=== PATIENT | female | born 1945 | race Caucasian/White ===

== ENCOUNTER 2023-04-17 07:01 | Day surgery (SDC) | payer MEDICARE, OTHER, SELFPAY ==
[2023-04-17] VITALS (16 sets, daily range): BP systolic 91–149; BP diastolic 48–84; BMI 37.7
[2023-04-17] MEDS: SODIUM BICARBONATE 1150 MEQ IV ×2 (08:00→11:23)
[2023-04-17 08:01] LABS: Glucose - Point of Care 134 mg/dl (70-99)
--- NOTE | 2023-04-17 10:35 | ITS.CL.CATH ---
Underwriting Assistant - Catheterization
Cardiac Catheterization
Procedure Report:
LEFT HEART CATHETERIZATION
Date of Procedure: April 17, 2023
Referring: Dr. Luther Mercedes
PROCEDURES:
1. Coronary angiography
INDICATION: This is a 77-year-old female with a remote history of peripheral vascular disease and left to right femoral-femoral bypass and left iliac stent in July 1998. She has a history of CKD 3B and follows with Dr. Mckeon and has a history of
contrast associated nephropathy. Her cardiac followup in the past has been spotty. She had an echocardiogram in 07/2021 notable for a mean AV gradient of 21 mmHg, an echocardiogram 08/2022 with a mean AV gradient of 40 mmHg and an echocardiogram on
02/05/2023 notable for a mean AV gradient of 54 mmHg with Pvel of 4.27 m/sec. She has mitral annular calcification with an associated mean gradient of 5 mmhg. She had previously denied any symptoms but now reports the onset of exertional dyspnea
especially when climbing stairs. OF NOTE: Patient very very very anxious during diagnostic procedure
ACCESS: Right radial artery, 6 Fr. sheath. I COULD NOT CROSS INNOMINATE WITH 6FR, 5 FR, OR 4 FR CATHETER. Arterial access was then changed to the left radial artery, 6 Fr. sheath.
HEMODYNAMICS : (mmHg)
AO (s/d) : 101/51
CORONARY FINDINGS
DOMINANCE: Right
LEFT MAIN: Normal
LEFT ANTERIOR DESCENDING: The LAD arises normally from the left main and runs in the anterior interventricular groove. The LAD appears free of significant obstructive atherosclerotic disease
CIRCUMFLEX: The circumflex is a medium caliber nondominant vessel. OM1 arises proximally from the circumflex and has a 50% proximal stenosis. The circumflex then gives rise to a moderate-sized bifurcating OM 2 and terminates in a small distal OM 3
RIGHT CORONARY ARTERY: 100% occluded at its origin with well-developed [id number] collaterals filling the entire RCA back to its origin
VENTRICULOGRAPHY: Not done
RADIATION SUMMARY: Fluoro Time (min): 8.2, Dose (mGy): 524.5, DAP (Gy.cm2) : 43.6
Closure Device: TR band, right and left radial artery
CONCLUSIONS
1. 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
2. Known severe aortic stenosis
RECOMMENDATIONS
1. Continue IV hydration post procedure with outpatient renal profile in 3 to 5 days
2. Will discuss at upcoming valve clinic meeting
Copy to: Dr. Luther Mercedes, Dr. Garry Mckeon, Dr. Feliberto Muñiz
--- NOTE | 2023-04-17 13:44 | CONSULT.STRU ---
Addendum entered and electronically signed by LYNN Boucher 05/25/23 09:47:
Patient reviewed by the heart team at the SDM meeting. Patient with occluded right iliac artery and occluded fem-fem bypass. Patient has left iliac artery stent but size appears adequate for the TAVR sheath. Team decided cornel attempt transfemoral
access for TAVR but if any resistance may need to abort procedure and then discuss surgical options. Dr. Mercedes to discuss case with our Vascular surgeons to have on back up for any vascular complications that could occur. If able to successfully
advance sheath the plan will be to place a 23mm S3 valve via left TF access and left radial access for the pigtail catheter. Will review this discussion with the patient and schedule.
Addendum entered and electronically signed by LYNN Garcia 04/20/23 14:28:
Reviewed Ms. Catrer with the heart team in the SDM meeting. The team reviewed previous CT scans and recent cardiac catheterization. D/t patient's history of PVD, the calcium burden noted on CT scan limiting access for TAVR, and CKD, the team is
recommending surgery. Patient has a CT surgical consult with Dr. Mcnally on 04/24.
Original Note:
Consultation
-
Date/Time Consultation Requested: 04/17/2023 1100
Date/Time Consultation Performed: 04/17/2023 1200
Requesting Provider: Dr. Mercedes
Performing Provider: LYNN Boucher
Reason for Consultation: Aortic Stenosis/TAVR consult
Patient History
Physicians
Family Physician: Tio Vyas
Outpatient Hammer Runner: Luther Mercedes
Primary Hammer Runner: Luther Mercedes
History of Present Illness
Patient is a 77 y/o female with a past medical history notable for aortic stenosis, PVD s/p L-R fem-fem bypass and left iliac stent 07/1998. She has known CKD 3b, hypertension, hyperlipidemia and DM. She had sporadic followup at times in the past.
She was found to have on her echocardiogram. Her AV gradients have progressed rapidly on the last several noninvasive studies. Most recent echocardiogram is notable for PG/M/54, BAYRON 0.5-06, EF 60-65%, trace AI, dense MAC, mild mitral
stenosis, mild to moderate MR. She states she has palpitations/heart racing and LIM when going up a flight of stairs. She denies chest pain, PND, orthopnea. 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 She follows with
[facility] for chronic cough and Dr. Cole for her CKD. She has not followed up with vascular surgery. She does not currently have a dentist but was told she will need dental clearance prior to proceeding with treatment of her aortic stenosis.
Pathophysiology of aortic stenosis reviewed with the patient. Treatment options of both TAVR and SAVR reviewed. TAVR evaluation process including follow up BMP, CT scan split with IV hydration, CT surgery consult,Dental Clearance and heart team
discussion reviewed with patient. Discussed that the heart team will review all history and studies and then recommend best treatment plan based on that. Copy of TAVR education booklet provided with contact information. Allowed for and answered
questions.
Past Medical History
Past Medical History: COPD (mild), LIM, HTN, Hypercholesterolemia, NIDDM, SHANTHI (refuses CPAP), Renal Insufficiency (CKD Stage 3B), Valvular Disease (Aortic stenosis, Mitral stenosis, MR) and Other (Peripheral Vascular disease, Iron deficiency,
Anemia, h/o colitis, arthritis, chronic back pain)
Past Surgical History
Past Surgical History: Appendectomy, Hysterectomy and Other (Ventral hernia repair, carpel tunnel surgery, cataract surgery, left to right fem-fem bypass with L-BERNY stenting, back injections)
Dental History
Has not seen a dentist in years. Aware she will need to see a dentis prior to TAVR. Will call with contact once she knows who she will se.
Family History
Mother: Cause of (68yo, Melanoma)
Father: at Age (70yo, [place])
Social History
Alcohol: None
Drug: None
Tobacco: Former Smoker (Quit 2003)
Personal:
Living: With Spouse
Employment: Employed ([place] items at [employer] and on [employer])
Allergies
Allergy/AdvReac Type Severity Reaction Status Date / Time
No Known Allergies Allergy Unverified 07/24/21 09:09
Home Medications
Medication Instructions Recorded Confirmed Type
cholecalciferol (vitamin D3) 25 2,000 units PO DAILY Supplement 04/09/16 04/17/23 History
mcg (1,000 unit) tablet
sitagliptin phosphate 100 mg 100 mg PO DAILY Diabetes 04/09/16 04/17/23 History
tablet (Januvia)
hydrochlorothiazide 25 mg tablet 12.5 mg PO DAILY Fluid 08/07/19 04/17/23 History
retention/Swelling
amlodipine 5 mg tablet 5 mg PO DAILY 07/26/21 04/17/23 Rx
pyridoxine (vitamin B6) 50 mg 250 mg PO DAILY Supplement 07/26/21 04/17/23 History
tablet
acetaminophen 325 mg tablet 650 mg PO Q6H PRN Pain 04/17/23 04/17/23 History
(Tylenol)
aspirin 81 mg tablet,delayed 81 mg PO DAILY #1 tab 04/17/23 Rx
release
atorvastatin 20 mg tablet 40 mg PO DAILY 04/17/23 04/17/23 History
ferrous sulfate 325 mg (65 mg 325 mg PO DAILY 04/17/23 04/17/23 History
iron) tablet
montelukast 10 mg tablet 10 mg PO DAILY 04/17/23 04/17/23 History
STS%
STS %: 6.12% AVR, 6.65% AVR/CABG
Review of Systems
-
History Source: Patient
General: Reports No Symptoms
HEENT: Reports No Symptoms
Respiratory: Reports LIM (going up stairs) and Cough (chronic, dry, non-productive- follows with Dr. Covington)
Cardiac: Reports Palpitations (when going up stairs and she becomes SOB)
Abdomen/GI: Reports No Symptoms
: Reports No Symptoms
Musculoskeletal: Reports Joint Pain (arthritis, right ankle)
Skin: Reports No Symptoms
Neurological: Reports No Symptoms
Vascular: Reports PVD (h/o fem-fem bypass with L-BERNY stent)
Physical Exam
Vital Signs
Temp 97.4 F 04/17/23 10:45
Temp route: Temporal 04/17/23 10:45
Pulse 76 04/17/23 13:00
Resp Rate 15 04/17/23 13:00
Blood pressure 135/84 04/17/23 12:41
Blood pressure extremity used: Right calf 04/17/23 10:45
Position: Lying 04/17/23 10:45
MAP (cuff-Russ Monitor) 96 04/17/23 12:41
SaO2 87 04/17/23 13:00
Nasal Cannula flow liters per minute 2 04/17/23 10:45
Oxygen Mode of Delivery Room air 04/17/23 07:15
Can the patient verbally communicate their pain? Yes 04/17/23 12:04
Actual Weight 93.4 kg 04/17/23 07:30
Body Mass Index (BMI) 37.7 04/17/23 07:30
Labs
04/10/2023 [facility]
BUN/Creatinine: 41/1.88
GFR: 27
Albumin: 4.3
H/H: 9.9/27.8
Diagnostic Studies
02/05/2023 Echocardiogram:
CONCLUSIONS
�Normal left ventricular chamber size. Normal left ventricular systolic
�function. Left ventricular ejection fraction is 60-65% by visual assessment.
�Normal regional wall motion. Mild concentric left ventricular hypertrophy.
�Diastolic function indeterminate.
�Normal right ventricular size and function.
�Dense posterior mitral annular calcification. Mild mitral stenosis with a mean
�gradient across the valve of 5 mmHg. Mild to moderate, eccentric mitral
�regurgitation.
�Thickened aortic valve with restricted leaflet motion. Severe aortic stenosis.
�Peak/mean gradients across the valve are 92/54 mmHg.� Using a LVOT diameter of
�2.0 cm, the BAYRON calculates to be 0.5 - 0.6 cm2. Dimensionless index 0.2. Trace
�aortic regurgitation.
�Mild tricuspid regurgitation. Estimated pulmonary artery pressure of 27 mmHg,
�assuming a right atrial pressure of 3 mmHg.
�When compared to prior study 09/01/22, there is severe aortic stenosis with
�interval decrease in aortic valve area (0.5-0.6 from 0.8) and increased aortic
�valve gradients (54 from 40 mmHg).
�
�Indications:
�Aortic stenosis
�
�Rhythm: � � � � � � � � Bigeminy
�
�Portable Study: � � � � No
�
�Technical Quality:� � � Technically difficult but
�� � � � � � � � � � � � adequate for interpretation
�
�Contrast: � � None
�
�BP:� � 152 � / � 70
�
�PROCEDURE
�A complete Transthoracic Echocardiogram was performed utilizing two-dimensional
�evaluation with color flow and spectral Doppler analysis.
�
�FINDINGS
�
�Left Ventricle
�Normal left ventricular chamber size. Normal left ventricular systolic
�function. Left ventricular ejection fraction is 60-65% by visual assessment.
�Normal regional wall motion. Mild concentric left ventricular hypertrophy.
�Diastolic function indeterminate.
�
�Right Ventricle
�Normal right ventricular size and function.
�
�Left Atrium
�Mildly dilated left atrium. Indexed LA volume is mildly abnormal (35-41 mL/m2).
�
�Right Atrium
�Normal right atrial size.
�
�Mitral Valve
�Dense posterior mitral annular calcification. Mild mitral stenosis with a mean
�gradient across the valve of 5 mmHg. Mild to moderate, eccentric mitral
�regurgitation.
�
�Aortic Valve
�Thickened aortic valve with restricted leaflet motion. Severe aortic stenosis.
�Peak/mean gradients across the valve are 92/54 mmHg.� Using a LVOT diameter of
�2.0 cm, the BAYRON calculates to be 0.5 - 0.6 cm2. Dimensionless index 0.2. Trace
�aortic regurgitation.
�
�Tricuspid Valve
�Tricuspid valve opens normally. Mild tricuspid regurgitation. Estimated
�pulmonary artery pressure of 27 mmHg, assuming a right atrial pressure of 3
�mmHg.
�
�Pulmonic Valve
�Structurally normal pulmonic valve without significant stenosis or
�regurgitation.
�
�Pericardium\\Pleura
�Normal pericardium without effusion. Fat pad present.
�
�Aorta
�The aortic root is of normal size.
�
�Other Finding
�The IVC is of normal size and demonstrates normal respiratory variation.
�Interatrial septum is intact with no evidence of shunting by color flow
�Doppler. No intracardiac mass or thrombus formation seen.
�
�MEASUREMENTS� (Male / Female) Normal Values
�2D ECHO
�LV Diastolic Diameter PLAX� � � � 5.1 cm� � � � � � � � 4.2 - 5.9 / 3.9 - 5.3 cm
�LV Systolic Diameter PLAX � � � � 2.6 cm� � � � � � � �
�IVS Diastolic Thickness � � � � � 1.1 cm� � � � � � � � 0.6 - 1.0 / 0.6 - 0.9 cm
�LVPW Diastolic Thickness� � � � � 1.2 cm� � � � � � � � 0.6 - 1.0 / 0.6 - 0.9 cm
�LV Relative Wall Thickness� � � � 0.5 � � � � � � � � �
�LVOT Diameter � � � � � � � � � � 2.0 cm� � � � � � � �
�Aortic Root Diameter� � � � � � � 3.1 cm� � � � � � � �
�LV Ejection Fraction MOD BP � � � 59.4 %� � � � � � � � >= 55� %
�LV Cardiac Index MOD BP � � � � � 2308.4 cm3/min
�LA Area 4C View � � � � � � � � � 21.4 cm2� � � � � � � <= 20 cm2
�LA Length 4C� � � � � � � � � � � 5.6 cm� � � � � � � �
�LA Volume � � � � � � � � � � � � 64.0 cm3� � � � � � � 18 - 58 / 22 - 52 cm3
�LA Volume Index � � � � � � � � � 37.1 cm3/m2 � � � � � 16 - 34 cm3/m2
�Ascending Aorta Diameter� � � � � 3.5 cm� � � � � � � �
�
�M-MODE
�LA Systolic Diameter MM � � � � � 5.2 cm� � � � � � � �
�AV Cusp Separation MM � � � � � � 1.2 cm� � � � � � � �
�
�DOPPLER
�AV Peak Velocity� � � � � � � � � 427.0 cm/s� � � � � �
�AV Peak Gradient� � � � � � � � � 72.9 mmHg � � � � � �
�AV Mean Gradient� � � � � � � � � 44.0 mmHg � � � � � �
�AV Velocity Time Integral � � � � 104.7 cm� � � � � � �
�LVOT Peak Velocity� � � � � � � � 95.0 cm/s � � � � � �
�LVOT Peak Gradient� � � � � � � � 3.6 mmHg� � � � � � �
�LVOT Velocity Time Integral � � � 26.2 cm � � � � � � �
�LVOT Cardiac Index� � � � � � � � 3333.4 cm3/min\\m2 � �
�AV Area Cont Eq vti � � � � � � � 0.8 cm2 � � � � � � �
�AV Area Cont Eq pk� � � � � � � � 0.7 cm2 � � � � � � �
�MV Peak Velocity� � � � � � � � � 204.0 cm/s� � � � � �
�MV Peak Gradient� � � � � � � � � 16.6 mmHg � � � � � �
�MV Mean Velocity� � � � � � � � � 103.0 cm/s� � � � � �
�MV Mean Gradient� � � � � � � � � 5.0 mmHg� � � � � � �
�MR Peak Velocity� � � � � � � � � 598.0 cm/s� � � � � �
�MR Peak Gradient� � � � � � � � � 143.0 mmHg� � � � � �
�Mitral E Point Velocity � � � � � 113.0 cm/s� � � � � �
�Mitral A Point Velocity � � � � � 139.0 cm/s� � � � � �
�Mitral E to A Ratio � � � � � � � 0.8 � � � � � � � � �
�LV E' Lateral Velocity� � � � � � 5.0 cm/s� � � � � � �
�Mitral E to LV E' Lateral Ratio � 22.7� � � � � � � � �
�LV E' Septal Velocity � � � � � � 5.5 cm/s� � � � � � �
�Mitral E to LV E' Septal Ratio� � 20.7� � � � � � � � �
�TR Peak Velocity� � � � � � � � � 246.0 cm/s� � � � � �
�TR Peak Gradient� � � � � � � � � 24.2 mmHg � � � � � �
04/17/2023 Cardiac Catheterization:
Ostial occluded RCA
Exam
General: Well Developed, Well Nourished and No Apparent Distress
HEENT: Moist Mucous Membranes
Neck: Trachea Midline
Respiratory: Clear
Cardiac: S1/S2, Regular Rhythm and Murmur (Grade III/)
GI: Soft, Non Tender and Normal Bowel Sounds
Rectal: Deferred by Provider
Skin: Warm and Dry
Neuro: AO x 3 and No Motor Deficits
Psych: Calm
Assessment / Plan
-
1. Severe Aortic Stenosis
-Continue outpatient TAVR vs SAVR evaluation
-BMP 04/20/2023 at [facility]
-CT surgery consult with Dr. Mcnally 04/24/2023
-Follow Up BMP after TAVR CT and schedule next scan accordingly
-May require alternate access if proceeding with TAVR because of PAD history
-Dental clearance
-Heart Team discussion
2. CKD-Stage 3B
-Follows with Dr. Mckeon
-Trend BMP
-Stage CT scan for TAVR evaluation
-Hydrate before and after CT scan with sodium bicarb
- Hold HCTZ day of contrast administration
3. CAD
-Continue ASA/Statin
-Heart healthy diet
-Review cath at heart team meeting and discuss if CABG/AVR vs TAVR
Data Reviewed
-
EKG: Report Reviewed by me (03/19/2023, SR 91BPM, no conduction issues noted)
Stacker And Sorter Operator: Discussed with Physician
Echo: Report Reviewed by me (PG/M/54, BAYRON .5-0.6, EF: 60-65%)
Labs: Labs Reviewed by me (Will trend BUN/Creat/GFR. Current GFR 27)
Total Time Spent with Patient (in minutes): 45
== END 2023-04-17 16:25 | disposition home or self-care (01) ==
LOC: CATH 07:01
PROVIDERS: ATTENDING PHYSICIAN Internal Medicine Interventional Cardiology; FAMILY PHYSICIAN Family Medicine
DX: I25.10 Atherosclerotic heart disease of native coronary artery without angina pectoris (principal); I25.82 Chronic total occlusion of coronary artery; I08.3 Combined rheumatic disorders of mitral, aortic and tricuspid valves; I13.10 Hypertensive heart and chronic kidney disease without heart failure, with stage 1 through stage 4 chronic kidney disease, or unspecified chronic kidney disease; N18.32 Chronic kidney disease, stage 3b; E78.00 Pure hypercholesterolemia, unspecified; J44.9 Chronic obstructive pulmonary disease, unspecified; E11.22 Type 2 diabetes mellitus with diabetic chronic kidney disease; G47.33 Obstructive sleep apnea (adult) (pediatric); Z87.891 Personal history of nicotine dependence; Z79.82 Long term (current) use of aspirin; Z79.84 Long term (current) use of oral hypoglycemic drugs
CPT/HCPCS: 82962; 93454; C1769; C1894; Q9967

== ENCOUNTER 2023-05-22 07:40 | Outpatient (RCR) | payer MEDICARE, OTHER, SELFPAY ==
[2023-05-08 09:22] VITALS: BP 130/75
[2023-05-08] MEDS: SODIUM BICARBONATE 1150 MEQ IV (09:24)
[2023-05-22 07:55] VITALS: BP 167/55
[2023-05-22] MEDS: SODIUM BICARBONATE 1150 MEQ IV (08:03)
== END 2023-06-03 23:59 | disposition home or self-care (01) ==
LOC: OID 07:40
PROVIDERS: ATTENDING PHYSICIAN Nurse Practitioner Adult Health; FAMILY PHYSICIAN Family Medicine
DX: I35.0 Nonrheumatic aortic (valve) stenosis (principal); Z92.89 Personal history of other medical treatment; I73.9 Peripheral vascular disease, unspecified
CPT/HCPCS: 74174; 75572; 96360; 96361; 96365; 96366; Q9967

== ENCOUNTER → 2023-05-22 09:10 | Outpatient (REF) | payer MEDICARE, OTHER, SELFPAY | LOC: RAD 09:10 | PROVIDERS: ATTENDING PHYSICIAN Nurse Practitioner Adult Health; FAMILY PHYSICIAN Family Medicine | DX: I35.0 Nonrheumatic aortic (valve) stenosis (principal) | CPT/HCPCS: 74174; 93005; Q9967 ==

== ENCOUNTER 2023-05-31 05:30 | Inpatient (IN) | payer MEDICARE, OTHER, SELFPAY ==
[2023-05-28 12:11] VITALS: BMI 38.6
[2023-05-28 13:17] LABS: % Basophils 0.5 % (0-2); % Eosinophils 2.3 % (0-6); % Immature Granulocytes 0.7 % (0-0.5); % Monocytes 8.8 % (1.7-9.3); % Neutrophils 77.7 % (42.2-75.2); Absolute Basophils 0.1 10^3/uL (0-0.2); Absolute Eosinophils 0.2 10^3/uL (0-0.7); Absolute Immature Granulocytes 0.1 10^3/uL (0-0.05); Absolute Lymphocytes 0.9 10^3/uL (1.2-3.4); Absolute Monocytes 0.8 10^3/uL (0.1-0.6); Absolute Neutrophils 7.3 10^3/uL (1.4-6.5); Hematocrit 29.6 % (37.0-47.0); Hemoglobin 9.9 g/dL (12.0-16.0); Mean Corp Hgb Conc. 33.4 g/dL (33.0-37.0); Mean Corpuscular Volume 89.7 fL (81.0-99.0); Mean Platelet Volume 10.2 fL (7.4-10.4); Nucleated Red Blood Cells % 0 %; Platelet Count 211 10^3/uL (130-400); Red Cell Dist. Width 12.7 % (11.5-14.5); White Blood Cell Count 9.4 10^3/uL (4.8-10.8)
[2023-05-28 13:21] LABS: INR 0.91; PT 12.1 Sec (11.4-14.6)
[2023-05-28 13:22] LABS: APTT 30.7 Sec (23.4-35.0)
[2023-05-28 13:26] LABS: ALT (SGPT) 29 U/L (0-35); AST (SGOT) 32 U/L (14-36); Albumin 4.7 g/dl (3.5-5.0); Alkaline Phosphatase 94 U/L (38-126); Blood Urea Nitrogen 32 mg/dl (7-17); Calcium 9.8 mg/dl (8.4-10.2); Carbon Dioxide 21 mmol/L (22-30); Chloride 102 mmol/L (98-107); Estimated Creatinine Clearance 31 ml/min; Glucose 141 mg/dl (70-99); Potassium 4.6 mmol/L (3.5-5.1); Sodium 137 mmol/L (135-145); Total Bilirubin 1.1 mg/dl (0.2-1.3); Total Protein 7.5 g/dl (6.3-8.2); eGFR 33.01
[2023-05-28 13:27] LABS: Urine Albumin 1+ (Neg - Trace); Urine Bilirubin Negative (Negative); Urine Character Clear (Clear); Urine Color Yellow; Urine Glucose Negative (Negative); Urine Ketone Negative (Negative); Urine Leukocyte Negative (Negative); Urine Nitrite Negative (Negative); Urine Occult Blood Negative (Negative); Urine Specific Gravity 1.015 (<1.030); Urine Urobilinogen Negative (Neg - 1+)
[2023-05-28 13:33] LABS: Urine Bacteria Few (Negative); Urine Red Blood Cell 0-2 /HPF (0-2); Urine White Cell 0-2 /HPF (0-5)
[2023-05-28 13:41] LABS: NT-proBNP 1100 pg/ml
--- NOTE | 2023-05-28 14:24 | CM ---
Met with and Mrs. aCrter in [facility]. She states prior to admission she resides with her spouse in a bi-level home with five steps to enter. She states she has five steps to get to the main level of her home where her bedroom/full bathroom. She
states she does not have any DME in the home. She states she does not have any DME in the home. She states her spouse will be home to assist in her care if needed. The discharge plan is to return home with her spouse and a home visit by the
Cardiothoracic Transitional Care Nurse when medically stable.
We reviewed pre-op and post-op routines. We reviewed the soap instructions. She has the soap, written instructions and the TAVR Educational Booklet. We reviewed restrictions including driving and lifting restrictions. We also discussed a home
visit by the Cardiothoracic Transitional Care Nurse. She is agreeable to a home visit. The plan is for TAVR on May
[2023-05-28 14:50] LABS: Glycohemoglobin (HgbA1c) 6.9 % (4.0-5.6)
--- NOTE | 2023-05-28 15:02 | HPS.HSE ---
Family Physician
-
Family Physician: Tio Vyas
Chief Complaint
-
Palpitations/heart racing, LIM
History of Present Illness
Mrs. Carter is a very pleasant anxious 77 y/o female with a past medical history notable for aortic stenosis, PVD s/p L-R fem-fem bypass and left iliac stent 07/1998. She has known CKD 3b, hypertension, hyperlipidemia and DM. She had sporadic
followup at times in the past. She was found to have on her echocardiogram. Her AV gradients have progressed rapidly on the last several noninvasive studies.� Most recent echocardiogram is significant for PG/M/54, BAYRON 0.5-06, EF 60-65%,
trace AI, dense MAC, mild mitral stenosis, mild to moderate MR. She states she has palpitations/heart racing and LIM when going up a flight of stairs. She denies chest pain, PND, orthopnea. 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
[employer]. She follows with Dr. Covington for chronic cough and Dr. Mckeon for her CKD. She has not followed up with vascular surgery. Ms. Carter has been evaluated and extensively discussed with the heart team. Patient with occluded right iliac artery
and occluded fem-fem bypass.� Patient has left iliac artery stent but size appears adequate for the TAVR sheath. Team decided will attempt transfemoral access for TAVR but if any resistance is met, the team may need to abort procedure and discuss
surgical option. Dr. Mercedes discussed case with our Vascular surgeons to have on back up for any vascular complications that could occur. If able to successfully advance sheath the plan will be to place a 23mm S3 valve via left TF access and left
radial access for the pigtail catheter.�
Assessed patient in preadmission testing and confirmed medication list, aspirin and trelegy to be taken GRAIN [employer]OR. She will arrive to the [facility] at 0530. Reviewed the risks of the procedure including stroke, ppm, vascular injury and the plan if
injury occurs or if there is a need to abort. Informed Mrs. Carter that she will receive a phone call on Sunday (05/29) to confirm time and location of arrival. Allowed for and answered questions.
Medical History
Past Medical History
Past Medical History: Reports CAD, COPD, HTN, NIDDM, Valvular Disease (Aortic stenosis, mitral stenosis) and Other (PAD, HLD, peripheral neuropathy, iron deficiency, h/o lower GIB, anemia, CKD4, colitis, oculomotor nerve palsy (right eye))
Past Surgical History: Reports Appendectomy and Other (iliac stent, ventral hernia repair, carpal tunnel surgery, cataract surgery)
Social History
Tobacco: Former Smoker
Alcohol: None
Drug: None
Personal:
Living: With Family
Employment: Employed (works at [employer]
Family History
Family History: CAD
Allergies / Home Medications
Allergies reflects when Allergies were last updated in [facility].
NKDA
Home Medications with original date entered in [facility]
Allergy/Medication List:
Acetaminophen 325 MG Tablet 1 tablet as needed Orally every 4 hrs
Amlodipine Besylate 5 MG Tablet 1 tablet Orally Once a day
Aspirin 81 MG Tablet Chewable 1 tablet Orally Once a day
Atorvastatin Calcium 20 MG Tablet 1 tablet Orally Once a day
hydroCHLOROthiazide 25 MG Tablet 1/2 tablet Orally Once a day
Iron 325 (65 Fe) MG Tablet 1 tablet Orally Once a day
Januvia(SITagliptin Phosphate) 100 MG Tablet 1 tablet Orally Once a day
Singulair(Montelukast Sodium) 10 MG Tablet 1 tablet Orally Once a day
Trelegy Ellipta(Acvqenqetwc-Fhgpxrzbm-Tpczdk) 200-62.5-25 MCG/ACT Aerosol Powder Breath Activated 1 puff Inhalation Once a day
Triamcinolone Acetonide 0.1 % Cream 1 application Externally Twice a day, Notes: PRN
Vitamin B6 250 MG Tablet 1 tablet Orally Once a day
Vitamin D3 2000 UNIT Capsule 1 capsule Orally Once a day
Review of Systems
-
History Source: Patient
Constitutional: Reports No Symptoms
EENT: Reports Other (dry cough)
Respiratory: Reports Cough (dry, nonproductive)
Cardiac: Reports Palpitations
Abdomen/GI: Reports No Symptoms
: Reports No Symptoms
Skin: Reports No Symptoms
Neurological: Reports No Symptoms
Hematologic/Lymphatic: Reports No Symptoms
Psych: Reports Anxiety
Physical Exam
Physical Exam
General: Well Developed, Well Nourished and No Apparent Distress
HEENT: NormoCephalic
Respiratory: Clear
Cardiac: Regular Rhythm and Murmur (II/ HEENA)
Breast: Deferred by me
GI: Non Tender and Non Distended
Rectal: Deferred by Provider
Genito-urinary: Deferred by me
Skin: Warm and Dry
Neuro: Awake, Alert, Oriented and AO x 3
Psych: Anxious
Laboratory Results
-
05/28/23 12:42
05/28/23 12:42
Laboratory Results
PT 12.1 Sec (11.4-14.6) 05/28/23 12:42
INR 0.91 05/28/23 12:42
APTT 30.7 Sec (23.4-35.0) 05/28/23 12:42
Total Bilirubin 1.1 mg/dl (0.2-1.3) 05/28/23 12:42
AST 32 U/L (14-36) 05/28/23 12:42
ALT 29 U/L (0-35) 05/28/23 12:42
Alkaline Phosphatase 94 U/L (38-126) 05/28/23 12:42
Data Reviewed
-
Diagnostic Radiology: Report Reviewed by me (CXR, NAD)
CT Scan: Report Reviewed by me and Discussed with Physician (Reviewed with the structural heart team)
Medical Tests (Nuc Med, Echo, EKG etc): Report Reviewed by me and Discussed with Physician (echocardiogram reviewed with the structural heart team )
Lab Data: Labs Reviewed by me
Old Records: Reviewed (office notes )
Impression/Plan
-
IMPRESSION/PLAN:
Aortic stenosis
TF TAVR planned utilizing a 23 mm S3, with plan to abort if sheath and catheter do not advance.--Will have PRBC on hold for procedure.
Continue aspirin
POD#1/#30 echocardiogram
Cardiac rehab consult
Lab Results
-
Lab Results
WBC 9.4 10^3/uL (4.8-10.8) 05/28/23 12:42
RBC 3.30 10^6/uL (4.20-5.40) L 05/28/23 12:42
Hgb 9.9 g/dL (12.0-16.0) L 05/28/23 12:42
Hct 29.6 % (37.0-47.0) L 05/28/23 12:42
MCV 89.7 fL (81.0-99.0) 05/28/23 12:42
MCH 30.0 pg (27.0-31.0) 05/28/23 12:42
MCHC 33.4 g/dL (33.0-37.0) 05/28/23 12:42
RDW 12.7 % (11.5-14.5) 05/28/23 12:42
Plt Count 211 10^3/uL (130-400) 05/28/23 12:42
MPV 10.2 fL (7.4-10.4) 05/28/23 12:42
Abs Immat Gran (auto) 0.1 10^3/uL (0-0.05) H 05/28/23 12:42
Absolute Neuts (auto) 7.3 10^3/uL (1.4-6.5) H 05/28/23 12:42
Absolute Lymphs (auto) 0.9 10^3/uL (1.2-3.4) L 05/28/23 12:42
Absolute Monos (auto) 0.8 10^3/uL (0.1-0.6) H 05/28/23 12:42
Absolute Eos (auto) 0.2 10^3/uL (0-0.7) 05/28/23 12:42
Absolute Basos (auto) 0.1 10^3/uL (0-0.2) 05/28/23 12:42
Immature Gran % 0.7 % (0-0.5) H 05/28/23 12:42
Neutrophils % 77.7 % (42.2-75.2) H 05/28/23 12:42
Lymphocytes % 10.0 % (20.5-51.1) L 05/28/23 12:42
Monocytes % 8.8 % (1.7-9.3) 05/28/23 12:42
Eosinophils % 2.3 % (0-6) 05/28/23 12:42
Basophils % 0.5 % (0-2) 05/28/23 12:42
Nucleated RBC % 0 % 05/28/23 12:42
PT 12.1 Sec (11.4-14.6) 05/28/23 12:42
INR 0.91 05/28/23 12:42
APTT 30.7 Sec (23.4-35.0) 05/28/23 12:42
Sodium 137 mmol/L (135-145) 05/28/23 12:42
Potassium 4.6 mmol/L (3.5-5.1) 05/28/23 12:42
Chloride 102 mmol/L (98-107) 05/28/23 12:42
Carbon Dioxide 21 mmol/L (22-30) L 05/28/23 12:42
BUN 32 mg/dl (7-17) H 05/28/23 12:42
Creatinine 1.6 mg/dL (0.6-1.0) H 05/28/23 12:42
Estimated Creat Clear 31 ml/min 05/28/23 12:42
eGFR 33.01 05/28/23 12:42
Glucose 141 mg/dl (70-99) H 05/28/23 12:42
Hemoglobin A1c 6.9 % (4.0-5.6) H 05/28/23 12:42
Calcium 9.8 mg/dl (8.4-10.2) 05/28/23 12:42
Total Bilirubin 1.1 mg/dl (0.2-1.3) 05/28/23 12:42
Direct Bilirubin 0.0 mg/dl (0.0-0.4) 05/28/23 12:42
AST 32 U/L (14-36) 05/28/23 12:42
ALT 29 U/L (0-35) 05/28/23 12:42
Alkaline Phosphatase 94 U/L (38-126) 05/28/23 12:42
Bpc-A-Zcpppifriop Pept 1100 pg/ml 05/28/23 12:42
Total Protein 7.5 g/dl (6.3-8.2) 05/28/23 12:42
Albumin 4.7 g/dl (3.5-5.0) 05/28/23 12:42
Urine Color Yellow 05/28/23 13:10
Urine Clarity Clear (Clear) 05/28/23 13:10
Urine pH 5.0 (5.0-9.0) 05/28/23 13:10
Ur Specific [place] 1.015 (<1.030) 05/28/23 13:10
Urine Ketones Negative (Negative) 05/28/23 13:10
Ur Occult Blood Reflex Negative (Negative) 05/28/23 13:10
Urine Nitrite (Reflex) Negative (Negative) 05/28/23 13:10
Urine Bilirubin Negative (Negative) 05/28/23 13:10
Urine Urobilinogen Negative (Neg - 1+) 05/28/23 13:10
Leukocyte Esterase Rfl Negative (Negative) 05/28/23 13:10
Urine RBC 0-2 /HPF (0-2) 05/28/23 13:10
Urine WBC (Reflex) 0-2 /HPF (0-5) 05/28/23 13:10
Ur Squamous Epith Cells 3-5 /LPF (Few) 05/28/23 13:10
Urine Bacteria (Reflex) Few (Negative) A 05/28/23 13:10
Urine Glucose Negative (Negative) 05/28/23 13:10
Urine Albumin (Reflex) 1+ (Neg - Trace) A 05/28/23 13:10
Blood Type O POS 05/28/23 12:42
Blood Type Confirm O POS 05/28/23 12:42
Antibody Screen Negative (Negative) 05/28/23 12:42
Cardiac Catheterization Lab
Angioplasty
Procedure Report:
.� Coronary angiography
INDICATION: This is a 77-year-old female with a remote history of peripheral vascular disease and left to right femoral-femoral bypass and left iliac stent in July 1998.� She has a history of CKD 3B and follows with Dr. Mckeon and has a history of
contrast associated nephropathy.� Her cardiac followup in the past has been spotty.� She had an echocardiogram in 07/2021 notable for a mean AV gradient of 21 mmHg, an echocardiogram 08/2022 with a mean AV gradient of 40 mmHg and an echocardiogram on
02/05/2023 notable for a mean AV gradient of 54 mmHg with Pvel of 4.27 m/sec.� She has mitral annular calcification with an associated mean gradient of 5 mmhg.� She had previously denied any symptoms but now reports the onset of exertional dyspnea
especially when climbing stairs. OF NOTE: Patient very very very anxious during diagnostic procedure
ACCESS: Right radial artery, 6 Fr. sheath.� I COULD NOT CROSS INNOMINATE WITH 6FR, 5 FR, OR 4 FR CATHETER. Arterial access was then changed to the left radial artery, 6 Fr. sheath. �
HEMODYNAMICS : (mmHg)
AO (s/d) : 101/51
CORONARY FINDINGS
DOMINANCE: Right
LEFT MAIN: Normal
LEFT ANTERIOR DESCENDING: The LAD arises normally from the left main and runs in the anterior interventricular groove.� The LAD appears free of significant obstructive atherosclerotic disease
CIRCUMFLEX: The circumflex is a medium caliber nondominant vessel.� OM1 arises proximally from the circumflex and has a 50% proximal stenosis.� The circumflex then gives rise to a moderate-sized bifurcating OM 2 and terminates in a small distal OM 3
RIGHT CORONARY ARTERY: 100% occluded at its origin with well-developed gyng-je-yzbtl collaterals filling the entire RCA back to its origin
VENTRICULOGRAPHY: Not done
RADIATION SUMMARY:� Fluoro Time (min): 8.2, Dose (mGy): 524.5, DAP (Gy.cm2) : 43.6
Closure Device: TR band, right and left radial artery
CONCLUSIONS
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
2.� Known severe aortic stenosis
RECOMMENDATIONS
1.� Continue IV hydration post procedure with outpatient renal profile in 3 to 5 days
2.� Will discuss at upcoming valve clinic meeting
[2023-05-31] VITALS (34 sets, daily range): BP systolic 101–166; BP diastolic 50–91; BMI 38.9
--- NOTE | 2023-05-31 06:08 | W.CVOR.SURPR ---
CVOR Surgeon Immed Pre Op
-
I have examined this patient prior to performance of the scheduled procedure.
The patient's condition is unchanged from the time of the dictated/written History and
Physical and the patient is able to undergo the scheduled procedure.
We reviewed the risks associated with her TAVR procedure including a higher than average risk for a vascular complication given her previous surgeries. She understands and wises to proceed.
Full rescue.
--- NOTE | 2023-05-31 06:29 | PTCARENOTE ---
Pt prepped for TAVR, clipped and washed with CHG wipes. IV placed in left antecub. Pt seen by Dr Yeager ,permit signed. Sinus on telemetry
[2023-05-31 06:48] LABS: Glucose - Point of Care 166 mg/dl (70-99)
--- NOTE | 2023-05-31 08:00 | PTCARENOTE ---
Pt AAO x3, GCS 15. Pt transferred to the cardiac chemical processing laborer before 0715.
[2023-05-31 09:27] LABS: ACT-LR - POC 321 Seconds (116-155)
[2023-05-31 09:49] LABS: ACT-LR - POC 211 Seconds (116-155)
--- NOTE | 2023-05-31 10:24 | CM ---
Reviewed chart. Mrs. Carter is in the operating room today. Prior to admission she resides with her spouse in a bi-level home with five steps to enter. She states she has five steps to get to the main living area where her bedroom/full bathroom
are located. Prior to admission she was independent with ambulation and adls. She does not have any DME the home. Her spouse will be home to assist in her care if needed. Medical work-up in progress. The discharge plan is to return home with her
spouse and a home visit by the Cardiothoracic Transitional Care Nurse when medically stable.
[2023-05-31 10:52] LABS: ACT-LR - POC 89 Seconds (116-155)
--- NOTE | 2023-05-31 11:38 | W.PN.CT.SURG ---
CT Surgery Operative Note
-
OPERATIVE REPORT
Preoperative Diagnosis: Severe aortic valve stenosis, symptomatic
Postoperative Diagnosis: Same
Procedure(s) Performed: Left trans femoral TAVR with a 23 mm Pacheco TAVR valve, left common femoral artery cutdown and endarterectomy (See Dr. Sarkar's operative report for details)
Date of Procedure: 05/31/2023
Comorbidities:
1. Severe aortic stenosis, symptomatic
2. Severe peripheral vascular disease with history of femorofemoral bypass with occlusion of the bypass graft
3. Baseline CKD
4. Patient with nerve palsy
5. GI bleed
6. Hypertension
7. Hyperlipidemia
8. Acute on chronic congestive heart failure with LVEDP elevated pre-TAVR
Cardiac Surgeon: Rubens Yeager MD, MS
Clinical Fellow: Luther Mercedes MD
Vascular Surgeon: Chino Sarkar MD
Anesthesia: Conscious Sedation and Local Analgesia
EBL: 500-750cc (2+ PRBCS were given for her vascular complication)
Products: none
Implant: 23mm PACHECO TAVR Valve
Indication(s) for Procedures: 77-year-old female with symptomatic severe aortic stenosis. CT-TAVR protocol revealed acceptable anatomy for TAVR access and implantation. She is aware that she is at risk for vascular complications given her
significant PAD and prior vascular surgery. She accepted these risks and so we moved forward. She was discussed at our MDT meeting and seen independently by both cardiac surgery and cardiology/interventional cardiology and shared decision making was
to move forward with TAVR.
TAVR gradient (mmHg): 7mmHg
Heparin Dose: 8,000units
Protamine Dose: 0mg
Final Valve Positionin/20
Findings: Preoperative LVEF was 60% and was 60% following TAVR without inotropic support. Function was overall normal without regional wall motion abnormalities or dyskinesia. The aortic valve was well seated without detectable PVL and mean gradient
across the new valve was 6mmHg. After rapid pacing and deployment of the TAVR valve the patient returned to sinus while on the laborer gold leaf table and required no further pacing episodes. Upon removal of the device delivery sheath, there was significant
amount of bleeding from the left common femoral artery even with insertion of a 10 Omani sheath. A third Perclose was attempted to be deployed however was unable to catch appropriately and misfired. A larger sheath was then inserted for
temporary hemostasis and vascular surgery was consulted intraoperatively. Dr. Sarkar then inserted a 18 Omani dry seal sheath with good hemostatic effect. We then performed a cutdown of the left common femoral artery, please see his operative
report for details on that portion of the procedure. From a cardiovascular standpoint, the valve was well-seated and had no significant PVL with appropriate leaflet motion and no pericardial effusion. Her LVEDP was found to be 25mmHg pre-TAVR,
indicating significant volume overload and acute on chronic congestive heart failure.
Access:
1. Device -left common femoral artery, perclose x 2 failed and ultimately required cutdown, endarterectomy, and patch repair
2. Pigtail -left radial artery with 2 attempts, TR band placed distally with repeat attempt on the proximal radial with successful placement of a 6 Omani sheath.
3. Transvenous Pacer -right common femoral vein
Description of Procedure: The patient was taken to the laborer gold leaf. Their identity and procedure to be performed were verified and they were positioned supine on the laborer gold leaf table. Induction via conscious sedation. The patient was then prepped and
draped from chin to thigh in a sterile fashion. A preoperative time-out was performed with all members of the team present. Arterial and venous access was performed using fluoroscopy and ultrasound guidance with micropuncture and Seldinger
technique. Of note it was very difficult to visualize above her previous femoral-femoral bypass. Two perclose devices were used on the device side followed by access to the aorta with a stiff wire to facilitate E-sheath placement after dilating
several times with sequentially upsizing dilators. Heparin was given. A stiff straight wire and AL-1 catheter was used to cross the aortic valve. The stiff wire was exchanged for an extra stiff coiled tip wire. The valve was prepped and mounted on
to the device carrier. An ACT of >250 was achieved. We verified x 3 that the valve was mounted in the correct orientation with the skirt of the valve directed toward the tip of the device carrier. We advanced the device into the descending thoracic
aorta where the valve was them mounted onto the balloon under fluoroscopy. The device was flexed and advanced over the arch into the root and positioned across the aortic valve. Contrast fluoroscopy was used to visualize the prosthesis across the
valve and to guide positioning. A pigtail catheter in the RCC as used as a guide. We aimed to have the bottom of the device marker at the annular hinge point. The device sheath was pulled back. We performed a quick pre-deployment time out. The pacer
was turned on and had capture. Blood pressure fell accordingly, angiography was done to verify the intended final placement and the valve was deployed with 5 seconds of rapid pacing to nominal volume. The balloon was deflated and the pacer was
turned off. We had recovery of vitals. The device carrier was unflexed and positioned back in the descending thoracic aorta. A transthoracic echocardiogram was performed. The device was removed from the E-Sheath maintaining wire access followed by
removal of the E-sheath as we cinched down the perclose devices. There was not acceptable hemostasis. The pigtail was withdrawn into the descending/abdominal and completion aortogram with runoff run-off angiography was performed, there flow distally
but we had significant bleeding from the device side, event with a 8Fr sheath re-inserted. We then exchanged this for a 10Fr sheath with slightly better hemostasis. Vascular surgery was then consulted and required cut down after placement of an 18Fr
dryseal for temporary hemostasis. At this point, Dr. Sarkar took over the procedure, please see his portion of the operative report for details.
I, Dr. Rubens Yeager, was present, scrubbed for, and performed all critical elements of the TAVR procedure.
Rubens Yeager MD
Cardiothoracic Surgeon
[facility]
This operative dictation was created using the [employer] dictation system. Please excuse any grammatical, typographical, or 'sound alike' errors
[2023-05-31 11:42] LABS: B.E. - POC -10.8 mmol/L; Glucose - POC 207 mg/dl (65-99); HCO3 - POC 16 mmol/L (21-29); Hematocrit - POC 32 % PCV (37-47); Hemodilution- POC Yes; Hemoglobin Calculated - POC 10.9; Ionized Calcium - POC 1.12 mmol/L (1.12-1.27); O2 Saturation %Calculated-POC 95.5 5 (92-96); PCO2 - POC 40 mmHg (35-45); PO2 - POC 93 mmHg (80-100); Potassium - POC 4.8 mmol/L (3.6-5.0); Sodium - POC 140 mmol/L (135-145); pH - POC 7.22 (7.35-7.45)
--- NOTE | 2023-05-31 12:21 | W.PN.UPDATE ---
Update Note
Progress Note Update
Reviewed Mrs. Carter with the heart team in the preTAVR SDM meeting and confirmed a 23 mm S3 via left transfemoral access. The team discussed access and potential complications d/t previous surgeries. This was also reviewed with patient prior to
TAVR and Mrs. Carter verbalized understanding and agreed to proceed. She will resume aspirin post TAVR. LVEDP 24mmHg. #23mm (serial# [id number]) successfully deployed via left transfemoral access. Post implant MG 7mmHg. Left common femoral artery
required cutdown and endarterectomy (See Dr. Sarkar's operative report for details).
--- NOTE | 2023-05-31 12:46 | OR.RPT ---
Operative Report
Operative Report
Date of Operation: 05/31/2023
Pre Op Diagnosis: Left groin bleeding following percutaneous TAVR
Post Op Diagnosis: Left groin bleeding following percutaneous TAVR
Procedure:
1.) Cutdown and exposure of left common femoral artery
2.) Left common femoral artery endarterectomy with patch angioplasty using bovine pericardium
Surgeon: Chino Sarkar III, MD
Anesthesia: General
Complications: None
Estimated Blood Loss: 200 cc
History and Indications for Procedure: I was called to the room emergently for assistance with left groin bleeding following percutaneous TAVR. The valve deployment had been completed. Unable to achieve successful hemostasis with closure devices.
Patient has a history of a chronically occluded fem-fem bypass and occluded right iliac system.
Procedure in Detail: Upon entering the room the patient had wire access in the left groin. Attempts at hemostasis with closure devices had failed. Manual pressure over the puncture site was performed. An 11 Tuvaluan sheath was placed over the
existing wire with some improvement in hemostasis but certainly not complete. Quickly, the wire was exchanged out for a short floppy tip Amplatz wire and this was positioned in the aorta. An 18 Tuvaluan dry seal sheath was then placed through the
left femoral artery access and hemostasis was achieved. Under more controlled circumstances with hemostasis I then made a vertical incision in the left groin centered on the puncture site. Electrocautery and sharp dissection were used to expose
the common femoral artery. The groin dissection was extremely difficult due to the patient's morbid obesity and prior groin surgery from the fem-fem bypass. The prosthetic fem-fem bypass was identified. The campo common femoral artery was
identified. Proximal control was obtained around the distal external iliac artery under the inguinal ligament. Using sharp dissection I then identified the proximal superficial femoral artery and proximal profunda femoral artery and encircled both
with vessel loops for distal control.
Systemic heparin was administered. The distal vessel loops were secured. The 18 Tuvaluan sheath was slowly retracted over the Amplatz wire as the proximal vessel loop was secured. Hemostasis was achieved with this approach. The wire was then
removed. The proximal loop was replaced with a C-clamp. Between Marcy clamps I then sharply divided the chronically occluded fem-fem bypass. Dissection around the common femoral artery was completed once this graft was divided. The arteriotomy
was identified and was just inferior to the fem-fem bypass anastomosis. The femoral anastomosis of the fem-fem bypass was identified. Using sharp scissors I opened the arteriotomy proximally, through the femoral anastomosis and into the campo
proximal common femoral artery. The Pro-glide sutures were identified and removed sharply. All of the graft material was removed sharply from the common femoral artery. There was significant disruption of plaque and intima within the common
femoral artery. An endarterectomy was performed in the standard fashion using a [place] elevator. The distal plaque feathered nicely at the femoral bifurcation with no distal intimal flap identified. Brisk backbleeding from the superficial femoral
artery and profunda femoral artery was identified. The proximal end of the plaque was pulled free of the distal external iliac artery with forceps. The endarterectomy plane was irrigated with heparinized saline. Any loose fronds of tissue were
removed. A patch angioplasty was then performed with a precut piece of bovine pericardium and using a running 6-0 Prolene suture. Prior to the completion of the anastomosis the artery was allowed to forward bleed and backbleed temporarily. The
area under the anastomosis was flushed with heparinized saline to remove any thrombus or debris. The anastomosis was completed. The proximal clamp and the distal vessel loops were released. The suture line was closely inspected for hemostasis
which was achieved. There was a strong pulse in the common femoral artery, proximal superficial femoral artery and profunda femoral artery. Robust Doppler signals were also confirmed.
Satisfied with this result we then concluded the procedure. Protamine was administered. Hemostasis was achieved within the wound bed. The wound was irrigated with copious amounts of warm saline solution. The distal portion of the fem-fem bypass
was pulled into the left groin wound for several centimeters, transected further distally and allowed to retract into the subcutaneous tissue towards the right groin such that it was not immediately within the left groin wound.
The left groin wound was then closed in multiple layers. A sterile ALIN dressing was then applied. The patient tolerated this portion of the procedure well. The case was then turned back over to the cardiac surgery and cardiology teams. The
patient had an easily palpable left DP pulse and a robust PT Doppler signal at the conclusion of the case.
Signed:
Chino Sarkar III, MD
[facility] Vascular Surgery
[phone] (cell)
[2023-05-31 13:11] LABS: ACT-LR - POC 129 Seconds (116-155)
[2023-05-31 13:16] LABS: Glucose - Point of Care 144 mg/dl (70-99)
--- NOTE | 2023-05-31 13:23 | ITS.CL.CATH ---
B[employer] - Catheterization
Cardiac Catheterization
Procedure Report:
TRANSCATHETER AORTIC VALVE REPLACEMENT
Date of Procedure: May 31, 2023
Referring: Dr. Luther Mercedes
Operators: Drs. Luther Mercedes and Rubens Yeager
PROCEDURE PERFORMED:
1. Successful placement of 23 mm Pacheco John S3 aortic valve via left common femoral approach.
PREPROCEDURE NYHA CLASS: 3
DESCRIPTION OF PROCEDURE: The patient was referred for assessment of severe symptomatic aortic stenosis and following a comprehensive evaluation it was felt that transcatheter aortic valve replacement (TAVR) would be the most appropriate treatment.
Informed consent was obtained prior to the procedure. A 'time-out' was called and the procedural plan was verbally confirmed by anesthesia, surgery, perfusion, and laboratory sample carrier staff.
Arterial was obtained in the left common femoral artery using ultrasound guidance. The right common iliac artery is known to be 100% occluded and the [id number] femoral-femoral bypass graft was 100% occluded. Access was obtained in the left
common femoral artery just below the bypass graft conduit and a 4 Fr. sheath was inserted. The access site appeared acceptable for preclosure for Perclose device x 2. Access was then obtained in the left radial artery and a 6 Fr. sheath was
inserted. A 6 Fr. sheath was then inserted in the right common femoral vein.
An angled pigtail catheter was then advanced from the left radial artery and positioned in the proximal ascending thoracic aorta / right coronary cusp. Angiography was performed to define a coplanar angle facilitating positioning and delivery of
the TAVR device. RAO2 / CRA10 appear to be a reasonable coplanar angle.
A transvenous pacemaker wire was then advanced from the right common femoral vein to the right ventricular apex where excellent pacing thresholds were obtained.
An AL-1 catheter was then advanced over a J-wire into the proximal descending thoracic aorta. The J-wire was removed and exchanged for an Amplatz Super-Stiff wire. The Super Stiff wire facilitated dilation of the arteriotomy tract with a 14 Syrian
then 16 Syrian dilator. A 14 Syrian Pacheco eSheath was then advanced over the Super Stiff wire. The Pacheco 14 Fr E-sheath was positioned in the distal thoracic aorta. Heparin 8,000 units were administered. The ACT was monitored throughout the
procedure. An AL-1 diagnostic catheter was advanced over the Super Stiff wire which was allowed to drift across the aortic arch. The AL1 catheter was positioned just above the aortic valve. The Super Stiff wire was removed and a Soft Tip straight
wire was used to cross the stenotic aortic leaflets. The Soft Tip straight wire was followed to the mid left ventricle by the AL1 catheter. The LVEDP was measured at 24 mmHg. An Amplatz Extra Stiff wire with a generous curved tip was advanced the
to the left ventricular apex.
A 23 mm Pacheco JOHN S3 valve was brought to the table and the orientation of the valve on the balloon delivery system was confirmed by all operators. The JOHN S3 valve was advanced through the eSheath where a significant amount of resistance
was encountered when the JOHN valve entered the remotely placed left common iliac stent. We knew resistance would be encountered and Propofol was added to the sheath as the valve was introduced. Fortunately, the Pacheco delivery system and stent
were able to cross the left common iliac stent segment and was advanced to the proximal descending thoracic aorta where the stent was centered on the delivery balloon. The 23 mm JOHN valve was advanced over the Extra Stiff wire and crossed the
aortic leaflets. The pusher was retracted. Angiography confirmed appropriate positioning of the valve and rapid pacing was undertaken. The 23 mm JOHN S3 valve was deployed during rapid pacing. Valve deployment was uneventful.
The post valve deployment transthoracic echocardiogram was notable for no significant aortic insufficiency with a mean aortic valve gradient of 7 mmHg.
The Pacheco valve delivery system was removed. The Pacheco eSheath was removed and the Perclose knots were advanced to the arteriotomy site. Unfortunately, the Perclose knots did NOT achieve hemostasis with persistent significant bleeding from
the arteriotomy site. We attempted to deploy another Perclose device which did not improve bleeding from the arteriotomy site and the knots from this delivery actually pulled through the arteriotomy and were removed. An 8, 10, and 11 Syrian sheath
were inserted to the arteriotomy site. Reasonable hemostasis was obtained with placement of the 11 Syrian arteriotomy sheath. At this point a vascular surgical consult was requested. Ultimately, the decision was made to perform a surgical cutdown
in order to obtain hemostasis. The surgical cutdown was difficult given her history of prior femoral-femoral bypass surgery. Please refer to Dr. Sarkar's complete operative report for full details.
A TR band was utilized for hemostasis of the left radial artery. The temporary pacemaker was removed and the 6 Fr venous sheath was removed.
Fluoro Time: 19.7 min, Dose: 775 mGy, DAP : 102 Gy.cm2
CONCLUSIONS:
1. Severe symptomatic aortic stenosis. Successful deployment of a 23 mm JOHN S3 valve with a post valve deployment gradient of 7 mmHg
2. Unsuccessful closure of the left common femoral arteriotomy site with bleeding that required redo surgical cutdown and repair of the arteriotomy site.
Copy to: Dr. Luther Mercedes
--- NOTE | 2023-05-31 13:25 | PTCARENOTE ---
Received pt form [employer] via bed; Pt sleepy and arousable; NSR with PACs on monitor and VSS; Left lower Radial TR Band in place, Left Upper Radial TR band in place, Right Femoral Veinous Sheath with KVO in place; PIVx1 patent; ACT resulted 129 and
CVPA updated; all post angio checks preformed see flow sheet for details; lungs diminished; hypoactive bowel sounds; Sarkar Catheter draining clear yellow urine; pulses present by Doppler; Left Femoral surgical site C/D/I and ALIN drain C/D/I; see
nursing documentation for further details.
--- NOTE | 2023-05-31 14:21 | PTCARENOTE ---
Per Enterostomal Nurse RN 5 cc of air remained in upper left TR band; total of 6 cc of air removed since pt came to CVICU; TR band removed and dressing applied; Second TR band on lower Left wrist remains in place and air to removed starting 1600.
[2023-05-31] MEDS: SINGULAIR PO (14:26)
[2023-05-31] MEDS: LIPITOR PO (14:26)
--- NOTE | 2023-05-31 14:33 | PTCARENOTE ---
Multiple Cut Off Saw Operator RNs at bedside; Right femoral groin sheath removed and pressure applied by team.
[2023-05-31] MEDS: ANCEF 10 IV ×2 (14:41)
[2023-05-31] MEDS: NOVOLOG FLEXPEN-LOW RESISTANCE SC (14:42)
[2023-05-31] MEDS: LASIX 40 MG IV (15:36)
--- NOTE | 2023-05-31 16:31 | W.PN.UPDATE ---
Update Note
Progress Note Update
Attending addendum: Came to see and evaluate patient.
She is 'confused' about events today asking 'what happened'. I explained that surgery was required for her left leg because of bleeding complications at the arteriotomy site. She asked me to come closer then stated I only see 'half of your face'.
Exam:
Gen: Patient is awake and seems appropriate
Neuro: Speech is fluent. Smile symmetric. Peripheral vision normal on left. The right visual field cut to midline. Motor strength is normal in UE.
PLAN:
-Will discuss with neurology
-Stat CT scan: Discussed with Dr. Dennis. Will order stat CT, CT angio head and neck, and CT perfusion.
-Neurology Consult
--- NOTE | 2023-05-31 16:32 | SUR.OPER ---
Dr Mercedes and family at bedside; pt states, 'I can not see out of my one eye'; NIHSS initiated and resulted 1 due to visual field; Dr Mercedes updated CV [employer] SUPERINTENDENT Zhou Kimble, CT of head ordered and patient transported to CAT Scan; NSR with PACs on monitor and
VSS.
[2023-05-31 16:54] LABS: Hematocrit 32.7 % (37.0-47.0); Hemoglobin 11.4 g/dL (12.0-16.0); Mean Corp Hgb Conc. 34.9 g/dL (33.0-37.0); Mean Corpuscular Hgb 31.1 pg (27.0-31.0); Mean Corpuscular Volume 89.3 fL (81.0-99.0); Mean Platelet Volume 10.4 fL (7.4-10.4); Platelet Count 162 10^3/uL (130-400); Red Blood Cell Count 3.66 10^6/uL (4.20-5.40); Red Cell Dist. Width 13.7 % (11.5-14.5); White Blood Cell Count 17.1 10^3/uL (4.8-10.8)
--- NOTE | 2023-05-31 17:35 | PTCARENOTE ---
Pt returned from CAT scan with RN; Shereen STEPHENSON WORKFORCE PLANNER in to see patient; NIHSS resulted 1; NSR on monitor and VSS; assessment unchanged from last assessment.
[2023-05-31] MEDS: LOW STRENGTH ASPIRIN 81 MG PO (17:43)
[2023-05-31] MEDS: TYLENOL 650 MG PO ×2 (17:45→22:10)
[2023-05-31 18:20] LABS: Glucose - Point of Care 212 mg/dl (70-99)
[2023-05-31] MEDS: NOVOLOG FLEXPEN-LOW RESISTANCE 2 UNITS SC (18:42)
--- NOTE | 2023-05-31 20:30 | PTCARENOTE ---
Assumed care of pt from valerio RN. Pt AAOx3. NIHSS resulted 1 due to impaired visual field - see worklist. Pt following commands appropriately, SELF, strength 5/5 bilateral upper/lower extremities. Bilateral radial pulses palpable. Left pedal pulse
palpable. Right pedal pulse present w/ Doppler. No edema noted. Pt on 6 L NC. POX 95%. Coughing and deep breathing encouraged. Abdomen soft/nontender. Hypoactive BS. Temperature sensing Sarkar catheter CDI and draining clear/yellow urine. All
surgical and angio sites stable - see worklist for full post angiography/cath flowsheet. Left AC PIV CDI and flushes. Patient on bedrest. Family at bedside. Questions encouraged and answered. Call heart within reach.
--- NOTE | 2023-05-31 20:33 | CON.NEURO4 ---
Consultation - Neurology 4
-
CONSULTING PHYSICIAN: Jeannie
REFERRING PHYSICIAN: Mago
DICTATED BY: Jeannie
DATE/TIME OF REQUEST: 05/31/23
DATE/TIME OF CONSULTATION: 05/31/23 at 545pm
Reason for Consultation: stroke alert--stat consult
History of Present Illness:
77 year-old female with a history of R oculomotor nerve palsy who earlier today had a TAVR followed by left groin bleeding requiring a cutdown and exposure of the L common femoral artery and left common femoral artery endarterectomy with patch
angioplasty with last known normal prior to TAVR this AM who was noted to have R sided bilateral visual field cut around 4pm today upon waking up after coming out of surgery. No other stroke like symptoms. She has a history of R oculomotor nerve
palsy (for which I saw her in 08/2019 as an inpatient) from which she completely recovered. Etiology of this at the time was unclear--she was unable to get MRIs done due to claustrophobia--but her daughters at the bedside this evening state that they
believe this was due to stroke. I do not see stroke listed in her outpatient past medical history and could not find records of any outpatient open MRI brain.
From discharge summary from 08/2019:
'Third right eye nerve palsy. The patient was sent by
Ophthalmology for CT angiogram which was indeed done and was
negative for any aneurysm. The patient, however, was also seen in
consultation by Neurology because the head and neck CTA was
abnormal. No CT angiographic evidence for aneurysm was noted.
However, there was a rounded mass within the sella with relatively
increased density, stable on exams dating back to 2006. Most likely
represented a complex cystic mass but based on stability, this would
seem to be the unlikely cause. However, further imaging evaluation
is desired, consider MRI of the brain and pituitary. She also had
atherosclerotic disease involving the carotid bulbs and proximal
internal carotid arteries bilaterally. She had calcification of the
cavernous internal carotid arteries bilaterally with narrowing
slightly greater on the right compared to the left and narrowing of
the proximal right cavernous ICA appears to be in the range of 50%.
The patient does not wish to pursue an MRI which is recommended for
followup as an inpatient due to her being claustrophobic. The
patient is agreeable to have an outpatient MRI done.'
Taken from patient records:
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
that has since resolved per the patient's daughters at bedside--I do not see stroke listed in outpatient PMH, pituitary macroadenoma
Past Surgical History: Appendectomy, iliac stent, ventral hernia repair, carpal tunnel surgery, cataract surgery
Social History
Tobacco: Former Smoker
Alcohol: None
Drug: None
Personal:
Living: With Family
Employment: Employed
Family History
Family History: CAD
Home Medications Table - record
�Medication �Instructions �Recorded �Confirmed
cholecalciferol (vitamin D3) 25 2,000 units PO DAILY Supplement 04/09/16 05/25/23
mcg (1,000 unit) tablet
sitagliptin phosphate 100 mg 100 mg PO DAILY Diabetes 04/09/16 05/25/23
tablet (Januvia)
hydrochlorothiazide 25 mg tablet 12.5 mg PO DAILY Fluid 08/07/19 05/25/23
retention/Swelling
amlodipine 5 mg tablet 5 mg PO DAILY 07/26/21 05/25/23
pyridoxine (vitamin B6) 50 mg 250 mg PO DAILY Supplement 07/26/21 05/25/23
tablet
acetaminophen 325 mg tablet 650 mg PO Q6H PRN Pain 04/17/23 05/25/23
(Tylenol)
aspirin 81 mg tablet,delayed 81 mg PO DAILY #1 tab 04/17/23 05/25/23
release
atorvastatin 20 mg tablet 40 mg PO DAILY 04/17/23 05/25/23
ferrous sulfate 325 mg (65 mg 325 mg PO DAILY 04/17/23 05/25/23
iron) tablet
montelukast 10 mg tablet 10 mg PO DAILY 04/17/23 05/25/23
fluticasone fur. 100 mcg-umeclid 1 inh inhalation DAILY 05/22/23 05/25/23
62.5 mcg-vilant 25 mcg
inhalat.powder (Trelegy Ellipta)
Allergies
No Known Allergies Allergy (Unverified 05/25/23 15:59)
Review of Symptoms:
Patient denies any fever, headache, chest pain, shortness of breath, GI or symptoms.
�Per the HPI.�All systems are reviewed negative except above.
Vital Signs
Temp Pulse Resp BP Pulse Ox
98.0 F 80 20 146/62 95
05/31/23 18:19 05/31/23 18:15 05/31/23 18:19 05/31/23 18:00 05/31/23 18:19
Lab Results
05/31/23 16:39
05/28/23 12:42
PT 12.1 Sec (11.4-14.6) 05/28/23 12:42
INR 0.91 05/28/23 12:42
APTT 30.7 Sec (23.4-35.0) 05/28/23 12:42
Sodium 137 mmol/L (135-145) 05/28/23 12:42
Potassium 4.6 mmol/L (3.5-5.1) 05/28/23 12:42
BUN 32 mg/dl (7-17) H 05/28/23 12:42
Glucose 141 mg/dl (70-99) H 05/28/23 12:42
Calcium 9.8 mg/dl (8.4-10.2) 05/28/23 12:42
Gsf-X-Tgeytfgwtwh Pept 1100 pg/ml 05/28/23 12:42
Physical Exam:
The patient is afebrile, heart sounds S1 and S2 are regular and chest is clear to auscultation bilaterally.
NIH Stroke Scale
I performed the NIH stroke scale on the patient on 05/31/23. The patient scored 1 points on the NIH stroke scale assessment, which were assigned as follows: 1 for partial hemianopsia
Neurologic Examination:
The patient is awake, alert and oriented x 3.She is able to follow complex commands (up to a 4 step command) and answer questions appropriately. There is no aphasia or dysarthria. On cranial nerve assessment, pupils are 3 mm bilateral, round and
reactive to light and accommodation. She had a R homonymous hemianopsia, although the R eye RLQ had some partial vision at times. Extraocular movements are intact. Facial sensations are intact and bilaterally symmetrical, there is no facial
asymmetry. Hearing is intact bilaterally to normal conversation volume. Tongue palate and uvula are midline. Sternocleidomastoid strengths are full bilaterally. Motor strengths are 5/5 bilateral upper and lower extremities on medical research
Grafton scale. There is no drift or involuntary movement noted. Deep tendon reflexes are 1+ bilateral upper and lower extremities and Babinski is absent bilaterally. Sensations of pain, touch, temperature and vibration are intact and bilaterally
symmetrical. There was no extinction noted on double simultaneous stimulation. Coordination is intact by finger to nose bilaterally.
Neuro Imaging:
HCT:
'1). 3 cm subacute nonhemorrhagic infarct in the superior aspect of the left cerebellar hemisphere
2). Stable pituitary macroadenoma.'
CTA head/neck:
'
1). There is moderately enlarged findings coarse calcific atherosclerotic plaque at the aortic arch extending into the origins of the brachiocephalic vessels associated with approximately 60% stenosis of the left common carotid artery at its origin
and less than 50% stenosis at the origins of the innominate, right common carotid and left subclavian arteries
2). There is no evidence of intracranial branch occlusion or significant intracranial stenosis
Specifically, normal flow is demonstrated in both posterior cerebral arteries and the proximal portions of both superior cerebellar arteries
3). Partially calcific atherosclerotic plaque at the right carotid bifurcation is associated with approximately 80% stenosis of the right internal carotid artery at its origin
4) partially calcific atherosclerotic plaque at the left carotid bifurcation is associated with approximately 50% stenosis of the left internal carotid artery at its origin
5). Partially calcific atherosclerotic plaque at the cavernous and supraclinoid portions of both internal carotid arteries is associated with near 70% stenosis bilateral'
CTP:no evidence of stroke
Impression:
KENDALL FINLEY is a 77 year old F who woke up with R homonymous hemianopsia (which appeared incomplete in the right eye with the RUQ being more impaired than the RLQ where she reports partial vision) after a TAVR earlier today. Her presentation is
concerning for a L [employer] IN[employer] SPECIALIST or MCA distribution stroke. However, HCT was concerning for a 3 cm subacute nonhemorrhagic infarct in the superior aspect of the left cerebellar hemisphere. CTA was negative for clot. Could also have recrudesence of prior
stroke reported by daughters although details of this are unclear. She was admitted here in 2019 for oculomotor nerve palsy but left before full workup was done for outpatient open MRI as she could not tolerate closed MRI due to claustrophobia.
Reviewed of outpatient records showed no clear mention of stroke in her PMH and I could not find records of an outpatient open MRI brain.
Patient has the following risk factors for their symptoms: ?prior stroke, several vascular risk factors, age
IV Tenecteplase/IAT candidacy: not a candidate for TNK given surgery earlier today with bleeding after, no IAT as no clot seen on stat CTA
Recommendations:
-check MRI brain without contrast to evaluate for stroke when able--when admitted here in 2019 she left prior to MRI as she could not tolerate a closed study
-CTA reviewed, CTP reviewed
-BP goal per CT surgery and cardiology; would avoid episodes of hypotension
-on ASA 81mg daily; would consider DAPT when able to be cleared for this--defer to primary team; did have significant bleeding after surgery today.
- Check hemoglobin A1C. Goal is normoglycemia.
-already on atorvastatin
-PT/OT/ST evaluations
- DVT prophylaxis
-continue neurochecks
-need outpatient ophtho records, outpatient open MRI brain records if she had this done
Critical care time 90 mins
Discussed patient care with: Dr. Mercedes, CVICU staff, patient and multiple family members at bedside
[2023-05-31] MEDS: ANCEF 5 IV (21:01)
[2023-05-31] MEDS: XANAX 0.25 MG PO (23:23)
[2023-05-31 23:28] LABS: Glucose - Point of Care 262 mg/dl (70-99)
[2023-05-31] MEDS: NOVOLOG FLEXPEN 3 UNITS SC (23:37)
[2023-06-01] VITALS (17 sets, daily range): BP systolic 128–151; BP diastolic 43–128; PULSE 83–84; O2SAT 94; BMI 39.6
--- NOTE | 2023-06-01 00:42 | PTCARENOTE ---
Pt reassessed. Pt AAOx3, SELF, and following commands appropriately. NIHSS resulted 1 due to impaired visual field - see worklist. SR on monitor. HR 70s. BP stable. Pt on 4 L NC. POX 94%. Occasional cough. Sarkar catheter CDI and draining clear/yellow
urine. All surgical and angio sites remain stable - see worklist for full post angiography/cath flowsheet. Blood glucose 262 - PA aware - insulin coverage ordered, see MAR. Pt c/o being uncomfortable laying on back and worries about sleeping - see
MAR for medication administration. Call heart within reach.
[2023-06-01] MEDS: MELATONIN 5 MG PO (01:01)
[2023-06-01] MEDS: ANCEF 5 IV ×2 (04:12→12:23)
[2023-06-01 04:37] LABS: Hematocrit 28.4 % (37.0-47.0); Hemoglobin 9.9 g/dL (12.0-16.0); Mean Corp Hgb Conc. 34.9 g/dL (33.0-37.0); Mean Corpuscular Hgb 31.8 pg (27.0-31.0); Mean Corpuscular Volume 91.3 fL (81.0-99.0); Mean Platelet Volume 10.3 fL (7.4-10.4); Platelet Count 149 10^3/uL (130-400); Red Blood Cell Count 3.11 10^6/uL (4.20-5.40); Red Cell Dist. Width 13.9 % (11.5-14.5); White Blood Cell Count 16.5 10^3/uL (4.8-10.8)
--- NOTE | 2023-06-01 04:56 | W.PN.CT ---
Today's Communication / Plan
-
-pod #1
-no significant issues overnight. Pt was anxious and unable to sleep initially, worried about dying, denied back or groin pain or headache- required Xanax and Melatonin
-A&O x4. No further neurologic symptoms except R hemianopsia
-b/l groins are stable. L groin with Julisa system, palpable L DP, warm LEs b/l
-nsr overnight. No tonie or pauses
-Cr 2.1 today (Cr 1.6 preop)
-Hg 9.9 (11.4 on 05/30 and 9.9 preop)
-diuresed well with 40 iv Lasix 05/30 (UO 7707/2019)
-vit C, iv iron for anemia (chronic)
-Echo today
-current meds (ASA, Lipitor, HCTZ, ISS). Norvasc is held to avoid hypotension d/t neurologic event. Noted Neuro recommendation for DAPT
-appreciate Vascular, Neurology, and Cardiology input
-encourage IS
Assessment / Plan
-
- Severe symptomatic - s/p Left trans femoral TAVR with a 23 mm Pacheco TAVR valve on 05/31/23, pod #1
- s/p left common femoral artery cutdown and endarterectomy with patch angioplasty using bovine pericardium and placement of Julisa system by Dr. Sarkar on 05/31/23
- Preop LVEF was 60% and was 60% following TAVR without inotropic support, no regional wall motion abnormalities or dyskinesia. The aortic valve was well seated without detectable PVL with mean gradient 6mmHg.
- Acute on chronic diastolic congestive heart failure with elevated LVEDP 25 mmHg pre-TAVR- diuresed with 40 mg iv Lasix post TAVR
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 Unable to do closed MRI d/t claustrophobia
- Pituitary macroadenoma
- Severe peripheral vascular disease with history of femoro-femoral bypass with occlusion of the bypass graft and hx of iliac stent
- B/l Carotid bruit
- Mitral valve stenosis
- Baseline CKD 3b (Cr 1.6 preop)
- Hx DUSTIN 07/2021 (Cr 2.3)
- DM II with peripheral neuropathy
- Hypertension
- Hyperlipidemia
- Class 2 obesity (BMI 39)
- Chronic NSAID use for chronic back pain/ arthritis
- Chronic LIM, paroxysmal nocturnal dyspnea
- Hx lower GI bleed.
- Hx colitis
- Chronic anemia
- Iron deficiency
- COPD
- Appendectomy/ hysterectomy/ ventral hernia repair
- Carpal tunnel
- Cataract surgery
- Former smoker
- Acute on chronic postop blood loss anemia d/t vascular complication - s/p 2 pRBCs intraop
- Acute postop R homonymous hemianopsia (which appeared incomplete in the right eye with the RUQ being more impaired than the RLQ where she reports partial vision)- evaluated by Neurology
-HCT was concerning for a 3 cm subacute nonhemorrhagic infarct in the superior aspect of the left cerebellar hemisphere. CTA was negative for clot.
- Acute postop anxiety- required Xanax
- DUSTIN on CKD
Head CT:
'1). 3 cm subacute nonhemorrhagic infarct in the superior aspect of the left cerebellar hemisphere
2). Stable pituitary macroadenoma.'
CTA head/neck:
'
1). There is moderately enlarged findings coarse calcific atherosclerotic plaque at the aortic arch extending into the origins of the brachiocephalic vessels associated with approximately 60% stenosis of the left common carotid artery at its origin
and less than 50% stenosis at the origins of the innominate, right common carotid and left subclavian arteries
2). There is no evidence of intracranial branch occlusion or significant intracranial stenosis
Specifically, normal flow is demonstrated in both posterior cerebral arteries and the proximal portions of both superior cerebellar arteries
3). Partially calcific atherosclerotic plaque at the right carotid bifurcation is associated with approximately 80% stenosis of the right internal carotid artery at its origin
4) partially calcific atherosclerotic plaque at the left carotid bifurcation is associated with approximately 50% stenosis of the left internal carotid artery at its origin
5). Partially calcific atherosclerotic plaque at the cavernous and supraclinoid portions of both internal carotid arteries is associated with near 70% stenosis bilateral'
CTP:no evidence of stroke
Discussed patient care with: Nursing and Care Team
Subjective
-
Date of Service: June 01, 2023
Objective Data
-
PT 12.1 Sec (11.4-14.6) 05/28/23 12:42
INR 0.91 05/28/23 12:42
APTT 30.7 Sec (23.4-35.0) 05/28/23 12:42
Vital Signs
Vital Signs
Temp Pulse Resp BP Pulse Ox
98.6 F 80 21 144/58 93
06/01/23 00:00 06/01/23 00:15 06/01/23 00:15 06/01/23 00:00 06/01/23 00:15
CT Intake/Output/Weight
05/31/23 05/31/23 06/01/23
06:59 18:59 06:59
Output Total 1245 / 1845 600 / 1845
Balance -1245 / -1845 -600 / -1845
SaO2: 93
Physical Exam
-
General: Awake (A&O x4)
Cardiovascular: Regular rate & rhythm, Murmur (03/10 syst @ lsb) and No Rub
Respiratory: Decreased Breath Sounds
Incision: Other (groins are cdi, soft, no hematoma b/l. S/p L groin cutdown - slightly tender, cdi, julisa system is on)
Extremities: Other (trace edema b/l. L foot: 2+ palpable DP and 1+ PT. R foot: Dopplerable DP and 1+ PT)
Neuro: A&O x4, no facial asymmetry, tongue midline, speech is fluid, no aphasia, sensory intact and strength 5/5 b/l upper and lower extremities although pt mentions having numbness of both LE (had DM with peripheral neuropathy). Has R hemianopsia
Data Reviewed
-
Lab Results: Results Reviewed
Medications: Active Meds Reviewed
Chest X-Ray: Report Reviewed and Image Reviewed
ECG: Report Reviewed and Image Reviewed
--- NOTE | 2023-06-01 05:00 | PTCARENOTE ---
Pt reassessed. Previous assessment unchanged. NIHSS resulted 1 due to impaired visual field - see worklist. SR on monitor. HR 70s. BP stable. Pt on 4 L NC. POX 94%. Sarkar catheter intact and draining clear/yellow urine. All surgical and angio sites
remain stable - see worklist for full post angiography/cath flowsheet. Pt very eager to get out of bed. No c/o pain - just wanting to get out of bed. Labs drawn and sent. EKG obtained. Call heart within reach. Full VS, interventions, and assessments
as documented in worklist.
[2023-06-01 05:13] LABS: Blood Urea Nitrogen 46 mg/dl (7-17); Calcium 8.8 mg/dl (8.4-10.2); Carbon Dioxide 19 mmol/L (22-30); Chloride 105 mmol/L (98-107); Estimated Creatinine Clearance 24 ml/min; Glucose 138 mg/dl (70-99); Sodium 137 mmol/L (135-145); eGFR 23.82
[2023-06-01] MEDS: TYLENOL 650 MG PO ×2 (05:36→13:16)
[2023-06-01 07:43] LABS: ACT-LR - POC > 397 Seconds (116-155)
--- NOTE | 2023-06-01 07:43 | W.PN.NEURO.1 ---
Today's Communication / Plan
-
-Patient not agreeable for MRI scan, would check CT head non contrast this afternoon
-Stressed importance of outpatient open MRI brain in the next month
-Aspirin 81 mg monotherapy is sufficient, not pursuing DAPT given the recent bleeding issues
-Continue Atorvastatin 40mg daily
-NIH and neurologic checks
-Would pursue mild permissive hypertension, systolic blood pressure less than 180
-Check TTE and continue monitoring on cardiac telemetry
-Discussed with patient she will not be safe to drive due to the stroke and hemianopia, she endorsed understanding and will be reported to DMV by my office
-PT/OT speech therapies, mobilization, anticipate will be acute rehabilitation candidate
-Minimize sedating medications as able
Will follow
Neuro Assessment/Plan
Assessment
77 year old woman with history of pituitary adenoma, hypertension, obesity, had TAVR the morning of 05/30, had groin bleeding at vascular access site and need operation with vascular surgery to address bleeding.
Patient developed symptoms of confusion, memory loss, and right sided homonymous hemianopia the afternoon of 05/31 around 1630 triggering stroke alert.
CTA head and neck showed no large vessel occlusion or significant vertebral or carotid stenosis
CT perfusion no clear penumbra
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
On exam patient has mild left arm drift and left arm ataxia due to the left cerebellar infarction which is likely acute and not subacute based on time course of symptom onset
Patient had a right sided homonymous hemianopia, no aphasia, seems most likely to be a left sided LI[employer] EST[employer]MENT [employer] ischemic infarction or a posterior left MCA infarction involving optic radiation
Etiology of infarction seems most likely related to TAVR and embolism from aortic valve or aortic plaque. Cardiac embolism also possible.
Given acute onset of confusion and vision symptoms very doubtful her symptoms are due to known pituitary macroadenoma which is stable on CT head non contrast, in addition to that pituitary adenomas generally do not produce a unilateral hemianopia
(usually a bitemporal hemianopia)
Subjective/Objective
Subjective Data
Date of Service: June 01, 2023
No acute events after stroke alert yesterday, patient doesn't remember much of yesterday, feels voice is raspy, minor headache, doesn't notice any visual symptoms that are abnormal
Objective Data
Vital Signs
Temp Pulse Resp BP Pulse Ox
98.9 F 77 16 128/61 94
06/01/23 04:10 06/01/23 04:10 06/01/23 04:10 06/01/23 04:10 06/01/23 04:10
Lab Results
06/01/23 04:27
06/01/23 04:27
PT 12.1 Sec (11.4-14.6) 05/28/23 12:42
INR 0.91 05/28/23 12:42
APTT 30.7 Sec (23.4-35.0) 05/28/23 12:42
Sodium 137 mmol/L (135-145) 06/01/23 04:27
Potassium 5.0 mmol/L (3.5-5.1) 06/01/23 04:27
BUN 46 mg/dl (7-17) H 06/01/23 04:27
Glucose 138 mg/dl (70-99) H 06/01/23 04:27
Calcium 8.8 mg/dl (8.4-10.2) 06/01/23 04:27
Adk-A-Aiuqxqfhshc Pept 1100 pg/ml 05/28/23 12:42
Patient Allergies
No Known Allergies Allergy (Unverified 05/25/23 15:59)
Review of Systems
-
History Source: Patient
All other systems: Reviewed and negative
Constitutional: No Symptoms
EENT: No Symptoms Reported
Respiratory: No Symptoms
Cardiac: No Symptoms
Abdomen/GI: No Symptoms
Genitourinary: No Symptoms
Musculoskeletal: No Symptoms
Skin: No Symptoms
Neuro: See existing Neuro Note
Endocrine: No Symptoms
Hematologic / Lymphatic: No Symptoms
Allergy / Immunology: No Symptoms
Physical Exam
-
General: No Apparent Distress and Obese
Eyes: No Ptosis
HEENT: Normocephalic; Negative Moist Mucous Membranes
Neck: Full Range of Motion
Respiratory: No Dyspnea; Negative Wheezes
Cardiac: Regular Rhythm
GI: Soft and Non-tender
Skin: Warm and Dry
Extremities: No Edema
Psych: Negative Agitated
Extended Neurological Exam
Attention Span & Concentration: Awake, Alert, Interactive and No Difficulty with 2 Step Request
Memory: Reduced
Tremor: Hand Tremor Absent
Involuntary Movement: None
Speech: Negative Expressive Aphasia, Receptive Aphasia or Dysarthric
Cranial Nerve II: Left Eye: Pupillary Reactivity Unremarkable, Pupillary Size Unremarkable and Other (Right sided homonymous hemianopia)
Cranial Nerve II: Right Eye: Pupillary Reactivity Unremarkable, Pupillary Size Unremarkable and Other (Right sided homonymous hemianopia)
Cranial Nerves III, IV, : Extraocular Movement: Extraocular Movement Full in all Directions
Muscle Strength, Overall: Full Throughout
Pronator Drift: Drift in Left Upper Extremity
Deep Tendon Reflexes: Trace Throughout
Coordination: Other (Left arm finger to nose testing shows mild ataxia)
Data Reviewed
-
CT-A: Report Reviewed and Image Reviewed
CT-Perfusion: Report Reviewed and Image Reviewed
CT Head: Report Reviewed and Image Reviewed
Echocardiogram: Ordered and Pending
--- NOTE | 2023-06-01 08:15 | PTCARENOTE ---
Received pt from senior administrator support RN; pt AAOx3 and forgetful at times; NSR on monitor and VSS; NIHSS preformed and resulted 2; Neuro at bedside minimal ataxia noted in left arm which is new from yesterday; CAT scan ordered by MD for 1400; lungs
diminished throughout; positive bowel sounds; Sarkar catheter draining clear yellow urine; pulses present by Doppler; no edema noted; Left groin site C/D/I with ALIN drain intact; PIV x1 patent; see nursing documentation for further details.
[2023-06-01] MEDS: NON-FORMULARY ITEM 1 UNIT PO (08:21)
--- NOTE | 2023-06-01 08:25 | W.PN.ANS.POP ---
Anesthesia Post Operative
- Anesthesia Post Op Note
Vital Signs Stable-See Nursing Note: Yes
Airway Patent: Yes (O2 via NC)
Adequate Pain Control: Yes
Change in Mental Status: No
Current Postoperative Nausea & Vomiting: No
Anesthesia Complications: No
General Anesthetic Recall: No
Unplanned Admission: No
Post Op Hydration Adequate: Yes
[2023-06-01] MEDS: JANUVIA 100 MG PO (08:35)
[2023-06-01] MEDS: LIPITOR 40 MG PO (08:35)
[2023-06-01] MEDS: VITAMIN C 1000 MG PO (08:35)
[2023-06-01] MEDS: SINGULAIR 10 MG PO (08:35)
[2023-06-01] MEDS: ASPIR LOW (ENTERIC COATED) 81 MG PO (08:35)
--- NOTE | 2023-06-01 09:06 | W.PN.CARDCBS ---
Today's Communication / Plan
-
RECOMMENDATION:
-Neurology has recommended repeat CT scan today. Patient is very claustrophobic and does not feel she would be able to tolerate MRI and will likely complete MRI study in an open MRI scanner as an outpatient in several weeks
-I reached out to Dr. Vyas to give an update
-Will need to have Neurology discuss driving restrictions (if any). I spoke with patient about driving and she stated 'I have to drive to go [place] [employer] [place] things'
-PO/OT to evaluate
-TAVR procedure successful with post TAVR complication / CVA
-Awaiting repeat echocardiogram
-Femoral cutdown site looks well. Vascular to evaluate
-I spent 60 minutes evaluating patient, reviewing, discussing with patient, and discussing with Dr. Vyas, CT surgery etc
Impression / Plan
-
Primary bulb grower: Dr. Luther Mercedes
PCP: Dr. Adrian Vyas
IMPRESSION:
-Right homonymous hemianopsia post TAVR:
NIH stroke scale: 1 for partial hemianopsia.
Neuroimaging: Angiography: No intracranial branch occlusion or significant intracranial stenosis. Specifically, normal flow is demonstrated to the posterior circulation. CT perfusion demonstrated no evidence of stroke.
CT head: 3 cm subacute nonhemorrhagic infarct in the superior aspect of the left cerebral hemisphere and stable pituitary macroadenoma
-Post TAVR with 23 mm Pacheco WEI valve via left common femoral approach: [place] high surgical risk
-Left common femoral surgical exploration and left common femoral endarterectomy with patch angioplasty post TAVR for bleeding at common femoral access site.
-Prior left common femoral surgical cutdown:
History of left to right femoral-femoral bypass (now 100% occluded)
100% occluded right iliac artery
-Coronary artery disease with 100% occlusion of the ostial RCA filling via left to right collaterals
-Peripheral vascular disease with 100% occluded right common iliac artery
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 I followed patient and never had this as part of her history.
-Diabetes mellitus: [id number]
-COPD
-CKD
-Hyperlipidemia
-Hypertension
-Pituitary macroadenoma
RECOMMENDATION:
-Neurology has recommended repeat CT scan today. Patient is very claustrophobic and does not feel she would be able to tolerate MRI and will likely complete MRI study in an open MRI scanner as an outpatient in several weeks
-I reached out to Dr. Vyas to give an update
-Will need to have Neurology discuss driving restrictions (if any). 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
-PO/OT to evaluate
-TAVR procedure successful with post TAVR complication / CVA
-Awaiting repeat echocardiogram
-Femoral cutdown site looks well. Vascular to evaluate
-Will discuss dual antiplatelet vs single antiplatelet
Progress Note - Scheduling Clerk
Subjective
Date of Service: June 01, 2023
Remains a little confused. No complaints aside from visual field issues
Objective
Labs:
06/01/23 04:27
06/01/23 04:27
Labs
Hgb 9.9 g/dL (12.0-16.0) L 06/01/23 04:27
Hct 28.4 % (37.0-47.0) L 06/01/23 04:27
Plt Count 149 10^3/uL (130-400) 06/01/23 04:27
PT 12.1 Sec (11.4-14.6) 05/28/23 12:42
INR 0.91 05/28/23 12:42
APTT 30.7 Sec (23.4-35.0) 05/28/23 12:42
Sodium 137 mmol/L (135-145) 06/01/23 04:27
Potassium 5.0 mmol/L (3.5-5.1) 06/01/23 04:27
BUN 46 mg/dl (7-17) H 06/01/23 04:27
Creatinine 2.1 mg/dL (0.6-1.0) H 06/01/23 04:27
Glucose 138 mg/dl (70-99) H 06/01/23 04:27
Vital Signs and I&O:
Vital Signs
Temp Pulse Resp BP Pulse Ox
98.9 F 86 18 128/61 92
06/01/23 04:10 06/01/23 08:25 06/01/23 08:25 06/01/23 04:10 06/01/23 08:25
Vital Signs
Temp Pulse Resp BP Pulse Ox
98.9 F 86 18 128/61 92
06/01/23 04:10 06/01/23 08:25 06/01/23 08:25 06/01/23 04:10 06/01/23 08:25
Intake & Output
05/29/23 05/30/23 05/31/23 06/01/23
23:59 23:59 23:59 23:59
Output Total 1695 / 1845 325 / 325
Balance -1695 / -1845 -325 / -325
Physical Exam
Physical Exam
Gen: Awake and conversant.
HEENT: NC/AC, Sclera anicteric
Lungs: Clear anterior and lateral lung watkins
CV: Regular No murmur noted today
Telemetry reviewed : Sinus rhythm no atrial fibrillation
Ext: Left femoral cut down dressings are dry
Neuro: Visual field with persistent right homonymous hemianopsia. Motor strength seems normal
[2023-06-01] MEDS: NOVOLOG FLEXPEN-LOW RESISTANCE 1 UNITS SC (09:32)
[2023-06-01 09:33] LABS: Glucose - Point of Care 164 mg/dl (70-99)
[2023-06-01] MEDS: LASIX 40 MG IV (09:55)
--- NOTE | 2023-06-01 12:19 | PTCARENOTE ---
NSR on monitor and VSS; at bedside and all questions answered; assessment unchanged; PT/OT to work with pt.
[2023-06-01 12:27] LABS: Glucose - Point of Care 234 mg/dl (70-99)
[2023-06-01] MEDS: NOVOLOG FLEXPEN-LOW RESISTANCE 2 UNITS SC (13:11)
--- NOTE | 2023-06-01 13:14 | W.PN.VS ---
Documented by User: Yoel Dasilva MD, Resident 06/01/23 13:24
Today's Communication / Plan
-
-Agree with continue aspirin 81mg alone for now
-Continue to keep ALIN over groin.
-Monitor for S/S infection or lyphoeceles
-OK to resume normal activity from vascular standpoint
Assessment/Plan
-
77 y/o F POD#1 s/p femoral cutodwn, endarterectomy, and TAVR (23 mm Pacheco), ccb c/f acute stroke but otherwise recovering well.
-Agree with continue aspirin 81mg alone for now
-Continue to keep ALIN over groin.
-Monitor for S/S infection or lyphoeceles
-OK to resume normal activity from vascular standpoint
Subjective Data
-
Date of Service: June 01, 2023
Feels well. Mild groin pain. Visual issues
Objective Data
-
Vital Signs
Temp Pulse Resp BP Pulse Ox
98.2 F 82 20 135/43 94
06/01/23 12:18 06/01/23 12:15 06/01/23 12:18 06/01/23 12:01 06/01/23 12:18
Intake and Output
05/31/23 06/01/23 06/02/23
06:59 06:59 06:59
Output Total 2019 450 / 450
Balance -2019 / -2020 -450 / -450
Output:
Urine, Sarkar 2019 450 / 450
Other:
Number of approximated MODERATE 1
amounts of urine
Lab Results
06/01/23 04:27
06/01/23 04:27
Calcium 8.8 mg/dl (8.4-10.2) 06/01/23 04:27
Total Bilirubin 1.1 mg/dl (0.2-1.3) 05/28/23 12:42
Direct Bilirubin 0.0 mg/dl (0.0-0.4) 05/28/23 12:42
AST 32 U/L (14-36) 05/28/23 12:42
ALT 29 U/L (0-35) 05/28/23 12:42
Alkaline Phosphatase 94 U/L (38-126) 05/28/23 12:42
Total Protein 7.5 g/dl (6.3-8.2) 05/28/23 12:42
Albumin 4.7 g/dl (3.5-5.0) 05/28/23 12:42
Physical Exam
-
Neuro: A&Ox3, R-sided hemianopia (please refer to neuro notes)
Cardiac: RRR
Pulm: CTAB
Abd: Soft, non-tender
Incision: Clean, dry, intact. PECO overlying, draining SS appropriately
Extremities: Pulses intact

Documented by User: Chino Sarkar III, MD 06/01/23 14:27
Today's Communication / Plan
-
-Agree with continue aspirin 81mg alone for now
-Continue to keep ALIN over groin.
-Monitor for S/S infection or lymphoceles
-OK to resume normal activity from vascular standpoint
This patient was seen and examined with Yoel Dasilva MD PGY-1. I agree with the history and physical exam as well as the assessment and plan. I have the following additions:
ALIN holding with good seal, dry.
Left groin soft
Palp DP, foot warm
Antiplatelet
OOB, PT/OT
Continue ALIN dressing for now
Signed:
Chino Sarkar III, MD
[facility]
[phone] (cell)
--- NOTE | 2023-06-01 15:00 | PTCARENOTE ---
Pt returned from CT scan, 2 assist with the walker to the chair. P
[2023-06-01] MEDS: FERRLECIT 110 MG IV (15:09)
[2023-06-01] MEDS: PLAVIX 75 MG PO (15:23)
[2023-06-01] MEDS: FLEXERIL 5 MG PO (15:23)
--- NOTE | 2023-06-01 15:49 | CM ---
Reviewed chart. Met with Mrs. Carter to review discharge plans. Reviewed recommendations of acute Rehab. Reviewed acute Rehab. with her. Reviewed [facility]. at [facility]. She is agreeable to having the referral made. Telephone call to
[facility]. Liaison to make the referral. Sent the referral. Prior to admission she resides with her spouse in a bi-level home with five steps to enter. She has five steps to get to the main living area where her bedroom/full bathroom are located.
Prior to admission she was independent with ambulation and adls. She does not have any DME in the home. She does not have a prescription plan.. Awaiting PM&R evaluation. . Medical work-up in progress. The discharge plan is to go to [facility]. at
[facility] if approved for admission and bed available.
--- NOTE | 2023-06-01 16:00 | PTCARENOTE ---
Pt assessed. A&Ox4. Right sided visual cut and left arm ataxia noted with NIH 2. Pt emotional-family at bedside. NSR with rates in the 80s. BP stable. Bilateral radial pulses palpable, DP pulses weakly palpable. No edema noted. POX 94% on 3L NC.
Lungs diminished. Abdomen soft, round, obese, nontender. +BS. +gas. Pt assisted with 2 assist and walker to [facility], voided 50ml romero urine.Bladder scanned for 240mL. Right groin soft, dressing CDI. Left groin ALIN dressing intact. Left wrist x2
intact. Left AC 20g PIV intact. See MAR for medication administration. Pt moved to IVU [id number]. Family aware and all belongings sent with patient. Report given to IVU RN. Bedside rounds completed.
[2023-06-01] MEDS: NOVOLOG FLEXPEN-LOW RESISTANCE 4 UNITS SC (16:14)
[2023-06-01 16:17] LABS: Glucose - Point of Care 300 mg/dl (70-99)
--- NOTE | 2023-06-01 16:54 | CON.MR ---
Consultation
Consultation Request
Date/Time Consultation Performed: 06/01/23 1645
Performing Provider: Dr. Haines
Reason for Consultation: CVA
Medical History
-
Chief Complaint: R vision difficulty
History of Present Illness:
77 year old female with history of PVD, Hx L to right femorofemoral bypass, left iliac stenting, CKD, HTN, HLD, mild COPD, SHANTHI, pituitary adenoma admitted on 05/30 for elective TAVR. Postoperatively had left groin bleeding requiring a cutdown and
exposure of the L common femoral artery and left common femoral artery endarterectomy with patch angioplasty. Postoperatively also noted to have R sided visual field deficits upon waking up after coming out of surgery. CT head shows acute left
cerebellar infarction, CTA head and neck showed no large vessel occlusion or significant vertebral or carotid stenosis. Patient unable to tolerate MRI with claustrophobia.
Patient seen at bedside late this afternoon. Sitting up in bedside chair, eating some dinner. Denies any headache or current dizziness. States she did have one episode of some dizziness earlier. Some right vision difficulty but denies any
difficulty seeing the television or reading the sign on the board. Denies any chest pain or SOB today. Some left more than right groin pain. No radiating symptoms into the lower limbs. No numbness or paresthesias.
Lives with in a bi-level home and states 5 steps to get to main level with bed and bath on that level. Previous ambulatory independently without any cane or assistive device
Past Medical History
Past Medical History: HTN, Hypercholesterolemia, NIDDM, Renal Failure (CKD) and Valvular Disease
Social History
Functional Level Premorbidity:
Independent for all activities.
Current Funct Level: Ambulation, Transfer, UE/LE Dressing:
Min to Mod A transfers, Min A 5 feet ambulation with walker
Personal:
Living: With Spouse
Number of Floors: 2
# Steps to Enter: 5
Allergies / Home Medications
Allergy/AdvReac Type Severity Reaction Status Date / Time
No Known Allergies Allergy Unverified 05/25/23 15:59
�Medication �Instructions �Recorded �Confirmed �Last Taken �Type
cholecalciferol (vitamin D3) 25 2,000 units PO DAILY Supplement 04/09/16 05/25/23 05/22/23 History
mcg (1,000 unit) tablet
sitagliptin phosphate 100 mg 100 mg PO DAILY Diabetes 04/09/16 05/25/23 05/22/23 History
tablet (Januvia)
hydrochlorothiazide 25 mg tablet 12.5 mg PO DAILY Fluid 08/07/19 05/25/23 05/21/23 History
retention/Swelling
amlodipine 5 mg tablet 5 mg PO DAILY 07/26/21 05/25/23 05/22/23 Rx
pyridoxine (vitamin B6) 50 mg 250 mg PO DAILY Supplement 07/26/21 05/25/23 05/22/23 History
tablet
acetaminophen 325 mg tablet 650 mg PO Q6H PRN Pain 04/17/23 05/25/23 05/21/23 History
(Tylenol)
aspirin 81 mg tablet,delayed 81 mg PO DAILY #1 tab 04/17/23 05/25/23 05/22/23 Rx
release
atorvastatin 20 mg tablet 40 mg PO DAILY High Cholesterol 04/17/23 05/25/23 05/22/23 History
ferrous sulfate 325 mg (65 mg 325 mg PO DAILY Supplement 04/17/23 05/25/23 05/22/23 History
iron) tablet
montelukast 10 mg tablet 10 mg PO DAILY Lung/Breathing 04/17/23 05/25/23 05/22/23 History
Issues
fluticasone fur. 100 mcg-umeclid 1 inh inhalation DAILY 05/22/23 05/25/23 05/22/23 History
62.5 mcg-vilant 25 mcg Lung/Breathing Issues
inhalat.powder (Trelegy Ellipta)
Review Of Systems
-
History Source: Patient
All other systems: Negative unless noted
Constitutional: Reports Fatigue
Eye: Reports Visual Field Cut
EENT: Reports No Symptoms
Respiratory: Reports No Symptoms
Cardiac: Reports No Symptoms
Abdomen/GI: Reports No Symptoms
: Reports No Symptoms
Musculoskeletal: Reports Muscle Pain (chronic LBP)
Integumentary: Reports No Symptoms
Neurological: Reports No Symptoms
Psych: Reports No Symptoms
Endocrine: Reports No Symptoms
Hematologic/Lymphatic: Reports No Symptoms
Immunology: Reports No Symptoms
Physical Exam
Active Medications
Generic Name Dose Route Start Last Admin
Trade Name Freq PRN Reason Stop Dose Admin
Acetaminophen 650 mg 05/31/23 13:06 06/01/23 13:16
Acetaminophen 325 Mg Tablet PO 06/28/23 13:05 650 mg
Q4HPRN PRN Administration
MCDANIELS, mild pain, or fever >101F
Al Hydrox/Mg Hydrox/Simethicone 30 ml 05/31/23 13:06
Mag/Al/Simethicone Suspension 30 Ml Cup PO 06/28/23 13:05
Q4HPRN PRN
heartburn
Albuterol Sulfate 2.5 mg 05/31/23 13:06
Albuterol Nebs 2.5 Mg/3 Ml Ampul INH
R Q4HPRN PRN
wheezing/shortness of breath
Protocol
Ascorbic Acid 1,000 mg 06/01/23 08:00 06/01/23 08:35
Ascorbic Acid 500 Mg Tablet PO 06/29/23 07:59 1,000 mg
DAILY EDD Administration
Aspirin 81 mg 06/01/23 08:00 06/01/23 08:35
Aspirin 81 Mg (Enteric Coated) Tablet PO 06/29/23 07:59 81 mg
DAILY EDD Administration
Atorvastatin Calcium 40 mg 05/31/23 13:06 06/01/23 08:35
Atorvastatin (Lipitor) 40 Mg Tablet PO 06/28/23 13:05 40 mg
DAILY EDD Administration
Clopidogrel Bisulfate 75 mg 06/02/23 08:00
Clopidogrel 75 Mg Tablet PO 06/30/23 07:59
DAILY EDD
Cyclobenzaprine HCl 5 mg 06/01/23 15:01 06/01/23 15:23
Cyclobenzaprine 10 Mg Tablet PO 06/29/23 15:00 5 mg
Q8HPRN PRN Administration
pain/muscle spasm
Dextrose 12.5 grams 05/31/23 13:06
Dextrose 50% (0.5 Grams/Ml) 50 Ml Syringe IV 06/28/23 13:05
[id number] PRN
hypoglycemia
Protocol
Glucagon 1 mg 05/31/23 13:06
Glucagon 1 Mg Vial IM 06/28/23 13:05
PRN PRN
hypoglycemia
Protocol
Hydrochlorothiazide 12.5 mg 06/01/23 08:00 06/01/23 08:36
Hydrochlorothiazide 12.5 Mg Tablet PO 06/29/23 07:59 Not Given
DAILY EDD
Norepinephrine Bitartrate 4 mg in 250 mls @ 0 mls/hr 05/31/23 13:06
Levophed IV
PER PROTOCOL EDD
Protocol
Per Protocol
Ferric Sodium Gluconate 110 mls @ 110 mls/hr 06/01/23 14:00 06/01/23 15:09
Complex 125 mg/ Sodium IV 06/03/23 14:59 110 mls
Chloride DAILY@1400 EDD Administration
Insulin Aspart 0 units 05/31/23 13:06 06/01/23 16:14
Insulin Aspart Low Resistance 300 Units/3 Ml Pen.Injctr SC 06/28/23 13:05 4 units
AC EDD Administration
Protocol
Magnesium Hydroxide 30 ml 05/31/23 13:06
Milk Of Magnesia 30 Ml Cup PO 06/28/23 13:05
BIDPRN PRN
constipation
Montelukast Sodium 10 mg 05/31/23 13:06 06/01/23 08:35
Montelukast Sodium 10 Mg Tablet PO 06/28/23 13:05 10 mg
DAILY EDD Administration
Fluticasone Furoate- 0 unit 06/01/23 08:00 06/01/23 08:21
Umeclidinium- PO 06/29/23 07:59 1 unit
Vilanterol [Trelegy R DAILY EDD Administration
Ellipta 200/62.5] -
1 Puff Once Daily
Protocol
Ondansetron HCl 4 mg 05/31/23 13:06
Ondansetron 4 Mg/2 Ml Vial IV 06/28/23 13:05
Q8HPRN PRN
nausea/vomiting
Oxycodone HCl 2.5 mg 05/31/23 13:06
Oxycodone 5 Mg Regular Release Tablet PO 06/14/23 13:05
Q4HPRN PRN
moderate pain
Pantoprazole Sodium 40 mg 06/02/23 08:00
Pantoprazole 40 Mg Delayed Release Tablet PO 06/30/23 07:59
DAILY EDD
Sitagliptin Phosphate 100 mg 06/01/23 08:00 06/01/23 08:35
Sitagliptin (Januvia) 100 Mg Tablet PO 06/29/23 07:59 100 mg
DAILY EDD Administration
Sodium Chloride 0 flush 05/31/23 14:00
Sodium Chloride 0.9% (Flush) Syringe IV 06/28/23 13:59
PER PROTOCOL EDD
Vital Signs
Temp Pulse Resp BP Pulse Ox
98.1 F 85 18 144/56 93
06/01/23 16:47 06/01/23 15:16 06/01/23 16:47 06/01/23 15:16 06/01/23 16:48
Height 5 ft 1 in
Actual Weight 94.9 kg
Body Mass Index (BMI) 39.6
Physical Exam
Physical Exam:
General Appearance/Observation: Well-developed, well-nourished individual in no apparent distress sitting up in chair. Good sprits. Answers questions appropriately
Pain/Comfort Assessment: Denies
Mood/Affect: Appropriate
Eyes: Conjunctiva/Lids: normal Pupils: pupils equal round and reactive to light and Accommodation. No nystagmus but some right gaze deficits
Ears/Nose/Throat: oral mucosa moist, throat clear. Lips/Teeth/Gums: missing teeth
Neck: No muscle spasm or tenderness
Cardiovascular: Heart: regular
Pulses: dorsalis pedis 2+ bilaterally
Respiratory: Respiratory Effort/Chest Expansion: normal Auscultation: Clear to auscultation bilaterally
Gastrointestinal: abdomen not tender, no distension, normal abdominal bowel sounds
Extremities: Edema: trace bilateral at ankles, no calf tender, negative homans Cyanosis: None Trophic changes: None
Neurology Exam:
Orientation: Alert, Oriented to self, Time, Place
Memory: Intact immediately and at 3 minutes
Speech: Intact
Comprehension: Intact
Two step command: Intact
Cranial Nerves:
CNII: Pupillary light reflex: Intact Visual Field: able to read clock and board, some limited with right peripheral vision
CN III, IV, : Extraocular muscles: Intact
CN V: Facial Sensation at Forehead: Intact , Maxilla: Intact, Mandible: Intact
CN VII: Facial movement: Symmetric
CN VIII: Hearing: Normal
CN IX/X: Speech & swallow: Normal, Position of Uvula: Midline
CN XI: Shoulder shrug: Symmetric
CN XII: Tongue protrusion: Midline
Sensory:
Light touch: Intact in bilateral upper and lower extremities
Reflexes:
Biceps: 1+ bilaterally
Achilles: trace bilaterally
Babinski: Downgoing bilaterally
Clonus: None
Scott: Negative bilaterally
Cerebellar: Dysmetria/Ataxia: Slight finger nose finger dysmetria on the left. Slight difficulty also with rapid alternating movements and fine motor with left hand more than right.
Musculoskeletal:
Motor: (Manual muscle scale 0-5)
Muscle SA EF WE EE FF FA HF KE DF EHL PF
Right 5 5 5 5 5 5 NT 5 5 5 5
Left 5 5 5 5 5 4+ NT 5 5 5 5
Tone: Normal in all extremities
Range of Motion: Passively within normal limits in all extremities
Lab Results
06/01/23 04:27
06/01/23 04:27
WBC 16.5 10^3/uL (4.8-10.8) H 06/01/23 04:27
Hgb 9.9 g/dL (12.0-16.0) L 06/01/23 04:27
Hct 28.4 % (37.0-47.0) L 06/01/23 04:27
MCV 91.3 fL (81.0-99.0) 06/01/23 04:27
Plt Count 149 10^3/uL (130-400) 06/01/23 04:27
PT 12.1 Sec (11.4-14.6) 05/28/23 12:42
INR 0.91 05/28/23 12:42
Sodium 137 mmol/L (135-145) 06/01/23 04:27
Potassium 5.0 mmol/L (3.5-5.1) 06/01/23 04:27
Chloride 105 mmol/L (98-107) 06/01/23 04:27
Carbon Dioxide 19 mmol/L (22-30) L 06/01/23 04:27
BUN 46 mg/dl (7-17) H 06/01/23 04:27
Creatinine 2.1 mg/dL (0.6-1.0) H 06/01/23 04:27
eGFR 23.82 06/01/23 04:27
Glucose 138 mg/dl (70-99) H 06/01/23 04:27
Hemoglobin A1c 6.9 % (4.0-5.6) H 05/28/23 12:42
Calcium 8.8 mg/dl (8.4-10.2) 06/01/23 04:27
Total Bilirubin 1.1 mg/dl (0.2-1.3) 05/28/23 12:42
Direct Bilirubin 0.0 mg/dl (0.0-0.4) 05/28/23 12:42
AST 32 U/L (14-36) 05/28/23 12:42
ALT 29 U/L (0-35) 05/28/23 12:42
Alkaline Phosphatase 94 U/L (38-126) 05/28/23 12:42
Total Protein 7.5 g/dl (6.3-8.2) 05/28/23 12:42
Albumin 4.7 g/dl (3.5-5.0) 05/28/23 12:42
Diagnostic Results
As per HPI.
Comorbidities / Impairment Group
Comorbidities:
Recent TAVR, vascular disease, pituitary adenoma, HTN, CKD
Impairment Group:
CVA
Assessment / Plan
Plan
Assessment:
77 year old female with history of PVD, Hx L to right femorofemoral bypass, left iliac stenting, CKD, HTN, HLD, mild COPD, SHANTHI, pituitary adenoma admitted on 05/30 for elective TAVR. Postoperatively had left groin bleeding requiring a cutdown and
exposure of the L common femoral artery and left common femoral artery endarterectomy with patch angioplasty. Postoperatively also noted to have R sided visual field deficits upon waking up after coming out of surgery. CT head shows acute left
cerebellar infarction
PM&R PT/OT to increase independence with ADLs, improve balance, coordination, endurance, strength, mobility, community reintegration, decreased burden of care on others and family education.
CVA: Secondary prophylaxis with aspirin only because of bleeding difficulties in the groin post-operatively. On statin, and blood pressure control (SBP less than 180 and diastolic less than 100 to participate with therapy for ischemic stroke).
Continue to monitor neurologic status.
R visual field deficits: makes patient at increased risk for falls. Will need therapy to work on scanning of environment for safe navigation.
L sided ataxia - due to left cerebellar infarct. Some coordination difficulties with left side.
HTN: Is only on HCTZ at present time, monitor closely
HLD: Statin
s/p TAVR : monitor groin wounds - had bleeding and required cutdown and exposure of the L common femoral artery and left common femoral artery endarterectomy with patch angioplasty
DM II: Accu-Cheks, insulin sliding scale, januvia
Anemia: Likely post-op. Continue to monitor.
Pain: acetaminophen or oxycodone as needed.
GI Prophylaxis: Pantoprazole
Safety: Continue to reinforce assistance with all transfers.
Code Status: Full code
Dispo (date/plan/equipment needs): Home with family care. Social history reviewed.
Functional and Medical Goals: Modified Independent with ADL�s, ambulation, transfers
Summary
-
Things that must be addressed in Hospital prior to discharge:
1. Please continue bedside PT/OT.
2. Patient must be stable on oral pain medications.
3. Blood pressure must be less than 180 systolic and 100 diastolic for 24 hours before being stable for transfer to SNF/acute rehab.
4. Please give blood pressure parameters.
5. Please comment on ROM or other precautions post procedure and femoral endarterectomy with patch angioplasty.
6. Please comment on dvt chemoprophylaxis or any restrictions.
Discharge Destination: Acute rehab
Summary of recommendations:
- Discharge Destination: Acute rehab but will need to re-evaluate on Sunday depending on progress with mobility, balance, deficits after continued bedside PT/OT over the weekend. If closer to independent with mobility and ambulation and safety,
could possibly consider discharge home.
Will continue to follow patient.
Thank you for allowing me to care for your patient. Please contact me with any questions or concerns.
Data Reviewed
-
Radiology: Report Reviewed by me
Labs: Labs Reviewed by me
Comments
-
This note was dictated using a voice recognition system. Please excuse any typographical errors from field marketing coordinator. If you believe there are any discrepancies, please notify our office.
[2023-06-01] MEDS: ROXICODONE 2.5 MG PO (18:01)
--- NOTE | 2023-06-01 18:04 | PTCARENOTE ---
Pt transferred via chair to IVU. No change from previous assessment. Pt able to void 250 mls urine with great encouragement to move. Pt easily discouraged and tearful. Pt at risk to fall, precautions in place. Pt given roxycodone for left groin
incisional pain.
[2023-06-01 21:46] LABS: Glucose - Point of Care 213 mg/dl (70-99)
--- NOTE | 2023-06-01 23:31 | PTCARENOTE ---
Left groin julisa dressing intact, Right groin dressing dry and intact. Dressings to left wrist dry and intact. Voided large amount of urine at 2100. Sleeping at intervals. NIHSS remains at 2.
[2023-06-02] VITALS (9 sets, daily range): BP systolic 121–158; BP diastolic 47–62; PULSE 92; BMI 39.8
[2023-06-02] MEDS: ROXICODONE 2.5 MG PO ×3 (00:45→09:56)
--- NOTE | 2023-06-02 05:26 | W.PN.CT ---
Today's Communication / Plan
-
-No major issues overnight
-Pt is alert and oriented x 3, without slurred speech, right hemianopsia is improving, does appear to have LUE weakness
-Bilateral groins are stable. L groin with Alin system, palpable L DP, warm LEs b/l
-Rhythm is stable overnight without ectopies, pauses. Currently NSR @ 95 bpm
-Monitor Cr 2.9 today, was 2.1 yesterday, has CKD stage 4 (lives around 1.3-2.5), was 1.6 preop
-H/h pending, was 9.9/28.4 yesterday (11.4 on 05/30 and 9.9 preop)
-Cont. currrent meds (ASA, will resume Plavix, may have to hold HCTZ and Januvia today given cr 2.9)
-Echo yesterday 05/31 showed a well seated TAVR with PG/MG of 21/11 mmHg, no aortic regurgitation. LVEF 65%, mild MS/MR
-OOB into chair
-Vascular surgery following groins and ALIN management
-Neurology following
Assessment / Plan
-
- Severe symptomatic - s/p Left trans femoral TAVR with a 23 mm Pacheco TAVR valve on 05/31/23, pod #2
- s/p left common femoral artery cutdown and endarterectomy with patch angioplasty using bovine pericardium and placement of Alin system by Dr. Sarkar on 05/31/23
- Preop LVEF was 60% and was 60% following TAVR without inotropic support, no regional wall motion abnormalities or dyskinesia. The aortic valve was well seated without detectable PVL with mean gradient 6mmHg.
- Acute on chronic diastolic congestive heart failure with elevated LVEDP 25 mmHg pre-TAVR- diuresed with 40 mg iv Lasix post TAVR
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 Unable to do closed MRI d/t claustrophobia
- Pituitary macroadenoma
- Severe peripheral vascular disease with history of femoro-femoral bypass with occlusion of the bypass graft and hx of iliac stent
- B/l Carotid bruit
- Mitral valve stenosis
- Baseline CKD 3b (Cr 1.6 preop)
- Hx DUSTIN 07/2021 (Cr 2.3)
- DM II with peripheral neuropathy
- Hypertension
- Hyperlipidemia
- Class 2 obesity (BMI 39)
- Chronic NSAID use for chronic back pain/ arthritis
- Chronic LIM, paroxysmal nocturnal dyspnea
- Hx lower GI bleed.
- Hx colitis
- Chronic anemia
- Iron deficiency
- COPD
- Appendectomy/ hysterectomy/ ventral hernia repair
- Carpal tunnel
- Cataract surgery
- Former smoker
- Acute on chronic postop blood loss anemia d/t vascular complication - s/p 2 pRBCs intraop
- Acute postop R homonymous hemianopsia (which appeared incomplete in the right eye with the RUQ being more impaired than the RLQ where she reports partial vision)- evaluated by Neurology
-HCT was concerning for a 3 cm subacute nonhemorrhagic infarct in the superior aspect of the left cerebellar hemisphere. CTA was negative for clot.
- Acute postop anxiety- required Xanax
- DUSTIN on CKD
Head CT:
'1). 3 cm subacute nonhemorrhagic infarct in the superior aspect of the left cerebellar hemisphere
2). Stable pituitary macroadenoma.'
CTA head/neck:
'
1). There is moderately enlarged findings coarse calcific atherosclerotic plaque at the aortic arch extending into the origins of the brachiocephalic vessels associated with approximately 60% stenosis of the left common carotid artery at its origin
and less than 50% stenosis at the origins of the innominate, right common carotid and left subclavian arteries
2). There is no evidence of intracranial branch occlusion or significant intracranial stenosis
Specifically, normal flow is demonstrated in both posterior cerebral arteries and the proximal portions of both superior cerebellar arteries
3). Partially calcific atherosclerotic plaque at the right carotid bifurcation is associated with approximately 80% stenosis of the right internal carotid artery at its origin
4) partially calcific atherosclerotic plaque at the left carotid bifurcation is associated with approximately 50% stenosis of the left internal carotid artery at its origin
5). Partially calcific atherosclerotic plaque at the cavernous and supraclinoid portions of both internal carotid arteries is associated with near 70% stenosis bilateral'
CTP:no evidence of stroke
Discussed patient care with: Cardiology, Nursing, Respiratory Therapy, Pharmacy and Care Team
Subjective
Procedure
Left trans femoral TAVR with a 23 mm Pacheco TAVR valve on 05/31/23
- s/p left common femoral artery cutdown and endarterectomy with patch angioplasty using bovine pericardium and placement of Alin system by Dr. Sarkar on 05/31/23
-
Date of Service: June 02, 2023
Pt offers c/o left groin discomfort, otherwise feels well.
Objective Data
-
PT 12.1 Sec (11.4-14.6) 05/28/23 12:42
INR 0.91 05/28/23 12:42
APTT 30.7 Sec (23.4-35.0) 05/28/23 12:42
Vital Signs
Vital Signs
Temp Pulse Resp BP Pulse Ox
98.4 F 104 20 148/59 92
06/01/23 22:58 06/02/23 04:00 06/01/23 22:58 06/01/23 22:58 06/01/23 22:58
CT Intake/Output/Weight
06/01/23 06/01/23 06/02/23
06:59 18:59 06:59
Intake Total 590 / 590
Output Total 2019 750 / 750
Balance - -160 / -160
SaO2: 92 (RA)
Physical Exam
-
General: Awake, Oriented, AOx3 and Other (improving right hemionopsia, appears to have left upper extremity weakness)
Cardiovascular: Regular rate & rhythm, No Murmurs, No Rub and No Gallop
Respiratory: Decreased Breath Sounds
Sternum: Stable
Incision: Clean, Dry, Intact and Dressing Intact
Extremities: Edema +1 and Other (1+ dp pulses b/l)
Data Reviewed
-
Lab Results: Results Reviewed
Medications: Active Meds Reviewed
Chest X-Ray: Report Reviewed and Image Reviewed
ECG: Report Reviewed and Image Reviewed
--- NOTE | 2023-06-02 05:42 | PTCARENOTE ---
POx in the 80's, O2 to 4 L with POx of 92-93%. Medicated for left groin pain.
[2023-06-02 06:10] LABS: Hematocrit 27.5 % (37.0-47.0); Hemoglobin 8.9 g/dL (12.0-16.0); Mean Corp Hgb Conc. 32.4 g/dL (33.0-37.0); Mean Corpuscular Hgb 30.4 pg (27.0-31.0); Mean Corpuscular Volume 93.9 fL (81.0-99.0); Mean Platelet Volume 10.5 fL (7.4-10.4); Platelet Count 130 10^3/uL (130-400); Red Blood Cell Count 2.93 10^6/uL (4.20-5.40); White Blood Cell Count 13.8 10^3/uL (4.8-10.8)
[2023-06-02 06:25] LABS: Blood Urea Nitrogen 55 mg/dl (7-17); Calcium 9.3 mg/dl (8.4-10.2); Carbon Dioxide 21 mmol/L (22-30); Chloride 103 mmol/L (98-107); Estimated Creatinine Clearance 17 ml/min; Glucose 163 mg/dl (70-99); Magnesium 1.5 mg/dl (1.6-2.3); Potassium 4.3 mmol/L (3.5-5.1); Sodium 137 mmol/L (135-145); eGFR 16.17
--- NOTE | 2023-06-02 07:18 | W.PN.NEURO.1 ---
Addendum entered and electronically signed by Wilfred Medina MD 06/02/23 14:31:
Additionally recommend she get outpatient MRI in next 4 weeks after discharge
Original Note:
Today's Communication / Plan
-
-Okay for DAPT from a neurologic perspective
-Discussed with patient and her over the phone the she should not drive due to significant risks and danger given right-sided visual field deficits from stroke, patient will be reported to DMV by my office, expect this will improve with time
but would take months and will need ophthalmology evaluation as an outpatient to assess visual field
-PT OT does appear to be a good candidate for acute rehabilitation
-Will need outpatient neurology follow-up in 4 to 6 weeks
-Goal normotension
-Neurologic checks and NIH stroke scales
Will follow
Neuro Assessment/Plan
Assessment
77 year old woman with history of pituitary adenoma, hypertension, obesity, had TAVR the morning of 05/30, had groin bleeding at vascular access site and need operation with vascular surgery to address bleeding.
Patient developed symptoms of confusion, memory loss, and right sided homonymous hemianopia the afternoon of 05/31 around 1630 triggering stroke alert.
CTA head and neck showed no large vessel occlusion or significant vertebral or carotid stenosis
CT perfusion no clear penumbra
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
On exam patient has mild left arm drift and left arm ataxia due to the left cerebellar infarction which is likely acute and not subacute based on time course of symptom onset
Patient had a right sided homonymous hemianopia, no aphasia, seems most likely to be a left sided MA[employer]GER [employer] ischemic infarction or a posterior left MCA infarction involving optic radiation
-has had mild improvement in this, showing right superior quadrantopia 06/01
Etiology of infarction seems most likely related to TAVR and embolism from aortic valve or aortic plaque. Cardiac embolism also possible.
Given acute onset of confusion and vision symptoms very doubtful her symptoms are due to known pituitary macroadenoma which is stable on CT head non contrast, in addition to that pituitary adenomas generally do not produce a unilateral hemianopia
(usually a bitemporal hemianopia)
Subjective/Objective
Subjective Data
Date of Service: June 02, 2023
No acute events, denies headache, discussed news of stroke with her and her was on speaker phone
Objective Data
Vital Signs
Temp Pulse Resp BP Pulse Ox
98.6 F 95 20 140/61 92
06/02/23 05:00 06/02/23 07:00 06/02/23 05:00 06/02/23 05:01 06/02/23 05:26
Lab Results
06/02/23 05:15
06/02/23 05:15
PT 12.1 Sec (11.4-14.6) 05/28/23 12:42
INR 0.91 05/28/23 12:42
APTT 30.7 Sec (23.4-35.0) 05/28/23 12:42
Sodium 137 mmol/L (135-145) 06/02/23 05:15
Potassium 4.3 mmol/L (3.5-5.1) 06/02/23 05:15
BUN 55 mg/dl (7-17) H 06/02/23 05:15
Glucose 163 mg/dl (70-99) H 06/02/23 05:15
Calcium 9.3 mg/dl (8.4-10.2) 06/02/23 05:15
Qwn-O-Obhunywkiuw Pept 1100 pg/ml 05/28/23 12:42
Patient Allergies
No Known Allergies Allergy (Unverified 05/25/23 15:59)
Review of Systems
-
History Source: Patient
All other systems: Reviewed and negative
Constitutional: No Symptoms
EENT: No Symptoms Reported
Respiratory: No Symptoms
Cardiac: No Symptoms
Abdomen/GI: No Symptoms
Genitourinary: No Symptoms
Musculoskeletal: No Symptoms
Skin: No Symptoms
Neuro: Weakness and See existing Neuro Note
Endocrine: No Symptoms
Hematologic / Lymphatic: No Symptoms
Physical Exam
-
General: Comfortable and Obese
Eyes: No Ptosis
HEENT: Normocephalic
Neck: No Bruits Bilaterally
Respiratory: Clear to Auscultation
Cardiac: Regular Rhythm
GI: Normal Bowel Sounds
Skin: Unremarkable
Extremities: No Clubbing
Psych: Intact Judgement/Insight; Negative Agitated
Extended Neurological Exam
Mood & Affect: Mood Unremarkable and Affect Unremarkable
Attention Span & Concentration: Awake, Alert and Interactive
Memory: Unremarkable
Tremor: Hand Tremor Absent
Involuntary Movement: None
Speech: Quality Unremarkable and Quantity Unremarkable; Negative Expressive Aphasia, Receptive Aphasia or Dysarthric
Cranial Nerve II: Left Eye: Pupillary Reactivity Unremarkable, Pupillary Size Unremarkable and Other (Right sided superior quadrantopia)
Cranial Nerve II: Right Eye: Pupillary Reactivity Unremarkable, Pupillary Size Unremarkable and Other (Right sided superior quadrantopia)
Cranial Nerves III, IV, : Extraocular Movement: Extraocular Movement Full in all Directions
Cranial Nerve VII: Facial Symmetry: Normal Facial Symmetry
Pronator Drift: Drift in Left Upper Extremity
Coordination: Other (Left arm ataxia )
Data Reviewed
-
CT-A: Report Reviewed and Image Reviewed
CT Head: Report Reviewed and Image Reviewed
Labs: Report Reviewed
--- NOTE | 2023-06-02 07:54 | W.PN.CARDCBS ---
Addendum entered and electronically signed by Fabrizio Gallardo MD 06/02/23 09:40:
I saw and examined the patient.
The Direct Support Professional's note was reviewed and I agree with the note.
Comment:
GEN: No distress, awake, Ox3
HEENT: supple, anicteric, mmm
LUNGS: CTA, no wheezes/rales
CV: Reg, S1/S2, 1/6 syst LSB, no gallop
ABD: soft, BS+, NT/ND
EXT: No edema
NEURO: + visual field cut
SKIN: No rash
plan:
She is slowly improving but very anxious. Still having some leg pains. Still with vision issues. Continue aspirin and Plavix. I think she would be a good candidate for [facility].
Hemoglobin at 8.9. Continue to follow.
Creatinine up to 2.9. Continue to follow. She is now 48 hours status post contrast. Avoid nephrotoxic Toxic medications. Agree with holding hydrochlorothiazide.
Will need eventual MRI. Continue atorvastatin.
Remains in sinus rhythm on telemetry.
Original Note:
Today's Communication / Plan
-
[facility] evaluating
Cre up to 2.9 today, was 2.1 yesterday
HCTZ on hold
CT head yesterday reviewed and the area of infarct was less well seen, patient needs an MRI within a month of d/c at an open MRI center of her choice
No driving per neurology who is also reporting her to the DMV
Impression / Plan
-
Primary strategic account director: Dr. Luther Mrecedes
PCP: Dr. Adrian Vyas
IMPRESSION:
-s/p TAVR for severe 05/31/23
with 23 mm Pacheco WEI valve via left common femoral approach: [place] high surgical risk
-Right homonymous hemianopsia post TAVR:
NIH stroke scale: 1 for partial hemianopsia.
Neuroimaging: Angiography: No intracranial branch occlusion or significant intracranial stenosis. Specifically, normal flow is demonstrated to the posterior circulation. CT perfusion demonstrated no evidence of stroke.
CT head: 3 cm subacute nonhemorrhagic infarct in the superior aspect of the left cerebral hemisphere and stable pituitary macroadenoma 05/31/23. Less well seen on repeat CT head 06/01/23
-Left common femoral surgical exploration and left common femoral endarterectomy with patch angioplasty post TAVR for bleeding at common femoral access site 05/31/23.
-Prior left common femoral surgical cutdown:
History of left to right femoral-femoral bypass (now 100% occluded)
100% occluded right iliac artery
-PAD with 100% occluded right common iliac artery
-CAD with 100% occlusion of the ostial RCA filling via left to right collaterals by cath 04/17/23
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 I followed patient and never had this as part of her history.
-DM2
-COPD
-DUSTIN on CKD 4
-Hyperlipidemia
-Hypertension
-Pituitary macroadenoma
-Hypomagnesemia
Echo 06/01/23: EF 65%, mild MS with mean gradient 5 mmHg, mild MR, Pacheco WEI 23 mm valve is in the aortic position, mean gradient is 11 mmHg, no aortic insufficiency.
RECOMMENDATION:
-Patient with stable TAVR placement and function by post-TAVR echo 06/01/23. No chest pain or SOB
-Prior to TAVR patient was at elevated surgical risk due to previous left common femoral surgical cutdown. Vascular surgery notes reviewed and patient with left groin ALIN system in place following left common femoral artery endarterectomy with
patch angioplasty using bovine pericardium 05/31/23
-Neurology notes reviewed. Repeat CT head 06/01/23 says that the left cerebellar nonhemorrhagic subacute infarct is less well seen and there were no new areas of concern. Patient was recommended an inpatient MRI, but refused and instead wants an open
MRI scan. Neurology is recommending MRI head within in the next month.
-Patient was told by neurology and cardiology that she cannot drive. Neurology reported patient to V
-[facility] has evaluated patient. PT/OT working with patient.
-Aspirin 81 mg daily and Plavix 75 mg daily ordered
-BP acceptable despite her outpatient dose of HCTZ 12.5 mg daily being on hold
-Hypomagnesemia being supplemented
-Cre up to 2.9 on 06/02/23. Repeat BMP on 06/03/23. Patient with h/o CKD 4. HCTZ on hold
Progress Note - Linen Room Attendant
Subjective
Date of Service: June 02, 2023
She has left groin pain and is asking for pain meds
Objective
Labs:
06/02/23 05:15
06/02/23 05:15
Labs
Hgb 8.9 g/dL (12.0-16.0) L 06/02/23 05:15
Hct 27.5 % (37.0-47.0) L 06/02/23 05:15
Plt Count 130 10^3/uL (130-400) 06/02/23 05:15
PT 12.1 Sec (11.4-14.6) 05/28/23 12:42
INR 0.91 05/28/23 12:42
APTT 30.7 Sec (23.4-35.0) 05/28/23 12:42
Sodium 137 mmol/L (135-145) 06/02/23 05:15
Potassium 4.3 mmol/L (3.5-5.1) 06/02/23 05:15
BUN 55 mg/dl (7-17) H 06/02/23 05:15
Creatinine 2.9 mg/dL (0.6-1.0) H 06/02/23 05:15
Glucose 163 mg/dl (70-99) H 06/02/23 05:15
Vital Signs and I&O:
Vital Signs
Temp Pulse Resp BP Pulse Ox
98.2 F 95 22 139/54 92
06/02/23 07:19 06/02/23 07:20 06/02/23 07:19 06/02/23 07:20 06/02/23 07:44
Vital Signs
Temp Pulse Resp BP Pulse Ox
98.2 F 95 22 139/54 92
06/02/23 07:19 06/02/23 07:20 06/02/23 07:19 06/02/23 07:20 06/02/23 07:44
Intake & Output
05/31/23 06/01/23 06/02/23 06/03/23
06:59 06:59 06:59 06:59
Intake Total 590 / 590
Output Total 2019 950 / 950
Balance -2020 / -2020 -360 / -360
Physical Exam
Physical Exam
GEN: AAO to person, place and situation
HEENT: EOMI, MMM
LUNGS: No audible wheeze, sighing
CV: Reg, no murmur
ABD: ND
EXT: Left groin dressing/ALIN system intact. No edema B/L
NEURO: Gross non-focal
SKIN: No rash
[2023-06-02] MEDS: ASPIR LOW (ENTERIC COATED) 81 MG PO (08:20)
[2023-06-02] MEDS: MAGNESIUM SULFATE 102 GRAMS IV (08:21)
[2023-06-02] MEDS: JANUVIA 100 MG PO (08:21)
[2023-06-02] MEDS: LIPITOR 40 MG PO (08:21)
[2023-06-02] MEDS: SINGULAIR 10 MG PO (08:22)
[2023-06-02] MEDS: FLUSH (NSS) 1 FLUSH IV ×2 (08:22→14:16)
[2023-06-02] MEDS: VITAMIN C 1000 MG PO (08:22)
[2023-06-02] MEDS: PLAVIX 75 MG PO (08:22)
[2023-06-02] MEDS: PROTONIX 40 MG PO (08:23)
[2023-06-02] MEDS: NOVOLOG FLEXPEN-LOW RESISTANCE 1 UNITS SC (08:28)
[2023-06-02] MEDS: TYLENOL 650 MG PO ×2 (08:28→14:15)
[2023-06-02 08:29] LABS: Glucose - Point of Care 177 mg/dl (70-99)
[2023-06-02] MEDS: NON-FORMULARY ITEM 1 UNIT PO (08:52)
--- NOTE | 2023-06-02 09:23 | W.PN.VS ---
Today's Communication / Plan
-
increase activity and ambulation
Assessment/Plan
-
77 y/o F POD#2 s/p femoral cutodwn, endarterectomy, and TAVR (23 mm Pacheco), ccb c/f acute stroke but otherwise recovering well.
-Agree with continue aspirin 81mg alone for now
-Continue to keep ALIN over groin.
-OK to resume normal activity from vascular standpoint
Subjective Data
-
Date of Service: June 02, 2023
doing well
complains of groin pain
no foot pain
Objective Data
-
Vital Signs
Temp Pulse Resp BP Pulse Ox
98.2 F 95 22 139/54 92
06/02/23 07:19 06/02/23 07:20 06/02/23 07:19 06/02/23 07:20 06/02/23 07:44
Intake and Output
06/01/23 06/02/23 06/03/23
06:59 06:59 06:59
Intake Total 590 / 590
Output Total 2019 950 / 950 400 / 400
Balance -20192020 -360 / -360 -400 / -400
Intake:
Oral fluids 480 / 480
IV piggybacks 110 / 110
Output:
Urine, Sarkar 2019 450 / 450
Urine, Voided 500 / 500 400 / 400
Other:
Number of approximated LARGE 1
amounts of urine
Lab Results
06/02/23 05:15
06/02/23 05:15
Calcium 9.3 mg/dl (8.4-10.2) 06/02/23 05:15
Magnesium 1.5 mg/dl (1.6-2.3) L 06/02/23 05:15
Total Bilirubin 1.1 mg/dl (0.2-1.3) 05/28/23 12:42
Direct Bilirubin 0.0 mg/dl (0.0-0.4) 05/28/23 12:42
AST 32 U/L (14-36) 05/28/23 12:42
ALT 29 U/L (0-35) 05/28/23 12:42
Alkaline Phosphatase 94 U/L (38-126) 05/28/23 12:42
Total Protein 7.5 g/dl (6.3-8.2) 05/28/23 12:42
Albumin 4.7 g/dl (3.5-5.0) 05/28/23 12:42
Physical Exam
-
alin dressing intact
foot warm
1+ DP pulse
--- NOTE | 2023-06-02 10:21 | PTCARENOTE ---
Received patient this morning resting in bed, awakened when I entered the room. Dressing left groin dry and intact with julisa drain intact. Dressing right groin is dry and intact. Patient complaining of severe pain left groin. Patient required assist
of two to transfer from the bed to the commode and then pivoted to the chair. Requires alot of encouragement with activity but once she is in a standing position she moves well with the rolling walker. Neuro status remains unchanged, some ataxia
noted with LUE but strength b/l arms fairly equal. Did have difficulty with reading of sentences particularly on the right side with right field cut noted. Patient's telephoned and was updated. Neuro in to see the patient while she was on
the phone with her , call placed on speaker so her could here exam and ask questions. Remains oob in the chair, call heart within reach.
[2023-06-02 11:37] LABS: Glucose - Point of Care 238 mg/dl (70-99)
--- NOTE | 2023-06-02 12:15 | PTCARENOTE ---
Patient medicated for left groin pain with oxycodone 2.5mg as ordered. Patient rated pain 10/10. Patient fell asleep while in the chair, awoke when her arrived but remains sleepy. When questioned about left groin pain, the patient still
rates the pain 10/10. PT working with the patient now.
[2023-06-02] MEDS: NOVOLOG FLEXPEN-LOW RESISTANCE 2 UNITS SC (12:25)
[2023-06-02 12:39] LABS: Blood Urea Nitrogen 56 mg/dl (7-17); Carbon Dioxide 23 mmol/L (22-30); Chloride 100 mmol/L (98-107); Estimated Creatinine Clearance 15 ml/min; Glucose 184 mg/dl (70-99); Potassium 4.2 mmol/L (3.5-5.1); Sodium 134 mmol/L (135-145); eGFR 13.85
[2023-06-02] MEDS: FERRLECIT 110 MG IV (14:15)
--- NOTE | 2023-06-02 15:19 | PTCARENOTE ---
Patient's daughter and JAMES visiting with the patient. Patient was sitting oob in the chair since this morning. Noticed that when patient would be approached to change her position, give a medication or any interaction she would intermittently shake
her right hand, shaking lasts a few seconds. Neuro status remains stable and unchanged. The patient's daughter and JAMES have many questions re: surgery, the drain, rehab etc. Daughter also concerned about the shaking of her right hand that she states
the patient did not have yesterday. Appears that when the patient is anxious this occurs although the family said it was happening when I was not in there. Notified DESTINY Woodruff from CT surgery in to assess the patient and answer family's
questions as well. Assisted patient back to bed, call heart within reach.
[2023-06-02] MEDS: NSS 500 IV (15:37)
[2023-06-02 17:06] LABS: Glucose - Point of Care 284 mg/dl (70-99)
[2023-06-02] MEDS: NOVOLOG FLEXPEN-LOW RESISTANCE 3 UNITS SC (17:20)
[2023-06-02] MEDS: SENOKOT-S 1 TABLET PO (19:22)
[2023-06-02] MEDS: ROXICODONE 5 MG PO (19:23)
[2023-06-02 20:56] LABS: Hematocrit 23.4 % (37.0-47.0)
--- NOTE | 2023-06-02 21:15 | PTCARENOTE ---
Pt received at start of shift, HR SR 80s-100. NSS infusing at 50mL/hr. Neuro check unchanged from previous shift. Ashkan drain in place. L groin dressing CDI, no firmness noted in surrounding area. Pt OOB in chair with multiple family members at
bedside. Family members inquired RN extensively about multiple aspects of pt care and general health. Questions answered to best of ability. Pt assisted x2 w/ rolling walker back to bed. Pt c/o 10/10 L groin incisional pain. 5mg Angi PRN
administered, pt reassessed, pt rates pain at 0/10. Pt denies any SOB, CP, lightheadedness/dizziness at this time. Informed to notify RN if any changes, call heart within reach.
[2023-06-02 22:24] LABS: Glucose - Point of Care 210 mg/dl (70-99)
[2023-06-02] MEDS: FLEXERIL 10 MG PO (22:27)
[2023-06-03] VITALS (13 sets, daily range): BP systolic 117–145; BP diastolic 48–56; PULSE 92–103; O2SAT 90–92; BMI 40.1
[2023-06-03] MEDS: ROXICODONE 5 MG PO ×4 (00:46→23:07)
[2023-06-03] MEDS: TYLENOL 650 MG PO (04:22)
--- NOTE | 2023-06-03 04:37 | W.PN.CT ---
Today's Communication / Plan
-
-No major issues overnight
-Pt is alert and oriented x 3, without slurred speech, right hemianopsia is improving, does appear to have LUE weakness
-Bilateral groins are stable. L groin with Alin system, palpable L DP, warm LEs b/l
-Rhythm is stable overnight without ectopies, pauses. Currently NSR @ 85 bpm
-Monitor Cr 3.3, was 2.9/3.3 yesterday, has CKD stage 4 (lives around 1.3-2.5), was 1.6 preop
-H/h 7.3/23.3, was 9.9/29.6 preop, consider 1u PRBC with Lasix after. Wt up 6 lbs from preop
-Platelets trending down, 162->149->130->109K. Will consider holding Plavix today
-Cont. current meds (ASA, will resume Plavix, holding HCTZ and Januvia given cr 3.3)
-Echo on 05/31 showed a well seated TAVR with PG/MG of 21/11 mmHg, no aortic regurgitation. LVEF 65%, mild MS/MR
-OOB into chair
-Vascular surgery following groins and ALIN dressing management
-Neurology following
-Physiatry evaluating for [facility] placement, likely Sunday
Assessment / Plan
-
- Severe symptomatic - s/p Left trans femoral TAVR with a 23 mm Pacheco TAVR valve on 05/31/23, pod #3
- s/p left common femoral artery cutdown and endarterectomy with patch angioplasty using bovine pericardium and placement of Alin system by Dr. Sarkar on 05/31/23
- Preop LVEF was 60% and was 60% following TAVR without inotropic support, no regional wall motion abnormalities or dyskinesia. The aortic valve was well seated without detectable PVL with mean gradient 6mmHg.
- Acute on chronic diastolic congestive heart failure with elevated LVEDP 25 mmHg pre-TAVR- diuresed with 40 mg iv Lasix post TAVR
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 Unable to do closed MRI d/t claustrophobia
- Pituitary macroadenoma
- Severe peripheral vascular disease with history of femoro-femoral bypass with occlusion of the bypass graft and hx of iliac stent
- B/l Carotid bruit
- Mitral valve stenosis
- Baseline CKD 3b (Cr 1.6 preop)
- Hx DUSTIN 07/2021 (Cr 2.3)
- DM II with peripheral neuropathy
- Hypertension
- Hyperlipidemia
- Class 2 obesity (BMI 39)
- Chronic NSAID use for chronic back pain/ arthritis
- Chronic LIM, paroxysmal nocturnal dyspnea
- Hx lower GI bleed.
- Hx colitis
- Chronic anemia
- Iron deficiency
- COPD
- Appendectomy/ hysterectomy/ ventral hernia repair
- Carpal tunnel
- Cataract surgery
- Former smoker
- Acute on chronic postop blood loss anemia d/t vascular complication - s/p 2 pRBCs intraop
- Acute postop R homonymous hemianopsia (which appeared incomplete in the right eye with the RUQ being more impaired than the RLQ where she reports partial vision)- evaluated by Neurology
-HCT was concerning for a 3 cm subacute nonhemorrhagic infarct in the superior aspect of the left cerebellar hemisphere. CTA was negative for clot.
- Acute postop anxiety- required Xanax
- DUSTIN on CKD
Head CT:
'1). 3 cm subacute nonhemorrhagic infarct in the superior aspect of the left cerebellar hemisphere
2). Stable pituitary macroadenoma.'
CTA head/neck:
'
1). There is moderately enlarged findings coarse calcific atherosclerotic plaque at the aortic arch extending into the origins of the brachiocephalic vessels associated with approximately 60% stenosis of the left common carotid artery at its origin
and less than 50% stenosis at the origins of the innominate, right common carotid and left subclavian arteries
2). There is no evidence of intracranial branch occlusion or significant intracranial stenosis
Specifically, normal flow is demonstrated in both posterior cerebral arteries and the proximal portions of both superior cerebellar arteries
3). Partially calcific atherosclerotic plaque at the right carotid bifurcation is associated with approximately 80% stenosis of the right internal carotid artery at its origin
4) partially calcific atherosclerotic plaque at the left carotid bifurcation is associated with approximately 50% stenosis of the left internal carotid artery at its origin
5). Partially calcific atherosclerotic plaque at the cavernous and supraclinoid portions of both internal carotid arteries is associated with near 70% stenosis bilateral'
CTP:no evidence of stroke
Discussed patient care with: Cardiology, Nursing, Respiratory Therapy, Pharmacy and Care Team
Subjective
Procedure
Left trans femoral TAVR with a 23 mm Pacheco TAVR valve on 05/31/23
- s/p left common femoral artery cutdown and endarterectomy with patch angioplasty using bovine pericardium and placement of Alin system by Dr. Sarkar on 05/31/23
-
Date of Service: June 03, 2023
Pt c/o left groin discomfort, otherwise feels well
Objective Data
-
PT 12.1 Sec (11.4-14.6) 05/28/23 12:42
INR 0.91 05/28/23 12:42
APTT 30.7 Sec (23.4-35.0) 05/28/23 12:42
Vital Signs
Vital Signs
Temp Pulse Resp BP Pulse Ox
98.4 F 98 24 158/62 94
06/02/23 22:25 06/02/23 22:25 06/02/23 22:25 06/02/23 22:25 06/02/23 22:25
CT Intake/Output/Weight
06/02/23 06/02/23 06/03/23
06:59 18:59 06:59
Intake Total 1530 / 1770 240 / 1770
Output Total 200 / 950 410 / 410
Balance -200 / -360 1120 / 1360 240 / 1360
SaO2: 94 (2L)
Physical Exam
-
General: Awake, Oriented and AOx3
Cardiovascular: Regular rate & rhythm, No Murmurs, No Rub and No Gallop
Respiratory: Decreased Breath Sounds
Incision: Clean, Dry, Intact and Dressing Intact
Extremities: Edema +1
Data Reviewed
-
Lab Results: Results Reviewed
Medications: Active Meds Reviewed
Chest X-Ray: Report Reviewed and Image Reviewed
ECG: Report Reviewed and Image Reviewed
[2023-06-03 05:47] LABS: Hematocrit 22.3 % (37.0-47.0); Hemoglobin 7.3 g/dL (12.0-16.0); Mean Corp Hgb Conc. 32.7 g/dL (33.0-37.0); Mean Corpuscular Hgb 30.5 pg (27.0-31.0); Mean Corpuscular Volume 93.3 fL (81.0-99.0); Platelet Count 109 10^3/uL (130-400); Red Blood Cell Count 2.39 10^6/uL (4.20-5.40); Red Cell Dist. Width 13.4 % (11.5-14.5); White Blood Cell Count 11.1 10^3/uL (4.8-10.8)
[2023-06-03 06:03] LABS: Blood Urea Nitrogen 60 mg/dl (7-17); Calcium 8.7 mg/dl (8.4-10.2); Carbon Dioxide 19 mmol/L (22-30); Chloride 106 mmol/L (98-107); Estimated Creatinine Clearance 15 ml/min; Glucose 151 mg/dl (70-99); Magnesium 1.6 mg/dl (1.6-2.3); Sodium 132 mmol/L (135-145); eGFR 13.85
[2023-06-03] MEDS: NON-FORMULARY ITEM 1 UNIT PO (07:15)
--- NOTE | 2023-06-03 07:46 | W.PN.NEURO.1 ---
Today's Communication / Plan
-
-Okay for DAPT from a neurologic perspective
-Discussed no driving
-PT OT does appear to be a good candidate for acute rehabilitation
-Will need outpatient neurology follow-up in 4 to 6 weeks, outpatient MRI ideally within 1-2 months
-Goal normotension
-Neurologic checks and NIH stroke scales
Will sign off call with questions and concerns
Neuro Assessment/Plan
Assessment
77 year old woman with history of pituitary adenoma, hypertension, obesity, had TAVR the morning of 05/30, had groin bleeding at vascular access site and need operation with vascular surgery to address bleeding.
Patient developed symptoms of confusion, memory loss, and right sided homonymous hemianopia the afternoon of 05/31 around 1630 triggering stroke alert.
CTA head and neck showed no large vessel occlusion or significant vertebral or carotid stenosis
CT perfusion no clear penumbra
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
On exam patient has mild left arm drift and left arm ataxia due to the left cerebellar infarction which is likely acute and not subacute based on time course of symptom onset
Patient had a right sided homonymous hemianopia, no aphasia, seems most likely to be a left sided [employer] ischemic infarction or a posterior left MCA infarction involving optic radiation
-has had mild improvement in this, showing right superior quadrantopia 06/01
Etiology of infarction seems most likely related to TAVR and embolism from aortic valve or aortic plaque. Cardiac embolism also possible.
Given acute onset of confusion and vision symptoms very doubtful her symptoms are due to known pituitary macroadenoma which is stable on CT head non contrast, in addition to that pituitary adenomas generally do not produce a unilateral hemianopia
(usually a bitemporal hemianopia)
Subjective/Objective
Subjective Data
Date of Service: June 03, 2023
No acute events, denies headache, reports a bit of tremor in the right hand when she is anxious she can suppress it
Objective Data
Vital Signs
Temp Pulse Resp BP Pulse Ox
98.4 F 92 15 135/52 94
06/03/23 04:27 06/03/23 07:18 06/03/23 07:18 06/03/23 04:27 06/03/23 06:35
Lab Results
06/03/23 05:03
06/03/23 05:03
PT 12.1 Sec (11.4-14.6) 05/28/23 12:42
INR 0.91 05/28/23 12:42
APTT 30.7 Sec (23.4-35.0) 05/28/23 12:42
Sodium 132 mmol/L (135-145) L 06/03/23 05:03
Potassium 4.0 mmol/L (3.5-5.1) 06/03/23 05:03
BUN 60 mg/dl (7-17) H 06/03/23 05:03
Glucose 151 mg/dl (70-99) H 06/03/23 05:03
Calcium 8.7 mg/dl (8.4-10.2) 06/03/23 05:03
Rii-F-Nbttqomdrrk Pept 1100 pg/ml 05/28/23 12:42
Patient Allergies
No Known Allergies Allergy (Unverified 05/25/23 15:59)
Review of Systems
-
History Source: Patient
All other systems: Reviewed and negative
Constitutional: No Symptoms
EENT: No Symptoms Reported
Respiratory: No Symptoms
Cardiac: No Symptoms
Abdomen/GI: No Symptoms
Genitourinary: No Symptoms
Musculoskeletal: No Symptoms
Skin: No Symptoms
Neuro: Speech Problem and See existing Neuro Note
Endocrine: No Symptoms
Hematologic / Lymphatic: No Symptoms
Allergy / Immunology: No Symptoms
Physical Exam
-
General: Comfortable and Obese
Eyes: No Ptosis
HEENT: Normocephalic
Neck: No Bruits Bilaterally
Respiratory: Clear to Auscultation
Cardiac: Regular Rhythm
GI: Normal Bowel Sounds
Skin: Unremarkable
Extremities: No Clubbing
Psych: Negative Agitated
Extended Neurological Exam
Attention Span & Concentration: Awake, Alert and Interactive
Memory: Unremarkable
Tremor: Hand Tremor Absent
Speech: Negative Expressive Aphasia, Receptive Aphasia or Dysarthric
Cranial Nerve II: Left Eye: Other (Right superior quadrantopia)
Cranial Nerve II: Right Eye: Other (Right superior quadrantopia)
Cranial Nerves III, IV, : Extraocular Movement: Extraocular Movement Full in all Directions
Pronator Drift: Drift in Left Upper Extremity
Coordination: Other (Left arm ataxia)
Data Reviewed
-
CT-A: Report Reviewed and Image Reviewed
CT Head: Report Reviewed and Image Reviewed
[2023-06-03] MEDS: SENOKOT-S 1 TABLET PO ×2 (09:14→19:37)
[2023-06-03] MEDS: LIPITOR 40 MG PO (09:14)
[2023-06-03] MEDS: PROTONIX 40 MG PO (09:14)
[2023-06-03] MEDS: MAGNESIUM OXIDE 500 MG PO ×2 (09:14→19:37)
[2023-06-03] MEDS: PLAVIX 75 MG PO (09:15)
[2023-06-03] MEDS: ASPIR LOW (ENTERIC COATED) 81 MG PO (09:15)
[2023-06-03] MEDS: VITAMIN C 1000 MG PO (09:15)
[2023-06-03] MEDS: SINGULAIR 10 MG PO (09:15)
[2023-06-03 09:48] LABS: Glucose - Point of Care 180 mg/dl (70-99)
[2023-06-03] MEDS: NOVOLOG FLEXPEN-MODERATE RESISTANCE 1 UNITS SC (09:48)
--- NOTE | 2023-06-03 11:00 | PTCARENOTE ---
attempt x3 to get type and screen. Plebotomy paged and notified to get labwork so we can send for the PRBCs ordered. Still awaiting their arrival
--- NOTE | 2023-06-03 11:08 | W.PN.CARDCBS ---
Today's Communication / Plan
-
Overall about the same but hemoglobin down to 7.1. Agree with transfusion.
Continue aspirin. Will discuss with CT surgery whether or not to continue Plavix.
Creatinine up to 3.3. Continue to follow. Avoid renal toxic drugs.
Will need rehab at [place].
Continue pain control.
Impression / Plan
-
Primary welt slasher: Dr. Luther Mercedes
PCP: Dr. Adrian Vyas
IMPRESSION:
-s/p TAVR for severe 05/31/23
with 23 mm Pacheco WEI valve via left common femoral approach: [place] high surgical risk
-Right homonymous hemianopsia post TAVR:
NIH stroke scale: 1 for partial hemianopsia.
Neuroimaging: Angiography: No intracranial branch occlusion or significant intracranial stenosis. Specifically, normal flow is demonstrated to the posterior circulation. CT perfusion demonstrated no evidence of stroke.
CT head: 3 cm subacute nonhemorrhagic infarct in the superior aspect of the left cerebral hemisphere and stable pituitary macroadenoma 05/31/23. Less well seen on repeat CT head 06/01/23
-Left common femoral surgical exploration and left common femoral endarterectomy with patch angioplasty post TAVR for bleeding at common femoral access site 05/31/23.
-Prior left common femoral surgical cutdown:
History of left to right femoral-femoral bypass (now 100% occluded)
100% occluded right iliac artery
-PAD with 100% occluded right common iliac artery
-CAD with 100% occlusion of the ostial RCA filling via left to right collaterals by cath 04/17/23
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 I followed patient and never had this as part of her history.
-DM2
-COPD
-DUSTIN on CKD 4
-Hyperlipidemia
-Hypertension
-Pituitary macroadenoma
-Hypomagnesemia
Echo 06/01/23: EF 65%, mild MS with mean gradient 5 mmHg, mild MR, Pacheco WEI 23 mm valve is in the aortic position, mean gradient is 11 mmHg, no aortic insufficiency.
RECOMMENDATION:
-Patient with stable TAVR placement and function by post-TAVR echo 06/01/23. No chest pain or SOB
-Prior to TAVR patient was at elevated surgical risk due to previous left common femoral surgical cutdown. Vascular surgery notes reviewed and patient with left groin ALIN system in place following left common femoral artery endarterectomy with
patch angioplasty using bovine pericardium 05/31/23
-Neurology notes reviewed. Repeat CT head 06/01/23 says that the left cerebellar nonhemorrhagic subacute infarct is less well seen and there were no new areas of concern. Patient was recommended an inpatient MRI, but refused and instead wants an open
MRI scan. Neurology is recommending MRI head within in the next month.
-Patient was told by neurology and cardiology that she cannot drive. Neurology reported patient to [facility]
-[place] re[facility] has evaluated patient. PT/OT working with patient.
-Aspirin 81 mg daily and Plavix 75 mg daily ordered. Will discuss with CT surgery regarding Plavix
-Hemoglobin down to 7.3. Agree with transfusion. Would give Lasix 40 mg IV with transfusion.
-BP acceptable despite her outpatient dose of HCTZ 12.5 mg daily being on hold
-Hypomagnesemia being supplemented
-Cre up to 3.3. Continue to follow. Hopefully this improves with transfusion patient with h/o CKD 4.
Progress Note - Ice Handler
Subjective
Date of Service: June 03, 2023
Still with intermittent leg pains. She states her vision is about the same.
Objective
Labs:
06/03/23 05:03
Labs
Hgb 7.3 g/dL (12.0-16.0) L 06/03/23 05:03
Hct 22.3 % (37.0-47.0) L 06/03/23 05:03
Plt Count 109 10^3/uL (130-400) L 06/03/23 05:03
PT 12.1 Sec (11.4-14.6) 05/28/23 12:42
INR 0.91 05/28/23 12:42
APTT 30.7 Sec (23.4-35.0) 05/28/23 12:42
Sodium 132 mmol/L (135-145) L 06/03/23 05:03
Potassium 4.0 mmol/L (3.5-5.1) 06/03/23 05:03
BUN 60 mg/dl (7-17) H 06/03/23 05:03
Creatinine 3.3 mg/dL (0.6-1.0) H 06/03/23 05:03
Glucose 151 mg/dl (70-99) H 06/03/23 05:03
Vital Signs and I&O:
Vital Signs
Temp Pulse Resp BP Pulse Ox
98.4 F 92 15 135/52 94
06/03/23 04:27 06/03/23 07:18 06/03/23 07:18 06/03/23 04:27 06/03/23 06:35
Vital Signs
Temp Pulse Resp BP Pulse Ox
98.4 F 92 15 135/52 94
06/03/23 04:27 06/03/23 07:18 06/03/23 07:18 06/03/23 04:27 06/03/23 06:35
Intake & Output
06/01/23 06/02/23 06/03/23 06/04/23
06:59 06:59 06:59 06:59
Intake Total 590 / 590 1770 / 1770
Output Total 2019 950 / 950 410 / 410
Balance -2019 / 2020 -360 / -360 1360 / 1360
Physical Exam
Physical Exam
GEN: No distress, awake, Ox3
HEENT: supple, anicteric, mmm
LUNGS: CTA, no wheezes/rales
CV: Reg, S1/S2, 1/6 syst LSB, no gallop
ABD: soft, BS+, NT/ND
EXT: No edema
NEURO: + visual field cut
SKIN: No rash
[2023-06-03 12:42] LABS: Glucose - Point of Care 261 mg/dl (70-99)
[2023-06-03] MEDS: NOVOLOG FLEXPEN-MODERATE RESISTANCE 5 UNITS SC (12:43)
--- NOTE | 2023-06-03 12:56 | PTCARENOTE ---
Assumed care of the patient from the previous nurse. Patient is sitting oob in the chair, requesting to get back to bed. Explained that she will be getting a unit of blood when it is ready and she could get back in bed during the transfusion. No
other neurological changes noted or change in the previous nurse's assessment. Bilateral groin dressings intact, with Ashkan drain in place. LFA sites are now ope to air. Call heart in reach, in visiting.
--- NOTE | 2023-06-03 15:49 | PTCARENOTE ---
Patient to receive one unit of PRBC's and IV lasix post transfusion. INT LAC leaking, IV team was notified and unable to place a line, will need to insert a midline.
--- NOTE | 2023-06-03 17:43 | PTCARENOTE ---
Midline catheter placed RAC by IV team and patent. PRBC's infusing as ordered, family at the bedside.
[2023-06-03] MEDS: NOVOLOG FLEXPEN-MODERATE RESISTANCE 3 UNITS SC (19:12)
[2023-06-03 19:13] LABS: Glucose - Point of Care 215 mg/dl (70-99)
[2023-06-03] MEDS: LASIX 40 MG IV (21:02)
[2023-06-03 21:42] LABS: Glucose - Point of Care 179 mg/dl (70-99)
[2023-06-03] MEDS: FERRLECIT 110 MG IV (22:00)
[2023-06-03 22:37] LABS: Blood Urea Nitrogen 58 mg/dl (7-17); Calcium 8.9 mg/dl (8.4-10.2); Carbon Dioxide 19 mmol/L (22-30); Chloride 104 mmol/L (98-107); Estimated Creatinine Clearance 16 ml/min; Glucose 140 mg/dl (70-99); Potassium 3.7 mmol/L (3.5-5.1); Sodium 131 mmol/L (135-145); eGFR 14.37
[2023-06-03] MEDS: KCL 20 MEQ PO (23:06)
[2023-06-03] MEDS: FLEXERIL 10 MG PO (23:07)
[2023-06-04] VITALS (9 sets, daily range): BP systolic 133–149; BP diastolic 44–60; PULSE 97–100; O2SAT 86; BMI 40.3
--- NOTE | 2023-06-04 01:59 | PTCARENOTE ---
Pt received start of shift, HR SR/ST. Neuro unchanged. L groin dressing scant drainage, no hematoma, surrounding site ecchymotic. ALIN drain in place. 1 unit PRBC finished infusing at approximately 2049. VSS stable. Dose of Ferrlecit administered
late. Pt OOB to commode. Pt back to bed, purewick in place. Pt c/o 10/10 pain at L groin site, 5mg Angi PRN administered. Effective, pt asleep.
[2023-06-04] MEDS: ROXICODONE 5 MG PO (04:11)
--- NOTE | 2023-06-04 04:33 | W.PN.CT ---
Today's Communication / Plan
-
-No major issues overnight
-Pt is alert and oriented x 3, without slurred speech, ongoing right hemianopsia, noted to have LUE weakness
-Bilateral groins are stable. L groin with Alin system, palpable L DP, warm LEs b/l
-Rhythm is stable overnight without ectopies, pauses. Currently NSR @ 90 bpm
-Monitor Cr 3.3, was 3.3/3.2 yesterday, has CKD stage 4 (lives around 1.3-2.5), was 1.6 preop
-H/h 7.3/23.3 yesterday, 8.6/26 today after 1u PRBC yesterday 06/02. Wt up 6 lbs from preop/+1 pitting edema, cont. Lasix
-Platelets improved following 1u PRBC yesterday, 109 -> 128. Cont. ASA/Plavix
-Cont. current meds (ASA, Plavix, holding HCTZ and Januvia given cr 3.3)
-Echo on 05/31 showed a well seated TAVR with PG/MG of 21/11 mmHg, no aortic regurgitation. LVEF 65%, mild MS/MR
-OOB into chair/Ambulate/PT-OT following
-Vascular surgery following groins and ALIN dressing management
-Neurology following
-Physiatry evaluating for [facility] placement today vs tomorrow
Assessment / Plan
-
- Severe symptomatic - s/p Left trans femoral TAVR with a 23 mm Pacheco TAVR valve on 05/31/23, pod #4
- s/p left common femoral artery cutdown and endarterectomy with patch angioplasty using bovine pericardium and placement of Alin system by Dr. Sarkar on 05/31/23
- Preop LVEF was 60% and was 60% following TAVR without inotropic support, no regional wall motion abnormalities or dyskinesia. The aortic valve was well seated without detectable PVL with mean gradient 6mmHg.
- Acute on chronic diastolic congestive heart failure with elevated LVEDP 25 mmHg pre-TAVR- diuresed with 40 mg iv Lasix post TAVR
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 Unable to do closed MRI d/t claustrophobia
- Pituitary macroadenoma
- Severe peripheral vascular disease with history of femoro-femoral bypass with occlusion of the bypass graft and hx of iliac stent
- B/l Carotid bruit
- Mitral valve stenosis
- Baseline CKD 3b (Cr 1.6 preop)
- Hx DUSTIN 07/2021 (Cr 2.3)
- DM II with peripheral neuropathy
- Hypertension
- Hyperlipidemia
- Class 2 obesity (BMI 39)
- Chronic NSAID use for chronic back pain/ arthritis
- Chronic LIM, paroxysmal nocturnal dyspnea
- Hx lower GI bleed.
- Hx colitis
- Chronic anemia
- Iron deficiency
- COPD
- Appendectomy/ hysterectomy/ ventral hernia repair
- Carpal tunnel
- Cataract surgery
- Former smoker
- Acute on chronic postop blood loss anemia d/t vascular complication - s/p 2 pRBCs intraop
- Acute postop R homonymous hemianopsia (which appeared incomplete in the right eye with the RUQ being more impaired than the RLQ where she reports partial vision)- evaluated by Neurology
-HCT was concerning for a 3 cm subacute nonhemorrhagic infarct in the superior aspect of the left cerebellar hemisphere. CTA was negative for clot.
- Acute postop anxiety- required Xanax
- DUSTIN on CKD
Head CT:
'1). 3 cm subacute nonhemorrhagic infarct in the superior aspect of the left cerebellar hemisphere
2). Stable pituitary macroadenoma.'
CTA head/neck:
'
1). There is moderately enlarged findings coarse calcific atherosclerotic plaque at the aortic arch extending into the origins of the brachiocephalic vessels associated with approximately 60% stenosis of the left common carotid artery at its origin
and less than 50% stenosis at the origins of the innominate, right common carotid and left subclavian arteries
2). There is no evidence of intracranial branch occlusion or significant intracranial stenosis
Specifically, normal flow is demonstrated in both posterior cerebral arteries and the proximal portions of both superior cerebellar arteries
3). Partially calcific atherosclerotic plaque at the right carotid bifurcation is associated with approximately 80% stenosis of the right internal carotid artery at its origin
4) partially calcific atherosclerotic plaque at the left carotid bifurcation is associated with approximately 50% stenosis of the left internal carotid artery at its origin
5). Partially calcific atherosclerotic plaque at the cavernous and supraclinoid portions of both internal carotid arteries is associated with near 70% stenosis bilateral'
CTP:no evidence of stroke
Discussed patient care with: Cardiology, Nursing, Respiratory Therapy, Pharmacy and Care Team
Subjective
Procedure
Left trans femoral TAVR with a 23 mm Pacheco TAVR valve on 05/31/23
- s/p left common femoral artery cutdown and endarterectomy with patch angioplasty using bovine pericardium and placement of Alin system by Dr. Sarkar on 05/31/23
-
Date of Service: June 04, 2023
Pt c/o left groin site pain, otherwise feels well
Objective Data
-
PT 12.1 Sec (11.4-14.6) 05/28/23 12:42
INR 0.91 05/28/23 12:42
APTT 30.7 Sec (23.4-35.0) 05/28/23 12:42
Vital Signs
Vital Signs
Temp Pulse Resp BP Pulse Ox
99.3 F 91 20 118/48 95
06/03/23 23:45 06/04/23 02:00 06/03/23 23:45 06/03/23 23:21 06/03/23 23:45
CT Intake/Output/Weight
06/03/23 06/03/23 06/04/23
06:59 18:59 06:59
Intake Total 240 / 1770 0 / 250 250 / 250
Output Total 300 / 300
Balance 240 / 1360 0 / -50 -50 / -50
SaO2: 95 (2L)
Physical Exam
-
General: Awake, Oriented and AOx3
Cardiovascular: Regular rate & rhythm, No Murmurs, No Rub and No Gallop
Respiratory: Decreased Breath Sounds (at bases)
Sternum: Stable
Incision: Clean, Dry, Intact and Dressing Intact
Extremities: Edema +1
Data Reviewed
-
Lab Results: Results Reviewed
Medications: Active Meds Reviewed
Chest X-Ray: Report Reviewed and Image Reviewed
ECG: Report Reviewed and Image Reviewed
[2023-06-04 04:39] LABS: Hemoglobin 8.6 g/dL (12.0-16.0); Mean Corp Hgb Conc. 33.1 g/dL (33.0-37.0); Mean Corpuscular Hgb 30.1 pg (27.0-31.0); Mean Corpuscular Volume 90.9 fL (81.0-99.0); Mean Platelet Volume 10.5 fL (7.4-10.4); Platelet Count 128 10^3/uL (130-400); Red Blood Cell Count 2.86 10^6/uL (4.20-5.40); Red Cell Dist. Width 14.4 % (11.5-14.5); White Blood Cell Count 13.1 10^3/uL (4.8-10.8)
--- NOTE | 2023-06-04 04:45 | PTCARENOTE ---
Upon entering pt room for AM vitals, pt's NC off. Pt O2 74%. placed back on NC, oxygen bumped to 6L. Pt O2 back to 96%, lowered down to 4.5L 93-94%.
[2023-06-04 05:05] LABS: Blood Urea Nitrogen 60 mg/dl (7-17); Calcium 9.3 mg/dl (8.4-10.2); Carbon Dioxide 21 mmol/L (22-30); Chloride 104 mmol/L (98-107); Estimated Creatinine Clearance 15 ml/min; Glucose 153 mg/dl (70-99); Magnesium 1.9 mg/dl (1.6-2.3); Sodium 132 mmol/L (135-145); eGFR 13.85
--- NOTE | 2023-06-04 07:00 | PTCARENOTE ---
Bedside walking rounds report received. Patient seen on rounds resting in bed . Groggy, but oriented x 3 when awake. NSR on monitor. 4L nasal canula O2: pulse ox sats 95%. Patient reports no BM as indicated on worklist as 4 days. Jeanine, CT surg
INTELLIGENCE INTERN aware of same and per Cece Goodman PA-c aware of same and the patient cannot go to [facility] until she has a BM. Right upper arm midline catheter in place and patent and has brisk positive blood return. Pure wick external urinary drainage device
in place and functional due to patient's chronic stress incontinence draining clear romero yellow urine. Left upper extremety weakness and ataxia: See NIHHS assessment.
[2023-06-04] MEDS: NON-FORMULARY ITEM 1 UNIT PO (07:39)
--- NOTE | 2023-06-04 09:11 | CM ---
Addendum entered by Marilu Goodman 06/04/23 14:38:
Reviewed with [facility] Liaanny and Marco would like to to stay today and see how she is in the a.m. Updated LINOLEUM INSTALLER and R.N. regarding above. Medically work-up in progress. The discharge plan is to go to [facility]. when medically stable.
Original Note:
Reviewed chart. Telephone call to [facility]. Liaison to check on bed availability. [facility] liaison states they have a bed available for Mrs. Carter today. Updated P.A/N/P and r.n. regarding transfer. The report number for [facility] is
([phone]). Medical work-up in progress. The discharge plan is to go to [facility]. at [place] when medically stable.
--- NOTE | 2023-06-04 09:17 | W.PN.UPDATE ---
Update Note
Progress Note Update
Patient seen and examined at bedside, left femoral julisa dressing removed, site CDI. Svetlana and sutures well-approximated, all surrounding compartments soft, scant area of ecchymosis. Would recommend covering suture/staple site with gauze, and
securing with minimal paper tape, changing daily or as needed if soiled. Follow-up appointment left in discharge instructions. Please call with questions or concerns.
[2023-06-04] MEDS: SENOKOT-S 1 TABLET PO (09:20)
[2023-06-04] MEDS: ASPIR LOW (ENTERIC COATED) 81 MG PO (09:20)
[2023-06-04] MEDS: PROTONIX 40 MG PO (09:20)
[2023-06-04] MEDS: LIPITOR 40 MG PO (09:20)
[2023-06-04] MEDS: MAGNESIUM OXIDE 500 MG PO ×2 (09:20→19:37)
[2023-06-04] MEDS: VITAMIN C 1000 MG PO (09:21)
[2023-06-04] MEDS: SINGULAIR 10 MG PO (09:21)
[2023-06-04] MEDS: LASIX 40 MG IV (09:21)
[2023-06-04] MEDS: PLAVIX 75 MG PO (09:21)
[2023-06-04] MEDS: MILK OF MAGNESIA 30 ML PO (10:25)
[2023-06-04] MEDS: NOVOLOG FLEXPEN-MODERATE RESISTANCE 1 UNITS SC ×2 (10:28→12:12)
[2023-06-04 10:29] LABS: Glucose - Point of Care 183 mg/dl (70-99)
--- NOTE | 2023-06-04 11:23 | W.PN.CARDCBS ---
Addendum entered and electronically signed by Luther Bradley MD 06/04/23 13:23:
Patient with some shortness of breath, feels very weak, asked 'am I getting better?' Currently with PT
Allergies: None
Outpatient medications: Amlodipine, aspirin 81, atorvastatin 40 mg, hydrochlorothiazide 12.5, Januvia 100 mg, Singulair 10 mg, vitamin B6
Current medications: Aspirin 81 mg a day, atorvastatin 40 mg a day, hydrochlorothiazide 12.5 mg daily on hold, Singulair 10 mg daily, Sitagliptin 100 mg a day, Trelegy Ellipta, clopidogrel 75 mg a day, Protonix, Flexeril, magnesium, amlodipine 5 mg
a day
PMH/PSH/SH/FH: Reviewed
Review of systems: Negative except as above
133/55, pulse 94, respiratory 20, afebrile, weight is 96.1 kg, up 0.6 kg, up 3.5 kg since admission intake and output incomplete, saturations 88% on 2 L
Fatigued, appears chronically ill but not acutely in distress
Head neck exam unremarkable
Neuro: Right visual field cut
Lungs, crackles bilaterally
Cardiac systolic murmur at base, JVD difficult to assess
Abdomen very obese
Extremities trace edema
White count 13.1, hemoglobin 8.6, platelets 128, sodium 132, BUN and creatinine are 68 and 3.3, creatinine had been 3.2 and was 2.1 on the
Impression:
-s/p TAVR for severe 05/31/23
with 23 mm Pacheco WEI valve via left common femoral approach: [place] high surgical risk-Right homonymous hemianopsia post TAVR:
NIH stroke scale: 1 for partial hemianopsia.
Neuroimaging: Angiography: No intracranial branch occlusion or significant intracranial stenosis. Specifically, normal flow is demonstrated to the posterior circulation. CT perfusion demonstrated no evidence of stroke.
CT head: 3 cm subacute nonhemorrhagic infarct in the superior aspect of the left cerebral hemisphere and stable pituitary macroadenoma 05/31/23. Less well seen on repeat CT head 06/01/23-Left common femoral surgical exploration and left common
femoral endarterectomy with patch angioplasty post TAVR for bleeding at common femoral access site 05/31/23.
-Prior left common femoral surgical cutdown:
History of left to right femoral-femoral bypass (now 100% occluded)
100% occluded right iliac artery -PAD with 100% occluded right common iliac artery
-CAD with 100% occlusion of the ostial RCA filling via left to right collaterals by cath 04/17/23
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 I followed patient and never had this as part of her history.
-DM2
-COPD
-DUSTIN on CKD 4
-Hyperlipidemia
-Hypertension
-Pituitary macroadenoma
-Hypomagnesemia
Echo 06/01/23: EF 65%, mild MS with mean gradient 5 mmHg, mild MR, Pacheco WEI 23 mm valve is in the aortic position, peak/mean gradient is 21/11 mmHg, no aortic insufficiency.
Plan:
With regards to what I believe is acute on chronic HFpEF, she has received additional Lasix, but her weight has not dropped dramatically. She received furosemide 40 mg IV today, will check proBNP and consider a p.m. dose of furosemide, 80 mg
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 Will continue to follow.
She seems unchanged regarding her periprocedural CVA with right visual field cut
Continue aspirin and Plavix at present given recent TAVR and CVA
Hemoglobin is acceptable at 8.6 following transfusion
She is very deconditioned
Hopefully for transfer to [facility] provided volume status is acceptable and renal function stable or improving
Not an ideal candidate for Entresto with HFpEF. Unclear that SGLT2 antagonists is acceptable from standpoint of UTI
Original Note:
Today's Communication / Plan
-
Give additional 40 mg IV Lasix today
Start Amlodipine 5 mg for HTN
Continue ASA and Plavix
Plan to d/c to rehab within next 24 hours
Outpatient cardiology follow up arranged
Impression / Plan
-
Primary grounds and nursery specialist: Dr. Luther Mercedes
PCP: Dr. Adrian Vyas
IMPRESSION:
-s/p TAVR for severe 05/31/23
with 23 mm Pacheco WEI valve via left common femoral approach: [place] high surgical risk
-Right homonymous hemianopsia post TAVR:
NIH stroke scale: 1 for partial hemianopsia.
Neuroimaging: Angiography: No intracranial branch occlusion or significant intracranial stenosis. Specifically, normal flow is demonstrated to the posterior circulation. CT perfusion demonstrated no evidence of stroke.
CT head: 3 cm subacute nonhemorrhagic infarct in the superior aspect of the left cerebral hemisphere and stable pituitary macroadenoma 05/31/23. Less well seen on repeat CT head 06/01/23
-Left common femoral surgical exploration and left common femoral endarterectomy with patch angioplasty post TAVR for bleeding at common femoral access site 05/31/23.
-Prior left common femoral surgical cutdown:
History of left to right femoral-femoral bypass (now 100% occluded)
100% occluded right iliac artery
-PAD with 100% occluded right common iliac artery
-CAD with 100% occlusion of the ostial RCA filling via left to right collaterals by cath 04/17/23
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 I followed patient and never had this as part of her history.
-DM2
-COPD
-DUSTIN on CKD 4
-Hyperlipidemia
-Hypertension
-Pituitary macroadenoma
-Hypomagnesemia
Echo 06/01/23: EF 65%, mild MS with mean gradient 5 mmHg, mild MR, Pacheco WEI 23 mm valve is in the aortic position, peak/mean gradient is 21/11 mmHg, no aortic insufficiency.
RECOMMENDATION:
-Patient with stable TAVR placement and function by post-TAVR echo 06/01/23, peak/mean gradients 21/11 mmhg. No chest pain or SOB
-Prior to TAVR patient was at elevated surgical risk due to previous left common femoral surgical cutdown. Vascular surgery notes reviewed and patient with left groin ALIN system in place following left common femoral artery endarterectomy with
patch angioplasty using bovine pericardium 05/31/23
-Neurology notes reviewed. Repeat CT head 06/01/23 says that the left cerebellar nonhemorrhagic subacute infarct is less well seen and there were no new areas of concern. Patient was recommended an inpatient MRI, but refused and instead wants an open
MRI scan. Neurology is recommending MRI head within in the next month.
-Patient was told by neurology and cardiology that she cannot drive. Neurology reported patient to [facility]
-[facility] has evaluated patient. PT/OT working with patient.
-Continue Aspirin 81 mg daily and Plavix 75 mg daily
-Hemoglobin improved to 8.6 after transfusion (2 units 05/02 and 1 unit 06/02).
-Weight up 6 lbs since admission, got IV Lasix 40 mg 06/02 & 06/03. Continue to monitor response
-BP acceptable despite her outpatient dose of HCTZ 12.5 mg daily being on hold. Plan to start Amlodipine 5 mg 06/04/2023
-Hypomagnesemia improved 1.9
-Cre remains elevated at 3.3. holding HCTZ and Januvia, Continue to follow. Patient with h/o CKD 4 with baseline varying from 1.6-2.5
-Anticipate d/c to [facility] within next 24 hours
Progress Note - Hat Lining Blocker
Subjective
Date of Service: June 04, 2023
Patient seen and examined. Patient's at bedside. Patient reports she is tired and continues to have groin pain. She denies chest pain, shortness of breath, dizziness or lightheadedness.
Objective
Labs:
06/04/23 04:19
06/04/23 04:19
Labs
Hgb 8.6 g/dL (12.0-16.0) L 06/04/23 04:19
Hct 26.0 % (37.0-47.0) L 06/04/23 04:19
Plt Count 128 10^3/uL (130-400) L 06/04/23 04:19
PT 12.1 Sec (11.4-14.6) 05/28/23 12:42
INR 0.91 05/28/23 12:42
APTT 30.7 Sec (23.4-35.0) 05/28/23 12:42
Sodium 132 mmol/L (135-145) L 06/04/23 04:19
Potassium 4.0 mmol/L (3.5-5.1) 06/04/23 04:19
BUN 60 mg/dl (7-17) H 06/04/23 04:19
Creatinine 3.3 mg/dL (0.6-1.0) H 06/04/23 04:19
Glucose 153 mg/dl (70-99) H 06/04/23 04:19
Vital Signs and I&O:
Vital Signs
Temp Pulse Resp BP Pulse Ox
100.1 F 91 18 118/48 92
06/04/23 06:57 06/04/23 07:42 06/04/23 07:42 06/03/23 23:21 06/04/23 07:42
Vital Signs
Temp Pulse Resp BP Pulse Ox
100.1 F 91 18 118/48 92
06/04/23 06:57 06/04/23 07:42 06/04/23 07:42 06/03/23 23:21 06/04/23 07:42
Intake & Output
06/02/23 06/03/23 06/04/23 06/05/23
06:59 06:59 06:59 06:59
Intake Total 590 / 590 1770 / 1770 250 / 250
Output Total 950 / 950 410 / 410 300 / 300 600 / 600
Balance -360 / -360 1360 / 1360 -50 / -50 -600 / -600
Physical Exam
Physical Exam
GEN: No distress, awake, Ox3
HEENT: supple, anicteric, mmm
LUNGS:Anteriorly CTA, no wheezes/rales
CV: Reg, S1/S2, 1/6 syst murmur, no rubs or gallops
ABD: soft, BS+, NT/ND
EXT: No edema, clubbing or cyanosis
NEURO: +visual field cut, Lt sided weakness
SKIN: No rash, warm, dry
[2023-06-04] MEDS: NORVASC 5 MG PO (11:34)
[2023-06-04 12:12] LABS: Glucose - Point of Care 198 mg/dl (70-99)
--- NOTE | 2023-06-04 13:30 | PTCARENOTE ---
Additional labs drawn per Dr. RAVEN Bradley: aware of pro BNP of 2101. [facility] give additional [facility]. Aware of creat leveling off in low 3's the last few days. OK to go to [place]: wean O2 and diurese and increase bowel regimen/.
[2023-06-04 14:06] LABS: NT-proBNP 2120 pg/ml
[2023-06-04] MEDS: LASIX 80 MG IV (15:13)
[2023-06-04] MEDS: DULCOLAX 10 MG PO (16:17)
[2023-06-04 17:33] LABS: Glucose - Point of Care 254 mg/dl (70-99)
[2023-06-04 18:38] LABS: Glucose - Point of Care 244 mg/dl (70-99)
[2023-06-04] MEDS: NOVOLOG FLEXPEN-MODERATE RESISTANCE 3 UNITS SC (18:38)
--- NOTE | 2023-06-04 21:59 | PTCARENOTE ---
Pt rec'd at change of shift with eyes closed daughter at bedside. NIH scale performed. Pt needed multiple cues to stay on task. pt had difficulty verbally explaining story of mother and children on paper,freq falling a sleep in middle of story. Pt
did become more alert when family entered the room and was conversive for short time. Pt's sat on 2 lit at start of shift showed sat 88%, increased to 3 lit n/c then 4 lit when sat remained < 90%. Pt sat approx 92% on 4 lit with snoring noted.
family remain at pts bedside.
[2023-06-04 22:01] LABS: Glucose - Point of Care 218 mg/dl (70-99)
[2023-06-04] MEDS: FLEXERIL 10 MG PO (22:58)
[2023-06-04] MEDS: SENOKOT-S PO (23:32)
[2023-06-05] VITALS (8 sets, daily range): BP systolic 127–147; BP diastolic 49–69; O2SAT 92; BMI 39.8
--- NOTE | 2023-06-05 03:08 | PTCARENOTE ---
Pt called nursing to room to use bsc. Pt stood with 2 person assist. Unable to have a bm. placed back to bed with new pure wick placed. call heart within reach.
[2023-06-05 03:32] LABS: Hematocrit 25.3 % (37.0-47.0); Hemoglobin 8.9 g/dL (12.0-16.0); Mean Corp Hgb Conc. 35.2 g/dL (33.0-37.0); Mean Corpuscular Hgb 30.9 pg (27.0-31.0); Mean Corpuscular Volume 87.8 fL (81.0-99.0); Mean Platelet Volume 10.8 fL (7.4-10.4); Platelet Count 161 10^3/uL (130-400); Red Blood Cell Count 2.88 10^6/uL (4.20-5.40); Red Cell Dist. Width 14.1 % (11.5-14.5); White Blood Cell Count 14.6 10^3/uL (4.8-10.8)
[2023-06-05 04:14] LABS: Blood Urea Nitrogen 60 mg/dl (7-17); Calcium 9.6 mg/dl (8.4-10.2); Carbon Dioxide 23 mmol/L (22-30); Chloride 101 mmol/L (98-107); Estimated Creatinine Clearance 15 ml/min; Glucose 143 mg/dl (70-99); Magnesium 2.3 mg/dl (1.6-2.3); Potassium 3.6 mmol/L (3.5-5.1); Sodium 133 mmol/L (135-145); eGFR 13.85
--- NOTE | 2023-06-05 05:15 | W.PN.CT ---
Today's Communication / Plan
-
-No major issues overnight
-Pt is alert and oriented x 3, without slurred speech, ongoing right hemianopsia, noted to have LUE weakness
-Groins C/D/I, left groin ALIN dressing discontinued by Vascular Surgery yesterday 06/04/23
-Rhythm is stable overnight without ectopies, pauses. Currently NSR @ 90 bpm
-Creatinine appears to have plateaued @ 3.3, again 3.3 today same as yesterday, has CKD stage 4 (lives around 1.3-2.5), was 1.6 preop
-H/h stable @ 8.9/25.3
-Platelets improved: 109 -> 128-> 161K. Cont. ASA/Plavix
-Hyponatremia is improving, 133 today, was 132 yesterday, 137 preop. Cont. PO Lasix, Replete K, 3.6 today
-Cont. current meds (ASA, Plavix, holding HCTZ and Januvia given cr 3.3)
-Echo on 05/31 showed a well seated TAVR with PG/MG of 21/11 mmHg, no aortic regurgitation. LVEF 65%, mild MS/MR
-OOB into chair/Ambulate/PT-OT following
-Neurology following
-Physiatry evaluating for [facility] placement today
Assessment / Plan
-
- Severe symptomatic - s/p Left trans femoral TAVR with a 23 mm Pacheco TAVR valve on 05/31/23, pod #5
- s/p left common femoral artery cutdown and endarterectomy with patch angioplasty using bovine pericardium and placement of Alin system by Dr. Sarkar on 05/31/23
- Preop LVEF was 60% and was 60% following TAVR without inotropic support, no regional wall motion abnormalities or dyskinesia. The aortic valve was well seated without detectable PVL with mean gradient 6mmHg.
- Acute on chronic diastolic congestive heart failure with elevated LVEDP 25 mmHg pre-TAVR- diuresed with 40 mg iv Lasix post TAVR
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 Unable to do closed MRI d/t claustrophobia
- Pituitary macroadenoma
- Severe peripheral vascular disease with history of femoro-femoral bypass with occlusion of the bypass graft and hx of iliac stent
- B/l Carotid bruit
- Mitral valve stenosis
- Baseline CKD 3b (Cr 1.6 preop)
- Hx DUSTIN 07/2021 (Cr 2.3)
- DM II with peripheral neuropathy
- Hypertension
- Hyperlipidemia
- Class 2 obesity (BMI 39)
- Chronic NSAID use for chronic back pain/ arthritis
- Chronic LIM, paroxysmal nocturnal dyspnea
- Hx lower GI bleed.
- Hx colitis
- Chronic anemia
- Iron deficiency
- COPD
- Appendectomy/ hysterectomy/ ventral hernia repair
- Carpal tunnel
- Cataract surgery
- Former smoker
- Acute on chronic postop blood loss anemia d/t vascular complication - s/p 2 pRBCs intraop
- Acute postop R homonymous hemianopsia (which appeared incomplete in the right eye with the RUQ being more impaired than the RLQ where she reports partial vision)- evaluated by Neurology
-HCT was concerning for a 3 cm subacute nonhemorrhagic infarct in the superior aspect of the left cerebellar hemisphere. CTA was negative for clot.
- Acute postop anxiety- required Xanax
- DUSTIN on CKD
Head CT:
'1). 3 cm subacute nonhemorrhagic infarct in the superior aspect of the left cerebellar hemisphere
2). Stable pituitary macroadenoma.'
CTA head/neck:
'
1). There is moderately enlarged findings coarse calcific atherosclerotic plaque at the aortic arch extending into the origins of the brachiocephalic vessels associated with approximately 60% stenosis of the left common carotid artery at its origin
and less than 50% stenosis at the origins of the innominate, right common carotid and left subclavian arteries
2). There is no evidence of intracranial branch occlusion or significant intracranial stenosis
Specifically, normal flow is demonstrated in both posterior cerebral arteries and the proximal portions of both superior cerebellar arteries
3). Partially calcific atherosclerotic plaque at the right carotid bifurcation is associated with approximately 80% stenosis of the right internal carotid artery at its origin
4) partially calcific atherosclerotic plaque at the left carotid bifurcation is associated with approximately 50% stenosis of the left internal carotid artery at its origin
5). Partially calcific atherosclerotic plaque at the cavernous and supraclinoid portions of both internal carotid arteries is associated with near 70% stenosis bilateral'
CTP:no evidence of stroke
Discussed patient care with: Cardiology, Nursing, Respiratory Therapy, Pharmacy and Care Team
Subjective
Procedure
Left trans femoral TAVR with a 23 mm Pacheco TAVR valve on 05/31/23
- s/p left common femoral artery cutdown and endarterectomy with patch angioplasty using bovine pericardium and placement of Alin system by Dr. Sarkar on 05/31/23
-
Date of Service: June 05, 2023
Pt c/o mild incisional pain and constipation, otherwise feels well. Mag citrate ordered
Objective Data
-
Lab Results
06/05/23 02:31
06/05/23 02:31
PT 12.1 Sec (11.4-14.6) 05/28/23 12:42
INR 0.91 05/28/23 12:42
APTT 30.7 Sec (23.4-35.0) 05/28/23 12:42
Vital Signs
Vital Signs
Temp Pulse Resp BP Pulse Ox
97.8 F 91 20 149/56 94
06/04/23 20:21 06/05/23 03:00 06/04/23 20:21 06/04/23 23:03 06/04/23 23:00
CT Intake/Output/Weight
06/04/23 06/04/23 06/05/23
06:59 18:59 06:59
Intake Total 250 / 250 550 / 550
Output Total 300 / 300 1350 / 0 / 2049
Balance -50 / -50 -800 / -1500 -700 / -1500
SaO2: 94 (4L)
Physical Exam
-
General: Awake, Oriented and AOx3
Cardiovascular: Regular rate & rhythm and No Murmurs
Respiratory: Decreased Breath Sounds
Incision: Clean, Dry, Intact and Dressing Intact
Extremities: Other (+trace edema)
Data Reviewed
-
Lab Results: Results Reviewed
Medications: Active Meds Reviewed
Chest X-Ray: Report Reviewed and Image Reviewed
ECG: Report Reviewed and Image Reviewed
[2023-06-05] MEDS: KCL 40 MEQ PO (05:26)
[2023-06-05] MEDS: CITROMA 300 ML PO (06:39)
[2023-06-05 07:19] LABS: Glucose - Point of Care 205 mg/dl (70-99)
[2023-06-05] MEDS: NON-FORMULARY ITEM 1 UNIT PO (07:24)
[2023-06-05] MEDS: ROXICODONE 2.5 MG PO (08:26)
[2023-06-05] MEDS: PROTONIX 40 MG PO (08:27)
[2023-06-05] MEDS: SENOKOT-S 1 TABLET PO (08:27)
[2023-06-05] MEDS: VITAMIN C 1000 MG PO (08:27)
[2023-06-05] MEDS: MAGNESIUM OXIDE 500 MG PO ×2 (08:27→20:25)
[2023-06-05] MEDS: LIPITOR 40 MG PO (08:27)
[2023-06-05] MEDS: PLAVIX 75 MG PO (08:27)
[2023-06-05] MEDS: NORVASC 5 MG PO (08:27)
[2023-06-05] MEDS: ASPIR LOW (ENTERIC COATED) 81 MG PO (08:27)
[2023-06-05] MEDS: SINGULAIR 10 MG PO (08:27)
[2023-06-05] MEDS: NOVOLOG FLEXPEN-MODERATE RESISTANCE 3 UNITS SC (08:28)
--- NOTE | 2023-06-05 09:23 | W.PN.CARDCBS ---
Addendum entered and electronically signed by Fabrizio Gallardo MD 06/05/23 10:11:
I saw and examined the patient.
The Winder Fixer's note was reviewed and I agree with the note.
Comment:
GEN: No distress, awake, Ox3
HEENT: supple, anicteric, mmm
LUNGS: CTA, no wheezes/rales
CV: Reg, S1/S2, no murmur/gallop
ABD: soft, BS+, NT/ND
EXT: dressing intact
NEURO: + visual field cut
SKIN: No rash
Plan:
about the same. Going to [facility] today.
Con't Bumex. Decrease dose to 1mg daily
Creat at 3.3
Cont ASA/Plavix
Needs rehab
Eventual open MRI
Original Note:
Today's Communication / Plan
-
Likely going to [facility] today
New to Bumex 2 mg PO daily, wasn't taking a loop diuretic prior to admission, outpatient dose of HCTZ stopped
Cont aspirin and Plavix
Needs an open MRI as an outpatient in 1-2 months
No driving, Neuro team office reported patient to [facility]
Impression / Plan
-
Primary alteration tailor apprentice: Dr. Luther Mercedes
PCP: Dr. Adrian Vyas
IMPRESSION:
-s/p TAVR for severe 05/31/23
with 23 mm Pacheco WEI valve via left common femoral approach: Newcomb high surgical risk
-Right homonymous hemianopsia post TAVR:
NIH stroke scale: 1 for partial hemianopsia.
Neuroimaging: Angiography: No intracranial branch occlusion or significant intracranial stenosis. Specifically, normal flow is demonstrated to the posterior circulation. CT perfusion demonstrated no evidence of stroke.
CT head: 3 cm subacute nonhemorrhagic infarct in the superior aspect of the left cerebral hemisphere and stable pituitary macroadenoma 05/31/23. Less well seen on repeat CT head 06/01/23
-Left common femoral surgical exploration and left common femoral endarterectomy with patch angioplasty post TAVR for bleeding at common femoral access site 05/31/23.
-Prior left common femoral surgical cutdown:
History of left to right femoral-femoral bypass (now 100% occluded)
100% occluded right iliac artery
-PAD with 100% occluded right common iliac artery
-CAD with 100% occlusion of the ostial RCA filling via left to right collaterals by cath 04/17/23
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 I followed patient and never had this as part of her history.
-DM2
-COPD
-DUSTIN on CKD 4
-Hyperlipidemia
-Hypertension
-Pituitary macroadenoma
-Hypomagnesemia
Echo 06/01/23: EF 65%, mild MS with mean gradient 5 mmHg, mild MR, Pacheco WEI 23 mm valve is in the aortic position, peak/mean gradient is 21/11 mmHg, no aortic insufficiency.
PLAN:
-Patient with ongoing right eye visual changes and LUE ataxia and drift. Patient was recommended an inpatient MRI, but refused and instead wants an open MRI scan. Neurology is recommending MRI head within in the next 1-2 months.
-Cont aspirin and Plavix daily
-Patient is likely going to [facility] 06/05/23
-Patient with stable TAVR placement and function by post-TAVR echo 06/01/23, peak/mean gradients 21/11 mmHg. No chest pain or SOB
-Prior to TAVR patient was at elevated surgical risk due to previous left common femoral surgical cutdown. Vascular surgery notes reviewed and left groin sutures/ramona intact with dry sterile. Patient will follow up with vascular surgery as an
outpatient following left common femoral artery endarterectomy with patch angioplasty using bovine pericardium 05/31/23
-Patient was told by neurology and cardiology that she cannot drive. Neurology reported patient to DMV
-Hemoglobin improved to 8.6 after transfusion (2 units 05/02 and 1 unit 06/03/23).
-Weight is down 3 lbs overnight after Lasix 40 mg IV 06/03/23 and 06/04/23. Patient was not taking a loop diuretic prior to admission and is now ordered to start Bumex 2 mg PO daily at [facility].
-Outpatient dose of HCTZ has been stopped.
-New to amlodipine 5 mg daily starting 06/04/23
-Cre has plateaued at 3.3. Patient with h/o CKD 4 with baseline Cre prior to admission varying from 1.6-2.5
-Anticipate d/c to [facility] 06/05/23
Progress Note - Crossing Watchman
Subjective
Date of Service: June 05, 2023
Ongoing right eye visual changes
Objective
Labs:
06/05/23 02:31
06/05/23 02:
Labs
Hgb 8.9 g/dL (12.0-16.0) L 06/05/23 02:
Hct 25.3 % (37.0-47.0) L 06/05/23 02:31
Plt Count 161 10^3/uL (130-400) D 06/05/23 02:31
PT 12.1 Sec (11.4-14.6) 05/28/23 12:42
INR 0.91 05/28/23 12:42
APTT 30.7 Sec (23.4-35.0) 05/28/23 12:42
Sodium 133 mmol/L (135-145) L 06/05/23 02:31
Potassium 3.6 mmol/L (3.5-5.1) 06/05/23 02:31
BUN 60 mg/dl (7-17) H 06/05/23 02:
Creatinine 3.3 mg/dL (0.6-1.0) H 06/05/23 02:31
Glucose 143 mg/dl (70-99) H 06/05/23 02:31
Vital Signs and I&O:
Vital Signs
Temp Pulse Resp BP Pulse Ox
98 F 94 16 135/56 90
06/05/23 07:53 06/05/23 08:27 06/05/23 07:53 06/05/23 08:27 06/05/23 07:53
Vital Signs
Temp Pulse Resp BP Pulse Ox
98 F 94 16 135/56 90
06/05/23 07:53 06/05/23 08:27 06/05/23 07:53 06/05/23 08:27 06/05/23 07:53
Intake & Output
06/03/23 06/04/23 06/05/23 06/06/23
06:59 06:59 06:59 06:59
Intake Total 1770 / 1770 250 / 250 550 / 550
Output Total 410 / 410 300 / 300 2049 / 2049
Balance 1360 / 1360 -50 / -50 -1500 / -1500
Physical Exam
Physical Exam
GEN: AAO to person, place and situation
HEENT: MMM
LUNGS: No audible wheeze
CV: Reg, no murmur
ABD: ND
EXT: Left groin dressing clean and dry without drainage or malodor
NEURO: Gross non-focal
SKIN: No rash
[2023-06-05] MEDS: DULCOLAX 10 MG RECTAL (10:00)
[2023-06-05] MEDS: BUMEX 2 MG PO (10:01)
--- NOTE | 2023-06-05 10:04 | CM ---
Addendum entered by Marilu Goodman 06/05/23 12:24:
PMR saw patient today and would like nephrology to see her. Updated ASSOCIATE DESIGNER and RN regarding above.
Original Note:
Reviewed chart. Telephone call to [facility]. Liaison to confirm bed availability. [facility] states bed available. The dsicharge plan is to go to [facility], at [facility] when medically stable.
--- NOTE | 2023-06-05 10:09 | W.PN.REHAB ---
Today's Communication / Plan
-
Still good candate for acute rehab for mobility and gait dysfunction, weakness, apraxia/ataxia in L side s/p CVA.
Still with elevated WBC, anemia, and DUSTIN with CKD. Once more stabilized and appropriate for discharge, will consider transfer to [facility] if insurance approval.
Assessment/Function
-
Assessment:
General: Drowsy and some difficulty staying alert. Does answer questions and follows commands.
R gaze deficits, especially peripheral vision. Able to scan to the right.
Mild distal LE edema, no calf tenderness, palpable pulses.
Still some difficulty also with rapid alternating movements and fine motor with left hand more than right. No tremor. Positive left drift.
5/5 with shoulder abduction, elbow flex/extension. Mild decreased left frame expander and finger abduction compared to right. Difficulty elevating legs in bed bilaterally with some hip/groin pain. Distally 5/5 with DF and EHL.
Tone: Normal in all extremities
Range of Motion: Passively within normal limits in all extremities
Function:
Bed Mobility:max A
Transfers:Mod A transfers
Ambulation: Mod Ax2 with ambulation just 1 step with PT
Plan
-
Assessment:
77 year old female with history of PVD, Hx L to right femorofemoral bypass, left iliac stenting, CKD, HTN, HLD, mild COPD, SHANTHI, pituitary adenoma admitted on 05/30 for elective TAVR. Postoperatively had left groin bleeding requiring a cutdown and
exposure of the L common femoral artery and left common femoral artery endarterectomy with patch angioplasty. Postoperatively also noted to have R sided visual field deficits upon waking up after coming out of surgery. CT head shows acute left
cerebellar infarction
PM&R PT/OT to increase independence with ADLs, improve balance, coordination, endurance, strength, mobility, community reintegration, decreased burden of care on others and family education.
CVA: Secondary prophylaxis with aspirin only because of bleeding difficulties in the groin post-operatively. On statin, and blood pressure control (SBP less than 180 and diastolic less than 100 to participate with therapy for ischemic stroke).
Continue to monitor neurologic status.
R visual field deficits: makes patient at increased risk for falls. Will need therapy to work on scanning of environment for safe navigation.
CKD with DUSTIN: BUN/CR still elevated - monitoring. Has bumex and some IV lasix.
L sided ataxia - due to left cerebellar infarct. Some coordination difficulties with left side.
HTN: Is on norvasc, bumex currently - HCTZ is on hold, monitor closely
HLD: Statin
s/p TAVR : monitor groin wounds - had bleeding and required cutdown and exposure of the L common femoral artery and left common femoral artery endarterectomy with patch angioplasty
DM II: Accu-Cheks, insulin sliding scale, januvia
Anemia: Likely post-op. Continue to monitor.
Pain: acetaminophen or oxycodone as needed. Flexeril prn - has history of chronic low back pain
GI Prophylaxis: Pantoprazole
Safety: Continue to reinforce assistance with all transfers.
Code Status: Full code
Dispo: Plan for acute rehab when more medically stable.
Subjective
-
Date of Service: June 05, 2023
Patient seen in rehabilitation follow up this morning. Patient was sleeping initially on entering room and states is pretty tired this morning. Had a little difficulty staying awake during the entire encounter. Denies any pain, no numbness or
tingling currently. Denies any CP or SOB.
Vital Signs / Labs
-
Vital Signs and Labs:
Temp Pulse Resp BP Pulse Ox
98 F 94 16 135/56 90
06/05/23 07:53 06/05/23 08:27 06/05/23 07:53 06/05/23 08:27 06/05/23 07:53
06/05/23 02:31
06/05/23 02:31
06/04/23 06/04/23 06/04/23
10:27 12:11 17:32
WBC
RBC
Hgb
Hct
MPV
Sodium
BUN
Creatinine
Glucose
POC Glucose 183 H 198 H 254 H
06/04/23 06/04/23 06/05/23
18:36 21:57 02:31
WBC 14.6 H
RBC 2.88 L
Hgb 8.9 L
Hct 25.3 L
MPV 10.8 H
Sodium 133 L
BUN 60 H
Creatinine 3.3 H
Glucose 143 H
POC Glucose 244 H 218 H
06/05/23
07:18
WBC
RBC
Hgb
Hct
MPV
Sodium
BUN
Creatinine
Glucose
POC Glucose 205 H
--- NOTE | 2023-06-05 12:12 | W.CON.NEPH ---
Consultation
-
Date/Time Consultation Requested: 06/05/23 0987
Date/Time Consultation Performed: 06/05/23 1215
Requesting Provider: Rubens Castellanos
Performing Provider: Kendal Suresh
Reason for Consultation: DUSTIN with CKD4
Medical History
-
Chief Complaint: symptomatic
History of Present Illness:
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
bleeding requiring a cutdown and exposure of the L common femoral artery and left common femoral artery endarterectomy with patch angioplasty, she had acute blood loss anemia required 2 unit PRBC. Post op day pt had R sided bilateral visual field CT
angio showed 3cm subacute infarct of left cerebellum. Could not get MRI due to claustrophobia. On admit her cr was at 1.6 and post op cr increased to 3 and unchanged for last few days. She also receiving lasix for hypervolemia and hyponatremia. She
constipated for days and finally had BM today. She offers no cp or sob. Per she is sleeping more since surgery. non oliguric with purewick. No abd pain or n/v.
Past Medical History
CAD, COPD, HTN, NIDDM, Valvular Disease,Aortic stenosis, mitral stenosis, PAD, HLD, peripheral neuropathy, iron deficiency, h/o lower GIB, anemia, CKD4, colitis, oculomotor nerve palsy (right eye))
Past Surgical History: Appendectomy and Other (iliac stent, ventral hernia repair, carpal tunnel surgery, cataract surgery)
Social History
Tobacco: Former Smoker
Alcohol: None
Drug: None
Living: With Family
Employment: Employed (works at [employer])
Family History
Family History: Not Pertinent
Allergies / Home Medications
Allergy/AdvReac Type Severity Reaction Status Date / Time
No Known Allergies Allergy Unverified 05/25/23 15:59
�Medication �Instructions �Recorded �Confirmed �Type
cholecalciferol (vitamin D3) 25 2,000 units PO DAILY Supplement 04/09/16 05/25/23 History
mcg (1,000 unit) tablet
sitagliptin phosphate 100 mg 100 mg PO DAILY Diabetes 04/09/16 05/25/23 History
tablet (Januvia)
hydrochlorothiazide 25 mg tablet 12.5 mg PO DAILY Fluid 08/07/19 05/25/23 History
retention/Swelling
amlodipine 5 mg tablet 5 mg PO DAILY 07/26/21 05/25/23 Rx
pyridoxine (vitamin B6) 50 mg 250 mg PO DAILY Supplement 07/26/21 05/25/23 History
tablet
acetaminophen 325 mg tablet 650 mg PO Q6H PRN Pain 04/17/23 05/25/23 History
(Tylenol)
aspirin 81 mg tablet,delayed 81 mg PO DAILY #1 tab 04/17/23 05/25/23 Rx
release
atorvastatin 20 mg tablet 40 mg PO DAILY High Cholesterol 04/17/23 05/25/23 History
ferrous sulfate 325 mg (65 mg 325 mg PO DAILY Supplement 04/17/23 05/25/23 History
iron) tablet
montelukast 10 mg tablet 10 mg PO DAILY Lung/Breathing 04/17/23 05/25/23 History
Issues
fluticasone fur. 100 mcg-umeclid 1 inh inhalation DAILY 05/22/23 05/25/23 History
62.5 mcg-vilant 25 mcg Lung/Breathing Issues
inhalat.powder (Trelegy Ellipta)
Review of Systems
-
All complete 12x point ROS imquired and found negative other than stated in HPI
Physical Exam
Vital Signs
Vital Signs
Temp Pulse Resp BP Pulse Ox
98 F 94 16 135/56 90
06/05/23 07:53 06/05/23 08:27 06/05/23 07:53 06/05/23 08:27 06/05/23 07:53
Lab Results
WBC 14.6 10^3/uL (4.8-10.8) H 06/05/23 02:31
RBC 2.88 10^6/uL (4.20-5.40) L 06/05/23 02:31
Hgb 8.9 g/dL (12.0-16.0) L 06/05/23 02:31
Hct 25.3 % (37.0-47.0) L 06/05/23 02:31
Plt Count 161 10^3/uL (130-400) D 06/05/23 02:31
Sodium 133 mmol/L (135-145) L 06/05/23 02:31
Potassium 3.6 mmol/L (3.5-5.1) 06/05/23 02:31
Chloride 101 mmol/L (98-107) 06/05/23 02:31
Carbon Dioxide 23 mmol/L (22-30) 06/05/23 02:31
BUN 60 mg/dl (7-17) H 06/05/23 02:31
Creatinine 3.3 mg/dL (0.6-1.0) H 06/05/23 02:31
eGFR 13.85 06/05/23 02:31
Glucose 143 mg/dl (70-99) H 06/05/23 02:31
Calcium 9.6 mg/dl (8.4-10.2) 06/05/23 02:31
Zlc-V-Xsgewtlpzhp Pept 2120 pg/ml 06/04/23 13:29
Albumin 4.7 g/dl (3.5-5.0) 05/28/23 12:42
echo 05/31
CONCLUSIONS
1. Left ventricle: Normal size and function with an estimated ejection
fraction is 65%.
2. Right ventricle: Normal
3. Atria: Mild left atrial dilation
4. Mitral valve: Mitral annular calcification. Mild mitral stenosis with mean
gradient of 5 mmHg. Mild mitral regurgitation
5. Aortic valve: An Pacheco WEI 23 mm valve is in the aortic position. The
mean gradient is 11 mmhg. No aortic insufficiency.
6. Tricuspid valve: Trace tricuspid regurgitation with estimated pulmonary
artery systolic pressures of 18 mmhg
CXR: 06/05/23
INDICATION: Pleural effusion
Comparison examination: None
FINDINGS: A single frontal radiograph of the chest was obtained at 11:53 AM on 06/05/2023.
The cardiac silhouette and pulmonary vasculature are radiographically within normal limits.
There are no acute mediastinal abnormalities.
There is right middle lobe atelectasis
There is small left pleural effusion
IMPRESSION:
Small left pleural effusion
Right middle lobe atelectasis
Physical Exam
General: Awake, Oriented, No Distress, Nontoxic and Other (sleepy)
HEENT: EOMI and Anicteric
Respiratory: Clear, Normal Excursion and Nonlabored Respirations
Cardiac: S1/S2 and Regular Rate/Rhythm
Abdomen: Soft, Nontender and Other (mild distension)
Musculoskeletal: No Cyanosis and Edema (trace LEs)
Skin: No Rash
Neuro: Nonfocal/Grossly Intact
Psych: Insight/judgement good and Appropriate
Assessment/Plan
-
IMP:
Severe symptomatic - s/p TAVR 05/31/23
s/p left common femoral artery cutdown and endarterectomy with patch angioplasty using bovine pericardium and placement of Ashkan system by Dr. Sarkar on 05/31/23
DUSTIN with CKD 4 (Cr 1.6-2.5 preop)
Acute on chronic postop blood loss anemia d/t vascular complication
subacute nonhemorrhagic infarct in the superior aspect of the left cerebellar hemisphere
Acute on chronic diastolic congestive heart failure with elevated LVEDP 25 mmHg pre-TAVR
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
Pituitary macroadenoma
Severe peripheral vascular disease with history of femoro-femoral bypass with occlusion of the bypass graft and hx of iliac stent
Mitral valve stenosis
DM II with peripheral neuropathy
Hypertension
Hyperlipidemia
Class 2 obesity (BMI 39)
Chronic NSAID use for chronic back pain/ arthritis
Chronic LIM, paroxysmal nocturnal dyspnea
Hx lower GI bleed.
Hx colitis
COPD
Hyponatremia
- Appendectomy/ hysterectomy/ ventral hernia repair
PLan:
A/w sympt s/p TAVR on 05/30
DUSTIN multifactorial-in post op setting and contrast 05/31
cr seem to reached peak 3.3, nonoliguric , UA bland pre op
cont diuretics for hypervolemia, changed to bumex today per primary
BNP high but wt improving, CXR with out chf, may decrease diuretic or use prn
wean O2 as able
will need to monitor daily wts
BP stable on home meds
for [facility] today
d/w pt and
d/w nursing
d/w primary
Data Reviewed
-
Radiology: Report Reviewed by me
Labs: Labs Reviewed by me and Discussed with Family
[2023-06-05 13:22] LABS: Glucose - Point of Care 253 mg/dl (70-99)
[2023-06-05] MEDS: NOVOLOG FLEXPEN-MODERATE RESISTANCE 5 UNITS SC (13:52)
[2023-06-05] MEDS: NOVOLOG FLEXPEN-MODERATE RESISTANCE 1 UNITS SC (17:53)
[2023-06-05 17:54] LABS: Glucose - Point of Care 194 mg/dl (70-99)
[2023-06-05] MEDS: SENOKOT-S PO (20:25)
[2023-06-05] MEDS: TYLENOL 650 MG PO (20:26)
--- NOTE | 2023-06-05 21:51 | PTCARENOTE ---
Pt rec'd at change of shift oob in recliner chair surrounded by family. At 8pm family left. Pt given complete bed bath in recliner. Attempted twice to get a clean catch urine but pt had liq stool mixed both times. Pt back to bed at present. O2
weaned over evening shift. Pt currently on 1 lit n/c with sat maintained at 91%. Medicated with Tylenol for c/o lower back pain.
[2023-06-05 22:10] LABS: Glucose - Point of Care 204 mg/dl (70-99)
[2023-06-05] MEDS: FLEXERIL 10 MG PO (22:38)
[2023-06-06 01:30] LABS: Hematocrit 25.5 % (37.0-47.0); Mean Corp Hgb Conc. 35.3 g/dL (33.0-37.0); Mean Corpuscular Hgb 31.1 pg (27.0-31.0); Mean Corpuscular Volume 88.2 fL (81.0-99.0); Mean Platelet Volume 10.4 fL (7.4-10.4); Platelet Count 195 10^3/uL (130-400); Red Blood Cell Count 2.89 10^6/uL (4.20-5.40); White Blood Cell Count 14.8 10^3/uL (4.8-10.8)
[2023-06-06] MEDS: TYLENOL 650 MG PO (01:39)
[2023-06-06 01:46] LABS: Urine Albumin Negative (Neg - Trace); Urine Bilirubin Negative (Negative); Urine Character Clear (Clear); Urine Color Yellow; Urine Glucose Negative (Negative); Urine Ketone Negative (Negative); Urine Leukocyte 1+ (Negative); Urine Nitrite Negative (Negative); Urine Occult Blood Negative (Negative); Urine Specific Gravity 1.015 (<1.030); Urine Urobilinogen Negative (Neg - 1+)
[2023-06-06 01:48] LABS: Blood Urea Nitrogen 65 mg/dl (7-17); Calcium 9.7 mg/dl (8.4-10.2); Carbon Dioxide 23 mmol/L (22-30); Chloride 99 mmol/L (98-107); Estimated Creatinine Clearance 17 ml/min; Glucose 157 mg/dl (70-99); Magnesium 2.8 mg/dl (1.6-2.3); Potassium 3.5 mmol/L (3.5-5.1); Sodium 131 mmol/L (135-145); eGFR 15.53
[2023-06-06 01:58] VITALS: BMI 39.6
--- NOTE | 2023-06-06 02:08 | PTCARENOTE ---
Pt oob to bsc and recliner . clean cath urine sent along with am labs. back to bed at present after sitting up for approx 30 mins. Medicated with Tylenol for back pain.
[2023-06-06 02:34] LABS: Urine Bacteria Few (Negative); Urine Red Blood Cell 0-2 /HPF (0-2)
--- NOTE | 2023-06-06 06:06 | PTCARENOTE ---
With encouragement pt was able to walk around bed to recliner chair assisted only by her walker with guarded assist of staff.
[2023-06-06 07:25] VITALS: BP 130/62
[2023-06-06 07:33] LABS: Glucose - Point of Care 199 mg/dl (70-99)
[2023-06-06] MEDS: NON-FORMULARY ITEM 1 UNIT PO (07:37)
--- NOTE | 2023-06-06 07:42 | W.PN.CT ---
Today's Communication / Plan
-
-No major issues overnight
-Pt is alert and oriented x 3, without slurred speech, ongoing right hemianopsia, noted to have LUE weakness
-Groins C/D/I, left groin ALIN dressing discontinued by Vascular Surgery yesterday 06/04/23
-Rhythm is stable overnight without ectopies, pauses. Currently NSR @ 90 bpm
-Creatinine appears to have plateaued @ 3.3, again 3.0 today, was 3.3 yesterday. Has CKD stage 4 (lives around 1.3-2.5), was 1.6 preop
-H/h stable @ 8.9/25.3
-Platelets improved: 109 -> 128-> 161K -> 195K. Cont. ASA/Plavix
-Hyponatremia is improving, 131 today, 137 preop. Cont. PO Lasix, Replete K, 3.5 today
-Cont. current meds (ASA, Plavix, holding HCTZ and Januvia given cr 3.3)
-Echo on 05/31 showed a well seated TAVR with PG/MG of 21/11 mmHg, no aortic regurgitation. LVEF 65%, mild MS/MR
-OOB into chair/Ambulate/PT-OT following
-Neurology following
-Physiatry evaluating for [facility] placement today
Assessment / Plan
-
- Severe symptomatic - s/p Left trans femoral TAVR with a 23 mm Pacheco TAVR valve on 05/31/23, pod #6
- s/p left common femoral artery cutdown and endarterectomy with patch angioplasty using bovine pericardium and placement of Alin system by Dr. Sarkar on 05/31/23
- Preop LVEF was 60% and was 60% following TAVR without inotropic support, no regional wall motion abnormalities or dyskinesia. The aortic valve was well seated without detectable PVL with mean gradient 6mmHg.
- Acute on chronic diastolic congestive heart failure with elevated LVEDP 25 mmHg pre-TAVR- diuresed with 40 mg iv Lasix post TAVR
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 Unable to do closed MRI d/t claustrophobia
- Pituitary macroadenoma
- Severe peripheral vascular disease with history of femoro-femoral bypass with occlusion of the bypass graft and hx of iliac stent
- B/l Carotid bruit
- Mitral valve stenosis
- Baseline CKD 3b (Cr 1.6 preop)
- Hx DUSTIN 07/2021 (Cr 2.3)
- DM II with peripheral neuropathy
- Hypertension
- Hyperlipidemia
- Class 2 obesity (BMI 39)
- Chronic NSAID use for chronic back pain/ arthritis
- Chronic LIM, paroxysmal nocturnal dyspnea
- Hx lower GI bleed.
- Hx colitis
- Chronic anemia
- Iron deficiency
- COPD
- Appendectomy/ hysterectomy/ ventral hernia repair
- Carpal tunnel
- Cataract surgery
- Former smoker
- Acute on chronic postop blood loss anemia d/t vascular complication - s/p 2 pRBCs intraop
- Acute postop R homonymous hemianopsia (which appeared incomplete in the right eye with the RUQ being more impaired than the RLQ where she reports partial vision)- evaluated by Neurology
-HCT was concerning for a 3 cm subacute nonhemorrhagic infarct in the superior aspect of the left cerebellar hemisphere. CTA was negative for clot.
- Acute postop anxiety- required Xanax
- DUSTIN on CKD
Head CT:
'1). 3 cm subacute nonhemorrhagic infarct in the superior aspect of the left cerebellar hemisphere
2). Stable pituitary macroadenoma.'
CTA head/neck:
'
1). There is moderately enlarged findings coarse calcific atherosclerotic plaque at the aortic arch extending into the origins of the brachiocephalic vessels associated with approximately 60% stenosis of the left common carotid artery at its origin
and less than 50% stenosis at the origins of the innominate, right common carotid and left subclavian arteries
2). There is no evidence of intracranial branch occlusion or significant intracranial stenosis
Specifically, normal flow is demonstrated in both posterior cerebral arteries and the proximal portions of both superior cerebellar arteries
3). Partially calcific atherosclerotic plaque at the right carotid bifurcation is associated with approximately 80% stenosis of the right internal carotid artery at its origin
4) partially calcific atherosclerotic plaque at the left carotid bifurcation is associated with approximately 50% stenosis of the left internal carotid artery at its origin
5). Partially calcific atherosclerotic plaque at the cavernous and supraclinoid portions of both internal carotid arteries is associated with near 70% stenosis bilateral'
CTP:no evidence of stroke
Discussed patient care with: Cardiology, Nursing, Respiratory Therapy, Pharmacy and Care Team
Subjective
Procedure
Left trans femoral TAVR with a 23 mm Pacheco TAVR valve on 05/31/23
- s/p left common femoral artery cutdown and endarterectomy with patch angioplasty using bovine pericardium and placement of Alin system by Dr. Sarkar on 05/31/23
-
Date of Service: June 06, 2023
Pt c/o mild incisional pain, otherwise feels well
Objective Data
-
Lab Results
06/06/23 01:17
06/06/23 01:17
PT 12.1 Sec (11.4-14.6) 05/28/23 12:42
INR 0.91 05/28/23 12:42
APTT 30.7 Sec (23.4-35.0) 05/28/23 12:42
Vital Signs
Vital Signs
Temp Pulse Resp BP Pulse Ox
98.1 F 85 20 130/62 94
06/06/23 07:23 06/06/23 07:25 06/06/23 07:23 06/06/23 07:25 06/06/23 07:25
CT Intake/Output/Weight
06/05/23 06/06/23 06/06/23
18:59 06:59 18:59
Intake Total 100 / 100
Balance 100 / 100
SaO2: 94 (4%)
Physical Exam
-
General: Awake, Oriented and AOx3
Cardiovascular: Regular rate & rhythm, No Murmurs, No Rub and No Gallop
Respiratory: Decreased Breath Sounds
Incision: Clean, Dry and Intact
Extremities: Other (+trace)
Data Reviewed
-
Lab Results: Results Reviewed
Medications: Active Meds Reviewed
Chest X-Ray: Report Reviewed and Image Reviewed
ECG: Report Reviewed and Image Reviewed
[2023-06-06] MEDS: NOVOLOG FLEXPEN-MODERATE RESISTANCE 1 UNITS SC (07:50)
[2023-06-06] MEDS: NORVASC 5 MG PO (07:51)
[2023-06-06] MEDS: LIPITOR 40 MG PO (07:52)
[2023-06-06] MEDS: PLAVIX 75 MG PO (07:53)
[2023-06-06] MEDS: PROTONIX 40 MG PO (07:53)
[2023-06-06] MEDS: VITAMIN C 1000 MG PO (07:53)
[2023-06-06] MEDS: SINGULAIR 10 MG PO (07:53)
[2023-06-06] MEDS: ASPIR LOW (ENTERIC COATED) 81 MG PO (07:53)
[2023-06-06] MEDS: SENOKOT-S PO (07:56)
--- NOTE | 2023-06-06 08:45 | W.PN.CARDCBS ---
Addendum entered and electronically signed by Kadi López MD 06/06/23 14:35:
I saw and examined the patient.
The Clammer's note was reviewed and I agree with the note.
Comment: Overall doing well, complains of left groin pain.
Vitals and labwork reviewed. exam notable for modly obese female, OOB in chair, Normal S1 and S2, Decreased BS at bilateral bases, warm extremities, no signficiant edema, left groin site soft, tender to touch, sutures/ramona in place.
Labs reviewed. Tele without significant events
Reccs:
1. ASA and plavix daily.
2. Vascular surgery will remove sutures and ramona in office at follow up which has been set up already.
3. Bumex is currently on hold. Creatinine downtrending. Check daily upright weights at rehab and if trending up would recommend resuming bumex daily to maintain euvolemia.
4. Stable [facility].
Kadi López MD
Original Note:
Today's Communication / Plan
-
Left groin sutures and ramona intact
Cont aspirin and Plavix
newly started Bumex 1 mg PO daily is now on hold, would recommend daily weights at rehab and if weight is trending up then Bumex should be restarted and BMP followed
Impression / Plan
-
Primary logistics coordinator: Dr. Luther Mercedes
PCP: Dr. Adrian Vyas
IMPRESSION:
-s/p TAVR for severe 05/31/23
with 23 mm Pacheco WEI valve via left common femoral approach: Ramona high surgical risk
-Right homonymous hemianopsia post TAVR:
NIH stroke scale: 1 for partial hemianopsia.
Neuroimaging: Angiography: No intracranial branch occlusion or significant intracranial stenosis. Specifically, normal flow is demonstrated to the posterior circulation. CT perfusion demonstrated no evidence of stroke.
CT head: 3 cm subacute nonhemorrhagic infarct in the superior aspect of the left cerebral hemisphere and stable pituitary macroadenoma 05/31/23. Less well seen on repeat CT head 06/01/23
-Left common femoral surgical exploration and left common femoral endarterectomy with patch angioplasty post TAVR for bleeding at common femoral access site 05/31/23.
-Prior left common femoral surgical cutdown:
History of left to right femoral-femoral bypass (now 100% occluded)
100% occluded right iliac artery
-PAD with 100% occluded right common iliac artery
-CAD with 100% occlusion of the ostial RCA filling via left to right collaterals by cath 04/17/23
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 I followed patient and never had this as part of her history.
-DM2
-COPD
-DUSTIN on CKD 4
-Hyperlipidemia
-Hypertension
-Pituitary macroadenoma
-Hypomagnesemia
Echo 06/01/23: EF 65%, mild MS with mean gradient 5 mmHg, mild MR, Pacheco WEI 23 mm valve is in the aortic position, peak/mean gradient is 21/11 mmHg, no aortic insufficiency.
PLAN:
-Nephrology saw the patient 06/05/23 and her Cre has improved to 3.0 on 06/06/23. Patient with h/o CKD 4 with baseline Cre prior to admission varying from 1.6-2.5
-Outpatient dose of HCTZ stopped this admission. Patient was then briefly diuresed with Lasix 40 mg IV on 06/03/23 and 06/04/23. Patient was then started on Bumex 1 mg PO daily, but this has been stopped due to DUSTIN on CKD. Weight peaked at 213 lbs this
admission and is down to 209 lbs 06/06/23. Recommend daily weights at rehab
-Patient with ongoing right eye visual changes and LUE ataxia and drift. Patient was recommended an inpatient MRI, but refused and instead wants an open MRI scan. Neurology is recommending MRI head within in the next 1-2 months.
-Cont aspirin and Plavix daily
-Patient with stable TAVR placement and function by post-TAVR echo 06/01/23, peak/mean gradients 21/11 mmHg. No chest pain or SOB
-Prior to TAVR patient was at elevated surgical risk due to previous left common femoral surgical cutdown. Vascular surgery notes reviewed and left groin sutures/ramona intact with dry sterile dressing. Patient will follow up with vascular surgery
as an outpatient following left common femoral artery endarterectomy with patch angioplasty using bovine pericardium 05/31/23
-Patient was told by neurology and cardiology that she cannot drive. Neurology reported patient to DMV
-Hgb stable at 9.0 on 06/06/23 after transfusion (2 units 05/02 and 1 unit 06/03/23).
-New to amlodipine 5 mg daily starting 06/04/23
-Anticipate d/c to [facility] 06/06/23
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
Subjective
Date of Service: June 06, 2023
She is sitting in a chair, no chest pain
Objective
Labs:
06/06/23 01:17
06/06/23 01:17
Labs
Hgb 9.0 g/dL (12.0-16.0) L 06/06/23 01:17
Hct 25.5 % (37.0-47.0) L 06/06/23 01:17
Plt Count 195 10^3/uL (130-400) D 06/06/23 01:17
PT 12.1 Sec (11.4-14.6) 05/28/23 12:42
INR 0.91 05/28/23 12:42
APTT 30.7 Sec (23.4-35.0) 05/28/23 12:42
Sodium 131 mmol/L (135-145) L 06/06/23 01:17
Potassium 3.5 mmol/L (3.5-5.1) 06/06/23 01:17
BUN 65 mg/dl (7-17) H 06/06/23 01:17
Creatinine 3.0 mg/dL (0.6-1.0) H 06/06/23 01:17
Glucose 157 mg/dl (70-99) H 06/06/23 01:17
Vital Signs and I&O:
Vital Signs
Temp Pulse Resp BP Pulse Ox
98.1 F 88 18 130/62 94
06/06/23 07:23 06/06/23 07:43 06/06/23 07:43 06/06/23 07:25 06/06/23 07:48
Vital Signs
Temp Pulse Resp BP Pulse Ox
98.1 F 88 18 130/62 94
06/06/23 07:23 06/06/23 07:43 06/06/23 07:43 06/06/23 07:25 06/06/23 07:48
Intake & Output
06/04/23 06/05/23 06/06/23 06/07/23
06:59 06:59 06:59 06:59
Intake Total 250 / 250 550 / 550 100 / 100
Output Total 300 / 300 2049 / 2049
Balance -50 / -50 -1500 / -1500 100 / 100
Physical Exam
Physical Exam
GEN: AAO to person, place and situation
HEENT: MMM
LUNGS: No audible wheeze
CV: Reg, no murmur
ABD: ND
EXT: Left groin dressing clean and dry without drainage or malodor
NEURO: Gross non-focal
SKIN: No rash
--- NOTE | 2023-06-06 09:00 | PTCARENOTE ---
Assumed care of pt from night RN. Pt received sitting up in chair. VSS, CM shows NSR 80's, POX 94% on 1 liter, will attempt to wean. NIH scale unchanged since last shift, right vidual cut and left arm weakness noted. Incision to left upper thigh
remains intact with ramona and sutures. She denies any pain or discomfort at this time. For possible tsf to [facility] today.
[2023-06-06 11:03] VITALS: BP 128/53
--- NOTE | 2023-06-06 11:08 | CM ---
Reviewed chart. Met with and Mrs. Carter to review discharge plans. Telephone call to [facility]. Liaison to confirm bed availability. [facility]. Liaison confirms bed available for today. Can accept today after lunch. Family and RN aware.
Medical work-up in progress. The discharge plan is to go to [facility] at [place] when medically stable.
--- NOTE | 2023-06-06 11:19 | W.PN.NEPH.PH ---
Today's Communication / Plan
-
Holding diuretic
Follow-up BMP
Assessment/Plan
-
IMP:
Severe symptomatic - s/p TAVR 05/31/23
s/p left common femoral artery cutdown and endarterectomy with patch angioplasty using bovine pericardium and placement of Ashkan system by Dr. Sarkar on 05/31/23
DUSTIN with CKD 4 (Cr 1.6-2.5 preop)
Acute on chronic postop blood loss anemia d/t vascular complication
subacute nonhemorrhagic infarct in the superior aspect of the left cerebellar hemisphere
Acute on chronic diastolic congestive heart failure with elevated LVEDP 25 mmHg pre-TAVR
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
Pituitary macroadenoma
Severe peripheral vascular disease with history of femoro-femoral bypass with occlusion of the bypass graft and hx of iliac stent
Mitral valve stenosis
DM II with peripheral neuropathy
Hypertension
Hyperlipidemia
Class 2 obesity (BMI 39)
Chronic NSAID use for chronic back pain/ arthritis
Chronic LIM, paroxysmal nocturnal dyspnea
Hx lower GI bleed.
Hx colitis
COPD
Hyponatremia
- Appendectomy/ hysterectomy/ ventral hernia repair
PLan:
A/w symptomatic s/p TAVR on 05/30
DUSTIN multifactorial-in post op setting and contrast 05/31, UA bland
cr seem to reached peak 3.3 and now down to 3, nonoliguric , UA bland pre op
Bumex currently held
Holding hydrochlorothiazide in setting of hyponatremia
BNP high but wt improving, CXR with out chf,
wean O2 as able
will need to monitor daily wts
BP stable on home meds
for [facility] today
d/w pt and
-
-
Date of Service: June 06, 2023
CC / HPI / ROS
-
Chief Complaint:
CKD/DUSTIN
History of Present Illness:
Creatinine improved to 3
Hemodynamically stable
Hyponatremia worsening to 131
Review of Systems:
Urine output not recorded
Weights down
On nasal cannula oxygen
Labs
-
Labs:
WBC 14.8 10^3/uL (4.8-10.8) H 06/06/23 01:17
RBC 2.89 10^6/uL (4.20-5.40) L 06/06/23 01:17
Hgb 9.0 g/dL (12.0-16.0) L 06/06/23 01:17
Hct 25.5 % (37.0-47.0) L 06/06/23 01:17
Plt Count 195 10^3/uL (130-400) D 06/06/23 01:17
Sodium 131 mmol/L (135-145) L 06/06/23 01:17
Potassium 3.5 mmol/L (3.5-5.1) 06/06/23 01:17
Chloride 99 mmol/L (98-107) 06/06/23 01:17
Carbon Dioxide 23 mmol/L (22-30) 06/06/23 01:17
BUN 65 mg/dl (7-17) H 06/06/23 01:17
Creatinine 3.0 mg/dL (0.6-1.0) H 06/06/23 01:17
eGFR 15.53 06/06/23 01:17
Glucose 157 mg/dl (70-99) H 06/06/23 01:17
Calcium 9.7 mg/dl (8.4-10.2) 06/06/23 01:17
Wub-F-Hyhkbroxnpt Pept 2120 pg/ml 06/04/23 13:29
Albumin 4.7 g/dl (3.5-5.0) 05/28/23 12:42
Physical Exam
-
Vital Signs:
Vital Signs
Temp Pulse Resp BP Pulse Ox
98.1 F 88 18 130/62 94
06/06/23 07:23 06/06/23 07:43 06/06/23 07:43 06/06/23 07:25 06/06/23 08:44
Cardiovascular:: Regular rate and rhythm
Respiratory:: Bilateral: CTA (Decreased breath sounds to bases)
Lung Excursion:: Normal
Abdomen:: Nontender
Bowel Sounds:: Normal
Extremity Edema:: +1: Bilateral:
Sarkar Catheter: No
[2023-06-06 11:26] LABS: Glucose - Point of Care 218 mg/dl (70-99)
[2023-06-06 11:35] VITALS: BP 128/53; PULSE 88
[2023-06-06 11:36] VITALS: BP 128/53; PULSE 87; O2SAT 93
[2023-06-06] MEDS: NOVOLOG FLEXPEN-MODERATE RESISTANCE 3 UNITS SC (11:41)
[2023-06-06 12:16] VITALS: BP 128/46
--- NOTE | 2023-06-06 12:46 | W.DCSUMMARY ---
Discharge Summary
Discharge Data
Date of Admission: 05/31/23
Date of Discharge: 06/06/23
Total time spent discharging patient (in min): 32
-
Pending Results: No
Hospital Course
Primary care physician:
Tio Vyas
Outpatient engine generator assembler:
Luther Mercedes
Inpatient consultants:
DCA, vascular, nephrology
Procedures:
1. Left trans femoral TAVR with a 23 mm Pacheco TAVR valve, left common femoral artery cutdown and endarterectomy (See Dr. Sarkar's operative report for details)
Primary Diagnosis:
1. Severe aortic stenosis
Secondary Diagnoses:
1. Severe peripheral vascular disease with history of femorofemoral bypass with occlusion of the bypass graft
2. Chronic Kidney Disease
3. Gastrointestinal Bleed
4. Hypertension
5. Hyperlipidemia
6. Acute on chronic congestive heart failure with LVEDP
HPI: 77-year-old female with symptomatic severe aortic stenosis. CT-TAVR protocol revealed acceptable anatomy for TAVR access and implantation. She is aware that she is at risk for vascular complications given her significant PAD and prior
vascular surgery. She accepted these risks and so we moved forward. She was discussed at our MDT meeting and seen independently by both cardiac surgery and cardiology/interventional cardiology and shared decision making was to move forward with
TAVR.
Hospital course: On 05/30 patient was electively admitted for a transfemoral transcatheter aortic valve replacement with Dr. 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
anesthesia, and patient was transferred to CVICU postoperatively.� Venous sheath was removed in the CVICU.� Patient was noted to have visual changes in the right eye so a stat CT head was performed and it was negative for an acute CVA but positive
for a subacute CVA.� And she was started on aspirin she was also allowed to be permissively hypertensive for the stroke.� Then diuresed with 40 mg of IV Lasix.� On 05/31 postop day 1 patient was seen by neurology.� She had no improvement in the right
visual field neglect and developed right upper extremity ataxia.� PT/OT was consulted.� Patient was diuresed again with 40 mg of IV Lasix and Sarkar catheter was discontinued a repeat CAT scan showed multiple small acute CVAs and per neurology
patient was started on Plavix along with aspirin.� On 05/31 postop day #2 creatinine bumped from 3.3 from 2.9 and patient was given normal saline at 50 mL an hour for 10 hours.� On 06/02 postop day #3 patient was given 1 unit of packed red blood cells
for hemoglobin of 7.3 and was again diuresed with 40 mg of IV Lasix.� Repeat BMP at 8 PM showed a stable creatinine of 3.3.� A midline was placed for access.� Physiatry was consulted for acute rehab.� On 4 postoperative day #4 patient was diuresed
with 40 mg of IV Lasix and started on a bowel regimen.� On 4 postoperative day #5 patient was given mag citrate and Dulcolax with a positive BM.� Nephrology was consulted for the creatinine of 3.3 and it was stable.� UA was sent per physiatry.� It
did not show a acute UTI.� Patient was deemed stable for discharge on postoperative day #6 creatinine is trending down to 3.0.�
Home medication changes:
see below
Discharge Plan
-
Patient Disposition: Acute Rehab Facility
Discharge Diagnosis/Procedures: TF TAVR
Condition: Fair
Diet: Low Fat, Low Cholesterol, 2 Gram Sodium and Restrict fluids to 64 oz
Activity: As tolerated
Driving Restrictions: No driving
Bathing Restrictions: OK to Shower
Others Tests: You 30 day follow up echocardiogram 06[facility]28/2023 @ 7:20 [facility].
Other Services: Cardiac Rehab
Wound Care: No lotions, powders, or creams to puncture sites
Cover suture/staple site with gauze, and secure with minimal paper tape, change daily or as needed if soiled
Specialty Instructions: Weigh Daily- Call MD for wt gain/loss 3 lbs overnight/5 lbs in 1 week
Activity Restrictions/Additional Instructions:
Please call to make appointments for Phase II Cardiac Rehab (When Physical therapy/ Occupational Therapy/ long-term are no longer needed)
[facility]: [phone]
Referrals:
CT Transitional Care Nurse [Outside] - in one to two days (The Cardiothoracic Transitional Care Nurse will call you to set up a visit in 1-2 days.)
Airam Queen CRNP [Specified Professional Personl] - 06/25/23 10:00 am
Tio Vyas MD [Family Provider] - (Please make an appoitment in four to six weeks. )
Graciela Milian CRNP [Specified Professional Personl] - 06/21/23 9:45 am
Prescriptions:
New
sennosides-docusate sodium [Stool Softener-Stimulant Laxat] 8.6-50 mg Tablet
1 tab PO BID Qty: 0 0RF
clopidogrel 75 mg Tablet
75 mg PO DAILY Qty: 0 0RF
pantoprazole 40 mg Tablet,Delayed Release (Dr/Ec)
40 mg PO DAILY Qty: 0 0RF
oxycodone 5 mg Tablet
5 mg PO Q4HPRN PRN (Reason: severe pain) Qty: 0 0RF
Continued
cholecalciferol (vitamin D3) 1,000 UNITS tablet
2,000 units PO DAILY
Januvia 100 MG tablet
100 mg PO DAILY
hydrochlorothiazide 25 MG tablet
12.5 mg PO DAILY
pyridoxine (vitamin B6) 50 MG tablet
250 mg PO DAILY
amlodipine 5 MG tablet
5 mg PO DAILY 0RF
acetaminophen [Tylenol] 325 mg Tablet
650 mg PO Q6H PRN (Reason: Pain)
montelukast 10 mg Tablet
10 mg PO DAILY
atorvastatin 20 MG tablet
40 mg PO DAILY
aspirin 81 mg tablet,delayed release (DR/EC)
81 mg PO DAILY Qty: 1 0RF
ferrous sulfate 325 mg (65 mg iron) Tablet
325 mg PO DAILY
Trelegy Ellipta 100-62.5-25 mcg Blister With Device
1 inh INHALATION DAILY
Discharge Orders:
Discharge Patient (As Directed); Ordered 06/06/23
Ordered By: Fany Kimble
Care Plan Goals
Care Plan Goals:
Problem: Readiness for enhanced knowledge related to diagnosis and treatment plan
Goal: Understand your diagnosis and treatment plan needs, including medications if applicable.
Instructions: Know your diagnosis, underlying causes and treatment plan options, including medications if applicable. Consult with your health care team to learn about your diagnosis and treatment plan, including medications if applicable.
Discharge Date and Time
Print Language: MARSHALLESE
--- NOTE | 2023-06-06 13:28 | PTCARENOTE ---
Report given to [facility], pt transferred to [place] via [facility] with family.
== END 2023-06-06 13:58 | DRG 266 ==
LOC: IVU 05:30
PROVIDERS: Clinical Nurse Specialist Acute Care; Internal Medicine Cardiovascular Disease; Physician Assistant Medical; Physician Assistant Surgical; Surgery Vascular Surgery; ADMITTING PHYSICIAN Thoracic Surgery (Cardiothoracic Vascular Surgery); CONSULT PHYSICIAN Psychiatry & Neurology Neurology; FAMILY PHYSICIAN Family Medicine; OTHER PHYSICIAN Internal Medicine; OTHER PHYSICIAN Physical Medicine & Rehabilitation
PROC: 30233N1 Transfusion of Nonautologous Red Blood Cells into Peripheral Vein, Percutaneous Approach (ICD-10-PCS; 2023-05-31)
PROC: 04UL0KZ Supplement Left Femoral Artery with Nonautologous Tissue Substitute, Open Approach (ICD-10-PCS; 2023-05-31)
PROC: 02RF38Z Replacement of Aortic Valve with Zooplastic Tissue, Percutaneous Approach (ICD-10-PCS; 2023-05-31)
PROC: 04CL0ZZ Extirpation of Matter from Left Femoral Artery, Open Approach (ICD-10-PCS; 2023-05-31)
DX: I35.0 Nonrheumatic aortic (valve) stenosis (principal); Z00.6 Encounter for examination for normal comparison and control in clinical research program; I50.33 Acute on chronic diastolic (congestive) heart failure; I63.542 Cerebral infarction due to unspecified occlusion or stenosis of left cerebellar artery; I13.0 Hypertensive heart and chronic kidney disease with heart failure and stage 1 through stage 4 chronic kidney disease, or unspecified chronic kidney disease; N17.9 Acute kidney failure, unspecified; N18.4 Chronic kidney disease, stage 4 (severe); D62 Acute posthemorrhagic anemia; E87.1 Hypo-osmolality and hyponatremia; T82.898A Other specified complication of vascular prosthetic devices, implants and grafts, initial encounter; J98.11 Atelectasis; I97.51 Accidental puncture and laceration of a circulatory system organ or structure during a circulatory system procedure; Y83.2 Surgical operation with anastomosis, bypass or graft as the cause of abnormal reaction of the patient, or of later complication, without mention of misadventure at the time of the procedure; E11.22 Type 2 diabetes mellitus with diabetic chronic kidney disease; I70.202 Unspecified atherosclerosis of native arteries of extremities, left leg; E78.00 Pure hypercholesterolemia, unspecified; E11.42 Type 2 diabetes mellitus with diabetic polyneuropathy; E11.51 Type 2 diabetes mellitus with diabetic peripheral angiopathy without gangrene; I25.82 Chronic total occlusion of coronary artery; I25.10 Atherosclerotic heart disease of native coronary artery without angina pectoris; E66.01 Morbid (severe) obesity due to excess calories; J44.9 Chronic obstructive pulmonary disease, unspecified; G47.33 Obstructive sleep apnea (adult) (pediatric); D35.2 Benign neoplasm of pituitary gland; F40.240 Claustrophobia; K59.00 Constipation, unspecified; G89.29 Other chronic pain; M19.90 Unspecified osteoarthritis, unspecified site; R27.0 Ataxia, unspecified; H53.461 Homonymous bilateral field defects, right side; I34.0 Nonrheumatic mitral (valve) insufficiency; F41.9 Anxiety disorder, unspecified; E83.42 Hypomagnesemia; M54.9 Dorsalgia, unspecified; Z68.39 Body mass index [BMI] 39.0-39.9, adult; Z79.1 Long term (current) use of non-steroidal anti-inflammatories (NSAID); Z79.82 Long term (current) use of aspirin; Z79.84 Long term (current) use of oral hypoglycemic drugs; Z79.899 Other long term (current) drug therapy; Z87.891 Personal history of nicotine dependence; Z95.820 Peripheral vascular angioplasty status with implants and grafts; Z86.73 Personal history of transient ischemic attack (TIA), and cerebral infarction without residual deficits
CPT/HCPCS: 88304; 88311; 93308; 0042T; 33361; 35371; 36415; 70450; 70496; 70498; 71045; 71046; 76937; 80048; 80053; 81003; 81015; 82248; 82962; 83036; 83735; 83880; 85014; 85018; 85025; 85027; 85347; 85610; 85730; 86850; 86900; 86901; 86920; 87070; 87086; 93005; 93306; 93321; 93325; 94640; 97116; 97163; 97167; 97530; 97535; C1760; C1769; C1892; C1894; J2916; P9016; Q9967

== ENCOUNTER 2023-06-10 22:12 | Inpatient (IN) | payer MEDICARE, OTHER, SELFPAY ==
[2023-06-10 16:20] VITALS: BP 149/43
[2023-06-10 16:21] VITALS: BP 149/43
--- NOTE | 2023-06-10 16:29 | ED.GENMED ---
History of Present Illness
<Milena García PA-C - Last Filed: 06/10/23 20:34>
General
Chief Complaint: DVT/Possible Blood Clot
Source: patient
Exam Limitations: none
Time Seen by Provider: 06/10/23 16:27
Nursing documentation reviewed up to this point in time: agreed with
History of Present Illness
History of Present Illness:
77 y/o female with PMH of hyperlipidemia, CKD, asthma, diabetes, HTN, aortic stenosis day 9 s/p TAVR w/ left common femoral artery cutdown and endarterectomy presenting to the ER today with left lower extremity swelling for the past day and
incisional site pain for the past 2 days. Patient currently receives rehab care from her surgery with [facility]. Her physician at rehab wanted her to be evaluated emergency department for concerns of a DVT. Patient does receive heparin
subcutaneously. Patient also is complaining about pain at her incision site. Patient denies any fevers or chills, nausea or vomiting, abdominal pain. Patient denies any dysuria, hematuria. Patient denies any purulent drainage from the wound.
Patient denies any chest pain, shortness of breath. Patient is on oxygen at baseline for her COPD.
Past History
<Milena García PA-C - Last Filed: 06/10/23 20:34>
Past History
ED Past Medical History: HTN, Hypercholesterolemia, NIDDM, Psychiatric (Anxiety) and Other (Allergic reactions/urticaria)
ED Past Surgical History: , Orthopedic (Knee arthroscopy) and Other (Abdominal aortic stent/graft)
Social History
Tobacco: Former smoker (Quit in 1999)
Alcohol: None
Personal:
Living: with family
Employment: Retired
Family History
Family History: Hypertension
Review of Systems
<Milena García PA-C - Last Filed: 06/10/23 20:34>
Review of Systems
All Other Systems: ROS reviewed and negative except as documented in HPI and ROS
Phy Exam
<Milena García PA-C - Last Filed: 06/10/23 20:34>
Physical Exam
Physical Exam:
Vitals: Vital signs are stable
General: Patient appears chronically ill. In no acute distress.
Skin: Surgical site intact with moderate serosanguineous drainage. Surgical site tender to palpation.
Head: Normocephalic, atraumatic
Cardiac: Regular rate and rhythm, no murmurs
Peripheral vascular: Left lower extremity swelling noted, pitting edema present, no erythema. 2+ dorsalis pedis pulses bilaterally.
Pulm: Normal respiratory effort, patient is on oxygen at baseline, not currently hypoxic
Abdomen: No abdominal tenderness
.
Course
<Milena García PA-C - Last Filed: 06/10/23 20:34>
Orders/Labs/Results
Orders:
Orders
06/10/23 16:44
HYDROmorphone [Dilaudid] 0.5 mg IV NOW STA
US Periph Venous LOWER Ext LT Urgent
Comment:
Reason For Exam: left lower ext pain/swelling
06/10/23 17:29
Complete Blood Count/With Diff Urgent
Comprehensive Metabolic Panel Urgent
06/10/23 20:00
VANCOMYCIN Pharmacy to Dose [VANCOCIN Pharmacy to Dose] 1 each Pharmacy To Prepare [Call Pharmacy To Prepare] 0 ml IV PER PROTOCOL
Abnormal Lab Results
06/10/23
17:29
RBC 2.76 L 10^6/uL
(4.20-5.40)
Hgb 8.4 L g/dL
(12.0-16.0)
Hct 24.2 L %
(37.0-47.0)
Abs Immat Gran (auto) 0.6 H 10^3/uL
(0-0.05)
Absolute Lymphs (auto) 0.8 L 10^3/uL
(1.2-3.4)
Absolute Monos (auto) 0.8 H 10^3/uL
(0.1-0.6)
Immature Gran % 7.7 H %
(0-0.5)
Lymphocytes % 10.6 L %
(20.5-51.1)
Monocytes % 10.4 H %
(1.7-9.3)
Sodium 133 L mmol/L
(135-145)
BUN 60 H mg/dl
(7-17)
Creatinine 2.3 H mg/dL
(0.6-1.0)
Glucose 154 H mg/dl
(70-99)
Alkaline Phosphatase 140 H U/L
(38-126)
06/10/23 17:29
06/10/23 17:29
Vital Signs
Initial and Last Documented VS:
Initial Vital Signs
Pulse Resp BP Pulse Ox
92 21 149/43 94
06/10/23 16:20 06/10/23 16:20 06/10/23 16:20 06/10/23 16:20
Last Documented Vital Signs
Temp Pulse Resp BP Pulse Ox
97.7 F 77 19 133/49 95
06/10/23 16:21 06/10/23 18:00 06/10/23 18:00 06/10/23 18:00 06/10/23 18:00
<Acosta David MD - Last Filed: 06/10/23 17:54>
Orders/Labs/Results
Orders:
Orders
06/10/23 16:44
HYDROmorphone [Dilaudid] 0.5 mg IV NOW STA
US Periph Venous LOWER Ext LT Urgent
Comment:
Reason For Exam: left lower ext pain/swelling
04/07/24 17:29
Complete Blood Count/With Diff Urgent
Comprehensive Metabolic Panel Urgent
06/10/23 20:00
VANCOMYCIN Pharmacy to Dose [VANCOCIN Pharmacy to Dose] 1 each Pharmacy To Prepare [Call Pharmacy To Prepare] 0 ml IV PER PROTOCOL
Abnormal Lab Results
06/10/23
17:29
RBC 2.76 L 10^6/uL
(4.20-5.40)
Hgb 8.4 L g/dL
(12.0-16.0)
Hct 24.2 L %
(37.0-47.0)
Abs Immat Gran (auto) 0.6 H 10^3/uL
(0-0.05)
Absolute Lymphs (auto) 0.8 L 10^3/uL
(1.2-3.4)
Absolute Monos (auto) 0.8 H 10^3/uL
(0.1-0.6)
Immature Gran % 7.7 H %
(0-0.5)
Lymphocytes % 10.6 L %
(20.5-51.1)
Monocytes % 10.4 H %
(1.7-9.3)
Sodium 133 L mmol/L
(135-145)
BUN 60 H mg/dl
(7-17)
Creatinine 2.3 H mg/dL
(0.6-1.0)
Glucose 154 H mg/dl
(70-99)
Alkaline Phosphatase 140 H U/L
(38-126)
06/10/23 17:29
06/10/23 17:29
Vital Signs
Initial and Last Documented VS:
Initial Vital Signs
Pulse Resp BP Pulse Ox
92 21 149/43 94
06/10/23 16:20 06/10/23 16:20 06/10/23 16:20 06/10/23 16:20
Last Documented Vital Signs
Temp Pulse Resp BP Pulse Ox
97.7 F 77 19 133/49 95
06/10/23 16:21 06/10/23 18:00 06/10/23 18:00 06/10/23 18:00 06/10/23 18:00
<Milena García PA-C - Last Filed: 06/10/23 20:34>
MDM/Problems Addressed
Differential Diagnosis Includes:
ddx include DVT, venous stasis, surgical site infection, cellulitis, deconditioning, musculoskeletal sprain/strain, surgical healing sequela
Chronic conditions affecting care: DM, HTN, COPD and Kidney disease
Acute Exacerbation and/or Progression of Chronic Illness: DM, HTN, COPD and Kidney disease
<KIM Noble Last Filed: 06/10/23 20:34>
*Pulse Oximetry
Patient hypoxic: no
*Critical Care Note
Total Time (30-74mins, 75-104mins- exclusive of procedures): Not Applicable
Data Reviewed
Review of Other/Old Records Reveals: Operative Reports (reviewed operative report from tavr) and Discharge Summary (reviewed discharge summary from 06/06/2023)
Source: patient and records
<KIM Noble Last Filed: 06/10/23 20:34>
Patient Management
Escalation/DeEscalation of care consider admission/obs:
77 y/o female with PMH of hyperlipidemia, CKD, asthma, diabetes, HTN, aortic stenosis day 9 s/p TAVR w/ left common femoral artery cutdown and endarterectomy presenting to the ER today with left lower extremity swelling for the past day and
incisional site pain for the past 2 days. Her CBC demonstrates no leukocytosis, does show chronic anemia. CMP consistent with chronic kidney disease. On exam, her incisional site is intact with serosanguineous drainage generalized tenderness
palpation. Her ultrasound was negative for DVT but did demonstrate 4.2 cm oval-shaped hypoechoic mass in the left groin located anterior to the left common femoral artery which could represent a hematoma versus seroma versus abscess. Spoke to
vascular surgery who recommends admission for IV antibiotics. Patient aware of plan. Patient sent by hospitalist. Will start vancomycin with pharmacy to dose.
ED Attending Note
<Milena García PA-C - Last Filed: 06/10/23 20:34>
-
Portions of this chart may have been created with voice recognition software.� Occasional wrong word or��sound alike� substitutions may have occurred due to the inherent limitations of voice recognition software.
<Acosta David MD - Last Filed: 06/10/23 17:54>
ED Attending Note
Patient seen and examined by attending physician: Yes
ED Attending Note:
HPI: 77-year-old female with past medical history of documented presents to the emergency room for evaluation of left leg swelling. Patient notably had recent TAVR with Dr. Yeager on 05/31/2023 and subsequently underwent left common femoral
endarterectomy with patch angioplasty secondary to bleeding following TAVR (this was with Dr. Sarkar). She was discharged to rehab. She has been doing generally well but they have noticed slowly progressive swelling in the left lower extremity and
there was concern for potential DVT and so she was sent to the emergency room to be evaluated. She has been on prophylactic heparin at rehab. Patient denies any chest pain or shortness of breath. Patient was also concerned because she is having
some slight drainage from her surgical incision she was concerned for potential infection. She says she will occasionally get some shooting pains near the incisional site. She denies any fevers or chills. No significant erythema at the site. She
denies any other complaints.
ROS: Positive for leg swelling, drainage from incision; negative for erythema, fever, chills, chest pain, shortness of breath
Physical exam:
General: Awake, alert; no acute distress
Head: Normocephalic, atraumatic
Eyes: Conjunctiva normal
Throat: Airway intact, handling secretions
Neck: Trachea midline
Lungs: Breathing comfortably not in distress
Heart: Regular rate
Abd: Soft, non distended, nontender
Neuro: No gross deficits
Skin: no rash
Extremities: Patient does have +2 edema in the left lower extremity compared to the right which has essentially no edema; there is no erythema of the left lower extremity and there is no reproducible tenderness; she has approximately 4 cm vertical
incision in the left inguinal crease with ramona and sutures in place; there is no sign of dehiscence of the wound there is some slight serosanguineous drainage but no purulence and there is no erythema of the skin in this area
Differential diagnosis: DVT, postoperative edema, incisional infection
Medical decision makin-year-old female with recent history as documented presents for evaluation of left leg swelling she was also concerned about some drainage from her incision. Vital signs significant for mild hypertension otherwise
unremarkable. Physical exam as above. Will send basic labs and check an ultrasound to rule out DVT. While she does have some serosanguineous drainage she has no real signs of infection�no erythema, no warmth, no significant tenderness. PA
discussed case with surgery team to evaluate the incision. Will reassess after the above.
Chronic conditions affecting care: Obesity, diabetes, peripheral vascular disease
Acute exacerbation or progression of chronic illness: Acutely hypertensive
History source: Patient, daughter, records
Data reviewed: medical records including labs and discharge summary, operative reports
Medications/testing considered: N/A
Social determinants of health: N/A
Discussion with other providers: Vascular surgery, cardiothoracic surgery
Discharge Plan
Departure
Patient Disposition: Admit
Date of Disposition: 06/10/23
Time of Disposition: 20:15
Presentation/result/management discussed w/ accepting MD/DO: Hospitalist
Condition: Fair
Discharge Problem:
Surgical site infection
Prescriptions:
No Action
cholecalciferol (vitamin D3) 1,000 UNITS tablet
2,000 units PO DAILY
Januvia 100 MG tablet
50 mg PO DAILY
hydrochlorothiazide 25 MG tablet
12.5 mg PO DAILY
pyridoxine (vitamin B6) 50 MG tablet
250 mg PO DAILY
amlodipine 5 MG tablet
5 mg PO DAILY 0RF
montelukast 10 mg Tablet
10 mg PO DAILY
atorvastatin 20 MG tablet
40 mg PO DAILY
aspirin 81 mg tablet,delayed release (DR/EC)
81 mg PO DAILY Qty: 1 0RF
ferrous sulfate 325 mg (65 mg iron) Tablet
325 mg PO DAILY
Trelegy Ellipta 100-62.5-25 mcg Blister With Device
1 inh INHALATION R DAILY
sennosides-docusate sodium [Stool Softener-Stimulant Laxat] 8.6-50 mg Tablet
1 tab PO BID Qty: 0 0RF
clopidogrel 75 mg Tablet
75 mg PO DAILY Qty: 0 0RF
pantoprazole 40 mg Tablet,Delayed Release (Dr/Ec)
40 mg PO DAILY Qty: 0 0RF
acetaminophen 500 mg Tablet
1,000 mg PO TID@0700,1300,2000
glimepiride 1 mg Tablet
1 mg PO DAILY
ascorbic acid (vitamin C) [Vitamin C] 500 mg Tablet
500 mg PO DAILY
bisacodyl [Dulcolax (bisacodyl)] 10 mg Suppository
10 mg LA DAILY PRN (Reason: if no bm with oral bisacodyl)
docusate sodium 100 mg Capsule
100 mg PO BID
bisacodyl [Dulcolax (bisacodyl)] 5 mg Tablet,Delayed Release (Dr/Ec)
10 mg PO DAILY PRN (Reason: constipation)
sennosides [senna] 8.6 mg Tablet
17.2 mg PO NOON
trazodone 50 mg Tablet
12.5 mg PO HS
tramadol 50 mg Tablet
12.5 mg PO Q6H PRN (Reason: moderate pain)
heparin (porcine) 5,000 unit/mL Solution
5,000 unit SC TID@0600,1400,2200
insulin aspart U-100 100 unit/mL (3 mL) Insulin Pen
0 sliding scale dose SC AC
Patient Comments:
06/10/2023: Low resistance per Lara
SS: 70-149= 0; 150-199= 1; 200-249= 2; 250-299= 3; 300-349= 4; 350-399= 5; 400-499= 6
melatonin 10 mg Tablet
10 mg PO HS
Referrals:
Tio Vyas MD [Family Provider] -
Interventions
Interventions:
*Risk Screen - Suicide Last Done: 06/10/23 16:21
*General Assessment Last Done: 06/10/23 16:21
*Neglect/Abuse Screening Last Done: 06/10/23 16:21
ED- Cardiac Assessment Last Done: 06/10/23 17:02
ED- Pulmonary Assessment Last Done: 06/10/23 17:02
ED-Peripheral Vascular Assessment Last Done: 06/10/23 17:02
ED-Skin Assessment Last Done: 06/10/23 17:02
Discharge Date and Time
Print Language: CYPRIOT
[2023-06-10 17:41] LABS: % Basophils 0.6 % (0-2); % Eosinophils 2.7 % (0-6); % Immature Granulocytes 7.7 % (0-0.5); % Lymphocytes 10.6 % (20.5-51.1); % Monocytes 10.4 % (1.7-9.3); Absolute Basophils 0.1 10^3/uL (0-0.2); Absolute Eosinophils 0.2 10^3/uL (0-0.7); Absolute Immature Granulocytes 0.6 10^3/uL (0-0.05); Absolute Lymphocytes 0.8 10^3/uL (1.2-3.4); Absolute Monocytes 0.8 10^3/uL (0.1-0.6); Absolute Neutrophils 5.2 10^3/uL (1.4-6.5); Hematocrit 24.2 % (37.0-47.0); Hemoglobin 8.4 g/dL (12.0-16.0); Mean Corp Hgb Conc. 34.7 g/dL (33.0-37.0); Mean Corpuscular Hgb 30.4 pg (27.0-31.0); Mean Corpuscular Volume 87.7 fL (81.0-99.0); Mean Platelet Volume 10.4 fL (7.4-10.4); Nucleated Red Blood Cells % 0 %; Platelet Count 184 10^3/uL (130-400); Red Blood Cell Count 2.76 10^6/uL (4.20-5.40); Red Cell Dist. Width 13.5 % (11.5-14.5); White Blood Cell Count 7.7 10^3/uL (4.8-10.8)
[2023-06-10 17:54] LABS: ALT (SGPT) 23 U/L (0-35); AST (SGOT) 34 U/L (14-36); Albumin 3.6 g/dl (3.5-5.0); Alkaline Phosphatase 140 U/L (38-126); Blood Urea Nitrogen 60 mg/dl (7-17); Carbon Dioxide 26 mmol/L (22-30); Chloride 99 mmol/L (98-107); Estimated Creatinine Clearance 22 ml/min; Glucose 154 mg/dl (70-99); Potassium 3.7 mmol/L (3.5-5.1); Sodium 133 mmol/L (135-145); Total Bilirubin 0.5 mg/dl (0.2-1.3); Total Protein 6.4 g/dl (6.3-8.2); eGFR 21.36
[2023-06-10 18:00] VITALS: BP 133/49
--- NOTE | 2023-06-10 20:25 | HPS.HSE ---
Family Physician
-
Family Physician: Tio Vyas
Chief Complaint
-
Painful swelling of the left inguinal incision
History of Present Illness
77-year-old female with history of diabetes, hypertension, aortic valve stenosis status post TAVR and May 31, 2023 here in the hospital left femoral arthrotomy, he was in a most rehab, sent to the ER because of the complaint of the frequent sharp
shooting pain in the left inguinal area over the last few days, no triggering factor but eases up when she lays flat and she admitted that basically the last 9 days she has been sitting on the chair and laying in bed, denies any fever or chill or
cough or congestion, no headache or vision change, no urinary or GI symptoms recently, patient claims after the procedure she had a stroke.
Also she has some seeping discharge from the incision.
ER physician they spoke to the vascular surgery there is a concern for abscess and/or cellulitis or hematoma. Ultrasound recommended admit for IV antibiotic and they will see the patient on consult.
Accompanied by daughter and son-in-law.
Patient awake and alert and answer question properly.
Results of TAVR procedure on May 30
1. Severe symptomatic aortic stenosis. Successful deployment of a 23 mm WEI S3 valve with a post valve deployment gradient of 7 mmHg
2. Unsuccessful closure of the left common femoral arteriotomy site with bleeding that required redo surgical cutdown and repair of the arteriotomy site.
Medical History
Past Medical History
Past Medical History: Reports Other
Additional Past Medical History:
Past medical history reviewed:
Evidence noted status post TAVR May 31, 2023
Peripheral vascular disease with iliac stenting
Bilateral carotid artery disease
Hypertension
Chronic kidney disease stage III-IV
Type 2 diabetes mellitus
Dyslipidemia
Chronic anemia and iron deficiency anemia
Peripheral neuropathy
History of GI bleed
History of 3rd nerve palsy
Chronic pain syndrome
Osteoarthritis
COPD
Ex-smoker
Social history: Lives at home independently prior to the admission [facility].
Quit smoking 20 years ago and denies alcohol.
Family history: Reviewed and noncontributory
Past Surgical History: Reports Other
Social History
Drug: Other
Family History
Family History: Other
Allergies / Home Medications
Allergies reflects when Allergies were last updated in [email or web address].
Home Medications with original date entered in [email or web address]
Allergy/Medication List:
Allergies
Allergy/AdvReac Type Severity Reaction Status Date / Time
No Known Allergies Allergy Verified 06/10/23 16:21
Home Medications
cholecalciferol (vitamin D3) 25 mcg (1,000 unit) tablet 2,000 units PO DAILY Supplement 04/09/16
sitagliptin phosphate 100 mg tablet (Januvia) 50 mg PO DAILY Diabetes 04/09/16
hydrochlorothiazide 25 mg tablet 12.5 mg PO DAILY Fluid retention/Swelling 08/07/19
amlodipine 5 mg tablet 5 mg PO DAILY 07/26/21
pyridoxine (vitamin B6) 50 mg tablet 250 mg PO DAILY Supplement 07/26/21
aspirin 81 mg tablet,delayed release 81 mg PO DAILY #1 tab 04/17/23
atorvastatin 20 mg tablet 40 mg PO DAILY High Cholesterol 04/17/23
ferrous sulfate 325 mg (65 mg iron) tablet 325 mg PO DAILY Supplement 04/17/23
montelukast 10 mg tablet 10 mg PO DAILY Lung/Breathing Issues 04/17/23
fluticasone fur. 100 mcg-umeclid 62.5 mcg-vilant 25 mcg inhalat.powder (Trelegy Ellipta) 1 inh inhalation R DAILY Lung/Breathing Issues 05/22/23
clopidogrel 75 mg tablet 75 mg PO DAILY Heart disease/condition #0 tabs 06/04/23
pantoprazole 40 mg tablet,delayed release 40 mg PO DAILY GI prophylaxis #0 tabs 06/04/23
sennosides 8.6 mg-docusate sodium 50 mg tablet (Stool Softener-Stimulant Laxative) 1 tab PO BID #0 tabs 06/04/23
acetaminophen 500 mg tablet 1,000 mg PO TID@0700,1300,2000 06/10/23
ascorbic acid (vitamin C) 500 mg tablet (Vitamin C) 500 mg PO DAILY 06/10/23
bisacodyl 10 mg rectal suppository (Dulcolax (bisacodyl)) 10 mg VT DAILY PRN if no bm with oral bisacodyl 06/10/23
bisacodyl 5 mg tablet,delayed release (Dulcolax (bisacodyl)) 10 mg PO DAILY PRN constipation 06/10/23
docusate sodium 100 mg capsule 100 mg PO BID 06/10/23
glimepiride 1 mg tablet 1 mg PO DAILY 06/10/23
heparin (porcine) 5,000 unit/mL injection solution 5,000 unit SC TID@0600,1400,2200 06/10/23
insulin aspart U-100 100 unit/mL (3 mL) subcutaneous pen 0 sliding scale dose SC AC 06/10/23
melatonin 10 mg tablet 10 mg PO HS 06/10/23
sennosides 8.6 mg tablet (senna) 17.2 mg PO NOON 06/10/23
tramadol 50 mg tablet 12.5 mg PO Q6H PRN moderate pain 06/10/23
trazodone 50 mg tablet 12.5 mg PO HS 06/10/23
Review of Systems
-
A 12 point ROS was completed and negative except as noted: Yes
Physical Exam
Vital Signs
Vital Signs
Temp Pulse Resp BP Pulse Ox
97.7 F 77 19 133/49 95
06/10/23 16:21 06/10/23 18:00 06/10/23 18:00 06/10/23 18:00 06/10/23 18:00
Physical exam:
General: Awake, alert and oriented x3, not in distress and holds appropriate conversation.
HEENT: No active discharge, ecchymosis or bruising, moist lips, tongue and mucous membrane.
Eyes: No discharge or red conjunctiva, no nystagmus, pupils are reactive and equal
Neck:Supple, no JVD no bruit no goiter.
Respiratory: Normal AP contour and diameter, normal chest wall movement, normal respiratory effort, no respiratory distress,
Lungs: Good air entry bilaterally, no wheezing or rhonchi, no rales or crackles
Heart: S1, S2 regular, normal rate, no added sound.
Gastrointestinal: Positive bowel sounds, soft, nontender, no guarding or rigidity or organomegaly
Musculoskeletal: Left inguinal area is incision of some redness and some purulent coverage and serous seeping, no chest wall abnormality or tenderness. All joints and extremities have good range of motion, no muscle tenderness or any joint swelling
or tenderness.
Extremities: Bilateral lower extremities pitting edema left more than the right, good peripheral pulses, good range of motion
Skin: Warm and dry, no ulceration, normal color.
Neurological: Awake, alert and oriented x3, no facial droop, speech clear and comprehensive, good muscle tone, moves extremities freely
Psychiatric: Normal mood, normal thought and judgment, normal affect,
Physical Exam
General: Other
Laboratory Results
-
06/10/23 17:29
06/10/23 17:29
Laboratory Results
Total Bilirubin 0.5 mg/dl (0.2-1.3) 06/10/23 17:29
AST 34 U/L (14-36) 06/10/23 17:29
ALT 23 U/L (0-35) 06/10/23 17:29
Alkaline Phosphatase 140 U/L (38-126) H 06/10/23 17:29
Lower extremities vascular ultrasound:
1. No sonographic evidence for left lower extremity deep venous thrombosis.
2. 4.2 cm oval-shaped hypoechoic mass in the left groin located anterior to the left common femoral artery. Diagnostic possibilities are (1) a hematoma (most likely given the history of recent left groin vascular access), (2) a seroma, or (3) an
abscess if there are signs/symptoms of infection.
3. No sonographic evidence for pseudoaneurysm in the left groin.
Data Reviewed
-
Medical Tests (Nuc Med, Echo, EKG etc): Image Personally Visualized and interpreted, Discussed with Patient and Discussed with Family
Lab Data: Labs Reviewed by me
Old Records: Reviewed
Impression/Plan
-
IMPRESSION:
77-year-old female who was discharged from the hospital recently to mostly After TAVR procedure and left femoral artery arterectomy according to the record from the procedure he was unable to close it. Presented to the hospital was concern for
recurrent pain in the left inguinal area where the workup concerning for hematoma and cellulitis to abscess.
Left inguinal incision infection
Left inguinal area hematoma and/or abscess
Left inguinal areas pain likely secondary to above
Postoperative stroke,
Chronic kidney disease stage III-IV
Diabetes mellitus on hypoglycemic agent
Aortic stenosis status post TAVR recently
Hyponatremia, present on admission
Dyslipidemia
PLAN:
Vascular surgery been contacted and recommended IV antibiotic admission
Patient given vancomycin will continue vancomycin according to pharmacy protocol like to cover gram-negative because of the location of the procedure and patient been in the hospital in a rehab also known history of the diabetes
Wound and blood culture
Tylenol as needed
Monitor vital sign
Hold oral hypoglycemic agent and I will make the patient n.p.o. after midnight in case vascular surgery on to do any intervention in the morning if not then the patient can be allowed to eat in the morning and restart oral hypoglycemic agent
accordingly.
Recheck lab.
The recent procedure and
Wound team consult
Will continue aspirin and Plavix specially with recent vascular surgery and postoperative stroke
Discussed with the patient and family
CODE STATUS full code
DVT prophylaxis foot pumps for now not a candidate for pharmacological anticoagulation because of concern for hematoma and may require intervention also avoid SCD because of the peripheral vascular disease and recent left femoral artery procedure,
if no intervention hematoma better, then can be restarted back on heparin subcu
[2023-06-10 21:21] VITALS: BP 105/88
[2023-06-10 22:00] VITALS: BP 125/49
[2023-06-10] MEDS: VANCOCIN 540 MG IV (22:44)
[2023-06-10 23:00] VITALS: BP 137/52
[2023-06-11] VITALS (9 sets, daily range): BP systolic 137–156; BP diastolic 51–69; BMI 39.1
--- NOTE | 2023-06-11 00:56 | PTCARENOTE ---
Received patient from the ED at 0030, vs downloaded by me prior to that time were from the ED.
[2023-06-11] MEDS: DESYREL 12.5 MG PO ×2 (01:19→22:01)
[2023-06-11] MEDS: MELATONIN 10 MG PO ×2 (01:20→22:02)
[2023-06-11] MEDS: STERILE WATER FOR INJECTION 10 ML IV ×2 (02:23→15:35)
[2023-06-11] MEDS: MAXIPIME 1000 MG IV ×2 (02:23→15:34)
[2023-06-11] MEDS: FLUSH (NSS) 2 FLUSH IV ×2 (02:24→15:35)
--- NOTE | 2023-06-11 04:24 | PTCARENOTE ---
OOB to bathroom with assist and rolling walker. Wearing attends per her request,d/t stress incontinence. Has a loose non-productive cough. She has frequent requests. Slept for short intervals.
[2023-06-11] MEDS: TYLENOL 1000 MG PO ×3 (06:44→20:48)
--- NOTE | 2023-06-11 07:57 | W.PN.HOSP.TC ---
Today's Communication/Plan
-
Resume home Heparin TID DVT prophylaxis
Continue antibiotics for now
Appreciate vascular and plastic surgery
Assessment / Plan
Assessment / Plan
Physical exam
General: No Apparent Distress
HEENT: Normocephalic, Atraumatic
Respiratory: CTAB
Cardiac: S1 and S2.
GI: Soft, Non Tender and Non Distended. Positive bowel sounds.
Musculoskeletal: Edema (Trace edema in bilateral lower extremities)
Skin: Warm, Dry and Other (Left groin with surgical ramona and stitches CDI and skin edges well-approximated, clear drainage noted at upper pole of incision, no evidence of infection, no erythema, no edema, no foul-smelling or purulent drainage)
Neuro: AO x 3 and Nonfocal/Grossly Intact
IMPRESSION
77-year-old female who was discharged from the hospital recently to mostly After TAVR procedure andstatus post cutdown and exposure of left common femoral artery with common femoral artery endarterectomy with patch angioplasty using bovine
pericardium during TAVR procedure on 05/31/2023, now with 4.2 oval-shaped hypoechoic mass in the left groin suspicious for seroma. Presented to the hospital was concern for recurrent pain in the left inguinal area where the workup concerning for
hematoma and cellulitis to abscess.
Left inguinal incision infection
Left inguinal area hematoma and/or abscess
Left inguinal areas pain likely secondary to above
Postoperative stroke,
Chronic kidney disease stage III-IV
Diabetes mellitus on hypoglycemic agent
Aortic stenosis status post TAVR recently w/ left common femoral artery cutdown and endarterectomy
Hyponatremia, present on admission
Dyslipidemia
Asthma
PLAN
Vascular surgery been contacted and recommended IV antibiotic admission
Patient given vancomycin will continue vancomycin according to pharmacy protocol like to cover gram-negative because of the location of the procedure and patient been in the hospital in a rehab also known history of the diabetes
Wound and blood culture
Tylenol as needed
Monitor vital sign
Hold oral hypoglycemic agent
Recheck lab.
Wound team consult
Continue aspirin and Plavix specially with recent vascular surgery and postoperative stroke
Plastic surgery consulted, recommendations appreciated
Discussed with the patient and family
CODE STATUS full code
DVT prophylaxis: Continue home Heparin DVT prophylaxis -- okay to resume as per vascular surgery [facility] Text conversation on June 11, 2023
Anticipated Discharge: > 48 hours
Subjective/Interval History
-
Date of Service: June 11, 2023
Patient was seen and examined. She reported no new symptoms or complaints.
Objective Data
-
Vital Signs:
Vital Signs
Temp Pulse Resp BP Pulse Ox
98.3 F 80 20 143/59 98
06/11/23 07:29 06/11/23 07:29 06/11/23 07:29 06/11/23 07:29 06/11/23 07:29
[2023-06-11 07:59] LABS: Glucose - Point of Care 148 mg/dl (70-99)
[2023-06-11] MEDS: NOVOLOG FLEXPEN-MODERATE RESISTANCE SC ×2 (08:41→13:32)
--- NOTE | 2023-06-11 08:50 | CON.VAS ---
Addendum entered and electronically signed by Chino Sarkar III, MD 06/11/23 13:26:
This patient was seen and examined with LYNN Yuan and LYNN Richards. I agree with the history and physical exam as well as the assessment and plan. I have the following additions:
Recent left common femoral artery repair with endarterectomy and patch angioplasty following challenging TAVR access.
Now back with superficial wound dehiscence in the left groin and associated serous drainage
Patient is well-appearing and nontoxic
Plan will be for groin exploration, washout and muscle flap coverage
I discussed this plan with Dr. Nieves from [facility]
Signed:
Chino Sarkar III, MD
[facility]
[phone] (eawl)
Original Note:
Consultation
Consultation Request
Date/Time Consultation Performed: 06/11/2023 0845
Requesting Provider: Hospitalist
Performing Provider: Magali Figueroa, COMMUNITY SPORTS COORDINATOR-C for Chino Sarkar III, MD
Reason for Consultation: Left groin drainage
Medical History
-
Chief Complaint: Left groin drainage and pain
History of Present Illness:
This is a 77-year-old female with significant medical history of diabetes, hypertension, stroke, CAD, and aortic valve stenosis status post TAVR on May 31, 2023 here in the hospital. Patient is known to our service that she required cutdown and
exposure of left common femoral artery with common femoral artery endarterectomy with patch angioplasty using bovine pericardium during TAVR procedure. Following admission patient was sent to [place] rehab, patient presents to ED from [place] with
reports of frequent sharp shooting pain at left groin area and drainage. Left groin ultrasound was performed which demonstrates 4.2 cm oval-shaped hypoechoic mass in the left groin located anterior to the left common femoral artery, possibly
representing hematoma or seroma. Patient denies nausea, vomiting, fever, and chills.
Past Medical History
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
eye with prior stroke, pituitary macroadenoma)
Past Surgical History: Appendectomy and Other (ventral hernia repair, carpal tunnel surgery, cataract surgery, iliac stent)
Social History
Tobacco: Former Smoker
Alcohol: None
Drug: None
Personal:
Allergies / Home Medications
Allergy/AdvReac Type Severity Reaction Status Date / Time
No Known Allergies Allergy Verified 06/10/23 16:21
�Medication �Instructions �Recorded �Confirmed �Type
cholecalciferol (vitamin D3) 25 2,000 units PO DAILY Supplement 04/09/16 06/10/23 History
mcg (1,000 unit) tablet
sitagliptin phosphate 100 mg 50 mg PO DAILY Diabetes 04/09/16 06/10/23 History
tablet (Januvia)
hydrochlorothiazide 25 mg tablet 12.5 mg PO DAILY Fluid 08/07/19 06/10/23 History
retention/Swelling
amlodipine 5 mg tablet 5 mg PO DAILY 07/26/21 06/10/23 Rx
pyridoxine (vitamin B6) 50 mg 250 mg PO DAILY Supplement 07/26/21 06/10/23 History
tablet
aspirin 81 mg tablet,delayed 81 mg PO DAILY #1 tab 04/17/23 06/10/23 Rx
release
atorvastatin 20 mg tablet 40 mg PO DAILY High Cholesterol 04/17/23 06/10/23 History
ferrous sulfate 325 mg (65 mg 325 mg PO DAILY Supplement 04/17/23 06/10/23 History
iron) tablet
montelukast 10 mg tablet 10 mg PO DAILY Lung/Breathing 04/17/23 06/10/23 History
Issues
fluticasone fur. 100 mcg-umeclid 1 inh inhalation R DAILY 05/22/23 06/10/23 History
62.5 mcg-vilant 25 mcg Lung/Breathing Issues
inhalat.powder (Trelegy Ellipta)
clopidogrel 75 mg tablet 75 mg PO DAILY Heart 06/04/23 06/10/23 Rx
disease/condition #0 tabs
pantoprazole 40 mg tablet,delayed 40 mg PO DAILY GI prophylaxis #0 06/04/23 06/10/23 Rx
release tabs
sennosides 8.6 mg-docusate sodium 1 tab PO BID #0 tabs 06/04/23 06/10/23 Rx
50 mg tablet (Stool
Softener-Stimulant Laxative)
acetaminophen 500 mg tablet 1,000 mg PO TID@0700,1300,2000 06/10/23 06/10/23 History
ascorbic acid (vitamin C) 500 mg 500 mg PO DAILY 06/10/23 06/10/23 History
tablet (Vitamin C)
bisacodyl 10 mg rectal suppository 10 mg SD DAILY PRN if no bm with 06/10/23 06/10/23 History
(Dulcolax (bisacodyl)) oral bisacodyl
bisacodyl 5 mg tablet,delayed 10 mg PO DAILY PRN constipation 06/10/23 06/10/23 History
release (Dulcolax (bisacodyl))
docusate sodium 100 mg capsule 100 mg PO BID 06/10/23 06/10/23 History
glimepiride 1 mg tablet 1 mg PO DAILY 06/10/23 06/10/23 History
heparin (porcine) 5,000 unit/mL 5,000 unit SC TID@0600,1400,2200 06/10/23 06/10/23 History
injection solution
insulin aspart U-100 100 unit/mL 0 sliding scale dose SC AC 06/10/23 06/10/23 History
(3 mL) subcutaneous pen
melatonin 10 mg tablet 10 mg PO HS 06/10/23 06/10/23 History
sennosides 8.6 mg tablet (senna) 17.2 mg PO NOON 06/10/23 06/10/23 History
tramadol 50 mg tablet 12.5 mg PO Q6H PRN moderate pain 06/10/23 06/10/23 History
trazodone 50 mg tablet 12.5 mg PO HS 06/10/23 06/10/23 History
Review of Systems
-
History Source: Patient
Constitutional: Reports No Symptoms
EENT: Reports No Symptoms
Respiratory: Reports No Symptoms and Other (Requires oxygen via nasal cannula at baseline for management of COPD)
Cardiac: Reports No Symptoms
Abdomen/GI: Reports No Symptoms
: Reports No Symptoms
Musculoskeletal: Reports Other (Left groin discomfort with drainage noted at incision)
Skin: Reports Other (Drainage from left groin incision)
Neurological: Reports No Symptoms
Endocrine: Reports No Symptoms
Physical Exam
Vital Signs
Temp Pulse Resp BP Pulse Ox
98.3 F 80 20 143/59 99
06/11/23 07:29 06/11/23 07:29 06/11/23 07:29 06/11/23 07:31 06/11/23 07:31
Lab Results
06/10/23 17:29
06/10/23 17:29
Physical Exam
General: No Apparent Distress
HEENT: Normocephalic, Anicteric and Atraumatic
Respiratory: Non Labored Respirations
Cardiac: Negative JVD
GI: Soft, Non Tender and Non Distended
Musculoskeletal: Edema (Trace edema in bilateral lower extremities)
Skin: Warm, Dry and Other (Left groin with surgical ramona and stitches CDI and skin edges well-approximated, clear drainage noted at upper pole of incision, no evidence of infection, no erythema, no edema, no foul-smelling or purulent drainage)
Neuro: AO x 3 and Nonfocal/Grossly Intact
Assessment / Plan
-
Assessment: 77-year-old female status post cutdown and exposure of left common femoral artery with common femoral artery endarterectomy with patch angioplasty using bovine pericardium during TAVR procedure on 05/31/2023, now with 4.2 oval-shaped
hypoechoic mass in the left groin suspicious for seroma
Plan:
Consult to plastic surgery Dr. Pierre Nieves, for sartorius muscle flap and washout of left groin
--- NOTE | 2023-06-11 08:52 | WOUNDNOTE ---
[facility] RN note: Patient admitted with possible infected L groin incision. Patient admitted from [place].
See H&P for complete history.
PMH: Recent DH stay s/p TAVR with L femoral antrotomy 06/01/23, PAD with iliac stent, carotid artery disease, obesity, HTN, CKD3-4, neuropathy, GI bleed, chronic pain, COPD, ex smoker.
Wound Location and type/assessment: Patient admitted with: L inguinal incision with ramona with small opening proximal draining copious slightly cloudy ss drainage. Patient c/o tenderness at L groin. R heel blanchable red. L lower abdomen with 2
small red raised areas (pimple?, cyst?). Dr. Sarkar and Vascular PA's Magali and Itzel in during visit. Dr. Sarkar to confer with plastic surgeon.
Appetite: appetite good. Currently NPO.
Pressure redistribution devices in place: [employer] Accumax. Patient in recliner chair. She stood with walker and assistance.
Plan: Vascular PA's changed L groin dry gauze dressings with ABD pad, secured with minimal silicone tape. Air chair cushion given. Vascular to manage L groin. Will follow peripherally as needed. Discussed with TALI Wiseman
Care plan to be updated.
--- NOTE | 2023-06-11 09:12 | PTCARENOTE ---
Rec'd pt this AM AAOx3, appears mildly forgetful to time. Reorients easily. Pt w/no CP or SOB. VS stable. Pt c/o mild L groin pain, declines any meds for pain at this time. WOC & Vascular in to see pt. Pt w/call heart within reach. Plan of care
ongoing.
--- NOTE | 2023-06-11 09:24 | PHA.VAN.IN ---
Addendum entered and electronically signed by Eduarda Ruano Sanchez 06/11/23 13:14:
Laboratory Tests
06/11/23
12:34
Random Vancomycin 16.8
Level drawn ~13.5H after 2g loading dose
Anticipate patient should be able to maintain levels through tomorrow AM
Repeat random level 06/11 0600 to assess trend and half-life
Original Note:
Assessment
- Assessment
Renal Function: Unknown baseline
Concomitant Antimicrobials: cefepime
Plan
- Plan
Initial / Loading Dose: 2000mg - 06/09 22:44
Maintenance Regimen: dosing by level
Monitoring: random today at 1200 to determine if additional dosing necessary
Pharmacokinetics Vancomycin I
- -
Patient Age: 77
Patient Sex: Female
Vancomycin Day #: 1
Indication: Skin And Soft Tissue
Requesting Provider: Dr. Silva
Pertinent Antimicrobial Allergies:
NKDA
Height / Weight:
Height 5 ft 1 in
Actual Weight 93.9 kg
Pertinent Past Medical History: BMI ~39, DM, recent TAVR, CKD
- Vital Signs / Lab Results
Temp Pulse Resp BP Pulse Ox
98.3 F 80 20 143/59 99
06/11/23 07:29 06/11/23 07:29 06/11/23 07:29 06/11/23 07:31 06/11/23 07:31
Lab Results - Hematology
06/10/23
17:29
WBC 7.7
Lab Results - Chemistry
06/10/23
17:29
BUN 60 H
Creatinine 2.3 H
Estimated Creat Clear 22
Albumin 3.6
--- NOTE | 2023-06-11 10:50 | CM ---
Addendum entered by Marilu Goodman 06/11/23 11:05:
Telephome call to [facility]. Liaison to review. Mrs. Carter will not need a new PM&R evaluation.
Original Note:
Reviewed chart. Met with and Mrs. Carter to review discharge plans. She states prior to admission she resides with her spouse in a bi-level home with five steps to enter. She states she has five steps to get to the lower level. She states
prior to admission she was at [facility]. at [place]. She states she was ambulating with a rolling walker. She states she does not have any DME in the home. Will need to see her current functional level to see if she will have any skilled care
needs. Will need physical and occupational therapy evaluations and PM&R if acute rehab. indicated. Medical work-up in progress. The discharge plan is to some level of rehab.- hopefully back to [facility] [place] when medically stable.
[2023-06-11] MEDS: NON-FORMULARY ITEM 1 INH INH (11:18)
[2023-06-11] MEDS: SENOKOT-S 1 TABLET PO ×2 (12:09→20:48)
[2023-06-11] MEDS: SINGULAIR 10 MG PO (12:10)
[2023-06-11] MEDS: PLAVIX 75 MG PO (12:10)
[2023-06-11] MEDS: VITAMIN B-6 250 MG PO (12:10)
[2023-06-11] MEDS: VITAMIN C 500 MG PO (12:10)
[2023-06-11] MEDS: LIPITOR 40 MG PO (12:10)
[2023-06-11] MEDS: ASPIR LOW (ENTERIC COATED) 81 MG PO (12:10)
[2023-06-11] MEDS: FEOSOL 325 MG PO (12:11)
[2023-06-11] MEDS: NORVASC 5 MG PO (12:11)
[2023-06-11] MEDS: COLACE 100 MG PO ×2 (12:11→20:48)
[2023-06-11] MEDS: ORETIC 12.5 MG PO (12:11)
[2023-06-11] MEDS: PROTONIX 40 MG PO (12:11)
[2023-06-11] MEDS: ULTRAM 12.5 MG PO (12:17)
[2023-06-11] MEDS: SENOKOT 17.1999999999999993 MG PO (12:21)
[2023-06-11 13:11] LABS: Vancomycin Random 16.8 ug/ml
[2023-06-11 16:45] LABS: Glucose - Point of Care 193 mg/dl (70-99)
[2023-06-11] MEDS: NOVOLOG FLEXPEN-MODERATE RESISTANCE 1 UNITS SC (16:54)
[2023-06-11] MEDS: VITAMIN D3 (cholecalciferol) 50 MCG PO (16:54)
[2023-06-11] MEDS: HEPARIN 5000 UNITS SC ×2 (16:56→22:02)
--- NOTE | 2023-06-11 17:42 | CON.PS ---
Consultation - Plastic Surgery
Consultation Request
Date/Time Consultation Requested: 06/11/2023
Date/Time Consultation Performed: 06/11/2023
Requesting Provider: Chino Sarkar MD
Performing Provider: JACEK Nieves MD
Reason for Consultation: left groin wound
Medical History
-
Chief Complaint: left groin wound
History of Present Illness:
patient is a multiply comorbid 77-year-old female who underwent TAVR with left groin access. This was reportedly complicated vascular surgery performed an endarterectomy and bovine patch of the left femoral. She was discharged subsequently begun
rehab. She represented with a draining wound of the left groin. As such she was admitted and started on antibiotics. Vascular surgery requested plastic surgery consultation for muscle flap coverage bovine patch and potential space of
obliteration.
Past Medical History
Past Medical History: CVA and Valvular Disease
Past Surgical History: Cardiac and Other
Allergies / Home Medications
Allergy/AdvReac Type Severity Reaction Status Date / Time
No Known Allergies Allergy Verified 06/10/23 16:21
�Medication �Instructions �Recorded �Confirmed �Type
cholecalciferol (vitamin D3) 25 2,000 units PO DAILY Supplement 04/09/16 06/10/23 History
mcg (1,000 unit) tablet
sitagliptin phosphate 100 mg 50 mg PO DAILY Diabetes 04/09/16 06/10/23 History
tablet (Januvia)
hydrochlorothiazide 25 mg tablet 12.5 mg PO DAILY Fluid 08/07/19 06/10/23 History
retention/Swelling
amlodipine 5 mg tablet 5 mg PO DAILY 07/26/21 06/10/23 Rx
pyridoxine (vitamin B6) 50 mg 250 mg PO DAILY Supplement 07/26/21 06/10/23 History
tablet
aspirin 81 mg tablet,delayed 81 mg PO DAILY #1 tab 04/17/23 06/10/23 Rx
release
atorvastatin 20 mg tablet 40 mg PO DAILY High Cholesterol 04/17/23 06/10/23 History
ferrous sulfate 325 mg (65 mg 325 mg PO DAILY Supplement 04/17/23 06/10/23 History
iron) tablet
montelukast 10 mg tablet 10 mg PO DAILY Lung/Breathing 04/17/23 06/10/23 History
Issues
fluticasone fur. 100 mcg-umeclid 1 inh inhalation R DAILY 05/22/23 06/10/23 History
62.5 mcg-vilant 25 mcg Lung/Breathing Issues
inhalat.powder (Trelegy Ellipta)
clopidogrel 75 mg tablet 75 mg PO DAILY Heart 06/04/23 06/10/23 Rx
disease/condition #0 tabs
pantoprazole 40 mg tablet,delayed 40 mg PO DAILY GI prophylaxis #0 06/04/23 06/10/23 Rx
release tabs
sennosides 8.6 mg-docusate sodium 1 tab PO BID #0 tabs 06/04/23 06/10/23 Rx
50 mg tablet (Stool
Softener-Stimulant Laxative)
acetaminophen 500 mg tablet 1,000 mg PO TID@0700,1300,2000 06/10/23 06/10/23 History
ascorbic acid (vitamin C) 500 mg 500 mg PO DAILY 06/10/23 06/10/23 History
tablet (Vitamin C)
bisacodyl 10 mg rectal suppository 10 mg GA DAILY PRN if no bm with 06/10/23 06/10/23 History
(Dulcolax (bisacodyl)) oral bisacodyl
bisacodyl 5 mg tablet,delayed 10 mg PO DAILY PRN constipation 06/10/23 06/10/23 History
release (Dulcolax (bisacodyl))
docusate sodium 100 mg capsule 100 mg PO BID 06/10/23 06/10/23 History
glimepiride 1 mg tablet 1 mg PO DAILY 06/10/23 06/10/23 History
heparin (porcine) 5,000 unit/mL 5,000 unit SC TID@0600,1400,2200 06/10/23 06/10/23 History
injection solution
insulin aspart U-100 100 unit/mL 0 sliding scale dose SC AC 06/10/23 06/10/23 History
(3 mL) subcutaneous pen
melatonin 10 mg tablet 10 mg PO HS 06/10/23 06/10/23 History
sennosides 8.6 mg tablet (senna) 17.2 mg PO NOON 06/10/23 06/10/23 History
tramadol 50 mg tablet 12.5 mg PO Q6H PRN moderate pain 06/10/23 06/10/23 History
trazodone 50 mg tablet 12.5 mg PO HS 06/10/23 06/10/23 History
Review of Systems
-
History Source: Patient, Family and Physician
All other systems: Negative unless noted
Skin: Other
Neurological: Other
Physical Exam
Vital Signs
Temp 97.4 F 06/11/23 15:27
Temp route: Oral 06/11/23 15:27
Pulse 72 06/11/23 15:27
Resp Rate 20 06/11/23 15:27
Blood pressure 137/52 06/11/23 15:32
Blood pressure extremity used: Right upper arm 06/11/23 15:27
Position: Sitting 06/11/23 15:27
MAP (cuff-Russ Monitor) 77 06/11/23 15:32
SaO2 97 06/11/23 15:31
Nasal Cannula flow liters per minute 2 06/11/23 07:29
Oxygen Mode of Delivery Room air 06/11/23 15:27
Can the patient verbally communicate their pain? Yes 06/11/23 13:17
Pain scale ratin 06/11/23 13:17
Actual Weight 207 lb 0.225 oz 06/11/23 06:00
Body Mass Index (BMI) 39.1 06/11/23 06:00
physical exam:
No acute distress
No increased work of breathing
Left groin draining serous fluid, partial dehiscence with ramona and sutures in place
No erythema or purulence
Marginal skin necrosis
Lab Results
06/10/23 17:29
06/10/23 17:29
Assessment / Plan
-
Left groin wound dehiscence with seroma following vascular access for TAVR requiring patch angioplasty
OR tomorrow for washout, debridement, muscle flap
NPO midnight
I had a long discussion with the patient and her family members about the role of groin flap coverage of vascular access sites. In this case the bovine patch is at risk of infection and compromise given the seroma and wound dehiscence. Best
attempts to cover this vascular structure involve using local muscle flaps to provide healthy vascular coverage in the event of recurrent skin breakdown. Some lower extremity weakness is possible however most patients can continue all activities of
daily life. Numbness is also possible. Additional risk include hematoma, seroma, infection and bleeding. She and the family understood these risks and desired to proceed.
[2023-06-11 22:07] LABS: Glucose - Point of Care 235 mg/dl (70-99)
[2023-06-12] VITALS (18 sets, daily range): BP systolic 5–144; BP diastolic 46–67; BMI 38.8
[2023-06-12] MEDS: ULTRAM 12.5 MG PO (00:53)
[2023-06-12] MEDS: MAXIPIME 1000 MG IV ×2 (02:29→20:50)
[2023-06-12] MEDS: FLUSH (NSS) 2 FLUSH IV (02:30)
[2023-06-12] MEDS: STERILE WATER FOR INJECTION 10 ML IV ×2 (02:30→20:50)
--- NOTE | 2023-06-12 03:49 | PTCARENOTE ---
Took ultram for left groin incisional discomfort. Sleeping at intervals. Left groin dressing dry and intact. Aware she is NPO after MDN.
[2023-06-12] MEDS: HEPARIN 5000 UNITS SC ×2 (05:32→22:38)
[2023-06-12 05:34] LABS: Hemoglobin 9.5 g/dL (12.0-16.0); Mean Corp Hgb Conc. 32.8 g/dL (33.0-37.0); Mean Corpuscular Hgb 30.4 pg (27.0-31.0); Mean Corpuscular Volume 92.9 fL (81.0-99.0); Mean Platelet Volume 10.6 fL (7.4-10.4); Platelet Count 206 10^3/uL (130-400); Red Blood Cell Count 3.12 10^6/uL (4.20-5.40); Red Cell Dist. Width 13.8 % (11.5-14.5); White Blood Cell Count 12.7 10^3/uL (4.8-10.8)
[2023-06-12 05:52] LABS: Vancomycin Random 12.9 ug/ml
[2023-06-12 05:58] LABS: Blood Urea Nitrogen 49 mg/dl (7-17); Calcium 10.8 mg/dl (8.4-10.2); Carbon Dioxide 24 mmol/L (22-30); Chloride 103 mmol/L (98-107); Estimated Creatinine Clearance 23 ml/min; Glucose 132 mg/dl (70-99); Potassium 4.3 mmol/L (3.5-5.1); Sodium 137 mmol/L (135-145); eGFR 23.82
[2023-06-12] MEDS: TYLENOL 1000 MG PO ×2 (06:37→20:51)
[2023-06-12] MEDS: NON-FORMULARY ITEM 1 INH INH (07:40)
[2023-06-12 07:54] LABS: Glucose - Point of Care 159 mg/dl (70-99)
[2023-06-12] MEDS: ULTRAM 25 MG PO ×2 (08:04→21:39)
[2023-06-12] MEDS: ORETIC 12.5 MG PO (08:05)
[2023-06-12] MEDS: PLAVIX 75 MG PO (08:06)
[2023-06-12] MEDS: NORVASC 5 MG PO (08:06)
[2023-06-12] MEDS: NOVOLOG FLEXPEN-MODERATE RESISTANCE 1 UNITS SC (08:07)
[2023-06-12] MEDS: ASPIR LOW (ENTERIC COATED) 81 MG PO (08:08)
[2023-06-12] MEDS: PERIDEX 0.12% ORAL RINSE 15 ML PO (08:22)
--- NOTE | 2023-06-12 08:52 | PHA.VAN.FU ---
Vancomycin Assessment / Plan
- Assessment
Renal Function: SCR Decreasing
WBC's are: Trending Up
In the past 24 hrs, patient has been: Afebrile
Concomitant Antimicrobials: cefepime
- Assessment - Therapeutic Drug Monitoring
Random Level: 12.9 - drawn ~16H after previous level of 16.8
Calculated ke: 0.0163
Calculated half life (H): 42.5
- Dosing Plan
Dosing by Level: Re-dose today (Vanc 1000mg)
- Monitoring Plan
Random Level: 06/12 0600
- Follow Up
Pharmacy will continue to follow.
Vancomycin Follow UP
- -
Patient Age: 77
Patient Sex: Female
Vancomycin Day #: 2
Indication: Skin And Soft Tissue
Requesting Provider: Dr. Silva
Pertinent Antimicrobial Allergies:
NKDA
Height / Weight:
Height 5 ft 1 in
Actual Weight 93.9 kg
Pertinent Past Medical History: BMI ~39, DM, recent TAVR, CKD
- Vital Signs / Lab Results
Temp Pulse Resp BP Pulse Ox
98.6 F 85 18 136/54 92
06/12/23 04:38 06/12/23 07:46 06/12/23 07:46 06/12/23 08:03 06/12/23 08:02
Lab Results - Hematology
06/10/23 06/12/23
17:29 04:45
WBC 7.7 12.7 H
Lab Results - Chemistry
06/10/23 06/12/23
17:29 04:45
BUN 60 H 49 H
Creatinine 2.3 H 2.1 H
Estimated Creat Clear 22 23
Albumin 3.6
Microbiology Results
06/11/23 02:48 Blood Culture - Preliminary
Blood/Venous No Growth in 24 hours- Final report to follow
06/11/23 02:11 Blood Culture - Preliminary
Blood/Venous No Growth in 24 hours- Final report to follow
06/11/23 02:01 Gram Stain - Preliminary
Groin - Left
Therapeutic Drug Monitoring
Random Vancomycin 12.9 ug/ml 06/12/23 04:45
--- NOTE | 2023-06-12 08:58 | PTCARENOTE ---
Assumed care of pt from night RN. Pt received awake c/o pain 10/10 in left hip and side. VSS, POX 94% on @l/nc. Tramadol 25 mg given as per MAR for hip pain, pt moved back to bed for comfort. Pt remains NPO for muscle flap/washout of l groin.
--- NOTE | 2023-06-12 10:29 | PTCARENOTE ---
Pt transfered to M/S 317-2, report given to TALI Robbins.
--- NOTE | 2023-06-12 11:32 | PTCARENOTE ---
Received from IVU. AOx3, anxious. Ambulated from stretcher to bed w/ RW and assistance x1. 1 set of CHG wipes completed. Report given to Eliana in OR.
--- NOTE | 2023-06-12 12:00 | W.SUR.PREOP ---
Pre-Operative Surgical Note
-
I have examined this patient prior to the performance of the scheduled procedure.
The patient's condition is unchanged from the time of the current History and
Physical and the patient is able to undergo the scheduled procedure.
--- NOTE | 2023-06-12 13:27 | W.PN.HOSP.TC ---
Today's Communication/Plan
-
Hold HCTZ due to hypercalcemia and recent hyponatremia
Appreciated ID, nephrology, vascular and plastics
Assessment / Plan
Assessment / Plan
Physical exam
General: In mild distress due to pain
HEENT: Normocephalic
Respiratory: CTAB
Cardiac: S1 and S2. RRR.
GI: Soft, Non Tender and Non Distended. Positive bowel sounds.
Musculoskeletal: Edema (Trace edema in bilateral lower extremities)
Skin: Warm, Dry
Neuro: AAO x 3 and Nonfocal/Grossly Intact
IMPRESSION
77-year-old female who was discharged from the hospital recently to mostly After TAVR procedure andstatus post cutdown and exposure of left common femoral artery with common femoral artery endarterectomy with patch angioplasty using bovine
pericardium during TAVR procedure on 05/31/2023, now with 4.2 oval-shaped hypoechoic mass in the left groin suspicious for seroma. Presented to the hospital was concern for recurrent pain in the left inguinal area where the workup concerning for
hematoma and cellulitis to abscess.
Left inguinal incision infection
Left inguinal area hematoma and/or abscess
Left inguinal areas pain likely secondary to above
Postoperative stroke,
Chronic kidney disease stage III-IV
Diabetes mellitus on hypoglycemic agent
Aortic stenosis status post TAVR recently w/ left common femoral artery cutdown and endarterectomy
Hyponatremia, present on admission
Hypercalcemia
Dyslipidemia
Asthma
PLAN
Vascular surgery been contacted and recommended IV antibiotic admission
Patient given vancomycin will continue vancomycin according to pharmacy protocol like to cover gram-negative because of the location of the procedure and patient been in the hospital in a rehab also known history of the diabetes
Consulted ID, recommendations appreciated
Wound and blood culture -- preliminary wound culture with gram negative bacilli and diptheroids
Tylenol as needed
Monitor vital signs
Hold oral hypoglycemic agent
Hold HCTZ due to hypercalcemia and recent hyponatremia
Consulted nephrology for additional recommendations on hypercalcemia and recent hyponatremia
Recheck labs in the morning
Wound team consult
Continue aspirin and Plavix specially with recent vascular surgery and postoperative stroke
Plastic surgery consulted, recommendations appreciated: plan will be for groin exploration, washout and muscle flap coverage soon
Discussed with the patient and family
CODE STATUS full code
DVT prophylaxis: Continue home Heparin DVT prophylaxis -- okay to resume as per vascular surgery [place] Text conversation on June 11, 2023
Anticipated Discharge: > 48 hours
Subjective/Interval History
-
Date of Service: June 12, 2023
Patient was seen and examined. She reported significant amount of pain in her left groin area.
Objective Data
-
Labs:
Laboratory Results
06/12/23
04:45
WBC 12.7 H
Hgb 9.5 L
Hct 29.0 L
Plt Count 206
Sodium 137
Potassium 4.3
Chloride 103
Carbon Dioxide 24
BUN 49 H
Creatinine 2.1 H
Glucose 132 H
Calcium 10.8 H
Vital Signs:
Vital Signs
Temp Pulse Resp BP Pulse Ox
98.1 F 88 18 144/65 91
06/12/23 11:39 06/12/23 11:39 06/12/23 11:39 06/12/23 11:39 06/12/23 11:39
I&O
06/11/23 06/12/23 06/13/23
06:59 06:59 06:59
Intake Total 480 / 480
Balance 480 / 480
[2023-06-12 13:37] LABS: Glucose - Point of Care 149 mg/dl (70-99)
--- NOTE | 2023-06-12 15:16 | W.IMMPOSTOP ---
Surgical Immed Post Op Note
-
Primary Surgeon: JACEK Nieves MD
Assisting Surgeon:
Pre-op Diagnosis: left groin wound
Procedure Performed: same
Anesthesia Type: General
Specimen / Cultures: aerobic anaerobic bacteria
Estimated Blood Loss: 30 cc
Complications: none
Operative Findings: as expected
--- NOTE | 2023-06-12 15:16 | OR.RPT ---
Operative Report
Operative Report
Surgeon: JACEK Nieves MD
Preoperative diagnosis: Left groin wound
Postoperative diagnosis: Same
Procedure:
1. Excisional debridement to fascia, left groin, 10 x 15 cm
2. Left groin muscle flap
3. Negative pressure VAC application 2 x 15 cm
Complications: None
Microbiology: Anaerobic and aerobic bacteria culture
EBL: 30 cc
Drains: 2 Elver drains
Indications for procedure: Patient is a 77-year-old female who underwent left femoral cutdown as access for TAVR this was complicated and required vascular surgery to perform an endarterectomy and bovine patch angioplasty. She followed a routine
postoperative course but was subsequently readmitted with a draining left groin wound. She was found to have a collection consistent with likely seroma. Vascular surgery consulted me for muscle flap coverage of the bovine patch and exposed
vessels. I discussed with the patient the role of flap surgery and the need for space obliteration and muscular coverage of the vascular structures. Risks were reviewed in detail including bleeding, hematoma, seroma, muscle weakness, nerve
sensation changes. Patient understood the risk says that her family desired to proceed. The role of drains and VAC therapy were also discussed at length.
Procedure detail: Patient was identified preoperatively and the surgical site was confirmed to be the left groin. She was taken back to the operating room placed supine on table. Consents were confirmed and anesthesia was induced and ET tube was
placed. Patient was then prepped and draped in usual sterile fashion using Betadine solution. Timeout for patient safety was performed was confirmed to preoperative antibiotics have been administered and SCDs were in place. Procedure began with
the injection of 1% lidocaine with epinephrine for local anesthesia. The left groin wound was then explored and reopened. Large seroma fluid collection was encountered. Microbiology cultures were sent. No gross purulence was noted. An
excisional debridement down to the femoral vessels was performed over an area of 10 x 15 cm. 3 L of normal saline was used to irrigate the wound The bovine patch remained intact with appreciable pulsatile flow. Lateral skin flap was selectively
elevated and the muscular fascia was incised to identify the nearby musculature. Healthy sartorius muscle was identified and encircled releasing it from its fascial sheath. this was dissected up to the level of the ASIS and taken off the ASIS.
The muscle was elevated off its known segmental blood flow and vascular pedicle. It was then translocated medially over the femoral vessels and sutured in place with a series of 0 Vicryl. after inset healthy muscle coverage was established. A
deep small drain was left inferior to the bovine patch. A large bore Elver was left in the muscle donor site. The wound was then closed in layers with Vicryl sutures. 2-0 nylon's were used at the skin surface in a vertical mattress pattern.
Negative pressure VAC dressing was placed over the length of the incision which was 15 cm thereafter. Patient tolerated procedure well was performed without complication. All counts were correct at the end the case.
--- NOTE | 2023-06-12 15:30 | CON.ID ---
Consultation
-
Date/Time Consultation Requested: 06/12/2023 07:27
Date/Time Consultation Performed: 06/12/23 1620
Requesting Provider: Dr. Casillas
Performing Provider: Dr. Hightower
Reason for Consultation: Wound infection
Chief Complaint / Past History
History of Present Illness
Jennifer Carter is a 77-year-old female being evaluated at the request of Dr. Lord in regards to a wound infection. History is obtained from chart review, along with patient interview.
The patient was a recent inpatient at [facility], and underwent TAVR placement on 05/31/2023 via a left common femoral artery approach which required cutdown, endarterectomy and patch repair. Hospitalization was complicated by an acute left
cerebellar infarction. Ultimately, she was discharged to rehab on 06/07, but was sent to the ER yesterday secondary to increasing left inguinal discomfort, seepage from the prior incision and concern for infection. Today she was taken back to the OR
for excisional debridement, left groin muscle flap and VAC placement. Cultures have been obtained.
Past History
Additional Past Medical History:
HTN
Dyslipidemia
DM
Anxiety
CKD
Asthma
Pituitary adenoma
Obesity
Additional Past Surgical History:
Knee arthroscopy
TAVR
Allergy History:
No Known Allergies Allergy (Verified 06/10/23 16:21)
Medications Reviewed: Yes
Current Antibiotics:
Vancomycin (dosed per pharmacy)
Cefepime 1 g IV every 12 hours
Social History
Tobacco: Former Smoker
Alcohol: None
Drug: None
Personal:
Living: With Family
Employment: Retired
Review of Systems
Vital Signs
Temp Pulse Resp BP Pulse Ox
98.1 F 88 18 144/65 91
06/12/23 11:39 06/12/23 11:39 06/12/23 11:39 06/12/23 11:39 06/12/23 11:39
Physical Exam
Physical Exam
Constitutional: Comfortable, Non-toxic and Obese
Head: Normocephalic
Eyes: Pupils Equal, Pupils Round, No Conjunctival Hemorrhage and Sclera Anicteric
Cardiovascular: S1/S2; Negative S3/S4
Pulmonary: Clear; Negative Wheezes, Rales or Rhonchi
Gastrointestinal: Soft, Non Tender and Normal Bowel Sounds
Extremities: Edema; Negative Cyanosis or Erythema
Wound: Other (Left groin wound currently dressed with VAC in place. TERESA x [address]
Neurological: Other (Arousable to voice and touch.)
Psychological: Calm
Lab / Diagnostic Study Results
06/12/23 04:45
06/12/23 04:45
Abs Immat Gran (auto) 0.6 10^3/uL (0-0.05) H 06/10/23 17:29
Absolute Neuts (auto) 5.2 10^3/uL (1.4-6.5) 06/10/23 17:29
Absolute Lymphs (auto) 0.8 10^3/uL (1.2-3.4) L 06/10/23 17:29
Absolute Monos (auto) 0.8 10^3/uL (0.1-0.6) H 06/10/23 17:29
Absolute Basos (auto) 0.1 10^3/uL (0-0.2) 06/10/23 17:29
Immature Gran % 7.7 % (0-0.5) H 06/10/23 17:29
Neutrophils % 68.0 % (42.2-75.2) 06/10/23 17:
Lymphocytes % 10.6 % (20.5-51.1) L 06/10/23 17:29
Monocytes % 10.4 % (1.7-9.3) H 06/10/23 17:
Eosinophils % 2.7 % (0-6) 04/07/24 17:29
Basophils % 0.6 % (0-2) 06/10/23 17:29
Microbiology Results
Micro:
06/12/23 14:55 Wound Culture - Pending
Groin - Left Gram Stain - Pending
06/12/23 14:55 Anaerobic Culture - Pending
Groin - Left
06/11/23 02:01 Wound Culture - Preliminary
Groin - Left Gram negative bacilli
Diptheroids
Gram Stain - Preliminary
06/11/23 02:48 Blood Culture - Preliminary
Blood/Venous No Growth in 24 hours- Final report to follow
06/11/23 02:11 Blood Culture - Preliminary
Blood/Venous No Growth in 24 hours- Final report to follow
Assessment / Plan
Left groin infection
- s/p debridement and VAC placement.
- cultures pending
S/p recent TAVR
Leukocytosis
HTN
Dyslipidemia
DM
Anxiety
CKD
Asthma
Pituitary adenoma
Obesity
Recommendations:
Continue with empiric vancomycin and cefepime.
Cultures currently revealing growth of gram-negative rods.
Await final culture data to guide further antimicrobial selection and de-escalation.
Monitor white count and temperature curve.
[2023-06-12 15:32] LABS: Glucose - Point of Care 230 mg/dl (70-99)
[2023-06-12] MEDS: NOVOLOG vial 2 UNITS SC (15:48)
[2023-06-12] MEDS: DUONEB 3 ML INH (15:53)
[2023-06-12] MEDS: SENOKOT-S PO (17:14)
--- NOTE | 2023-06-12 18:20 | PTCARENOTE ---
Patient transferred to [address] [place] [address] from [facility]u post op.Patient had left groin debridement with I and D.She also had a wound vac placed and a muscle flap.Vital signs are stable.Wound vac is in place.Patient complains of 10 out of 10 pain only if you move
the left leg.Repositioned for comfort.Patient is in her bed with the call heart in reach.
[2023-06-12] MEDS: NOVOLOG FLEXPEN-MODERATE RESISTANCE SC (19:32)
[2023-06-12] MEDS: TYLENOL PO (19:33)
[2023-06-12] MEDS: HEPARIN SC (19:33)
[2023-06-12] MEDS: COLACE PO (19:36)
[2023-06-12 19:38] LABS: Glucose - Point of Care 250 mg/dl (70-99)
[2023-06-12] MEDS: MIRALAX PO (20:30)
[2023-06-12] MEDS: SINGULAIR PO (20:30)
[2023-06-12] MEDS: MAXIPIME IV (20:30)
[2023-06-12] MEDS: PROTONIX PO (20:30)
[2023-06-12] MEDS: VITAMIN D3 (cholecalciferol) PO (20:30)
[2023-06-12] MEDS: VITAMIN B-6 PO (20:30)
[2023-06-12] MEDS: VITAMIN C PO (20:30)
[2023-06-12] MEDS: LIPITOR PO (20:30)
[2023-06-12] MEDS: SENOKOT PO (20:30)
[2023-06-12] MEDS: STERILE WATER FOR INJECTION IV (20:30)
[2023-06-12] MEDS: FEOSOL PO (20:30)
[2023-06-12] MEDS: COLACE 100 MG PO (20:49)
[2023-06-12] MEDS: SENOKOT-S 1 TABLET PO (20:50)
[2023-06-12] MEDS: VANCOCIN 200 IV (20:51)
[2023-06-12 21:04] LABS: Glucose - Point of Care 262 mg/dl (70-99)
[2023-06-12] MEDS: NOVOLOG FLEXPEN-MODERATE RESISTANCE 5 UNITS SC (21:23)
[2023-06-12] MEDS: MELATONIN 10 MG PO (22:37)
[2023-06-12] MEDS: DESYREL 12.5 MG PO (22:38)
[2023-06-13 03:42] VITALS: BP 126/70
[2023-06-13 04:58] LABS: % Basophils 0.2 % (0-2); % Eosinophils 0.1 % (0-6); % Immature Granulocytes 5.5 % (0-0.5); % Lymphocytes 2.7 % (20.5-51.1); % Monocytes 3.5 % (1.7-9.3); Absolute Lymphocytes 0.5 10^3/uL (1.2-3.4); Absolute Monocytes 0.6 10^3/uL (0.1-0.6); Absolute Neutrophils 16.1 10^3/uL (1.4-6.5); Hematocrit 24.4 % (37.0-47.0); Hemoglobin 8.4 g/dL (12.0-16.0); Mean Corp Hgb Conc. 34.4 g/dL (33.0-37.0); Mean Corpuscular Hgb 31.5 pg (27.0-31.0); Mean Corpuscular Volume 91.4 fL (81.0-99.0); Mean Platelet Volume 10.5 fL (7.4-10.4); Nucleated Red Blood Cells % 0 %; Platelet Count 181 10^3/uL (130-400); Red Blood Cell Count 2.67 10^6/uL (4.20-5.40); Red Cell Dist. Width 13.7 % (11.5-14.5); White Blood Cell Count 18.3 10^3/uL (4.8-10.8)
[2023-06-13 05:04] LABS: Vancomycin Random 18.9 ug/ml
[2023-06-13] MEDS: HEPARIN 5000 UNITS SC ×3 (05:18→21:26)
[2023-06-13 05:21] LABS: Albumin 3.6 g/dl (3.5-5.0); Blood Urea Nitrogen 43 mg/dl (7-17); Carbon Dioxide 26 mmol/L (22-30); Chloride 104 mmol/L (98-107); Estimated Creatinine Clearance 23 ml/min; Glucose 147 mg/dl (70-99); Sodium 135 mmol/L (135-145); eGFR 23.82
[2023-06-13 07:35] VITALS: BP 146/70
--- NOTE | 2023-06-13 08:01 | PHA.VAN.FU ---
Vancomycin Assessment / Plan
- Assessment
Renal Function: Stable
WBC's are: Trending Up
In the past 24 hrs, patient has been: Afebrile
Concomitant Antimicrobials: cefepime
- Assessment - Therapeutic Drug Monitoring
Random Level: 18.9 - drawn ~7.5H after previous dose of 1000mg
Dose administered late yesterday (patient went to OR yesterday)
Anticipate patient would have additional clearance from level with longer time between last dose to warrant re-dosing
Using population PK, 10 additional hours between dose and level extrapolates level to 15
- Dosing Plan
Dosing by Level: Re-dose today (Vanc 1000mg)
- Monitoring Plan
Random Level: 06/13 0600 to follow trend - may still require prolonged interval
- Follow Up
Pharmacy will continue to follow.
Vancomycin Follow UP
- -
Patient Age: 77
Patient Sex: Female
Vancomycin Day #: 3
Indication: Skin And Soft Tissue
Requesting Provider: Dr. Silva / Campbell
Pertinent Antimicrobial Allergies:
NKDA
Height / Weight:
Height 5 ft 1 in
Actual Weight 93 kg
Pertinent Past Medical History: BMI ~39, DM, recent TAVR, CKD
- Vital Signs / Lab Results
Temp Pulse Resp BP Pulse Ox
97.7 F 96 20 126/70 93
06/13/23 03:42 06/13/23 03:42 06/13/23 03:42 06/13/23 03:42 06/13/23 03:42
Lab Results - Hematology
06/10/23 06/12/23 06/13/23
17:29 04:45 04:14
WBC 7.7 12.7 H 18.3 H
Lab Results - Chemistry
06/10/23 06/12/23 06/13/23
17:29 04:45 04:14
BUN 60 H 49 H 43 H
Creatinine 2.3 H 2.1 H 2.1 H
Estimated Creat Clear 22 23 23
Albumin 3.6 3.6
Microbiology Results
06/11/23 02:01 Wound Culture - Preliminary
Groin - Left Gram negative bacilli
Diptheroids
Gram Stain - Preliminary
06/11/23 02:48 Blood Culture - Preliminary
Blood/Venous No Growth in 48 hours- Final report to follow
06/11/23 02:11 Blood Culture - Preliminary
Blood/Venous No Growth in 48 hours- Final report to follow
06/12/23 14:55 Gram Stain - Preliminary
Groin - Left
Therapeutic Drug Monitoring
Random Vancomycin 18.9 ug/ml 06/13/23 04:14
[2023-06-13] MEDS: NOVOLOG FLEXPEN-MODERATE RESISTANCE 1 UNITS SC ×2 (08:27→17:53)
[2023-06-13] MEDS: TYLENOL 1000 MG PO ×3 (08:29→21:00)
[2023-06-13] MEDS: PROTONIX 40 MG PO (08:29)
[2023-06-13 08:30] LABS: Glucose - Point of Care 161 mg/dl (70-99)
[2023-06-13] MEDS: SINGULAIR 10 MG PO (08:30)
[2023-06-13] MEDS: ASPIR LOW (ENTERIC COATED) 81 MG PO (08:30)
[2023-06-13] MEDS: VITAMIN D3 (cholecalciferol) 50 MCG PO (08:30)
[2023-06-13] MEDS: NORVASC 5 MG PO (08:31)
[2023-06-13] MEDS: FEOSOL 325 MG PO (08:31)
[2023-06-13] MEDS: LIPITOR 40 MG PO (08:31)
[2023-06-13] MEDS: PLAVIX 75 MG PO (08:31)
[2023-06-13] MEDS: VITAMIN C 500 MG PO (08:31)
[2023-06-13] MEDS: SENOKOT-S 1 TABLET PO ×2 (08:32→21:00)
[2023-06-13] MEDS: STERILE WATER FOR INJECTION 10 ML IV ×2 (08:32→21:00)
[2023-06-13] MEDS: MIRALAX 17 GRAMS PO (08:32)
[2023-06-13] MEDS: MAXIPIME 1000 MG IV ×2 (08:33→21:00)
[2023-06-13] MEDS: VITAMIN B-6 250 MG PO (08:33)
[2023-06-13] MEDS: COLACE 100 MG PO (08:34)
[2023-06-13] MEDS: ULTRAM 25 MG PO (08:37)
[2023-06-13] MEDS: NON-FORMULARY ITEM 1 INH INH (09:15)
--- NOTE | 2023-06-13 10:20 | W.PN.ID1 ---
Date of Service
Date of Service: June 13, 2023
Today's Communication
Continue antibiotics.
Assessment / Plan
Left groin infection
- s/p debridement and VAC placement.
- cultures pending
S/p recent TAVR
Leukocytosis
HTN
Dyslipidemia
DM
Anxiety
CKD
Asthma
Pituitary adenoma
Obesity
Recommendations:
Continue with empiric vancomycin and cefepime. Following Vanco levels to guide dosing.
Await final culture data to guide further antimicrobial selection and possible de-escalation.
Monitor white count and temperature curve.
Monitor TERESA drain output.
Chief Complaint
-: Other (Left groin infection)
Subjective / Review of Systems
Review of Systems: No Fever and No Chills
Vital Signs / Physical Exam
Vital Signs
Vital Signs
Temp Pulse Resp BP Pulse Ox
98.3 F 76 16 146/70 94
06/13/23 07:35 06/13/23 09:19 06/13/23 09:19 06/13/23 07:35 06/13/23 09:19
Physical Exam
Constitutional: No Acute Distress, Comfortable and Non-toxic
Eyes: No Conjunctival Hemorrhage and Sclera Anicteric
Cardiovascular: S1/S2; Negative S3/S4
Pulmonary: Non Labored
Gastrointestinal: Soft and Non Distended
Wound: Other (Left groin with VAC in place. TERESA x 2 with bloody drainage.)
Neurological: Awake and Alert
Psychological: Calm
Objective Data
Lab Data
Lab Results
06/13/23 04:14
06/13/23 04:14
Estimated Creat Clear 23 ml/min 06/13/23 04:14
Total Bilirubin 0.5 mg/dl (0.2-1.3) 06/10/23 17:29
AST 34 U/L (14-36) 06/10/23 17:29
ALT 23 U/L (0-35) 06/10/23 17:29
Alkaline Phosphatase 140 U/L (38-126) H 06/10/23 17:29
Most recent labs reviewed.
Micro Results:
06/11/23 02:01 Wound Culture - Preliminary
Groin - Left Escherichia coli
Gram negative bacilli
Diptheroids
Coagulase neg. staphylococcus
Gram Stain - Preliminary
06/11/23 02:48 Blood Culture - Preliminary
Blood/Venous No Growth in 48 hours- Final report to follow
06/11/23 02:11 Blood Culture - Preliminary
Blood/Venous No Growth in 48 hours- Final report to follow
06/12/23 14:55 Wound Culture - Pending
Groin - Left Gram Stain - Preliminary
06/12/23 14:55 Anaerobic Culture - Pending
Groin - Left
--- NOTE | 2023-06-13 10:40 | W.PN.VS ---
Addendum entered and electronically signed by Audi Mcmillan MD 06/13/23 16:13:
Seen and examined this a.m. with RICH Davis. This is a late entry. Agree with findings and plan as discussed and noted below.
Original Note:
Today's Communication / Plan
-
Seen and assessed with Dr Mcmillan
Assessment/Plan
-
POD 1 Excisional debridement to fascia, left groin, 10 x 15 cm, Left groin muscle flap, Negative pressure VAC application 2 x [address] Nieves
Plan:
-Cont bedrest today
-VAC per Dr Nieves
Subjective Data
-
Date of Service: June 13, 2023
Patient seen at bedside this a.m. with Dr. Mcmillan. Patient resting comfortably. Moderate tenderness to palpation at left groin. VAC intact
Objective Data
-
Vital Signs
Temp Pulse Resp BP Pulse Ox
98.3 F 76 16 146/70 94
06/13/23 07:35 06/13/23 09:19 06/13/23 09:19 06/13/23 07:35 06/13/23 09:19
Intake and Output
06/12/23 06/13/23 06/14/23
06:59 06:59 06:59
Intake Total 480 / 480 320 / 320
Output Total 382 / 382
Balance 480 / 480 -62 / -62
Intake:
Oral fluids 480 / 480 120 / 120
IV fluids (Total) 200 / 200
Normosol 200 / 200
Output:
Drain Output (Total) 82 / 82
Left Upper Leg A 64 / 64
Left Upper Leg B 18 / 18
Urine, Voided 300 / 300
Other:
Number of approximated MODERATE 2
amounts of urine
How many times incontinent 1
SMALL amount urine
Lab Results
06/13/23 04:14
06/13/23 04:14
Calcium 10.0 mg/dl (8.4-10.2) 06/13/23 04:14
Total Bilirubin 0.5 mg/dl (0.2-1.3) 06/10/23 17:29
AST 34 U/L (14-36) 06/10/23 17:29
ALT 23 U/L (0-35) 06/10/23 17:29
Alkaline Phosphatase 140 U/L (38-126) H 06/10/23 17:29
Total Protein 6.4 g/dl (6.3-8.2) 06/10/23 17:29
Albumin 3.6 g/dl (3.5-5.0) 06/13/23 04:14
Physical Exam
-
AAOx3
No tachypnea
No tachycardia
Abd soft
Left groin site w Vac intact
surrounding skin intact, no erythema
[2023-06-13] MEDS: VANCOCIN 200 IV (11:02)
--- NOTE | 2023-06-13 11:50 | W.PN.PLAS ---
Today's Communication
-
dispo planning, awaiting final ID
Drains to stay upon discharge
VAC will be removed
Progress Note
Subjective Data
doing well, pain well-controlled, denies shortness of breath
Objective Data
Vital Signs
Temp Pulse Resp BP Pulse Ox
98.3 F 76 16 146/70 94
06/13/23 07:35 06/13/23 09:19 06/13/23 09:19 06/13/23 07:35 06/13/23 09:19
Intake and Output
06/12/23 06/13/23 06/14/23
06:59 06:59 06:59
Intake Total 480 / 480 320 / 320
Output Total 382 / 382
Balance 480 / 480 -62 / -62
Intake:
Oral fluids 480 / 480 120 / 120
IV fluids (Total) 200 / 200
Normosol 200 / 200
Output:
Drain Output (Total) 82 / 82
Left Upper Leg A 64 / 64
Left Upper Leg B 18 / 18
Urine, Voided 300 / 300
Other:
Number of approximated MODERATE 2
amounts of urine
How many times incontinent 1
SMALL amount urine
physical exam:
No acute distress
No increased work of breathing
Left groin VAC in place
TERESA drain x 2 with serosanguineous output
No undrained fluid collections
Lab Results
06/13/23 04:14
06/13/23 04:14
Microbiology Results
06/12/23 14:55 Groin - Left Wound Culture - Preliminary
Escherichia coli
06/12/23 14:55 Groin - Left Gram Stain - Preliminary
06/11/23 02:01 Groin - Left Wound Culture - Preliminary
Escherichia coli
Gram negative bacilli
Diptheroids
Coagulase neg. staphylococcus
06/11/23 02:01 Groin - Left Gram Stain - Preliminary
06/11/23 02:48 Blood/Venous Blood Culture - Preliminary
No Growth in 48 hours- Final report to follow
06/11/23 02:11 Blood/Venous Blood Culture - Preliminary
No Growth in 48 hours- Final report to follow
Assessment / Plan
status post left groin debridement, excisional to fascia, muscle flap coverage
Elver drains x 2, strip and record output every 4
Bedrest for 48 hours postop, head of bed to 30 degrees allowed
Anticipate drains to stay during rehabilitation
Will remove incisional VAC prior to discharge
[2023-06-13] MEDS: ROXICODONE 5 MG PO ×2 (11:57→17:53)
[2023-06-13 12:27] LABS: Glucose - Point of Care 205 mg/dl (70-99)
[2023-06-13] MEDS: NOVOLOG FLEXPEN-MODERATE RESISTANCE 3 UNITS SC (12:35)
[2023-06-13] MEDS: SENOKOT PO (14:25)
[2023-06-13 15:20] VITALS: BP 128/66
--- NOTE | 2023-06-13 16:05 | W.PN.HOSP.TC ---
Today's Communication/Plan
-
Continue bedrest
Continue Vanc and Cefepime
Assessment / Plan
Assessment / Plan
Physical exam
General: In mild distress due to pain
HEENT: Normocephalic
Respiratory: CTAB
Cardiac: S1 and S2. RRR.
GI: Soft, Non Tender and Non Distended. Positive bowel sounds.
Musculoskeletal: Edema (Trace edema in bilateral lower extremities)
Skin: Warm, Dry
Neuro: AAO x 3 and Nonfocal/Grossly Intact
IMPRESSION
77-year-old female who was discharged from the hospital recently to mostly After TAVR procedure andstatus post cutdown and exposure of left common femoral artery with common femoral artery endarterectomy with patch angioplasty using bovine
pericardium during TAVR procedure on 05/31/2023, now with 4.2 oval-shaped hypoechoic mass in the left groin suspicious for seroma. Presented to the hospital was concern for recurrent pain in the left inguinal area where the workup concerning for
hematoma and cellulitis to abscess.
Left inguinal incision infection
Left inguinal area hematoma and/or abscess
Left inguinal areas pain likely secondary to above
Postoperative stroke,
Chronic kidney disease stage III-IV
Diabetes mellitus on hypoglycemic agent
Aortic stenosis status post TAVR recently w/ left common femoral artery cutdown and endarterectomy
Hyponatremia, present on admission
Hypercalcemia
Dyslipidemia
Asthma
PLAN
Vascular surgery been contacted and recommended IV antibiotic admission
Patient given vancomycin will continue vancomycin according to pharmacy protocol like to cover gram-negative because of the location of the procedure and patient been in the hospital in a rehab also known history of the diabetes
Consulted ID, recommendations appreciated
Wound and blood culture -- preliminary wound culture with gram negative bacilli and diptheroids
Tylenol as needed
Monitor vital signs
Hold oral hypoglycemic agent
Hold HCTZ due to hypercalcemia and recent hyponatremia
Consulted nephrology for additional recommendations on hypercalcemia and recent hyponatremia --> sodium and calcium issues resolved
Recheck labs in the morning
Wound team consult
Continue aspirin and Plavix specially with recent vascular surgery and postoperative stroke
Plastic surgery consulted, recommendations appreciated: plan will be for groin exploration, washout and muscle flap coverage soon
Discussed with the patient and family
CODE STATUS full code
DVT prophylaxis: Continue home Heparin DVT prophylaxis -- okay to resume as per vascular surgery [place] Text conversation on June 11, 2023
Anticipated Discharge: > 48 hours
Subjective/Interval History
-
Date of Service: June 13, 2023
Patient was seen and examined. She reported pain at her left groin area but otherwise denied any other new, significant complaints.
Objective Data
-
Labs:
Laboratory Results
06/13/23
04:14
WBC 18.3 H
Hgb 8.4 L
Hct 24.4 L
Plt Count 181
Sodium 135
Potassium 5.0
Chloride 104
Carbon Dioxide 26
BUN 43 H
Creatinine 2.1 H
Glucose 147 H
Calcium 10.0
Vital Signs:
Vital Signs
Temp Pulse Resp BP Pulse Ox
97.4 F 77 17 128/66 93
06/13/23 15:20 06/13/23 15:20 06/13/23 15:20 06/13/23 15:20 06/13/23 15:20
I&O
06/12/23 06/13/23 06/14/23
06:59 06:59 06:59
Intake Total 480 / 480 320 / 320
Output Total 382 / 382 800 / 800
Balance 480 / 480 -62 / -62 -800 / -800
[2023-06-13 17:38] LABS: Glucose - Point of Care 154 mg/dl (70-99)
[2023-06-13 21:07] LABS: Glucose - Point of Care 170 mg/dl (70-99)
[2023-06-13] MEDS: DESYREL 12.5 MG PO (21:26)
[2023-06-13] MEDS: MELATONIN 10 MG PO (21:28)
[2023-06-13 23:24] VITALS: BP 148/61
--- NOTE | 2023-06-13 23:30 | PTCARENOTE ---
Received patient from [facility] order > VSS: afebrile, HR 74, RR 18, BP 148/61, pox 93% 2LNC, no c/o pain.
Left groin- NPWT at 125mmHG (continuous) in place, seal intact.
TERESA drain x2 w/ serosanguineous output. sutures intact.
Purewick in place per order- no leakage, perineum intact.
Patient ordered bedrest until 06/13 evening. Plan of care discussed with patient.
[2023-06-14] MEDS: ROXICODONE 5 MG PO ×3 (03:35→16:28)
[2023-06-14] MEDS: HEPARIN 5000 UNITS SC ×3 (05:57→22:10)
[2023-06-14] MEDS: TYLENOL 1000 MG PO ×3 (06:00→20:00)
[2023-06-14 06:06] LABS: % Basophils 0.7 % (0-2); % Eosinophils 1.7 % (0-6); % Immature Granulocytes 6.1 % (0-0.5); % Lymphocytes 11.9 % (20.5-51.1); % Monocytes 6.6 % (1.7-9.3); Absolute Basophils 0.1 10^3/uL (0-0.2); Absolute Eosinophils 0.2 10^3/uL (0-0.7); Absolute Immature Granulocytes 0.8 10^3/uL (0-0.05); Absolute Lymphocytes 1.6 10^3/uL (1.2-3.4); Absolute Monocytes 0.9 10^3/uL (0.1-0.6); Absolute Neutrophils 9.9 10^3/uL (1.4-6.5); Hematocrit 26.5 % (37.0-47.0); Hemoglobin 8.5 g/dL (12.0-16.0); Mean Corp Hgb Conc. 32.1 g/dL (33.0-37.0); Mean Corpuscular Hgb 30.2 pg (27.0-31.0); Mean Corpuscular Volume 94.3 fL (81.0-99.0); Mean Platelet Volume 10.7 fL (7.4-10.4); Nucleated Red Blood Cells % 0 %; Platelet Count 169 10^3/uL (130-400); Red Blood Cell Count 2.81 10^6/uL (4.20-5.40); White Blood Cell Count 13.5 10^3/uL (4.8-10.8)
[2023-06-14 06:22] LABS: Vancomycin Random 20.8 ug/ml
[2023-06-14 06:45] LABS: Albumin 3.5 g/dl (3.5-5.0); Blood Urea Nitrogen 40 mg/dl (7-17); Calcium 10.5 mg/dl (8.4-10.2); Carbon Dioxide 26 mmol/L (22-30); Chloride 104 mmol/L (98-107); Estimated Creatinine Clearance 23 ml/min; Glucose 123 mg/dl (70-99); Potassium 4.5 mmol/L (3.5-5.1); Sodium 135 mmol/L (135-145); eGFR 23.82
[2023-06-14 07:10] VITALS: BP 123/65
[2023-06-14] MEDS: NON-FORMULARY ITEM 1 INH INH (07:40)
[2023-06-14 08:20] LABS: Glucose - Point of Care 144 mg/dl (70-99)
[2023-06-14] MEDS: NOVOLOG FLEXPEN-MODERATE RESISTANCE SC (08:25)
--- NOTE | 2023-06-14 08:41 | PHA.VAN.FU ---
Vancomycin Assessment / Plan
- Assessment
Renal Function: Stable
WBC's are: Trending Down
In the past 24 hrs, patient has been: Afebrile
Concomitant Antimicrobials: cefepime
- Assessment - Therapeutic Drug Monitoring
Random Level: 20.8 - drawn ~18H after previous dose of 1000mg
- Dosing Plan
Dosing by Level: Hold off on dosing today
- Monitoring Plan
Random Level: 06/14 0600
- Follow Up
Pharmacy will continue to follow.
Vancomycin Follow UP
- -
Patient Age: 77
Patient Sex: Female
Vancomycin Day #: 4
Indication: Skin And Soft Tissue
Requesting Provider: Dr. Silva / Campbell
Pertinent Antimicrobial Allergies:
NKDA
Height / Weight:
Height 5 ft 1 in
Actual Weight 93 kg
Pertinent Past Medical History: BMI ~39, DM, recent TAVR, CKD
- Vital Signs / Lab Results
Temp Pulse Resp BP Pulse Ox
98.3 F 76 16 123/65 92
06/14/23 07:10 06/14/23 07:55 06/14/23 07:55 06/14/23 07:10 06/14/23 07:55
Lab Results - Hematology
06/12/23 06/13/23 06/14/23
04:45 04:14 05:15
WBC 12.7 H 18.3 H 13.5 H
Lab Results - Chemistry
06/12/23 06/13/23 06/14/23
04:45 04:14 05:15
BUN 49 H 43 H 40 H
Creatinine 2.1 H 2.1 H 2.1 H
Estimated Creat Clear 23 23 23
Albumin 3.6 3.5
Microbiology Results
06/11/23 02:01 Wound Culture - Preliminary
Groin - Left Escherichia coli
Gram negative bacilli
Diptheroids
Coagulase neg. staphylococcus
Gram Stain - Preliminary
06/11/23 02:48 Blood Culture - Preliminary
Blood/Venous No Growth in 72 hours- Final report to follow
06/11/23 02:11 Blood Culture - Preliminary
Blood/Venous No Growth in 72 hours- Final report to follow
06/12/23 14:55 Anaerobic Culture - Preliminary
Groin - Left Culture pending. Anaerobic cultures are examined after 3
days incubation. Additional information to follow.
06/12/23 14:55 Wound Culture - Preliminary
Groin - Left Escherichia coli
Gram Stain - Preliminary
Therapeutic Drug Monitoring
Random Vancomycin 20.8 ug/ml 06/14/23 05:15
[2023-06-14] MEDS: NORVASC 5 MG PO (09:26)
[2023-06-14] MEDS: PLAVIX 75 MG PO (09:27)
[2023-06-14] MEDS: LIPITOR 40 MG PO (09:27)
[2023-06-14] MEDS: VITAMIN B-6 250 MG PO (09:28)
[2023-06-14] MEDS: ASPIR LOW (ENTERIC COATED) 81 MG PO (09:28)
[2023-06-14] MEDS: SINGULAIR 10 MG PO (09:28)
[2023-06-14] MEDS: MAXIPIME 1000 MG IV ×2 (09:32→20:01)
[2023-06-14] MEDS: STERILE WATER FOR INJECTION 10 ML IV ×2 (09:32→20:01)
[2023-06-14] MEDS: VITAMIN D3 (cholecalciferol) 50 MCG PO (09:40)
[2023-06-14] MEDS: SENOKOT-S 1 TABLET PO ×2 (09:42→20:00)
[2023-06-14] MEDS: FEOSOL 325 MG PO (09:42)
[2023-06-14] MEDS: VITAMIN C 500 MG PO (09:43)
[2023-06-14] MEDS: PROTONIX 40 MG PO (09:44)
[2023-06-14] MEDS: MIRALAX 17 GRAMS PO (09:46)
--- NOTE | 2023-06-14 11:43 | W.PN.HOSP.TC ---
Today's Communication/Plan
-
Bedrest through the end of the day today -- unless plastic surgery recommends otherwise
Reduced oxycodone frequency to Q8H from Q6H
IV fluids with the elevated calcium
Assessment / Plan
Assessment / Plan
Physical exam
General: Not in acute distress
HEENT: Normocephalic
Respiratory: CTAB
Cardiac: S1 and S2. RRR.
GI: Soft, Non Tender and Non Distended. Positive bowel sounds.
Musculoskeletal: Edema (Trace edema in bilateral lower extremities)
Skin: Warm, Dry
Neuro: AAO x 3 and Nonfocal/Grossly Intact
IMPRESSION
77-year-old female who was discharged from the hospital recently to mostly After TAVR procedure andstatus post cutdown and exposure of left common femoral artery with common femoral artery endarterectomy with patch angioplasty using bovine
pericardium during TAVR procedure on 05/31/2023, now with 4.2 oval-shaped hypoechoic mass in the left groin suspicious for seroma. Presented to the hospital was concern for recurrent pain in the left inguinal area where the workup concerning for
hematoma and cellulitis to abscess.
Left inguinal incision infection
Left inguinal area hematoma and/or abscess
Left inguinal areas pain likely secondary to above
Postoperative stroke,
Chronic kidney disease stage III-IV
Diabetes mellitus on hypoglycemic agent
Aortic stenosis status post TAVR recently w/ left common femoral artery cutdown and endarterectomy
Hyponatremia, present on admission
Hypercalcemia
Dyslipidemia
Asthma
PLAN
Vascular surgery been contacted and recommended IV antibiotic admission
Patient given vancomycin will continue vancomycin according to pharmacy protocol like to cover gram-negative because of the location of the procedure and patient been in the hospital in a rehab also known history of the diabetes
Consulted ID, recommendations appreciated
Wound and blood culture -- preliminary wound culture with gram negative bacilli and diptheroids
Tylenol as needed
Monitor vital signs
Hold oral hypoglycemic agent
Hold HCTZ due to hypercalcemia and recent hyponatremia
IV Normal Saline due to mild hypercalcemia
Recheck labs in the morning
Wound team consult
Continue aspirin and Plavix specially with recent vascular surgery and postoperative stroke
Plastic surgery consulted, recommendations appreciated: plan will be for groin exploration, washout and muscle flap coverage soon
Discussed with the patient and family
CODE STATUS full code
DVT prophylaxis: Continue home Heparin DVT prophylaxis -- okay to resume as per vascular surgery [place] Text conversation on June 11, 2023
Anticipated Discharge: > 48 hours
Subjective/Interval History
-
Date of Service: June 14, 2023
Patient was seen and examined. She reported that her pain is improving.
Objective Data
-
Labs:
Laboratory Results
06/14/23
05:15
WBC 13.5 H
Hgb 8.5 L
Hct 26.5 L
Plt Count 169
Sodium 135
Potassium 4.5
Chloride 104
Carbon Dioxide 26
BUN 40 H
Creatinine 2.1 H
Glucose 123 H
Calcium 10.5 H
Vital Signs:
Vital Signs
Temp Pulse Resp BP Pulse Ox
98.3 F 76 16 123/65 92
06/14/23 07:10 06/14/23 07:55 06/14/23 07:55 06/14/23 07:10 06/14/23 07:55
I&O
06/13/23 06/14/23 06/15/23
06:59 06:59 06:59
Intake Total 320 / 320 360 / 360
Output Total 382 / 382 1735 / 1735
Balance -62 / -62 -1375 / -1375
[2023-06-14 12:21] LABS: Glucose - Point of Care 164 mg/dl (70-99)
[2023-06-14] MEDS: NOVOLOG FLEXPEN-MODERATE RESISTANCE 1 UNITS SC ×2 (12:21→16:53)
[2023-06-14] MEDS: NSS 1000 IV (12:34)
--- NOTE | 2023-06-14 12:58 | CM ---
Left groin VAC, plan is to remove prior to discharge. Two TERESA drains will remain in place after discharge. On bedrest. No therapy assessments as yet due to bedrest and medical condition. Patient and want her to return to [facility]. Will await
therapy recommendations.
--- NOTE | 2023-06-14 14:51 | W.PN.ID1 ---
Date of Service
Date of Service: June 14, 2023
Today's Communication
Continue antibiotics.
Assessment / Plan
Left groin infection
- s/p debridement and VAC placement.
- cultures pending
S/p recent TAVR
Leukocytosis
HTN
Dyslipidemia
DM
Anxiety
CKD
Asthma
Pituitary adenoma
Obesity
Recommendations:
Continue with empiric vancomycin and cefepime. Following Vanco levels to guide dosing.
Await final culture data to guide further antimicrobial selection and possible de-escalation.
Have asked micro lab to workup the recovered coag negative staph.
Monitor white count and temperature curve.
Monitor TERESA drain output.
Spoke with Vascular Surgery earlier today. A bovine patch is in place and may have been infected. Following course of antibiotics, patient may need chronic lifelong suppression.
Chief Complaint
-: Other (Left groin infection)
Subjective / Review of Systems
Patient seen and examined. Reports some ongoing discomfort in the left groin area. No difficulty with antibiotics.
Vital Signs / Physical Exam
Vital Signs
Vital Signs
Temp Pulse Resp BP Pulse Ox
98.3 F 76 16 123/65 92
06/14/23 07:10 06/14/23 07:55 06/14/23 07:55 06/14/23 07:10 06/14/23 07:55
Physical Exam
Constitutional: No Acute Distress, Comfortable, Non-toxic and Obese
Eyes: No Conjunctival Hemorrhage and Sclera Anicteric
Cardiovascular: S1/S2; Negative S3/S4
Pulmonary: Non Labored
Gastrointestinal: Soft
Extremities: Edema; Negative Cyanosis or Erythema
Wound: Other (Left groin area with VAC in place. TERESA x 2 with serosanguineous fluid. No periwound erythema.)
Neurological: Awake and Alert
Psychological: Calm
Objective Data
Lab Data
Lab Results
06/14/23 05:15
06/14/23 05:15
Estimated Creat Clear 23 ml/min 06/14/23 05:15
Total Bilirubin 0.5 mg/dl (0.2-1.3) 06/10/23 17:29
AST 34 U/L (14-36) 06/10/23 17:29
ALT 23 U/L (0-35) 06/10/23 17:29
Alkaline Phosphatase 140 U/L (38-126) H 06/10/23 17:29
Most recent labs reviewed.
Micro Results:
06/12/23 14:55 Wound Culture - Preliminary
Groin - Left Escherichia coli
Coagulase neg. staphylococcus
Gram Stain - Preliminary
06/11/23 02:01 Wound Culture - Final
Groin - Left Escherichia coli
Klebsiella pneumoniae
Diptheroids
Coagulase neg. staphylococcus
Gram Stain - Final
06/11/23 02:48 Blood Culture - Preliminary
Blood/Venous No Growth in 72 hours- Final report to follow
06/11/23 02:11 Blood Culture - Preliminary
Blood/Venous No Growth in 72 hours- Final report to follow
06/12/23 14:55 Anaerobic Culture - Preliminary
Groin - Left Culture pending. Anaerobic cultures are examined after 3
days incubation. Additional information to follow.
[2023-06-14 15:55] VITALS: BP 165/69
[2023-06-14 16:51] LABS: Glucose - Point of Care 155 mg/dl (70-99)
[2023-06-14 16:59] VITALS: BP 154/63
--- NOTE | 2023-06-14 17:17 | W.PN.PLAS ---
Today's Communication
-
Off bedrest
Work with PT/OT
Dispo
Progress Note
Subjective Data
doing well
Objective Data
Vital Signs
Temp Pulse Resp BP Pulse Ox
98.3 F 74 17 154/63 95
06/14/23 15:55 06/14/23 15:55 06/14/23 15:55 06/14/23 16:59 06/14/23 15:55
Intake and Output
06/13/23 06/14/23 06/15/23
06:59 06:59 06:59
Intake Total 320 / 320 360 / 360
Output Total 382 / 382 1735 / 1735
Balance -62 / -62 -1375 / -1375
Intake:
Oral fluids 120 / 120 360 / 360
IV fluids (Total) 200 / 200
Normosol 200 / 200
Output:
Drain Output (Total) 82 / 82 35 / 35
Left Upper Leg A 64 / 64 30 / 30
Left Upper Leg B 18 / 18 5 / 5
Urine, Voided 300 / 300 1700 / 1700
Other:
How many times incontinent 1
SMALL amount urine
physical exam: No acute distress no increased work of breathing
Incisional VAC in place
Drain serosanguineous
Lab Results
06/14/23 05:15
06/14/23 05:15
Microbiology Results
06/12/23 14:55 Groin - Left Wound Culture - Preliminary
Escherichia coli
Coagulase neg. staphylococcus
06/12/23 14:55 Groin - Left Gram Stain - Preliminary
06/11/23 02:01 Groin - Left Wound Culture - Final
Escherichia coli
Klebsiella pneumoniae
Diptheroids
Coagulase neg. staphylococcus
06/11/23 02:01 Groin - Left Gram Stain - Final
06/11/23 02:48 Blood/Venous Blood Culture - Preliminary
No Growth in 72 hours- Final report to follow
06/11/23 02:11 Blood/Venous Blood Culture - Preliminary
No Growth in 72 hours- Final report to follow
06/12/23 14:55 Groin - Left Anaerobic Culture - Preliminary
Culture pending. Anaerobic cultures are examined after 3
days incubation. Additional information to follow.
Wound Documentation
06/11/23 15:05 (created 06/11/23 15:27) Wound Note by Gwendolyn Harmon
ABDOMEN (LEFT)
Initialized on 06/11/23 15:27 - END OF NOTE
Size in centimeters (length/ incision about 12cm long; large cloudy ss
width/depth) [Left Groin] drainage.
Last measured date [Left Groin 06/11/23
]
Physical Exam
Wound:
Size in centimeters (length/ incision about 12cm long; large cloudy ss
width/depth) [Left Groin] drainage.
Last measured date [Left Groin 06/11/23
]
Assessment / Plan
status post left groin flap and excisional debridement to fascia
Incisional VAC
TERESA drains x 2
Off bedrest
[2023-06-14] MEDS: FLUSH (NSS) 1 FLUSH IV (20:01)
[2023-06-14 21:49] LABS: Glucose - Point of Care 177 mg/dl (70-99)
[2023-06-14] MEDS: DESYREL 12.5 MG PO (22:09)
[2023-06-14] MEDS: MELATONIN 10 MG PO (22:10)
[2023-06-14 22:58] VITALS: BP 160/60
[2023-06-15] MEDS: NSS 1000 IV ×2 (00:43→19:55)
[2023-06-15] MEDS: HEPARIN 5000 UNITS SC ×3 (05:07→22:00)
[2023-06-15 05:09] LABS: % Basophils 0.6 % (0-2); % Eosinophils 2.2 % (0-6); % Immature Granulocytes 5.9 % (0-0.5); % Lymphocytes 9.9 % (20.5-51.1); % Monocytes 8.4 % (1.7-9.3); Absolute Basophils 0.1 10^3/uL (0-0.2); Absolute Eosinophils 0.3 10^3/uL (0-0.7); Absolute Immature Granulocytes 0.7 10^3/uL (0-0.05); Absolute Lymphocytes 1.3 10^3/uL (1.2-3.4); Absolute Monocytes 1.1 10^3/uL (0.1-0.6); Absolute Neutrophils 9.2 10^3/uL (1.4-6.5); Hemoglobin 8.9 g/dL (12.0-16.0); Mean Corpuscular Hgb 30.5 pg (27.0-31.0); Mean Corpuscular Volume 92.5 fL (81.0-99.0); Mean Platelet Volume 10.6 fL (7.4-10.4); Nucleated Red Blood Cells % 0 %; Platelet Count 165 10^3/uL (130-400); Red Blood Cell Count 2.92 10^6/uL (4.20-5.40); Red Cell Dist. Width 13.9 % (11.5-14.5); White Blood Cell Count 12.6 10^3/uL (4.8-10.8)
[2023-06-15 05:11] LABS: Vancomycin Random 15.5 ug/ml
[2023-06-15 05:39] LABS: Blood Urea Nitrogen 39 mg/dl (7-17); Calcium 10.7 mg/dl (8.4-10.2); Carbon Dioxide 24 mmol/L (22-30); Chloride 101 mmol/L (98-107); Estimated Creatinine Clearance 27 ml/min; Glucose 135 mg/dl (70-99); Potassium 4.4 mmol/L (3.5-5.1); Sodium 135 mmol/L (135-145); eGFR 28.66
[2023-06-15] MEDS: TYLENOL PO (06:08)
[2023-06-15 07:58] VITALS: BP 111/92
[2023-06-15] MEDS: NON-FORMULARY ITEM 1 INH INH (08:00)
[2023-06-15 08:24] LABS: Glucose - Point of Care 175 mg/dl (70-99)
[2023-06-15] MEDS: PLAVIX 75 MG PO (08:34)
[2023-06-15] MEDS: NORVASC 5 MG PO (08:36)
[2023-06-15] MEDS: ASPIR LOW (ENTERIC COATED) 81 MG PO (08:36)
[2023-06-15] MEDS: LIPITOR 40 MG PO (08:37)
[2023-06-15] MEDS: SINGULAIR 10 MG PO (08:37)
[2023-06-15] MEDS: FEOSOL 325 MG PO (08:38)
[2023-06-15] MEDS: PROTONIX 40 MG PO (08:39)
[2023-06-15] MEDS: VITAMIN C 500 MG PO (08:40)
[2023-06-15] MEDS: VITAMIN B-6 250 MG PO (08:40)
[2023-06-15] MEDS: SENOKOT-S 1 TABLET PO (08:40)
[2023-06-15] MEDS: VITAMIN D3 (cholecalciferol) 50 MCG PO (08:43)
[2023-06-15] MEDS: STERILE WATER FOR INJECTION 10 ML IV ×2 (08:46→19:41)
[2023-06-15] MEDS: NOVOLOG FLEXPEN-MODERATE RESISTANCE 1 UNITS SC ×3 (08:46→17:38)
[2023-06-15] MEDS: MAXIPIME 1000 MG IV ×2 (08:46→19:40)
[2023-06-15] MEDS: MIRALAX 17 GRAMS PO (08:52)
--- NOTE | 2023-06-15 08:56 | PHA.VAN.FU ---
Vancomycin Assessment / Plan
- Assessment
Renal Function: SCR Decreasing
WBC's are: Trending Down
In the past 24 hrs, patient has been: Afebrile
Concomitant Antimicrobials: cefepime
- Assessment - Therapeutic Drug Monitoring
Random Level: 15.5 - drawn ~23H after previous level of 20.8
Calculated ke: 0.0127
Calculated half life (H): 54.7
- Dosing Plan
Dosing by Level: Hold off on dosing today (Based on ke calculation above, patient expected to maintain level > 10 for next 30H)
- Monitoring Plan
Random Level: 06/15 0600
- Follow Up
Pharmacy will continue to follow.
Vancomycin Follow UP
- -
Patient Age: 77
Patient Sex: Female
Vancomycin Day #: 5
Indication: Skin And Soft Tissue
Requesting Provider: Dr. Silva / Campbell
Pertinent Antimicrobial Allergies:
NKDA
Height / Weight:
Height 5 ft 1 in
Actual Weight 93 kg
Pertinent Past Medical History: BMI ~39, DM, recent TAVR, CKD
- Vital Signs / Lab Results
Temp Pulse Resp BP Pulse Ox
97.7 F 88 20 111/92 93
06/14/23 22:58 06/15/23 08:36 06/15/23 08:03 06/15/23 08:36 06/15/23 08:03
Lab Results - Hematology
06/13/23 06/14/23 06/15/23
04:14 05:15 04:28
WBC 18.3 H 13.5 H 12.6 H
Lab Results - Chemistry
06/13/23 06/14/23 06/15/23
04:14 05:15 04:28
BUN 43 H 40 H 39 H
Creatinine 2.1 H 2.1 H 1.8 H
Estimated Creat Clear 23 23 27
Albumin 3.6 3.5
Microbiology Results
06/12/23 14:55 Wound Culture - Preliminary
Groin - Left Staphylococcus epidermidis
Escherichia coli
Gram Stain - Preliminary
06/11/23 02:48 Blood Culture - Preliminary
Blood/Venous No Growth in 4 days- Final report to follow
06/11/23 02:11 Blood Culture - Preliminary
Blood/Venous No Growth in 4 days- Final report to follow
06/11/23 02:01 Wound Culture - Final
Groin - Left Escherichia coli
Klebsiella pneumoniae
Diptheroids
Coagulase neg. staphylococcus
Gram Stain - Final
06/12/23 14:55 Anaerobic Culture - Preliminary
Groin - Left Culture pending. Anaerobic cultures are examined after 3
days incubation. Additional information to follow.
Therapeutic Drug Monitoring
Random Vancomycin 15.5 ug/ml 06/15/23 04:28
--- NOTE | 2023-06-15 09:18 | W.PN.PLAS ---
Today's Communication
-
Incisional vac removed
Cleared to work with PT/OT
Dry gauze to left groing replaced PRN
Drains will stay and be removed outpatient
Progress Note
Subjective Data
doing well
Subjective: Tolerating Regular Diet
Objective Data
Vital Signs
Temp Pulse Resp BP Pulse Ox
97.9 F 88 20 111/92 93
06/15/23 07:58 06/15/23 08:36 06/15/23 08:03 06/15/23 08:36 06/15/23 08:03
Intake and Output
06/14/23 06/15/23 06/16/23
06:59 06:59 06:59
Intake Total 360 / 360 2120 / 2120
Output Total 1735 / 1735 1840 / 1840
Balance -1375 / -1375 280 / 280
Intake:
Oral fluids 360 / 360 720 / 720
IV fluids (Total) 1400 / 1400
Output:
Drain Output (Total) 35 / 35 40 / 40
Left Upper Leg A 30 / 30 30 / 30
Left Upper Leg B 5 / 5 10 / 10
Urine, Voided 1700 / 1700 1800 / 1800
physical exam: No acute distress
No increased work of breathing
Left groin wound intact
TERESA drain serosanguineous
Lab Results
06/15/23 04:28
06/15/23 04:28
Microbiology Results
06/12/23 14:55 Groin - Left Wound Culture - Preliminary
Staphylococcus epidermidis
Escherichia coli
06/12/23 14:55 Groin - Left Gram Stain - Preliminary
06/11/23 02:48 Blood/Venous Blood Culture - Preliminary
No Growth in 4 days- Final report to follow
06/11/23 02:11 Blood/Venous Blood Culture - Preliminary
No Growth in 4 days- Final report to follow
06/11/23 02:01 Groin - Left Wound Culture - Final
Escherichia coli
Klebsiella pneumoniae
Diptheroids
Coagulase neg. staphylococcus
06/11/23 02:01 Groin - Left Gram Stain - Final
Wound Documentation
06/11/23 15:05 (created 06/11/23 15:27) Wound Note by Gwendolyn Harmon
ABDOMEN (LEFT)
Initialized on 06/11/23 15:27 - END OF NOTE
Size in centimeters (length/ incision about 12cm long; large cloudy ss
width/depth) [Left Groin] drainage.
Last measured date [Left Groin 06/11/23
]
Physical Exam
Wound:
Size in centimeters (length/ incision about 12cm long; large cloudy ss
width/depth) [Left Groin] drainage.
Last measured date [Left Groin 06/11/23
]
Assessment / Plan
status post left groin flap excisional debridement
Incisional VAC off
Work with PT OT
Drains to stay
Dispo plan
[2023-06-15 11:59] LABS: Glucose - Point of Care 174 mg/dl (70-99)
--- NOTE | 2023-06-15 11:59 | PN.CDI ---
CDI
- -
CDI:
Physician Documentation Request
Admit Date: 06/10/23 22:12
Dear Doctor Vinny,
Please review the following and provide your response in the progress notes.
Clinical Indicators:
Pt admitted with wound dehiscence /Left inguinal hematoma/ and or abscess s/p debridement 06/11
Documented per H&P,' Chronic anemia and iron deficiency anemia...Results of TAVR procedure on May 30... Unsuccessful closure of the left common femoral arteriotomy site with bleeding that required redo surgical cutdown and repair of the
arteriotomy site.'
Trended Hemoglobin/Hematocrit labs below
Laboratory Tests
06/10/23 06/12/23 06/13/23
17:29 04:45 04:14
Hgb 8.4 L 9.5 L 8.4 L
Hct 24.2 L 29.0 L 24.4 L
06/14/23 06/15/23
05:15 04:28
Hgb 8.5 L 8.9 L
Hct 26.5 L 27.0 L
Based on the above, could you clarify, in your progress note, which of the following is the most likely type of anemia you are evaluating, monitoring and/or treating?
Acute blood loss anemia with baseline chronic anemia of iron deficiency
Chronic iron deficiency anemia only
Other
Use of terms such as suspected, likely, concern for, or probable (associated with a specific diagnosis that is being evaluated, monitored, or treated as if it exists) are acceptable and can be coded in the inpatient setting, when documented at the
time of discharge.
Thank you,
Gina Vidal RN
CDI Specialist
[facility]
Please use your independent medical judgment in providing your response.
[2023-06-15] MEDS: TYLENOL 1000 MG PO ×2 (13:05→19:39)
--- NOTE | 2023-06-15 13:24 | W.PN.ID1 ---
Addendum entered and electronically signed by Patel Hightower DO 06/15/23 19:57:
Patient with some confusion as noted by Hospitalist.. Concern that cefepime may be contributing.
Will change cefepime to ertapenem 500 mg q24h (dose adjusted for renal insufficiency)
Original Note:
Date of Service
Date of Service: June 15, 2023
Today's Communication
Continue abx.
Assessment / Plan
Left groin infection
- s/p debridement and VAC placement.
- cultures pending
S/p recent TAVR
Leukocytosis
HTN
Dyslipidemia
DM
Anxiety
CKD
Asthma
Pituitary adenoma
Obesity
Recommendations:
Continue with empiric vancomycin and cefepime. Following Vanco levels to guide dosing.
Wound treat for at least another 2-3 weeks.
Monitor white count and temperature curve.
Monitor TERESA drain output.
Bovine patch is in place and may have been infected. Following acute course of antibiotics, patient may need chronic lifelong suppression.
Chief Complaint
-: Other (Left groin infection)
Subjective / Review of Systems
Review of Systems: No Fever and No Chills
Vital Signs / Physical Exam
Vital Signs
Vital Signs
Temp Pulse Resp BP Pulse Ox
97.9 F 88 20 111/92 93
06/15/23 07:58 06/15/23 08:36 06/15/23 08:03 06/15/23 08:36 06/15/23 08:03
Physical Exam
Constitutional: No Acute Distress, Comfortable and Non-toxic
Eyes: No Conjunctival Hemorrhage and Sclera Anicteric
Cardiovascular: S1/S2; Negative S3/S4
Pulmonary: Non Labored
Extremities: Edema
Wound: Other (Left groin with VAC removed. TERESA x [address] with bloody drainage. No purulence. No periwound erythema.)
Neurological: Awake and Alert
Psychological: Calm
Objective Data
Lab Data
Lab Results
06/15/23 04:28
06/15/23 04:28
Estimated Creat Clear 27 ml/min 06/15/23 04:28
Total Bilirubin 0.5 mg/dl (0.2-1.3) 06/10/23 17:29
AST 34 U/L (14-36) 06/10/23 17:29
ALT 23 U/L (0-35) 06/10/23 17:29
Alkaline Phosphatase 140 U/L (38-126) H 06/10/23 17:29
Most recent labs reviewed.
Micro Results:
06/12/23 14:55 Anaerobic Culture - Preliminary
Groin - Left Culture pending. Anaerobic cultures are examined after 3
days incubation. Additional information to follow.
06/12/23 14:55 Wound Culture - Preliminary
Groin - Left Staphylococcus epidermidis
Escherichia coli
Gram Stain - Preliminary
06/11/23 02:48 Blood Culture - Preliminary
Blood/Venous No Growth in 4 days- Final report to follow
06/11/23 02:11 Blood Culture - Preliminary
Blood/Venous No Growth in 4 days- Final report to follow
06/11/23 02:01 Wound Culture - Final
Groin - Left Escherichia coli
Klebsiella pneumoniae
Diptheroids
Coagulase neg. staphylococcus
Gram Stain - Final
--- NOTE | 2023-06-15 14:40 | WOUNDNOTE ---
[facility] RN note: TALI Kingsley notified this script writer that patient's rental vac pump was discontinued and was placed in 2S soiled utility room. 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
--- NOTE | 2023-06-15 14:40 | WOUNDNOTE ---
[facility] RN note: TALI Kingsley notified this ghost writer that patient's rental vac pump was discontinued and was placed in 2S soiled utility room. 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
#[id number]).
[2023-06-15 14:44] VITALS: BMI 38.8
[2023-06-15 14:50] VITALS: BP 152/63; PULSE 81; O2SAT 93
--- NOTE | 2023-06-15 14:55 | CM ---
IV/AB continues, wound vac and TERESA drains in place. Discharge Plan of Care: TBD when therapy can complete evaluation and make recommendations.
[2023-06-15 15:00] VITALS: BP 156/74
[2023-06-15 16:03] VITALS: BP 152/63; PULSE 81; O2SAT 93
[2023-06-15 17:35] LABS: Glucose - Point of Care 171 mg/dl (70-99)
--- NOTE | 2023-06-15 17:45 | W.PN.HOSP.TC ---
Today's Communication/Plan
-
Came out of bed to chair today (was previously bedrest per plastic surgeon's instructions)
Extensive discussion with patient's family about confusion
Please see below
Assessment / Plan
Assessment / Plan
Physical exam
General: Not in acute distress
HEENT: Normocephalic
Respiratory: CTAB
Cardiac: S1 and S2. RRR.
GI: Soft, Non Tender and Non Distended. Positive bowel sounds.
Musculoskeletal: Edema (Trace edema in bilateral lower extremities)
Skin: Warm, Dry
Neuro: AAO x 3 and Nonfocal/Grossly Intact
IMPRESSION
77-year-old female who was discharged from the hospital recently to mostly After TAVR procedure andstatus post cutdown and exposure of left common femoral artery with common femoral artery endarterectomy with patch angioplasty using bovine
pericardium during TAVR procedure on 05/31/2023, now with 4.2 oval-shaped hypoechoic mass in the left groin suspicious for seroma. Presented to the hospital was concern for recurrent pain in the left inguinal area where the workup concerning for
hematoma and cellulitis to abscess.
Confusion
Anxiety/Depression on June 15, 2023
Left inguinal incision infection
Left inguinal area hematoma and/or abscess
Left inguinal areas pain likely secondary to above
Postoperative stroke,
Chronic kidney disease stage III-IV
Diabetes mellitus on hypoglycemic agent
Aortic stenosis status post TAVR recently w/ left common femoral artery cutdown and endarterectomy
Hyponatremia, present on admission
Hypercalcemia
Dyslipidemia
Asthma
PLAN
For confusion/anxiety: Check CT Head, Monitor Electrolytes, check abdominal x-ray for constipation, UA, CXR, hold oxycodone for now (can give a 1x dose of a narcotic pain med if patient asks), ammonia, magnesium and phosphorus, Vitamin B12 levels,
Thiamine Level. Cefepime contributing to confusion? -- asked ID to check.
Psychiatry consult for anxiety will be needed
Family requested cardiothoracic surgery/cardiology consult to evaluate patient's recent heart valve replacement to make sure okay
Vascular surgery been contacted and recommended IV antibiotic admission
Patient given vancomycin will continue vancomycin according to pharmacy protocol like to cover gram-negative because of the location of the procedure and patient been in the hospital in a rehab also known history of the diabetes
Consulted ID, recommendations appreciated
Wound and blood culture -- preliminary wound culture with gram negative bacilli and diptheroids
Tylenol as needed
Monitor vital signs
Hold oral hypoglycemic agent
Hold HCTZ due to hypercalcemia and recent hyponatremia
IV Normal Saline due to mild hypercalcemia-- hopefully with getting up out of bed it will improve further
Check EKG QTc
Recheck labs in the morning
Wound team consult
Continue aspirin and Plavix specially with recent vascular surgery and postoperative stroke
Plastic surgery consulted, recommendations appreciated: plan will be for groin exploration, washout and muscle flap coverage soon
Discussed with the patient and family
CODE STATUS full code
DVT prophylaxis: Continue home Heparin DVT prophylaxis -- okay to resume as per vascular surgery [place] Text conversation on June 11, 2023
Total time spent today on chart review, seeing and examining patient, reviewing and placing orders, speaking extensively with patient's family and patient's nurse, and on documentation was 75 minutes.
Anticipated Discharge: > 48 hours
Subjective/Interval History
-
Date of Service: June 15, 2023
Patient was seen and examined. She reported no new significant symptoms, physical therapy was getting her out of bed today, patient's was concerned that she is more confused -- as in nonsensical -- saying logical things that are not
appropriate for context/setting. They also expressed that patient is very anxious.
Objective Data
-
Vital Signs:
Vital Signs
Temp Pulse Resp BP Pulse Ox
98.6 F 86 16 156/74 98
06/15/23 15:00 06/15/23 15:00 06/15/23 15:00 06/15/23 15:00 06/15/23 15:00
I&O
06/14/23 06/15/23 06/16/23
06:59 06:59 06:59
Intake Total 360 / 360 2119
Output Total 1735 / 1735 1840 / 1840
Balance -1375 / -1375 280 / 280
[2023-06-15 18:36] LABS: Urine Albumin 1+ (Neg - Trace); Urine Bilirubin Negative (Negative); Urine Character Clear (Clear); Urine Color Yellow; Urine Glucose Negative (Negative); Urine Ketone Negative (Negative); Urine Leukocyte Negative (Negative); Urine Nitrite Negative (Negative); Urine Occult Blood Trace (Negative); Urine Specific Gravity 1.015 (<1.030); Urine Urobilinogen Negative (Neg - 1+)
[2023-06-15 18:59] LABS: Urine White Cell 0-2 /HPF (0-5)
[2023-06-15] MEDS: VITAMIN B1 100 MG PO (19:39)
[2023-06-15] MEDS: FLUSH (NSS) 1 FLUSH IV (19:41)
[2023-06-15] MEDS: SENOKOT-S PO (19:44)
[2023-06-15 20:25] LABS: Magnesium 1.5 mg/dl (1.6-2.3); Phosphorus 3.6 mg/dl (2.5-4.5)
[2023-06-15] MEDS: INVANZ 55 MG IV (21:09)
[2023-06-15 21:14] LABS: Vitamin B12 544 pg/ml (239-931)
[2023-06-15] MEDS: DESYREL 12.5 MG PO (22:01)
[2023-06-15] MEDS: MELATONIN 10 MG PO (22:01)
[2023-06-15 22:48] LABS: Glucose - Point of Care 192 mg/dl (70-99)
[2023-06-15 23:00] VITALS: BP 99/60
[2023-06-16 03:13] VITALS: BP 110/72
[2023-06-16] MEDS: NSS IV (05:04)
[2023-06-16] MEDS: TYLENOL 1000 MG PO ×3 (06:16→19:43)
[2023-06-16] MEDS: HEPARIN 5000 UNITS SC ×3 (06:16→21:52)
[2023-06-16] MEDS: MAGNESIUM SULFATE 100 IV ×2 (08:01→14:13)
[2023-06-16] MEDS: NON-FORMULARY ITEM 1 INH INH (08:03)
[2023-06-16 08:06] VITALS: BP 150/51
[2023-06-16 08:16] LABS: % Basophils 0.4 % (0-2); % Eosinophils 2.5 % (0-6); % Immature Granulocytes 4.4 % (0-0.5); % Lymphocytes 11.4 % (20.5-51.1); % Monocytes 8.4 % (1.7-9.3); % Neutrophils 72.9 % (42.2-75.2); Absolute Eosinophils 0.3 10^3/uL (0-0.7); Absolute Immature Granulocytes 0.5 10^3/uL (0-0.05); Absolute Lymphocytes 1.2 10^3/uL (1.2-3.4); Absolute Monocytes 0.9 10^3/uL (0.1-0.6); Absolute Neutrophils 7.9 10^3/uL (1.4-6.5); Hematocrit 22.9 % (37.0-47.0); Hemoglobin 7.7 g/dL (12.0-16.0); Mean Corp Hgb Conc. 33.6 g/dL (33.0-37.0); Mean Corpuscular Hgb 30.9 pg (27.0-31.0); Mean Platelet Volume 11.2 fL (7.4-10.4); Nucleated Red Blood Cells % 0 %; Platelet Count 129 10^3/uL (130-400); Red Blood Cell Count 2.49 10^6/uL (4.20-5.40); White Blood Cell Count 10.9 10^3/uL (4.8-10.8)
[2023-06-16 08:39] LABS: Blood Urea Nitrogen 33 mg/dl (7-17); Calcium 10.6 mg/dl (8.4-10.2); Carbon Dioxide 22 mmol/L (22-30); Chloride 104 mmol/L (98-107); Estimated Creatinine Clearance 24 ml/min; Glucose 120 mg/dl (70-99); Potassium 3.9 mmol/L (3.5-5.1); Sodium 136 mmol/L (135-145); Vancomycin Random 11.7 ug/ml; eGFR 25.26
[2023-06-16] MEDS: STERILE WATER FOR INJECTION IV (09:12)
[2023-06-16] MEDS: VITAMIN B1 100 MG PO ×2 (09:26→19:43)
[2023-06-16] MEDS: VITAMIN D3 (cholecalciferol) 50 MCG PO (09:26)
[2023-06-16] MEDS: LIPITOR 40 MG PO (09:26)
[2023-06-16] MEDS: SENOKOT-S 1 TABLET PO ×2 (09:27→19:43)
[2023-06-16] MEDS: SINGULAIR 10 MG PO (09:27)
[2023-06-16] MEDS: FEOSOL 325 MG PO (09:27)
[2023-06-16] MEDS: PROTONIX 40 MG PO (09:27)
[2023-06-16] MEDS: PLAVIX 75 MG PO (09:27)
[2023-06-16 09:28] LABS: Glucose - Point of Care 179 mg/dl (70-99)
[2023-06-16] MEDS: NORVASC 5 MG PO (09:28)
[2023-06-16] MEDS: VITAMIN C 500 MG PO (09:28)
[2023-06-16] MEDS: VITAMIN B-6 250 MG PO (09:28)
[2023-06-16] MEDS: ASPIR LOW (ENTERIC COATED) 81 MG PO (09:28)
[2023-06-16] MEDS: MIRALAX 17 GRAMS PO (09:29)
[2023-06-16] MEDS: NOVOLOG FLEXPEN-MODERATE RESISTANCE 1 UNITS SC ×3 (09:34→16:50)
[2023-06-16 10:10] LABS: Ammonia < 9 umol/L (9-30)
--- NOTE | 2023-06-16 10:17 | PTCARENOTE ---
Received in report that patient was ordered med sitter on previous shift for depressive/anxious thoughts; Per nightshift RN no medsitter was available when order was originally placed by physician; Patient admits to feeling 'sad' and is anxious at
times; Patient currently denies any thoughts of self-harm, suicidal ideations, and harm to others; Spoke with Dr. Tapia who confirms the patient is okay without medsitter at this time
--- NOTE | 2023-06-16 10:35 | PHA.VAN.FU ---
Vancomycin Assessment / Plan
- Assessment
Renal Function: SCR Increasing (1.8>2.0)
WBC's are: Trending Down (12.6>10.9)
In the past 24 hrs, patient has been: Afebrile
Concomitant Antimicrobials: Ertapenem
- Assessment - Therapeutic Drug Monitoring
Random Level: 11.7 drawn ~67 hrs after last dose of vancomycin 1gm given
- Dosing Plan
Dosing by Level: Re-dose today (Vancomycin 1000mg x 1 dose)
- Monitoring Plan
Random Level: Ordered for 06/17/23 at 06:00
- Follow Up
Pharmacy will continue to follow.
Vancomycin Follow UP
- -
Patient Age: 77
Patient Sex: Female
Vancomycin Day #: 6
Indication: Skin And Soft Tissue
Requesting Provider: Dr. Silva / Campbell
Pertinent Antimicrobial Allergies:
NKDA
Height / Weight:
Height 5 ft 1 in
Actual Weight 93 kg
Pertinent Past Medical History: BMI ~39, DM, recent TAVR, CKD
- Vital Signs / Lab Results
Temp Pulse Resp BP Pulse Ox
98.3 F 92 16 150/51 92
06/16/23 08:06 06/16/23 08:06 06/16/23 08:06 06/16/23 08:06 06/16/23 08:06
Lab Results - Hematology
06/14/23 06/15/23 06/16/23
05:15 04:28 05:53
WBC 13.5 H 12.6 H 10.9 H
Lab Results - Chemistry
06/14/23 06/15/23 06/16/23
05:15 04:28 05:53
BUN 40 H 39 H 33 H
Creatinine 2.1 H 1.8 H 2.0 H
Estimated Creat Clear
Albumin 3.5
Lab Results - Urine
04/12/24
18:25
Urine Nitrite (Reflex) Negative
Leukocyte Esterase Rfl Negative
Ur Squamous Epith Cells 11-15
Microbiology Results
06/11/23 02:48 Blood Culture - Final
Blood/Venous No Growth - Final Report
06/11/23 02:11 Blood Culture - Final
Blood/Venous No Growth - Final Report
06/12/23 14:55 Anaerobic Culture - Preliminary
Groin - Left Culture pending. Anaerobic cultures are examined after 3
days incubation. Additional information to follow.
06/12/23 14:55 Wound Culture - Preliminary
Groin - Left Staphylococcus epidermidis
Escherichia coli
Gram Stain - Preliminary
06/11/23 02:01 Wound Culture - Final
Groin - Left Escherichia coli
Klebsiella pneumoniae
Diptheroids
Coagulase neg. staphylococcus
Gram Stain - Final
Therapeutic Drug Monitoring
Random Vancomycin 11.7 ug/ml 06/16/23 05:53
[2023-06-16 12:24] LABS: Glucose - Point of Care 172 mg/dl (70-99)
[2023-06-16] MEDS: VANCOCIN 200 IV (12:53)
--- NOTE | 2023-06-16 13:26 | W.PN.HOSP.TC ---
Today's Communication/Plan
-
abx
f/u cultures
fluids
f/u ionized ca
f/u vascular/plastic/id recs
Assessment / Plan
Assessment / Plan
Physical exam
General: Not in acute distress
HEENT: Normocephalic
Respiratory: CTAB
Cardiac: S1 and S2. RRR.
GI: Soft, Non Tender and Non Distended. Positive bowel sounds.
Musculoskeletal: Edema (Trace edema in bilateral lower extremities)
Skin: Warm, Dry ; (Left groin area with VAC in place. TERESA x 2 with serosanguineous fluid. No periwound erythema.)
Neuro: AAO x 3 and Nonfocal/Grossly Intact
IMPRESSION
77-year-old female who was discharged from the hospital recently to mostly After TAVR procedure andstatus post cutdown and exposure of left common femoral artery with common femoral artery endarterectomy with patch angioplasty using bovine
pericardium during TAVR procedure on 05/31/2023, now with 4.2 oval-shaped hypoechoic mass in the left groin suspicious for seroma. Presented to the hospital was concern for recurrent pain in the left inguinal area where the workup concerning for
hematoma and cellulitis to abscess.
Confusion, improving
Anxiety/Depression
Left inguinal incision infection
Left inguinal area hematoma and/or abscess
Left inguinal areas pain likely secondary to above
Postoperative stroke,
Chronic kidney disease stage III-IV
Diabetes mellitus on hypoglycemic agent
Aortic stenosis status post TAVR recently w/ left common femoral artery cutdown and endarterectomy
Hyponatremia, present on admission
Hypercalcemia
Dyslipidemia
Asthma
PLAN
# Acute metabolic encephalopathy
�most likely 2/2 to acute infection v cefepime
-Much improved today
� Switch cefepime to ertapenem 500 mg every 24h
�UA negative, CT head unremarkable for acute abnormalities
#Anxiety
� Psychiatry was consulted
# Left inguinal infection/abscess
� S/p debridement and VAC placement
� Follow-up final cultures
Continue antibiotics, ertapenem
�Follow-up plastic, vascular, ID recommendations
-Wound team consult
#Thrombocytopenia
� Suspect secondary to sepsis
� Continue monitor
#DM
-AISS
#mild Hypercalcemia
-ctm with fluids
-Hold HCTZ
-CTM
-f/u ionized ca in am
#Recent TAVR
#Post Op CVA
#HLD
Continue aspirin and Plavix
-statin
#CKD IV
#Hypomagnesemia
-monitor and replete
#HTN
-Antihtn meds
CODE STATUS full code
DVT prophylaxis: Continue home Heparin DVT prophylaxis -- okay to resume as per vascular surgery
Total time spent on today's encounter was 50 minutes which included time spent in counseling the patient/family regarding diagnosis and treatment plan as listed above, goals of care, and symptom management. Case was discussed with nursing staff,
specialists, and care coordinators/case management. All labs and imaging personally reviewed by me. Remainder the time spent in detailed review of previous records, lab data, imaging, and other medical provider documentation.
Anticipated Discharge: > 48 hours
Subjective/Interval History
-
Date of Service: June 16, 2023
Patient's mental status much improved today
Objective Data
-
Labs:
Laboratory Results
06/16/23
05:53
WBC 10.9 H
Hgb 7.7 L
Hct 22.9 L
Plt Count 129 L D
Sodium 136
Potassium 3.9
Chloride 104
Carbon Dioxide 22
BUN 33 H
Creatinine 2.0 H
Glucose 120 H
Calcium 10.6 H
Vital Signs:
Vital Signs
Temp Pulse Resp BP Pulse Ox
98.3 F 92 16 150/51 92
06/16/23 08:06 06/16/23 08:06 06/16/23 08:06 06/16/23 08:06 06/16/23 08:06
I&O
06/15/23 06/16/23 06/17/23
06:59 06:59 06:59
Intake Total 2120 / 2120 2340 / 2340
Output Total 1840 / 1840 630 / 630
Balance 280 / 280 1710 / 1710
Review of Systems
-
History Source: Patient
All other systems: Not reviewed unless documented
Data Reviewed
-
Diagnostic Radiology: Image personally visualized and interpreted and Report Reviewed by me
CT Scan: Image personally visualized and interpreted and Report Reviewed by me
Ultrasound: Report Reviewed by me
Labs: Labs Reviewed by me
--- NOTE | 2023-06-16 14:43 | PTCARENOTE ---
Patient ambulated to chair with assistance of PCT with use of RW; Patient continually trying to pull herself up with the walker instead of pressing up off the bed; Patient reminded of safe ambulation techniques; Patient noted to be leaning towards
the right side while in the chair, patient assisted with sitting upright with back up against the chair; Patient refuses at times to sit upright in the chair; Patient intermittently following commands; Bed and chair alarm in place; Call heart within
reach
[2023-06-16 15:20] VITALS: BP 139/66
[2023-06-16 16:23] LABS: Glucose - Point of Care 194 mg/dl (70-99)
[2023-06-16] MEDS: NSS 1000 IV (16:50)
[2023-06-16] MEDS: INVANZ 55 MG IV (19:43)
[2023-06-16] MEDS: FLUSH (NSS) 1 FLUSH IV (19:44)
[2023-06-16] MEDS: DESYREL 12.5 MG PO (21:52)
[2023-06-16] MEDS: MELATONIN 10 MG PO (21:52)
[2023-06-16 23:00] VITALS: BP 103/45
[2023-06-16 23:36] LABS: Glucose - Point of Care 178 mg/dl (70-99)
[2023-06-17] MEDS: TYLENOL 1000 MG PO ×3 (06:03→21:15)
[2023-06-17] MEDS: HEPARIN 5000 UNITS SC ×3 (06:03→21:40)
[2023-06-17 06:07] LABS: Blood Urea Nitrogen 32 mg/dl (7-17); Calcium 11.1 mg/dl (8.4-10.2); Carbon Dioxide 23 mmol/L (22-30); Chloride 104 mmol/L (98-107); Estimated Creatinine Clearance 26 ml/min; Glucose 126 mg/dl (70-99); Magnesium 2.6 mg/dl (1.6-2.3); Potassium 4.6 mmol/L (3.5-5.1); Sodium 137 mmol/L (135-145); eGFR 26.86
[2023-06-17 06:11] LABS: Vancomycin Random 17.1 ug/ml
[2023-06-17 07:25] VITALS: BP 130/55
[2023-06-17] MEDS: NON-FORMULARY ITEM 1 INH INH (08:03)
[2023-06-17 08:06] LABS: Glucose - Point of Care 156 mg/dl (70-99)
[2023-06-17] MEDS: NOVOLOG FLEXPEN-MODERATE RESISTANCE 1 UNITS SC ×3 (08:53→16:52)
[2023-06-17] MEDS: VITAMIN B-6 250 MG PO (08:54)
[2023-06-17] MEDS: PROTONIX 40 MG PO (08:54)
[2023-06-17] MEDS: SENOKOT-S 1 TABLET PO ×2 (08:54→15:33)
[2023-06-17] MEDS: MIRALAX 17 GRAMS PO (08:54)
[2023-06-17] MEDS: NORVASC 5 MG PO (08:54)
[2023-06-17] MEDS: LIPITOR 40 MG PO (08:54)
[2023-06-17] MEDS: VITAMIN D3 (cholecalciferol) 50 MCG PO (08:54)
[2023-06-17] MEDS: VITAMIN B1 100 MG PO ×2 (08:54→21:15)
[2023-06-17] MEDS: ASPIR LOW (ENTERIC COATED) 81 MG PO (08:54)
[2023-06-17] MEDS: PLAVIX 75 MG PO (08:55)
[2023-06-17] MEDS: SINGULAIR 10 MG PO (08:55)
[2023-06-17] MEDS: VITAMIN C 500 MG PO (08:55)
[2023-06-17] MEDS: FEOSOL 325 MG PO (08:55)
[2023-06-17] MEDS: NSS 1000 IV (09:07)
--- NOTE | 2023-06-17 09:17 | PHA.VAN.FU ---
Vancomycin Assessment / Plan
- Assessment
Renal Function: SCR Decreasing (2.0>1.9)
In the past 24 hrs, patient has been: Afebrile
Concomitant Antimicrobials: Ertapenem
CBC still pending
- Assessment - Therapeutic Drug Monitoring
Random Level: 17.1 drawn ~16 hrs after vancomycin 1000mg 1x dose given
- Dosing Plan
Dosing by Level: Hold off on dosing today (level is supratherapeutic)
- Monitoring Plan
Random Level: Ordered for 06/18/23 at 06:00
- Follow Up
Pharmacy will continue to follow.
Vancomycin Follow UP
- -
Patient Age: 77
Patient Sex: Female
Vancomycin Day #: 7
Indication: Skin And Soft Tissue
Requesting Provider: Dr. Silva / Campbell
Pertinent Antimicrobial Allergies:
NKDA
Height / Weight:
Height 5 ft 1 in
Actual Weight 93 kg
IBW in k.8
Adjusted BW in k.9
Pertinent Past Medical History: BMI ~39, DM, recent TAVR, CKD
- Vital Signs / Lab Results
Temp Pulse Resp BP Pulse Ox
97.5 F 75 18 130/55 93
06/17/23 07:25 06/17/23 07:25 06/17/23 07:25 06/17/23 07:25 06/17/23 08:06
Lab Results - Hematology
06/15/23 06/16/23 06/17/23
04:28 05:53 05:13
WBC 12.6 H 10.9 H Cancelled
Lab Results - Chemistry
06/15/23 06/16/23 06/17/23
04:28 05:53 05:13
BUN 39 H 33 H 32 H
Creatinine 1.8 H 2.0 H 1.9 H
Estimated Creat Clear 27 24 26
Microbiology Results
06/12/23 14:55 Anaerobic Culture - Preliminary
Groin - Left Culture pending. Anaerobic cultures are examined after 3
days incubation. Additional information to follow.
06/11/23 02:48 Blood Culture - Final
Blood/Venous No Growth - Final Report
06/11/23 02:11 Blood Culture - Final
Blood/Venous No Growth - Final Report
06/12/23 14:55 Wound Culture - Preliminary
Groin - Left Staphylococcus epidermidis
Escherichia coli
Gram Stain - Preliminary
Therapeutic Drug Monitoring
Random Vancomycin 17.1 ug/ml 06/17/23 05:13
[2023-06-17 09:56] LABS: % Basophils 0.6 % (0-2); % Eosinophils 3.1 % (0-6); % Immature Granulocytes 3.9 % (0-0.5); % Lymphocytes 8.9 % (20.5-51.1); % Monocytes 7.5 % (1.7-9.3); Absolute Basophils 0.1 10^3/uL (0-0.2); Absolute Eosinophils 0.4 10^3/uL (0-0.7); Absolute Immature Granulocytes 0.5 10^3/uL (0-0.05); Absolute Lymphocytes 1.1 10^3/uL (1.2-3.4); Absolute Monocytes 0.9 10^3/uL (0.1-0.6); Absolute Neutrophils 9.3 10^3/uL (1.4-6.5); Hematocrit 25.5 % (37.0-47.0); Hemoglobin 8.4 g/dL (12.0-16.0); Mean Corp Hgb Conc. 32.9 g/dL (33.0-37.0); Mean Corpuscular Hgb 30.8 pg (27.0-31.0); Mean Corpuscular Volume 93.4 fL (81.0-99.0); Mean Platelet Volume 10.6 fL (7.4-10.4); Nucleated Red Blood Cells % 0 %; Platelet Count 139 10^3/uL (130-400); Red Blood Cell Count 2.73 10^6/uL (4.20-5.40); Red Cell Dist. Width 14.4 % (11.5-14.5); White Blood Cell Count 12.3 10^3/uL (4.8-10.8)
[2023-06-17 10:02] LABS: Ionized Calcium 1.54 mMOL/L (1.15-1.33)
[2023-06-17 11:12] LABS: Calcium 11.2 mg/dl (8.4-10.2)
[2023-06-17 12:04] LABS: Glucose - Point of Care 199 mg/dl (70-99)
--- NOTE | 2023-06-17 12:32 | W.CON.NEPH ---
Consultation
-
Date/Time Consultation Requested: 06/17/23 7:17AM
Date/Time Consultation Performed: 06/17/23 12:33PM
Requesting Provider: Rosendo Pepper
Performing Provider: Denisa Sheikh
Reason for Consultation: hypercalcemia
Medical History
-
Chief Complaint: hypercalcemia
History of Present Illness:
Ms. Carter is a 77YOF with PMH of diabetes, aorrtic valve stenosis s/p TAVR c/b post operative stroke, left femoral artery repair with endarterectomy who presented to the hospital on 06/09 for inguinal area pain. She underwent groin exploration,
washout and muscle flap coverage.
The patient states she is feeling okay at this time. She is getting antibiotics or left inguinal infection abscess. Nephrology is consulted for hypercalcemia.
Past Medical History
s/p TAVR May 2023
Peripheral vascular disease with iliac stenting
Bilateral carotid artery disease
Hypertension
Chronic kidney disease stage III-IV
Type 2 diabetes mellitus
Dyslipidemia
Chronic anemia and iron deficiency anemia
Peripheral neuropathy
History of GI bleed
History of 3rd nerve palsy
Chronic pain syndrome
Osteoarthritis
COPD
Ex-smoker
Past Surgical History: Other (TAVR)
Social History
Tobacco: Former Smoker
Alcohol: None
Drug: None
Living: Other (from rehab)
Family History
Family History: Not Pertinent
Allergies / Home Medications
Allergy/AdvReac Type Severity Reaction Status Date / Time
No Known Allergies Allergy Verified 06/10/23 16:21
�Medication �Instructions �Recorded �Confirmed �Type
cholecalciferol (vitamin D3) 25 2,000 units PO DAILY Supplement 04/09/16 06/10/23 History
mcg (1,000 unit) tablet
sitagliptin phosphate 100 mg 50 mg PO DAILY Diabetes 04/09/16 06/10/23 History
tablet (Januvia)
hydrochlorothiazide 25 mg tablet 12.5 mg PO DAILY Fluid 08/07/19 06/10/23 History
retention/Swelling
amlodipine 5 mg tablet 5 mg PO DAILY 07/26/21 06/10/23 Rx
pyridoxine (vitamin B6) 50 mg 250 mg PO DAILY Supplement 07/26/21 06/10/23 History
tablet
aspirin 81 mg tablet,delayed 81 mg PO DAILY #1 tab 04/17/23 06/10/23 Rx
release
atorvastatin 20 mg tablet 40 mg PO DAILY High Cholesterol 04/17/23 06/10/23 History
ferrous sulfate 325 mg (65 mg 325 mg PO DAILY Supplement 04/17/23 06/10/23 History
iron) tablet
montelukast 10 mg tablet 10 mg PO DAILY Lung/Breathing 04/17/23 06/10/23 History
Issues
fluticasone fur. 100 mcg-umeclid 1 inh inhalation R DAILY 05/22/23 06/10/23 History
62.5 mcg-vilant 25 mcg Lung/Breathing Issues
inhalat.powder (Trelegy Ellipta)
clopidogrel 75 mg tablet 75 mg PO DAILY Heart 06/04/23 06/10/23 Rx
disease/condition #0 tabs
pantoprazole 40 mg tablet,delayed 40 mg PO DAILY GI prophylaxis #0 06/04/23 06/10/23 Rx
release tabs
sennosides 8.6 mg-docusate sodium 1 tab PO BID #0 tabs 06/04/23 06/10/23 Rx
50 mg tablet (Stool
Softener-Stimulant Laxative)
acetaminophen 500 mg tablet 1,000 mg PO TID@0700,1300,2000 06/10/23 06/10/23 History
ascorbic acid (vitamin C) 500 mg 500 mg PO DAILY 06/10/23 06/10/23 History
tablet (Vitamin C)
bisacodyl 10 mg rectal suppository 10 mg KS DAILY PRN if no bm with 06/10/23 06/10/23 History
(Dulcolax (bisacodyl)) oral bisacodyl
bisacodyl 5 mg tablet,delayed 10 mg PO DAILY PRN constipation 06/10/23 06/10/23 History
release (Dulcolax (bisacodyl))
docusate sodium 100 mg capsule 100 mg PO BID 06/10/23 06/10/23 History
glimepiride 1 mg tablet 1 mg PO DAILY 06/10/23 06/10/23 History
heparin (porcine) 5,000 unit/mL 5,000 unit SC TID@0600,1400,2200 06/10/23 06/10/23 History
injection solution
insulin aspart U-100 100 unit/mL 0 sliding scale dose SC AC 06/10/23 06/10/23 History
(3 mL) subcutaneous pen
melatonin 10 mg tablet 10 mg PO HS 06/10/23 06/10/23 History
sennosides 8.6 mg tablet (senna) 17.2 mg PO NOON 06/10/23 06/10/23 History
tramadol 50 mg tablet 12.5 mg PO Q6H PRN moderate pain 06/10/23 06/10/23 History
trazodone 50 mg tablet 12.5 mg PO HS 06/10/23 06/10/23 History
Review of Systems
-
History Source: Patient
All other systems: Negative unless noted
Constitutional: Fatigue
Physical Exam
Vital Signs
Vital Signs
Temp Pulse Resp BP Pulse Ox
97.5 F 75 18 130/55 93
06/17/23 07:25 06/17/23 07:25 06/17/23 07:25 06/17/23 07:25 06/17/23 08:06
Lab Results
WBC 12.3 10^3/uL (4.8-10.8) H 06/17/23 09:44
RBC 2.73 10^6/uL (4.20-5.40) L 06/17/23 09:44
Hgb 8.4 g/dL (12.0-16.0) L 06/17/23 09:44
Hct 25.5 % (37.0-47.0) L 06/17/23 09:44
Plt Count 139 10^3/uL (130-400) 06/17/23 09:44
Sodium 137 mmol/L (135-145) 06/17/23 05:13
Potassium 4.6 mmol/L (3.5-5.1) 06/17/23 05:13
Chloride 104 mmol/L (98-107) 06/17/23 05:13
Carbon Dioxide 23 mmol/L (22-30) 06/17/23 05:13
BUN 32 mg/dl (7-17) H 06/17/23 05:13
Creatinine 1.9 mg/dL (0.6-1.0) H 06/17/23 05:13
eGFR 26.86 06/17/23 05:13
Glucose 126 mg/dl (70-99) H 06/17/23 05:13
Calcium 11.2 mg/dl (8.4-10.2) H 06/17/23 09:44
Phosphorus 3.6 mg/dl (2.5-4.5) 06/15/23 19:53
Albumin 3.5 g/dl (3.5-5.0) 06/14/23 05:15
Physical Exam
General: AOx3, No Distress and Nontoxic
HEENT: PERRL, EOMI, Anicteric, Conjunctivae Clear, Ear/Nose Intact and Hearing Normal
Respiratory: Clear
Cardiac: S1/S2, Murmur and Edema
Breast: N/A
Abdomen: Soft, Nontender and Nondistended
Rectal: Deferred by Provider
Musculoskeletal: No Clubbing, No Cyanosis and Edema
Skin: No Rash, Warm and Dry
Neuro: Nonfocal/Grossly Intact
Psych: Mood/afflect pleasant, Insight/judgement good and Appropriate
Assessment/Plan
-
Assessment:
Hypercalcemia
Anxiety/Depression
Left inguinal infection/abscess
Thrombocytopneia
DM
Recent TAVR
HTN
Plan:
- very mild hypercalcemia noted since 06/11
- obtain PTH. if PTH is wnl, likely not PTH mediated. can check PTHrP, vitamin D levels, TSH. will await PTH levels first.
- most likely hypercalcemia of immobilization based on history
Data Reviewed
-
Radiology: Image Personally Visualized and interpreted (normal CXR)
Labs: Labs Reviewed by me and Discussed with Physician
Old Records: Reviewed
[2023-06-17] MEDS: DULCOLAX 10 MG PO (13:28)
[2023-06-17 15:15] VITALS: BP 130/51
[2023-06-17] MEDS: DULCOLAX 10 MG RECTAL (15:20)
[2023-06-17 16:03] VITALS: BP 138/59; PULSE 72; O2SAT 93
[2023-06-17 16:49] LABS: Glucose - Point of Care 158 mg/dl (70-99)
--- NOTE | 2023-06-17 18:58 | W.PN.HOSP.TC ---
Addendum entered and electronically signed by Rosendo Casillas MD 06/19/23 20:25:
Concern for acute blood loss anemia with baseline chronic anemia of iron deficiency
Original Note:
Today's Communication/Plan
-
Continue IV antibiotics
Monitor bowel movements
Appreciate nephrology input regarding hypercalcemia
Assessment / Plan
Assessment / Plan
Physical exam
General: Not in acute distress
HEENT: Normocephalic
Respiratory: CTAB
Cardiac: S1 and S2. RRR.
GI: Soft, Non Tender and Non Distended. Positive bowel sounds.
Musculoskeletal: Edema (Trace edema in bilateral lower extremities)
Skin: Warm, Dry
Neuro: AAO x 3 and Nonfocal/Grossly Intact
IMPRESSION
77-year-old female who was discharged from the hospital recently to mostly After TAVR procedure andstatus post cutdown and exposure of left common femoral artery with common femoral artery endarterectomy with patch angioplasty using bovine
pericardium during TAVR procedure on 05/31/2023, now with 4.2 oval-shaped hypoechoic mass in the left groin suspicious for seroma. Presented to the hospital was concern for recurrent pain in the left inguinal area where the workup concerning for
hematoma and cellulitis to abscess.
Confusion, improving
Anxiety/Depression
Left inguinal incision infection
Left inguinal area hematoma and/or abscess
Left inguinal areas pain likely secondary to above
Postoperative stroke,
Chronic kidney disease stage III-IV
Diabetes mellitus on hypoglycemic agent
Aortic stenosis status post TAVR recently w/ left common femoral artery cutdown and endarterectomy
Hyponatremia, present on admission
Hypercalcemia
Dyslipidemia
Asthma
PLAN
# Acute metabolic encephalopathy - IMPROVED
�most likely 2/2 to acute infection v cefepime
- Continues to improved
� Cefepime was switched to ertapenem 500 mg every 24h (concern about neurotoxicity side effect from Cefepime)
�UA negative, CT head unremarkable for acute abnormalities
#Constipation
-No bowel movements, and as of 06/17/23 it was 4 to 5 days since patient had not had a bowel movement
-PO Dulcolax prn ordered, also rectal suppository
-Patient refused enema on 06/17/23
-Can revisit enema with patient and possibly mag citrate/GI consult if patient does not have a bowel movement going forward
#Anxiety
� Consider psychiatry consultation
# Left inguinal infection/abscess
� S/p debridement and VAC placement
� Follow-up final cultures
Continue antibiotics, vanco and ertapenem
�Follow-up plastic, vascular, ID recommendations
-Wound team consult
#Thrombocytopenia
� Suspect secondary to sepsis
� Continue monitor
#DM
-AISS
#mild Hypercalcemia
-ctm with fluids
-Hold HCTZ
-CTM
-Ionized calcium elevated
-Nephrology consulted, recommendations appreciated
#Recent TAVR
#Post Op CVA
#HLD
Continue aspirin and Plavix
-statin
#CKD IV
#Hypomagnesemia
-monitored and repleted
-Continue to monitor
#HTN
-Antihtn meds
CODE STATUS full code
DVT prophylaxis: Continue home Heparin DVT prophylaxis -- okay to resume as per vascular surgery
Anticipated Discharge: > 48 hours
Subjective/Interval History
-
Date of Service: June 17, 2023
Patient was seen and examined. She was certainly more alert than 2 days ago, denied any new significant complaints, pain appears to be under control.
Objective Data
-
Labs:
Laboratory Results
06/17/23
09:44
WBC 12.3 H
Hgb 8.4 L
Hct 25.5 L
Plt Count 139
Calcium 11.2 H
Vital Signs:
Vital Signs
Temp Pulse Resp BP Pulse Ox
97.5 F 77 16 130/51 93
06/17/23 15:15 06/17/23 15:15 06/17/23 15:15 06/17/23 15:15 06/17/23 16:27
I&O
06/16/23 06/17/23 06/18/23
06:59 06:59 06:59
Intake Total 2340 / 2340 1090 / 1090 760 / 760
Output Total 630 / 630 55 / 55 40 / 40
Balance 1710 / 1710 1035 / 1035 720 / 720
[2023-06-17 20:00] VITALS: BP 131/50
[2023-06-17] MEDS: MELATONIN 10 MG PO (21:15)
[2023-06-17] MEDS: INVANZ 55 MG IV (21:15)
[2023-06-17] MEDS: DESYREL 12.5 MG PO (21:39)
[2023-06-17 22:54] LABS: Glucose - Point of Care 180 mg/dl (70-99)
[2023-06-17 23:15] VITALS: BP 133/55
[2023-06-18] MEDS: HEPARIN 5000 UNITS SC ×3 (05:02→21:50)
[2023-06-18 06:38] LABS: % Basophils 0.7 % (0-2); % Eosinophils 2.6 % (0-6); % Immature Granulocytes 2.9 % (0-0.5); % Lymphocytes 10.2 % (20.5-51.1); % Monocytes 8.7 % (1.7-9.3); % Neutrophils 74.9 % (42.2-75.2); Absolute Basophils 0.1 10^3/uL (0-0.2); Absolute Eosinophils 0.3 10^3/uL (0-0.7); Absolute Immature Granulocytes 0.3 10^3/uL (0-0.05); Absolute Lymphocytes 1.1 10^3/uL (1.2-3.4); Absolute Monocytes 0.9 10^3/uL (0.1-0.6); Absolute Neutrophils 8.1 10^3/uL (1.4-6.5); Hematocrit 24.8 % (37.0-47.0); Hemoglobin 8.1 g/dL (12.0-16.0); Mean Corp Hgb Conc. 32.7 g/dL (33.0-37.0); Mean Corpuscular Hgb 30.5 pg (27.0-31.0); Mean Corpuscular Volume 93.2 fL (81.0-99.0); Mean Platelet Volume 11.3 fL (7.4-10.4); Nucleated Red Blood Cells % 0 %; Platelet Count 139 10^3/uL (130-400); Red Blood Cell Count 2.66 10^6/uL (4.20-5.40); Red Cell Dist. Width 14.7 % (11.5-14.5); White Blood Cell Count 10.8 10^3/uL (4.8-10.8)
[2023-06-18] MEDS: TYLENOL 1000 MG PO ×3 (06:44→20:24)
[2023-06-18 06:57] LABS: Vancomycin Random 12.7 ug/ml
[2023-06-18 07:04] LABS: Blood Urea Nitrogen 32 mg/dl (7-17); Calcium 11.1 mg/dl (8.4-10.2); Carbon Dioxide 21 mmol/L (22-30); Chloride 107 mmol/L (98-107); Estimated Creatinine Clearance 23 ml/min; Glucose 120 mg/dl (70-99); Sodium 136 mmol/L (135-145); eGFR 23.82
[2023-06-18 07:24] VITALS: BP 137/52
[2023-06-18] MEDS: NON-FORMULARY ITEM 1 INH INH (08:05)
[2023-06-18 08:12] LABS: Glucose - Point of Care 151 mg/dl (70-99)
[2023-06-18] MEDS: VITAMIN B-6 250 MG PO (08:24)
[2023-06-18] MEDS: SENOKOT-S 1 TABLET PO ×2 (08:24→20:25)
[2023-06-18] MEDS: VITAMIN D3 (cholecalciferol) 50 MCG PO (08:24)
[2023-06-18] MEDS: NORVASC 5 MG PO (08:25)
[2023-06-18] MEDS: SINGULAIR 10 MG PO (08:25)
[2023-06-18] MEDS: FEOSOL 325 MG PO (08:25)
[2023-06-18] MEDS: PLAVIX 75 MG PO (08:25)
[2023-06-18] MEDS: PROTONIX 40 MG PO (08:25)
[2023-06-18] MEDS: ASPIR LOW (ENTERIC COATED) 81 MG PO (08:25)
[2023-06-18] MEDS: LIPITOR 40 MG PO (08:25)
[2023-06-18] MEDS: VITAMIN B1 100 MG PO ×2 (08:25→20:25)
[2023-06-18] MEDS: VITAMIN C 500 MG PO (08:26)
[2023-06-18] MEDS: NOVOLOG FLEXPEN-MODERATE RESISTANCE 1 UNITS SC ×2 (08:26→16:59)
[2023-06-18] MEDS: MIRALAX 17 GRAMS PO (08:26)
--- NOTE | 2023-06-18 08:37 | PHA.VAN.FU ---
Addendum entered and electronically signed by Eduarda Ruano Sanchez 06/18/23 11:23:
Next 3 doses after today's dose: 06/20, Sun 06/23 and 06/26
Original Note:
Vancomycin Assessment / Plan
- Assessment
Renal Function: Stable (within fluctuation range)
WBC's are: WNL
In the past 24 hrs, patient has been: Afebrile
Concomitant Antimicrobials: ertapenem
- Assessment - Therapeutic Drug Monitoring
Random Level: 12.7 - drawn ~24H after previous level of 17.1
Calculated ke: 0.0123
Calculated half life (H): 56.1
Date Random Level Half-life Re-dosing
Sun 06/09 2000mg
06/10 16.8
06/11 12.9 42.5 H 1000mg
06/12 18.9 1000mg
06/13 20.8
06/14 15.5 54.7 H
06/15 11.7 62.6 H 1000mg
06/16 17.1
06/17 12.7 56.1 H
Patient's half-life consistently remains > 48H
Anticipate patient will maintain levels Q72H but likely requires higher dosing than 1000mg (level likely maintained longer 06/13-06/15 because patient received 2 doses of 1000mg on consecutive days)
Using linear PK, anticipate Vanc 1250mg Q72H would provide level 11-12
- Dosing Plan
Adjust Regimen to: Vanc 1250mg Q72H - first dose now then 06/20 0600
- Monitoring Plan
No level(s) ordered at this time: consider repeat levels either later this week (06/20) or next week (06/26)
- Follow Up
Pharmacy will continue to follow.
Vancomycin Follow UP
- -
Patient Age: 77
Patient Sex: Female
Vancomycin Day #: 8
Indication: Skin And Soft Tissue
Requesting Provider: Dr. Silva / Campbell
Pertinent Antimicrobial Allergies:
NKDA
Height / Weight:
Height 5 ft 1 in
Actual Weight 93 kg
IBW in k.8
Adjusted BW in k.9
Pertinent Past Medical History: BMI ~39, DM, recent TAVR, CKD
- Vital Signs / Lab Results
Temp Pulse Resp BP Pulse Ox
97.9 F 79 18 137/52 90
06/18/23 07:24 06/18/23 08:10 06/18/23 08:10 06/18/23 07:24 06/18/23 08:10
Lab Results - Hematology
06/16/23 06/17/23 06/17/23
05:53 05:13 09:44
WBC 10.9 H Cancelled 12.3 H
06/18/23
05:19
WBC 10.8
Lab Results - Chemistry
06/16/23 06/17/23 06/18/23
05:53 05:13 05:19
BUN 33 H 32 H 32 H
Creatinine 2.0 H 1.9 H 2.1 H
Estimated Creat Clear
Microbiology Results
06/12/23 14:55 Wound Culture - Final
Groin - Left Staphylococcus epidermidis
Escherichia coli
Gram Stain - Final
06/12/23 14:55 Anaerobic Culture - Final
Groin - Left Finegoldia magna
Therapeutic Drug Monitoring
Random Vancomycin 12.7 ug/ml 06/18/23 05:19
--- NOTE | 2023-06-18 09:25 | PTCARENOTE ---
Patient and family member (daughter) requesting the patient's left groin incision and TERESA drain sites to be cleansed and dressed; Patient and daughter concerned that this is not being done daily; Left groin incision site and TERESA drain site cleansed
with normal saline solution, nonwoven gauze placed at each TERESA drain site, dry sterile ABD pad placed over incision site; TERESA drain sites intact, no drainage around TERESA drain sites noted, no erythema present, no ecchymosis present; Left groin incision
closed, approximated, no drainage noted, no erythema present, no ecchymosis present; Assessment ongoing
[2023-06-18 10:25] VITALS: BP 151/76; PULSE 73; O2SAT 95
[2023-06-18 10:44] VITALS: BP 151/76; PULSE 73; O2SAT 95
--- NOTE | 2023-06-18 11:11 | W.PN.NEPH.PH ---
Today's Communication / Plan
-
workup pending
GFR stable
Assessment/Plan
-
Assessment:
Hypercalcemia
CKD3b
Anxiety/Depression
Left inguinal infection/abscess
Thrombocytopneia
DM
Recent TAVR
HTN
Plan:
- very mild hypercalcemia noted since 06/11
- obtained PTH. if PTH is wnl, likely not PTH mediated. can check PTHrP, vitamin D levels, TSH. will await PTH levels first.
- most likely hypercalcemia of immobilization based on history
-creatinine stable at baseline
-
-
Date of Service: June 18, 2023
CC / HPI / ROS
-
Chief Complaint:
Hypercalcemia
Chronic kidney
History of Present Illness:
Serum calcium stable at 11.1
Hemodynamically stable
Creatinine stable at 2.1
Review of Systems:
No shortness of breath
No chest pain
Subjectively nonoliguric with incontinece
Labs
-
Labs:
WBC 10.8 10^3/uL (4.8-10.8) 06/18/23 05:19
RBC 2.66 10^6/uL (4.20-5.40) L 06/18/23 05:19
Hgb 8.1 g/dL (12.0-16.0) L 06/18/23 05:19
Hct 24.8 % (37.0-47.0) L 06/18/23 05:19
Plt Count 139 10^3/uL (130-400) 06/18/23 05:19
Sodium 136 mmol/L (135-145) 06/18/23 05:19
Potassium 4.0 mmol/L (3.5-5.1) 06/18/23 05:19
Chloride 107 mmol/L (98-107) 06/18/23 05:19
Carbon Dioxide 21 mmol/L (22-30) L 06/18/23 05:19
BUN 32 mg/dl (7-17) H 06/18/23 05:19
Creatinine 2.1 mg/dL (0.6-1.0) H 06/18/23 05:19
eGFR 23.82 06/18/23 05:19
Glucose 120 mg/dl (70-99) H 06/18/23 05:19
Calcium 11.1 mg/dl (8.4-10.2) H 06/18/23 05:19
Phosphorus 3.6 mg/dl (2.5-4.5) 06/15/23 19:53
Albumin 3.5 g/dl (3.5-5.0) 06/14/23 05:15
Physical Exam
-
Vital Signs:
Vital Signs
Temp Pulse Resp BP Pulse Ox
97.9 F 79 18 137/52 90
06/18/23 07:24 06/18/23 08:10 06/18/23 08:10 06/18/23 07:24 06/18/23 09:19
Cardiovascular:: Regular rate and rhythm
Respiratory:: Bilateral: CTA
Lung Excursion:: Normal
Abdomen:: Nontender and Soft
Bowel Sounds:: Normal
Extremity Edema:: None: Bilateral:
Sarkar Catheter: No
[2023-06-18 11:33] LABS: Glucose - Point of Care 202 mg/dl (70-99)
--- NOTE | 2023-06-18 11:50 | CM ---
Addendum entered by Daya Alvarado 06/18/23 16:35:
[facility] does not have any available beds until weekend. Will obtain additional preferences from patient.
Original Note:
Groin wound vac has been discontinued. Therapy has recommended Acute Rehab after discharge. Preference is to return to [place] at [facility]. Referral has been forwarded.
[2023-06-18] MEDS: VANCOCIN 275 MG IV (12:44)
[2023-06-18] MEDS: NOVOLOG FLEXPEN-MODERATE RESISTANCE 3 UNITS SC (12:45)
--- NOTE | 2023-06-18 12:55 | W.PN.ID1 ---
Date of Service
Date of Service: June 18, 2023
Today's Communication
Continue abx.
Assessment / Plan
Left groin infection
- s/p debridement and VAC placement.
- cultures pending
S/p recent TAVR
Leukocytosis
HTN
Dyslipidemia
DM
Anxiety
CKD
Asthma
Pituitary adenoma
Obesity
Recommendations:
Continue with vancomycin ertapenam. Following Vanco levels to guide dosing.
Wound treat for at least another 2-3 weeks.
Monitor white count and temperature curve.
Monitor TERESA drain output.
Bovine patch is in place and may have been infected. Following acute course of antibiotics, patient may need chronic lifelong suppression.
Chief Complaint
-: Other (Left groin infection)
Subjective / Review of Systems
Review of Systems: No Fever and No Chills
Vital Signs / Physical Exam
Vital Signs
Vital Signs
Temp Pulse Resp BP Pulse Ox
97.9 F 79 18 137/52 90
06/18/23 07:24 06/18/23 08:10 06/18/23 08:10 06/18/23 07:24 06/18/23 09:19
Physical Exam
Physical Exam:
Constitutional: No Acute Distress, Comfortable and Non-toxic
Eyes: No Conjunctival Hemorrhage. Sclera Anicteric.
Cardiovascular: S1/S2; Negative S3/S4
Pulmonary: Non Labored
Extremities: Edema B/L LE's
Wound: Left groin with VAC removed. TERESA x [address] with bloody drainage. No purulence. No periwound erythema.
Neurological: Awake and Alert. more lucid with today's exam.
Psychological: Calm
Objective Data
Lab Data
Lab Results
06/18/23 05:19
06/18/23 05:19
Estimated Creat Clear 23 ml/min 06/18/23 05:19
Total Bilirubin 0.5 mg/dl (0.2-1.3) 06/10/23 17:29
AST 34 U/L (14-36) 06/10/23 17:29
ALT 23 U/L (0-35) 06/10/23 17:29
Alkaline Phosphatase 140 U/L (38-126) H 06/10/23 17:29
Most recent labs reviewed.
Micro Results:
06/12/23 14:55 Wound Culture - Final
Groin - Left Staphylococcus epidermidis
Escherichia coli
Gram Stain - Final
06/12/23 14:55 Anaerobic Culture - Final
Groin - Left Finegoldia magna
06/11/23 02:48 Blood Culture - Final
Blood/Venous No Growth - Final Report
06/11/23 02:11 Blood Culture - Final
Blood/Venous No Growth - Final Report
06/11/23 02:01 Wound Culture - Final
Groin - Left Escherichia coli
Klebsiella pneumoniae
Diptheroids
Coagulase neg. staphylococcus
Gram Stain - Final
Care Review
Plan reviewed with: Physician (Hospitalist)
--- NOTE | 2023-06-18 13:46 | W.PN.HOSP.TC ---
Today's Communication/Plan
-
Discharge planning
Assessment / Plan
Assessment / Plan
Gen-AAOx3, NAD, obese
HEENT-NC, AT, anicteric, clear oral mm
Neck-supple
CV-reg, no M, +S1/S2
Lungs-clear B/L
Abd-soft, NT, ND
Ext-no edema
Musculoskeletal-no cyanosis, clubbing
Skin-warm and dry
Neuro-grossly non-focal
Psych-calm, cooperative
Acute metabolic encephalopathy - IMPROVED, most likely 2/2 to acute infection v cefepime. CT head on 06/15 negative.
Constipation -had 2 bowel movements on 06/16.
Anxiety
Left inguinal infection/abscess - after recent left femoral TAVR. Clinically improving. White blood cell count normalized. Afebrile.
� S/p debridement and VAC placement
� Follow-up final cultures
Continue antibiotics, vanco and ertapenem
�Follow-up plastic, vascular, ID recommendations
-Wound team consult
Thrombocytopenia -resolved.
DM2 without hyperglycemia -last hemoglobin A1c 6.9%. Currently on moderate resistance NovoLog scale. Glucose 120 this morning.
Hypercalcemia -intact PTH pending. Calcium 11.1 today. Differential diagnosis includes immobilization. HCTZ discontinued.
Aortic stenosis - recent TAVR 05/31/2023. Complicated by postprocedural stroke.
Post Op stroke -continue dual antiplatelet therapy.
Hyperlipidemia -on atorvastatin.
CKD 3B -renal function at baseline.
Chronic normocytic anemia -hemoglobin near baseline. Etiology likely due to chronic kidney disease, recent illness, operative losses, etc.
Hypomagnesemia -resolved.
Essential hypertension -stable.
Obesity due to excess calories
Full code
Dispo -medically stable for discharge to [facility]. Case management aware. Discussed with ID.
Updated family at the bedside.
Anticipated Discharge: Within 24 hours
Subjective/Interval History
-
Date of Service: June 18, 2023
Patient seen and examined. No complaints.
Objective Data
-
Labs:
Laboratory Results
06/18/23
05:19
WBC 10.8
Hgb 8.1 L
Hct 24.8 L
Plt Count 139
Sodium 136
Potassium 4.0
Chloride 107
Carbon Dioxide 21 L
BUN 32 H
Creatinine 2.1 H
Glucose 120 H
Calcium 11.1 H
Vital Signs:
Vital Signs
Temp Pulse Resp BP Pulse Ox
97.9 F 79 18 137/52 90
06/18/23 07:24 06/18/23 08:10 06/18/23 08:10 06/18/23 07:24 06/18/23 09:19
I&O
06/17/23 06/18/23 06/19/23
06:59 06:59 06:59
Intake Total 1090 / 1090 1410 / 1410
Output Total 55 / 55 67 / 67
Balance 1035 / 1035 1343 / 1343
Review of Systems
-
History Source: Patient
All other systems: Reviewed and negative
[2023-06-18 16:26] VITALS: BP 141/51
[2023-06-18 16:51] LABS: Glucose - Point of Care 152 mg/dl (70-99)
[2023-06-18] MEDS: INVANZ 55 MG IV (20:24)
[2023-06-18] MEDS: DESYREL 12.5 MG PO (21:50)
[2023-06-18] MEDS: MELATONIN 10 MG PO (21:51)
[2023-06-18 22:37] LABS: Glucose - Point of Care 201 mg/dl (70-99)
[2023-06-18 23:35] VITALS: BP 132/51
[2023-06-19 03:14] VITALS: BP 146/62
--- NOTE | 2023-06-19 04:38 | PTCARENOTE ---
pt is anxious, repetitive and forgetful. Pt has requested to get oob into her chair three times this evening, when she demands to get back into bed she forgets her original request to sit in the chair and accuses staff of placing her in the chair
without her asking. Pt accuses staff of not meeting her needs however the call heart has been answered in a timely manner and staff have respectfully attempted to redirect and educate with no results as the pt begins to angrily accuse staff of random
issues. Pt has set off her bed alarm twice, she is safely in low bed with required safety devices, continues to be closely monitored.
[2023-06-19 04:55] LABS: % Basophils 0.9 % (0-2); % Eosinophils 3.1 % (0-6); % Immature Granulocytes 2.2 % (0-0.5); % Lymphocytes 13.1 % (20.5-51.1); % Monocytes 8.9 % (1.7-9.3); % Neutrophils 71.8 % (42.2-75.2); Absolute Basophils 0.1 10^3/uL (0-0.2); Absolute Eosinophils 0.3 10^3/uL (0-0.7); Absolute Immature Granulocytes 0.2 10^3/uL (0-0.05); Absolute Lymphocytes 1.1 10^3/uL (1.2-3.4); Absolute Monocytes 0.7 10^3/uL (0.1-0.6); Absolute Neutrophils 5.8 10^3/uL (1.4-6.5); Hematocrit 23.9 % (37.0-47.0); Mean Corp Hgb Conc. 33.5 g/dL (33.0-37.0); Mean Corpuscular Hgb 30.9 pg (27.0-31.0); Mean Corpuscular Volume 92.3 fL (81.0-99.0); Nucleated Red Blood Cells % 0 %; Platelet Count 121 10^3/uL (130-400); Red Blood Cell Count 2.59 10^6/uL (4.20-5.40); Red Cell Dist. Width 14.6 % (11.5-14.5)
[2023-06-19 05:11] LABS: Blood Urea Nitrogen 34 mg/dl (7-17); Calcium 11.3 mg/dl (8.4-10.2); Carbon Dioxide 20 mmol/L (22-30); Chloride 106 mmol/L (98-107); Estimated Creatinine Clearance 24 ml/min; Glucose 129 mg/dl (70-99); Magnesium 1.8 mg/dl (1.6-2.3); Potassium 4.3 mmol/L (3.5-5.1); Sodium 136 mmol/L (135-145); eGFR 25.26
[2023-06-19] MEDS: HEPARIN 5000 UNITS SC ×3 (06:03→21:12)
[2023-06-19 07:02] LABS: Glucose - Point of Care 172 mg/dl (70-99)
[2023-06-19 07:45] VITALS: BP 134/44
[2023-06-19] MEDS: NON-FORMULARY ITEM 1 INH INH (07:56)
[2023-06-19] MEDS: NOVOLOG FLEXPEN-MODERATE RESISTANCE 1 UNITS SC ×3 (08:12→17:01)
[2023-06-19] MEDS: TYLENOL 1000 MG PO ×3 (08:16→20:14)
[2023-06-19] MEDS: PLAVIX 75 MG PO (08:16)
[2023-06-19] MEDS: FEOSOL 325 MG PO (08:17)
[2023-06-19] MEDS: VITAMIN C 500 MG PO (08:17)
[2023-06-19] MEDS: NORVASC 5 MG PO (08:17)
[2023-06-19] MEDS: LIPITOR 40 MG PO (08:17)
[2023-06-19] MEDS: VITAMIN B1 100 MG PO ×2 (08:17→20:14)
[2023-06-19] MEDS: SINGULAIR 10 MG PO (08:17)
[2023-06-19] MEDS: VITAMIN D3 (cholecalciferol) 50 MCG PO (08:17)
[2023-06-19] MEDS: ASPIR LOW (ENTERIC COATED) 81 MG PO (08:17)
[2023-06-19] MEDS: PROTONIX 40 MG PO (08:17)
[2023-06-19] MEDS: SENOKOT-S 1 TABLET PO ×2 (08:17→20:14)
[2023-06-19] MEDS: MIRALAX PO (08:18)
[2023-06-19] MEDS: VITAMIN B-6 250 MG PO (08:18)
--- NOTE | 2023-06-19 08:30 | PHA.VAN.FU ---
Vancomycin Assessment / Plan
- Assessment
Renal Function: Stable
WBC's are: WNL
In the past 24 hrs, patient has been: Afebrile
Concomitant Antimicrobials: ertapenem
- Dosing Plan
Continue: Vanc 1250mg Q72H
Dosing Comments: Next 3 doses: Th06/20, Sun 06/23 and Wed 06/26
- Monitoring Plan
No level(s) ordered at this time: consider trough either later this week (06/20) or next week (06/26)
- Follow Up
Pharmacy will continue to follow.
Vancomycin Follow UP
- -
Patient Age: 77
Patient Sex: Female
Vancomycin Day #: 9
Indication: Skin And Soft Tissue
Requesting Provider: Dr. Silva / Campbell
Pertinent Antimicrobial Allergies:
NKDA
Height / Weight:
Height 5 ft 1 in
Actual Weight 93 kg
IBW in k.8
Adjusted BW in k.9
Pertinent Past Medical History: BMI ~39, DM, recent TAVR, CKD
- Vital Signs / Lab Results
Temp Pulse Resp BP Pulse Ox
97.6 F 80 18 134/44 94
06/19/23 07:45 06/19/23 07:45 06/19/23 07:45 06/19/23 07:45 06/19/23 08:15
Lab Results - Hematology
06/17/23 06/17/23 06/18/23
05:13 09:44 05:19
WBC Cancelled 12.3 H 10.8
06/19/23
04:37
WBC 8.0
Lab Results - Chemistry
06/16/23 06/17/23 06/18/23
05:53 05:13 05:19
BUN 33 H 32 H 32 H
Creatinine 2.0 H 1.9 H 2.1 H
Estimated Creat Clear
06/19/23
04:37
BUN 34 H
Creatinine 2.0 H
Estimated Creat Clear 24
Microbiology Results
06/12/23 14:55 Wound Culture - Final
Groin - Left Staphylococcus epidermidis
Escherichia coli
Gram Stain - Final
06/12/23 14:55 Anaerobic Culture - Final
Groin - Left Finegoldia magna
Therapeutic Drug Monitoring
Random Vancomycin 12.7 ug/ml 06/18/23 05:19
--- NOTE | 2023-06-19 10:13 | W.PN.HOSP.TC ---
Today's Communication/Plan
-
Discharge planning
Assessment / Plan
Assessment / Plan
Gen-AAOx3, NAD, obese
HEENT-NC, AT, anicteric, clear oral mm
Neck-supple
CV-reg, no M, +S1/S2
Lungs-clear B/L
Abd-soft, NT, ND
Ext-no edema
Musculoskeletal-no cyanosis, clubbing
Skin-warm and dry
Neuro-grossly non-focal
Psych-calm, cooperative
Acute metabolic encephalopathy -resolved.
Constipation -improving.
Anxiety
Left inguinal infection/abscess - after recent left femoral TAVR. Clinically improving. White blood cell count normalized. Afebrile.
� S/p debridement and VAC placement
� Follow-up final cultures
Continue antibiotics, vanco and ertapenem
�Follow-up plastic, vascular, ID recommendations
-Wound team consult
Thrombocytopenia -resolved.
DM2 without hyperglycemia -last hemoglobin A1c 6.9%. Currently on moderate resistance NovoLog scale. Glucose 120 this morning.
Hypercalcemia -intact PTH pending. Calcium 11.3 today. Differential diagnosis includes immobilization. HCTZ discontinued.
Aortic stenosis - recent TAVR 05/31/2023. Complicated by postprocedural stroke.
Post Op stroke -continue dual antiplatelet therapy.
Hyperlipidemia -on atorvastatin.
CKD 3B -renal function at baseline.
Chronic normocytic anemia -hemoglobin near baseline. Etiology likely due to chronic kidney disease, recent illness, operative losses, etc.
Hypomagnesemia -resolved.
Essential hypertension -stable.
Obesity due to excess calories
Full code
Dispo -medically stable for discharge to [facility]. Unfortunately no beds available until the weekend. Patient remains undecided about her discharge plans.
Anticipated Discharge: Within 24 hours
Subjective/Interval History
-
Date of Service: June 19, 2023
Patient seen and examined. Frustrated over her discharge situation.
Objective Data
-
Labs:
Laboratory Results
06/19/23
04:37
WBC 8.0
Hgb 8.0 L
Hct 23.9 L
Plt Count 121 L
Sodium 136
Potassium 4.3
Chloride 106
Carbon Dioxide 20 L
BUN 34 H
Creatinine 2.0 H
Glucose 129 H
Calcium 11.3 H
Vital Signs:
Vital Signs
Temp Pulse Resp BP Pulse Ox
97.6 F 80 18 134/44 94
06/19/23 07:45 06/19/23 07:45 06/19/23 08:00 06/19/23 07:45 06/19/23 09:27
I&O
06/18/23 06/19/23 06/20/23
06:59 06:59 06:59
Intake Total 1410 / 1410 1010 / 1010
Output Total 67 / 67 630 / 630
Balance 1343 / 1343 380 / 380
Review of Systems
-
History Source: Patient
All other systems: Reviewed and negative
[2023-06-19 11:15] VITALS: BP 143/50
[2023-06-19 11:33] LABS: Glucose - Point of Care 170 mg/dl (70-99)
--- NOTE | 2023-06-19 12:06 | W.PN.NEPH.PH ---
Today's Communication / Plan
-
pending hypercalcemia work up
Assessment/Plan
-
Assessment:
Hypercalcemia
CKD3b
Anxiety/Depression
Left inguinal infection/abscess
Thrombocytopneia
DM
Recent TAVR
HTN
Plan:
- very mild hypercalcemia noted since 06/11
- obtained PTH. check , vitamin D levels, spep
- most likely hypercalcemia of immobilization based on history
-creatinine stable at baseline
-
-
Date of Service: June 19, 2023
CC / HPI / ROS
-
Chief Complaint:
Hypercalcemia
Chronic kidney
History of Present Illness:
Serum calcium stable at 11.3
Hemodynamically stable
Creatinine stable at 2
Review of Systems:
No shortness of breath but cough
No chest pain
Subjectively nonoliguric with incontinence
Labs
-
Labs:
WBC 8.0 10^3/uL (4.8-10.8) 06/19/23 04:37
RBC 2.59 10^6/uL (4.20-5.40) L 06/19/23 04:37
Hgb 8.0 g/dL (12.0-16.0) L 06/19/23 04:37
Hct 23.9 % (37.0-47.0) L 06/19/23 04:37
Plt Count 121 10^3/uL (130-400) L 06/19/23 04:37
Sodium 136 mmol/L (135-145) 06/19/23 04:37
Potassium 4.3 mmol/L (3.5-5.1) 06/19/23 04:37
Chloride 106 mmol/L (98-107) 06/19/23 04:37
Carbon Dioxide 20 mmol/L (22-30) L 06/19/23 04:37
BUN 34 mg/dl (7-17) H 06/19/23 04:37
Creatinine 2.0 mg/dL (0.6-1.0) H 06/19/23 04:37
eGFR 25.26 06/19/23 04:37
Glucose 129 mg/dl (70-99) H 06/19/23 04:37
Calcium 11.3 mg/dl (8.4-10.2) H 06/19/23 04:37
Phosphorus 3.6 mg/dl (2.5-4.5) 06/15/23 19:53
Albumin 3.5 g/dl (3.5-5.0) 06/14/23 05:15
Physical Exam
-
Vital Signs:
Vital Signs
Temp Pulse Resp BP Pulse Ox
97.7 F 69 18 143/50 93
06/19/23 11:15 06/19/23 11:15 06/19/23 11:15 06/19/23 11:15 06/19/23 11:15
Cardiovascular:: Regular rate and rhythm
Respiratory:: Bilateral: Coarse
Lung Excursion:: Normal
Abdomen:: Nontender
Extremity Edema:: +1: Bilateral:
Sarkar Catheter: No
--- NOTE | 2023-06-19 14:30 | PTCARENOTE ---
RN overheard patient lying to family that she 'fell three times this shift because her nurse would not help her'. RN instantly entered patients room to address this accusation, stating she had been the one who has been ambulating patient all day as
we have no inpatient nursing aide right now. Patient has not fallen while ambulating with RN, and that both bed and chair alarm are on and audible so that the RN knows when patient is OOB as she needs someone to walk beside her with rolling walker for
safety.
RN went on a walk with pt. Pt walked out to hallway and then turned around, stating she did not want to walk anymore.
Pt has been OOB to chair for the shift and has been ambulating with rolling waker to BR with RN.
Pt's daughter and witnessed the above information.
RN relayed to family plan of care, that patient will have to wait for a bed to open at [facility] if she is unwilling to go to other suggested rehabs and that RN/MD do not know when that bed will be available. RN relayed to that CM will
reach out to him when bed is available at rehab.
--- NOTE | 2023-06-19 15:18 | W.PN.ID1 ---
Date of Service
Date of Service: June 19, 2023
Today's Communication
Continue abx. See below...
Assessment / Plan
Left groin infection
- s/p debridement and VAC placement.
- cultures pending
S/p recent TAVR
Leukocytosis
HTN
Dyslipidemia
DM
Anxiety
CKD
Asthma
Pituitary adenoma
Obesity
Recommendations:
Continue with vancomycin & ertapenam for an additional 14 days. Following Vanco levels to guide dosing.
Monitor white count and temperature curve.
Monitor TERESA drain output.
Bovine patch is in place and may have been infected. Following acute course of antibiotics, patient may need chronic lifelong suppression.
Given sensitivities of recovered isolates, options would be Bactrim or cipro/doxy following current course of vanco/ertapenam.
Will follow up in office in 2-3 weeks.
Chief Complaint
-: Other (Left groin infection)
Subjective / Review of Systems
Review of Systems: No Fever and No Chills
Vital Signs / Physical Exam
Vital Signs
Vital Signs
Temp Pulse Resp BP Pulse Ox
97.7 F 69 18 143/50 93
06/19/23 11:15 06/19/23 11:15 06/19/23 11:15 06/19/23 11:15 06/19/23 11:15
Physical Exam
Constitutional: No Acute Distress, Comfortable and Non-toxic
Eyes: Sclera Anicteric
Cardiovascular: S1/S2; Negative S3/S4
Pulmonary: Non Labored
Gastrointestinal: Soft and Non Tender
Extremities: Edema; Negative Cyanosis or Erythema
Wound: Other (Left groin area with TERESA [address] Incisional area dressed.)
Neurological: Awake and Alert
Psychological: Calm
Objective Data
Lab Data
Lab Results
06/19/23 04:37
06/19/23 04:37
Estimated Creat Clear 24 ml/min 06/19/23 04:37
Total Bilirubin 0.5 mg/dl (0.2-1.3) 06/10/23 17:29
AST 34 U/L (14-36) 06/10/23 17:29
ALT 23 U/L (0-35) 06/10/23 17:29
Alkaline Phosphatase 140 U/L (38-126) H 06/10/23 17:29
Most recent labs reviewed.
Micro Results:
06/12/23 14:55 Wound Culture - Final
Groin - Left Staphylococcus epidermidis
Escherichia coli
Gram Stain - Final
06/12/23 14:55 Anaerobic Culture - Final
Groin - Left Finegoldia magna
06/11/23 02:48 Blood Culture - Final
Blood/Venous No Growth - Final Report
06/11/23 02:11 Blood Culture - Final
Blood/Venous No Growth - Final Report
06/11/23 02:01 Wound Culture - Final
Groin - Left Escherichia coli
Klebsiella pneumoniae
Diptheroids
Coagulase neg. staphylococcus
Gram Stain - Final
Wound/abscess/other Cult Final 06/12/2023
Few Escherichia coli*
Rare Staphylococcus epidermidis
*Please Refer to culture [id number] for antibiotic sensitivities.
Organism 1 Staphylococcus epidermidis
1. Staphylococcus epidermidis
M.I.C. RX
--------- ---
Amoxicillin/Potas. Clavulanate <=4/2 R
Ampicillin 4 R
Clindamycin >4 R
Gentamicin <=4 S
Erythromycin >4 R
Levofloxacin <=1 S
Oxacillin >2 R
Tetracycline <=4 S
Trimethoprim/Sulfamethoxazole 2/38 S
Vancomycin 2 S
Wound/abscess/other Cult Final 06/11/23
Few Escherichia coli
Few Klebsiella pneumoniae
Moderate Diptheroids
Moderate Coagulase neg. staphylococcus
1. Escherichia coli
M.I.C. RX
--------- ---
Amoxicillin/Potas. Clavulanate >16/8 R
Ampicillin >16 R
Ampicillin/Sulbactam >16/8 R
Cefazolin >16 R
Cefepime <=2 S
Ceftazidime 4 S
Ceftriaxone <=1 S
Ertapenem <=0.5 S
Ciprofloxacin <=0.25 S
Gentamicin <=4 S
Levofloxacin <=0.5 S
Meropenem <=1 S
Piperacillin/Tazobactam <=16 S
Tobramycin <=4 S
Trimethoprim/Sulfamethoxazole <=2/38 S
2. Klebsiella pneumoniae
M.I.C. RX
--------- ---
Amoxicillin/Potas. Clavulanate <=8/4 S
Ampicillin >16 R
Ampicillin/Sulbactam <=8/4 S
Cefazolin <=2 S
Ertapenem <=0.5 S
Ciprofloxacin <=0.25 S
Gentamicin <=4 S
Levofloxacin <=0.5 S
Meropenem <=1 S
Piperacillin/Tazobactam <=16 S
Tobramycin <=4 S
Trimethoprim/Sulfamethoxazole <=2/38 S
[2023-06-19 15:19] VITALS: BP 133/61
--- NOTE | 2023-06-19 15:57 | CM ---
Discharge Plan of Care: Therapy recommendation for Acute Rehab. [facility] not [facility] any beds. Confirmed again today. Sent additional referrals to [facility] and [facility]. [place] [facility] unable to accept. [facility] has [facility] Will review
with patient and . Per ID, anticipate IV/AB x 2 additional weeks.
[2023-06-19 16:41] LABS: Glucose - Point of Care 166 mg/dl (70-99)
--- NOTE | 2023-06-19 18:37 | PTCARENOTE ---
RN took patient on 3 walks this shift. All three times, pt only wanted to go outside her room and turn back. Pt requires a lot of encouragement to perform ADL's and is asking staff to do basic essential tasks she can do and has performed before on
her own. RN continues to encourage independence to the safest level patient can perform. Groin surgery wound was cleansed with saline and sterile abd pad/drain sponges. See flowsheets for further care details.
[2023-06-19] MEDS: INVANZ 55 MG IV (20:13)
[2023-06-19] MEDS: MELATONIN 10 MG PO (21:11)
[2023-06-19] MEDS: DESYREL 12.5 MG PO (21:11)
[2023-06-19 21:58] LABS: Glucose - Point of Care 186 mg/dl (70-99)
[2023-06-19 23:15] VITALS: BP 156/49
--- NOTE | 2023-06-20 05:00 | DOWNTIME ---
There was a [employer] Downtime on 06/20/2023 from 0100 to 06/20/2023 at 0439. Downtime documentation of patient's care, including medication administrations, has been reconciled in the electronic record per guidelines. Refer to the
patient's paper chart under the miscellaneous tab to see printed paper medication records and downtime forms.
[2023-06-20 05:35] VITALS: BP 95/53
[2023-06-20] MEDS: TYLENOL 1000 MG PO ×3 (06:04→19:46)
[2023-06-20] MEDS: HEPARIN 5000 UNITS SC ×3 (06:04→22:39)
[2023-06-20 06:21] LABS: Blood Urea Nitrogen 33 mg/dl (7-17); Calcium 11.1 mg/dl (8.4-10.2); Carbon Dioxide 22 mmol/L (22-30); Chloride 110 mmol/L (98-107); Estimated Creatinine Clearance 26 ml/min; Glucose 130 mg/dl (70-99); Potassium 4.1 mmol/L (3.5-5.1); Sodium 136 mmol/L (135-145); eGFR 26.86
[2023-06-20 06:45] LABS: Vitamin D, 25-OH*** 27.5 ng/mL (30-80)
[2023-06-20 07:30] VITALS: BP 130/63
--- NOTE | 2023-06-20 08:23 | W.PN.PLAS ---
Today's Communication
-
Dry gauze to left groin changed daily and PRN
dispo planning
Progress Note
Subjective Data
doing well, pain well-controlled
Subjective: Tolerating Regular Diet
Objective Data
Vital Signs
Temp Pulse Resp BP Pulse Ox
98.0 F 60 18 130/63 98
06/20/23 07:30 06/20/23 07:30 06/20/23 07:30 06/20/23 07:30 06/20/23 07:30
Intake and Output
06/19/23 06/20/23 06/21/23
06:59 06:59 06:59
Intake Total 1010 / 1010 960 / 960
Output Total 630 / 630 80 / 80
Balance 380 / 380 880 / 880
Intake:
Oral fluids 240 / 240 960 / 960
IV piggybacks 770 / 770
Output:
Drain Output (Total) 30 / 30 80 / 80
Left Upper Leg A 15 / 15 30 / 30
Left Upper Leg B 15 / 15 50 / 50
Urine, Voided 600 / 600
Other:
Number of approximated MODERATE 3 1
amounts of urine
How many times incontinent 2
MODERATE amount urine
How many times incontinent 2
SATURATED amount urine
physical exam:
No acute distress
No increased work of breathing
Left groin incision intact with dressing in place
TERESA drain serosanguineous with appropriate output
Lab Results
06/19/23 04:37
06/20/23 05:45
Wound Documentation
06/15/23 14:40 (created 06/15/23 15:37) Wound Note by Gwendolyn Harmon
WOC RN note: TALI Kingsley notified this ticket writer that patient's rental vac pump was discontinued and was placed in 2S soiled utility room. Notified [employer] via [employer] stop rental vac date of 06/15/23 and for black pickler (Vac serial #[id number]; work order
#[id number]).
Initialized on 06/15/23 15:37 - END OF NOTE
Size in centimeters (length/ incision about 12cm long; large cloudy ss
width/depth) [Left Groin] drainage.
Last measured date [Left Groin 06/11/23
]
Physical Exam
Wound:
Size in centimeters (length/ incision about 12cm long; large cloudy ss
width/depth) [Left Groin] drainage.
Last measured date [Left Groin 06/11/23
]
Assessment / Plan
status post left groin flap excisional debridement
Incisional VAC off
Work with PT OT
Drains to stay
Dispo plan
[2023-06-20] MEDS: NON-FORMULARY ITEM 1 INH INH (08:28)
[2023-06-20 08:42] LABS: Glucose - Point of Care 161 mg/dl (70-99)
[2023-06-20] MEDS: NOVOLOG FLEXPEN-MODERATE RESISTANCE 1 UNITS SC ×3 (08:49→17:34)
[2023-06-20] MEDS: MIRALAX 17 GRAMS PO (08:51)
[2023-06-20] MEDS: FEOSOL 325 MG PO (08:51)
[2023-06-20] MEDS: ASPIR LOW (ENTERIC COATED) 81 MG PO (08:51)
[2023-06-20] MEDS: VITAMIN B-6 250 MG PO (08:52)
[2023-06-20] MEDS: LIPITOR 40 MG PO (08:52)
[2023-06-20] MEDS: VITAMIN C 500 MG PO (08:52)
[2023-06-20] MEDS: SENOKOT-S 1 TABLET PO ×2 (08:53→19:47)
[2023-06-20] MEDS: NORVASC 5 MG PO (08:53)
[2023-06-20] MEDS: VITAMIN D3 (cholecalciferol) 50 MCG PO (08:53)
[2023-06-20] MEDS: PROTONIX 40 MG PO (08:53)
[2023-06-20] MEDS: PLAVIX 75 MG PO (08:53)
[2023-06-20] MEDS: VITAMIN B1 100 MG PO ×2 (08:53→19:47)
[2023-06-20] MEDS: SINGULAIR 10 MG PO (08:54)
--- NOTE | 2023-06-20 08:59 | PHA.VAN.FU ---
Vancomycin Assessment / Plan
- Assessment
Renal Function: Stable
WBC's are: WNL
In the past 24 hrs, patient has been: Afebrile
Concomitant Antimicrobials: ertapenem
- Dosing Plan
Continue: Vanc 1250mg Q72H
Dosing Comments: next doses: 06/20, 06/23, 06/26, 06/29, 07/02
- Monitoring Plan
Trough Level: 06/20 05:30, if remains admitted
Monitoring Comments: if discharged, may consider level for 06/26
- Follow Up
Pharmacy will continue to follow.
Vancomycin Follow UP
- -
Patient Age: 77
Patient Sex: Female
Vancomycin Day #: 10
Indication: Skin And Soft Tissue
Requesting Provider: Dr. Silva / Campbell
Pertinent Antimicrobial Allergies:
NKDA
Height / Weight:
Height 5 ft 1 in
Actual Weight 93 kg
IBW in k.8
Adjusted BW in k.9
Pertinent Past Medical History: BMI ~39, DM, recent TAVR, CKD
- Vital Signs / Lab Results
Temp Pulse Resp BP Pulse Ox
98.0 F 60 16 130/63 94
06/20/23 07:30 06/20/23 08:34 06/20/23 08:34 06/20/23 07:30 06/20/23 08:34
Lab Results - Hematology
06/17/23 06/18/23 06/19/23
09:44 05:19 04:37
WBC 12.3 H 10.8 8.0
Lab Results - Chemistry
06/18/23 06/19/23 06/20/23
05:19 04:37 05:45
BUN 32 H 34 H 33 H
Creatinine 2.1 H 2.0 H 1.9 H
Estimated Creat Clear
Therapeutic Drug Monitoring
Random Vancomycin 12.7 ug/ml 06/18/23 05:19
--- NOTE | 2023-06-20 12:01 | W.PN.ID1 ---
Date of Service
Date of Service: June 20, 2023
Today's Communication
Continue antibiotics. See below�
Assessment / Plan
Left groin infection
- s/p debridement and VAC placement.
- cultures pending
S/p recent TAVR
Leukocytosis
HTN
Dyslipidemia
DM
Anxiety
CKD
Asthma
Pituitary adenoma
Obesity
Recommendations:
Continue with vancomycin & ertapenam for an additional 13 days. Following Vanco levels to guide dosing.
Monitor white count and temperature curve.
Monitor TERESA drain output.
Bovine patch is in place and may have been infected. Following acute course of antibiotics, patient may need chronic lifelong suppression.
Given sensitivities of recovered isolates, would begin Bactrim DS 1 tab PO daily following current course of vanco/ertapenam. Would continue bactrim at least 6 months.
Will follow up in office in 2-3 weeks.
Await disposition
Chief Complaint
-: Other (Left groin infection)
Subjective / Review of Systems
Review of Systems: No Fever
Vital Signs / Physical Exam
Vital Signs
Vital Signs
Temp Pulse Resp BP Pulse Ox
98.0 F 60 16 130/63 94
06/20/23 07:30 06/20/23 08:34 06/20/23 08:34 06/20/23 07:30 06/20/23 08:34
Physical Exam
Constitutional: No Acute Distress, Comfortable and Non-toxic
Eyes: No Conjunctival Hemorrhage; Negative Sclera Anicteric
Cardiovascular: S1/S2; Negative S3/S4
Pulmonary: Non Labored
Gastrointestinal: Soft and Non Tender
Extremities: Edema; Negative Cyanosis or Erythema
Wound: Other (Left groin dressed. TERESA [address]
Neurological: Awake and Alert
Psychological: Calm
Objective Data
Lab Data
Lab Results
06/19/23 04:37
06/20/23 05:45
Estimated Creat Clear 26 ml/min 06/20/23 05:45
Total Bilirubin 0.5 mg/dl (0.2-1.3) 06/10/23 17:29
AST 34 U/L (14-36) 06/10/23 17:29
ALT 23 U/L (0-35) 06/10/23 17:29
Alkaline Phosphatase 140 U/L (38-126) H 06/10/23 17:29
Most recent labs reviewed.
Micro Results:
06/12/23 14:55 Wound Culture - Final
Groin - Left Staphylococcus epidermidis
Escherichia coli
Gram Stain - Final
06/12/23 14:55 Anaerobic Culture - Final
Groin - Left Finegoldia magna
06/11/23 02:48 Blood Culture - Final
Blood/Venous No Growth - Final Report
06/11/23 02:11 Blood Culture - Final
Blood/Venous No Growth - Final Report
06/11/23 02:01 Wound Culture - Final
Groin - Left Escherichia coli
Klebsiella pneumoniae
Diptheroids
Coagulase neg. staphylococcus
Gram Stain - Final
Wound/abscess/other Cult Final 06/12/2023
Few Escherichia coli*
Rare Staphylococcus epidermidis
*Please Refer to culture [id number] for antibiotic sensitivities.
Organism 1 Staphylococcus epidermidis
1. Staphylococcus epidermidis
M.I.C. RX
--------- ---
Amoxicillin/Potas. Clavulanate <=4/2 R
Ampicillin 4 R
Clindamycin >4 R
Gentamicin <=4 S
Erythromycin >4 R
Levofloxacin <=1 S
Oxacillin >2 R
Tetracycline <=4 S
Trimethoprim/Sulfamethoxazole 2/38 S
Vancomycin 2 S
Wound/abscess/other Cult Final 06/11/23
Few Escherichia coli
Few Klebsiella pneumoniae
Moderate Diptheroids
Moderate Coagulase neg. staphylococcus
1. Escherichia coli
M.I.C. RX
--------- ---
Amoxicillin/Potas. Clavulanate >16/8 R
Ampicillin >16 R
Ampicillin/Sulbactam >16/8 R
Cefazolin >16 R
Cefepime <=2 S
Ceftazidime 4 S
Ceftriaxone <=1 S
Ertapenem <=0.5 S
Ciprofloxacin <=0.25 S
Gentamicin <=4 S
Levofloxacin <=0.5 S
Meropenem <=1 S
Piperacillin/Tazobactam <=16 S
Tobramycin <=4 S
Trimethoprim/Sulfamethoxazole <=2/38 S
2. Klebsiella pneumoniae
M.I.C. RX
--------- ---
Amoxicillin/Potas. Clavulanate <=8/4 S
Ampicillin >16 R
Ampicillin/Sulbactam <=8/4 S
Cefazolin <=2 S
Ertapenem <=0.5 S
Ciprofloxacin <=0.25 S
Gentamicin <=4 S
Levofloxacin <=0.5 S
Meropenem <=1 S
Piperacillin/Tazobactam <=16 S
Tobramycin <=4 S
Trimethoprim/Sulfamethoxazole <=2/38 S
Care Review
Plan reviewed with: Physician (Hospitalist)
[2023-06-20 12:07] VITALS: BP 151/58; PULSE 73; O2SAT 92
[2023-06-20 13:10] LABS: Glucose - Point of Care 151 mg/dl (70-99)
--- NOTE | 2023-06-20 13:13 | W.PN.HOSP.TC ---
Today's Communication/Plan
-
Discharge planning
Assessment / Plan
Assessment / Plan
Gen-AAOx3, NAD, obese
HEENT-NC, AT, anicteric, clear oral mm
Neck-supple
CV-reg, no M, +S1/S2
Lungs-clear B/L
Abd-soft, NT, ND
Ext-no edema
Musculoskeletal-no cyanosis, clubbing
Skin-warm and dry
Neuro-grossly non-focal
Psych-calm, cooperative
Acute metabolic encephalopathy -resolved.
Constipation -improving.
Anxiety
Left inguinal infection/abscess - after recent left femoral TAVR. Clinically improving. White blood cell count normalized. Afebrile.
� S/p debridement and VAC placement
� Follow-up final cultures
Continue antibiotics, vanco and ertapenem for 2-week course as per ID, then long-term oral Bactrim for suppression.
Chronic cough -unclear etiology. Encourage incentive spirometry, add Acapella. Follow-up with pulmonary after discharge.
Thrombocytopenia -mild.
DM2 without hyperglycemia -last hemoglobin A1c 6.9%. Currently on moderate resistance NovoLog scale. Glucose 130 this morning.
Hypercalcemia -intact PTH 29, doubt hyperparathyroidism. Calcium 11.1 today. Differential diagnosis includes immobilization. HCTZ discontinued. SPEP ordered.
Aortic stenosis - recent TAVR 05/31/2023. Complicated by postprocedural stroke.
Post Op stroke -continue dual antiplatelet therapy.
Hyperlipidemia -on atorvastatin.
CKD 3B -renal function at baseline.
Chronic normocytic anemia -hemoglobin near baseline. Etiology likely due to chronic kidney disease, recent illness, operative losses, etc.
Hypomagnesemia -resolved.
Essential hypertension -stable.
Obesity due to excess calories
Full code
Dispo -medically stable for discharge to [facility]. Unfortunately no beds available until the weekend. updated.
Anticipated Discharge: 24 - 48 hours
Subjective/Interval History
-
Date of Service: June 20, 2023
Patient seen and examined. No new complaints. Does have a chronic cough since February.
Objective Data
-
Labs:
Laboratory Results
06/20/23
05:45
Sodium 136
Potassium 4.1
Chloride 110 H
Carbon Dioxide 22
BUN 33 H
Creatinine 1.9 H
Glucose 130 H
Calcium 11.1 H
Vital Signs:
Vital Signs
Temp Pulse Resp BP Pulse Ox
98.0 F 60 16 130/63 94
06/20/23 07:30 06/20/23 08:34 06/20/23 08:34 06/20/23 07:30 06/20/23 08:34
I&O
06/19/23 06/20/23 06/21/23
06:59 06:59 06:59
Intake Total 1010 / 1010 960 / 960 240 / 240
Output Total 630 / 630 80 / 80
Balance 380 / 380 880 / 880 240 / 240
Review of Systems
-
History Source: Patient
All other systems: Reviewed and negative
--- NOTE | 2023-06-20 15:09 | CM ---
Patient has been accepted to [facility]. Anticipate discharge on 06/21/23. Transport is scheduled for 12:00 N. Patient, , MD, admissions and team notified. IMM completed.
NURSE TO NURSE REPORT # [phone]
FAX # [phone]
[2023-06-20 15:35] VITALS: BP 97/55
[2023-06-20 16:52] LABS: Glucose - Point of Care 168 mg/dl (70-99)
[2023-06-20] MEDS: INVANZ 55 MG IV (19:48)
[2023-06-20 21:32] LABS: Glucose - Point of Care 222 mg/dl (70-99)
[2023-06-20] MEDS: MELATONIN 10 MG PO (22:38)
[2023-06-20] MEDS: DESYREL 12.5 MG PO (22:39)
[2023-06-20 23:30] VITALS: BP 141/59
[2023-06-21 05:53] LABS: Vancomycin Trough 10.3 ug/ml (5-20)
[2023-06-21] MEDS: TYLENOL 1000 MG PO (06:09)
[2023-06-21] MEDS: VANCOCIN 275 MG IV (06:09)
[2023-06-21] MEDS: HEPARIN 5000 UNITS SC (06:09)
[2023-06-21] MEDS: NON-FORMULARY ITEM 1 INH INH (07:20)
[2023-06-21 07:50] VITALS: BP 98/47
[2023-06-21 07:55] LABS: Glucose - Point of Care 152 mg/dl (70-99)
--- NOTE | 2023-06-21 08:54 | PHA.VAN.FU ---
Vancomycin Assessment / Plan
- Assessment
Renal Function: No New Labs Today
WBC's are: WNL
In the past 24 hrs, patient has been: Afebrile
Concomitant Antimicrobials: ertapenem
- Assessment - Trough Based Monitoring
Trough Value: 10.3
Level Today was: Appropriate
Level Comments: drawn ~65H after previous dose of 1250mg
- Dosing Plan
Adjust Regimen to: Vanc 1500mg Q72H - give additional 500mg x1 today
New Regimen Predicts: Trough (12 by linear PK)
Dosing Comments: next doses: 06/23, 06/26, 06/29, 07/02
- Monitoring Plan
Level(s) appropriate: Recheck trough at minimum of weekly intervals, Repeat sooner for changes in renal function or clinical status
Next Level Due (Date): next level ~06/26
Monitoring Comments: may consider holding off further levels based on anticipated stop date
- Follow Up
Pharmacy will continue to follow.
Vancomycin Follow UP
- -
Patient Age: 77
Patient Sex: Female
Vancomycin Day #: 11
Indication: Skin And Soft Tissue
Requesting Provider: Dr. Silva / [place]
Pertinent Antimicrobial Allergies:
NKDA
Height / Weight:
Height 5 ft 1 in
Actual Weight 93 kg
IBW in k.8
Adjusted BW in k.9
Pertinent Past Medical History: BMI ~39, DM, recent TAVR, CKD
- Vital Signs / Lab Results
Temp Pulse Resp BP Pulse Ox
98.3 F 73 16 98/47 96
06/21/23 07:50 06/21/23 07:50 06/21/23 07:50 06/21/23 07:50 06/21/23 07:50
Lab Results - Hematology
06/19/23
04:37
WBC 8.0
Lab Results - Chemistry
06/19/23 06/20/23
04:37 05:45
BUN 34 H 33 H
Creatinine 2.0 H 1.9 H
Estimated Creat Clear
Therapeutic Drug Monitoring
Vancomycin Trough 10.3 ug/ml (5-20) 06/21/23 05:28
Random Vancomycin 12.7 ug/ml 06/18/23 05:19
[2023-06-21] MEDS: SINGULAIR 10 MG PO (09:17)
[2023-06-21] MEDS: VITAMIN B-6 250 MG PO (09:18)
[2023-06-21] MEDS: PLAVIX 75 MG PO (09:18)
[2023-06-21] MEDS: VITAMIN D3 (cholecalciferol) 50 MCG PO (09:18)
[2023-06-21] MEDS: VITAMIN C 500 MG PO (09:18)
[2023-06-21] MEDS: VITAMIN B1 100 MG PO (09:18)
[2023-06-21] MEDS: LIPITOR 40 MG PO (09:18)
[2023-06-21] MEDS: PROTONIX 40 MG PO (09:18)
[2023-06-21] MEDS: ASPIR LOW (ENTERIC COATED) 81 MG PO (09:19)
[2023-06-21] MEDS: SENOKOT-S PO (09:19)
[2023-06-21] MEDS: FEOSOL 325 MG PO (09:19)
[2023-06-21] MEDS: MIRALAX PO (09:19)
[2023-06-21] MEDS: NOVOLOG FLEXPEN-MODERATE RESISTANCE 1 UNITS SC (09:20)
[2023-06-21] MEDS: VANCOCIN HCL 500 MG 100 IV (09:20)
[2023-06-21] MEDS: NORVASC PO (09:20)
--- NOTE | 2023-06-21 10:39 | W.DS.TRANS ---
DC Summary - [employer]
-
Discharge Instructions:
Discharge Diagnosis/Procedures Left inguinal infection/abscess, hypercalcemia,
recent stroke
Diet Diabetic, Carb Controlled
Activity As tolerated,With assistance
Driving Restrictions No driving
Bathing Restrictions None
Blood Work CBC, BMP next week
Instructions:
Stand-Alone Forms:
Changes to Home Medications: No
Discharge Medications:
DC Medications w/original date entered in [employer]
cholecalciferol (vitamin D3) 25 mcg (1,000 unit) tablet 2,000 units PO DAILY Supplement 04/09/16
sitagliptin phosphate 100 mg tablet (Januvia) 50 mg PO DAILY Diabetes 04/09/16
amlodipine 5 mg tablet 5 mg PO DAILY 07/26/21
pyridoxine (vitamin B6) 50 mg tablet 250 mg PO DAILY Supplement 07/26/21
aspirin 81 mg tablet,delayed release 81 mg PO DAILY #1 tab 04/17/23
atorvastatin 20 mg tablet 40 mg PO DAILY High Cholesterol 04/17/23
ferrous sulfate 325 mg (65 mg iron) tablet 325 mg PO DAILY Supplement 04/17/23
montelukast 10 mg tablet 10 mg PO DAILY Lung/Breathing Issues 04/17/23
fluticasone fur. 100 mcg-umeclid 62.5 mcg-vilant 25 mcg inhalat.powder (Trelegy Ellipta) 1 inh inhalation R DAILY Lung/Breathing Issues 05/22/23
clopidogrel 75 mg tablet 75 mg PO DAILY Heart disease/condition #0 tabs 06/04/23
pantoprazole 40 mg tablet,delayed release 40 mg PO DAILY GI prophylaxis #0 tabs 06/04/23
sennosides 8.6 mg-docusate sodium 50 mg tablet (Stool Softener-Stimulant Laxative) 1 tab PO BID #0 tabs 06/04/23
acetaminophen 500 mg tablet 1,000 mg PO TID@0700,1300,2000 06/10/23
ascorbic acid (vitamin C) 500 mg tablet (Vitamin C) 500 mg PO DAILY 06/10/23
bisacodyl 10 mg rectal suppository (Dulcolax (bisacodyl)) 10 mg OR DAILY PRN if no bm with oral bisacodyl 06/10/23
docusate sodium 100 mg capsule 100 mg PO BID 06/10/23
heparin (porcine) 5,000 unit/mL injection solution 5,000 unit SC TID@0600,1400,2200 06/10/23
melatonin 10 mg tablet 10 mg PO HS 06/10/23
trazodone 50 mg tablet 12.5 mg PO HS 06/10/23
Ertapenem [Invanz] 500 mg 100 mls/hr IV Q24H 06/21/23
IV with Additives 200 mls/hr IV Q72H 06/21/23
bisacodyl 5 mg tablet,delayed release 10 mg (2 x 5 mg) PO DAILYPRN PRN constipation #0 tabs 06/21/23
polyethylene glycol 3350 17 gram oral powder packet (HealthyLax) 17 g PO DAILY #0 ea 06/21/23
thiamine HCl (vitamin B1) 100 mg tablet 100 mg PO BID #0 tabs 06/21/23
Home Medication Changes
Pending Results: No
--- NOTE | 2023-06-21 11:07 | W.PN.NEPH.PH ---
Today's Communication / Plan
-
likely for discharge
Assessment/Plan
-
Assessment:
Hypercalcemia
CKD3b
Anxiety/Depression
Left inguinal infection/abscess
Thrombocytopneia
DM
Recent TAVR
HTN
Plan:
- very mild hypercalcemia noted since 06/11
- PTH at 29 (normal/low normal). vitamin D 25: low at 27.5, awaiting 1,25, paraprotein workup. TSH previously normal
- most likely hypercalcemia of immobilization based on history
- creatinine stable at baseline
She should see nephrology for here CKD and they can always follow up on the calcium labs as an outpatient.
-
-
Date of Service: June 21, 2023
CC / HPI / ROS
-
Chief Complaint:
Hypercalcemia
Chronic kidney
History of Present Illness:
Serum calcium stable at 11.1
Hemodynamically stable
Creatinine stable at 1.9
Review of Systems:
No shortness of breath but cough
No chest pain
Subjectively nonoliguric with incontinence
Labs
-
Labs:
WBC 8.0 10^3/uL (4.8-10.8) 06/19/23 04:37
RBC 2.59 10^6/uL (4.20-5.40) L 06/19/23 04:37
Hgb 8.0 g/dL (12.0-16.0) L 06/19/23 04:37
Hct 23.9 % (37.0-47.0) L 06/19/23 04:37
Plt Count 121 10^3/uL (130-400) L 06/19/23 04:37
Sodium 136 mmol/L (135-145) 06/20/23 05:45
Potassium 4.1 mmol/L (3.5-5.1) 06/20/23 05:45
Chloride 110 mmol/L (98-107) H 06/20/23 05:45
Carbon Dioxide 22 mmol/L (22-30) 06/20/23 05:45
BUN 33 mg/dl (7-17) H 06/20/23 05:45
Creatinine 1.9 mg/dL (0.6-1.0) H 06/20/23 05:45
eGFR 26.86 06/20/23 05:45
Glucose 130 mg/dl (70-99) H 06/20/23 05:45
Calcium 11.1 mg/dl (8.4-10.2) H 06/20/23 05:45
Phosphorus 3.6 mg/dl (2.5-4.5) 06/15/23 19:53
Albumin 3.5 g/dl (3.5-5.0) 06/14/23 05:15
Physical Exam
-
Vital Signs:
Vital Signs
Temp Pulse Resp BP Pulse Ox
98.3 F 73 16 98/47 96
06/21/23 07:50 06/21/23 07:50 06/21/23 07:50 06/21/23 07:50 06/21/23 07:50
Cardiovascular:: Regular rate and rhythm
Respiratory:: Bilateral: Coarse
Lung Excursion:: Normal
Abdomen:: Nontender and Soft
Bowel Sounds:: Normal
Extremity Edema:: None: Bilateral:
Sarkar Catheter: No
[2023-06-21 11:13] LABS: Glucose - Point of Care 190 mg/dl (70-99)
--- NOTE | 2023-06-21 11:35 | CM ---
Met with patient and at the bedside
IMM benefit explained; signed form @ 1130
Plan: discharge to [facility] via ambulance today
NURSE TO NURSE REPORT # [phone]
FAX # [phone]
[2023-06-21 11:47] VITALS: BP 139/55
[2023-06-21] MEDS: NOVOLOG FLEXPEN-MODERATE RESISTANCE SC (12:04)
--- NOTE | 2023-06-21 12:19 | W.PN.HOSP.TC ---
Today's Communication/Plan
-
Discharge
Assessment / Plan
Assessment / Plan
Gen-AAOx3, NAD, obese
HEENT-NC, AT, anicteric, clear oral mm
Neck-supple
CV-reg, no M, +S1/S2
Lungs-clear B/L
Abd-soft, NT, ND
Ext-no edema
Musculoskeletal-no cyanosis, clubbing
Skin-warm and dry
Neuro-grossly non-focal
Psych-calm, cooperative
Acute metabolic encephalopathy -resolved.
Constipation -improving.
Anxiety
Left inguinal infection/abscess - after recent left femoral TAVR. Clinically improving. White blood cell count normalized. Afebrile.
� S/p debridement and VAC placement
� Follow-up final cultures
Continue antibiotics, vanco and ertapenem for 2-week course as per ID, then long-term oral Bactrim for suppression.
Chronic cough -unclear etiology. Encourage incentive spirometry, add Acapella. Follow-up with pulmonary after discharge.
Thrombocytopenia -mild.
DM2 without hyperglycemia -last hemoglobin A1c 6.9%. Currently on moderate resistance NovoLog scale. Glucose 152 this morning.
Hypercalcemia -intact PTH 29, doubt hyperparathyroidism. Calcium 11.1 today. Differential diagnosis includes immobilization. HCTZ discontinued. SPEP ordered.
Aortic stenosis - recent TAVR 05/31/2023. Complicated by postprocedural stroke.
Post Op stroke -continue dual antiplatelet therapy.
Hyperlipidemia -on atorvastatin.
CKD 3B -renal function at baseline.
Chronic normocytic anemia -hemoglobin near baseline. Etiology likely due to chronic kidney disease, recent illness, operative losses, etc.
Hypomagnesemia -resolved.
Essential hypertension -stable.
Obesity due to excess calories
Full code
Dispo -medically stable for discharge to [facility] rehab today. updated at the bedside.
Anticipated Discharge: Today
Subjective/Interval History
-
Date of Service: June 21, 2023
Patient seen and examined. No complaints.
Objective Data
-
Vital Signs:
Vital Signs
Temp Pulse Resp BP Pulse Ox
97.6 F 77 18 139/55 94
06/21/23 11:47 06/21/23 11:47 06/21/23 11:47 06/21/23 11:47 06/21/23 11:47
I&O
06/20/23 06/21/23 06/22/23
06:59 06:59 06:59
Intake Total 960 / 960 600 / 600
Output Total 80 / 80
Balance 880 / 880 600 / 600
Review of Systems
-
History Source: Patient
All other systems: Reviewed and negative
--- NOTE | 2023-06-21 12:25 | PTCARENOTE ---
Patient being discharged to [facility]. Replaced IV for planned continuation of antibiotics. Removed Old/Leaking IV's.
Had spoke with clinical liaison earlier today and gave brief report. Was told by clinical liaison she would call back to get official report.
[2023-06-22 02:28] LABS: Vitamin D 1,25 Dihydroxy 10.5 pg/mL (19.9-79.3)
[2023-06-23 22:58] LABS: Albumin 3.37 g/dL (3.75-5.01); Alpha 1 Globulin 0.49 g/dL (0.19-0.46); Alpha 2 Globulin 0.93 g/dL (0.48-1.05); SPEP IFE Reflex IFE Done; Total Protein-Electrophoresis 6.4 g/dL (6.3-8.2)
[2023-06-25 08:13] LABS: IgA 109 mg/dL (68-408); IgG 741 mg/dL (768-1632); IgM 194 mg/dL (35-263)
== END 2023-06-21 12:30 | DRG 901 ==
LOC: 2 SOUTH 22:12
PROVIDERS: Hospitalist; Internal Medicine Infectious Disease; Nurse Practitioner; Physician Assistant; Specialist; ADMITTING PHYSICIAN Internal Medicine; ATTENDING PHYSICIAN Hospitalist; CONSULT PHYSICIAN Internal Medicine Infectious Disease; CONSULT PHYSICIAN Student in an Organized Health Care Education/Training Program; CONSULT PHYSICIAN Surgery; CONSULT PHYSICIAN Surgery Plastic and Reconstructive Surgery; EMERGENCY PHYSICIAN Emergency Medicine; FAMILY PHYSICIAN Family Medicine
PROC: 0KXR0ZZ Transfer Left Upper Leg Muscle, Open Approach (ICD-10-PCS; 2023-06-12)
PROC: 0JBM0ZZ Excision of Left Upper Leg Subcutaneous Tissue and Fascia, Open Approach (ICD-10-PCS; 2023-06-12)
DX: L76.82 Other postprocedural complications of skin and subcutaneous tissue (principal); G93.41 Metabolic encephalopathy; D62 Acute posthemorrhagic anemia; L02.214 Cutaneous abscess of groin; N18.4 Chronic kidney disease, stage 4 (severe); L03.314 Cellulitis of groin; B96.20 Unspecified Escherichia coli [E. coli] as the cause of diseases classified elsewhere; B96.1 Klebsiella pneumoniae [K. pneumoniae] as the cause of diseases classified elsewhere; B95.7 Other staphylococcus as the cause of diseases classified elsewhere; Y83.8 Other surgical procedures as the cause of abnormal reaction of the patient, or of later complication, without mention of misadventure at the time of the procedure; D69.6 Thrombocytopenia, unspecified; I12.9 Hypertensive chronic kidney disease with stage 1 through stage 4 chronic kidney disease, or unspecified chronic kidney disease; E11.22 Type 2 diabetes mellitus with diabetic chronic kidney disease; E83.52 Hypercalcemia; E66.9 Obesity, unspecified; Z68.38 Body mass index [BMI] 38.0-38.9, adult
CPT/HCPCS: 70450; 71045; 74018; 80048; 80053; 80202; 81003; 81015; 82040; 82140; 82306; 82330; 82607; 82652; 82784; 82962; 83735; 83970; 84100; 84155; 84165; 85025; 85027; 86334; 86850; 86900; 86901; 87040; 87070; 87071; 87075; 87076; 87077; 87147; 87186; 87205; 93971; 94640; 97110; 97116; 97163; 97167; 97530; 97535; 99285; C1729; J1335

== ENCOUNTER → 2023-07-27 12:31 | Outpatient (REF) | payer MEDICARE, OTHER, SELFPAY | LOC: WOUND 12:31 | PROVIDERS: ATTENDING PHYSICIAN Surgery; FAMILY PHYSICIAN Family Medicine | DX: S31.104A Unspecified open wound of abdominal wall, left lower quadrant without penetration into peritoneal cavity, initial encounter (principal); I35.9 Nonrheumatic aortic valve disorder, unspecified; E11.22 Type 2 diabetes mellitus with diabetic chronic kidney disease; E66.01 Morbid (severe) obesity due to excess calories; N18.4 Chronic kidney disease, stage 4 (severe); Z95.2 Presence of prosthetic heart valve; Z79.01 Long term (current) use of anticoagulants; X58.XXXA Exposure to other specified factors, initial encounter | CPT/HCPCS: 99204 ==

== ENCOUNTER → 2023-08-03 10:01 | Outpatient (REF) | payer MEDICARE, OTHER, SELFPAY | LOC: WOUND 10:01 | PROVIDERS: ATTENDING PHYSICIAN Surgery; FAMILY PHYSICIAN Family Medicine | DX: S31.104A Unspecified open wound of abdominal wall, left lower quadrant without penetration into peritoneal cavity, initial encounter (principal); Z79.01 Long term (current) use of anticoagulants; I35.9 Nonrheumatic aortic valve disorder, unspecified; E11.22 Type 2 diabetes mellitus with diabetic chronic kidney disease; Z95.2 Presence of prosthetic heart valve; E66.01 Morbid (severe) obesity due to excess calories; N18.4 Chronic kidney disease, stage 4 (severe); Y83.8 Other surgical procedures as the cause of abnormal reaction of the patient, or of later complication, without mention of misadventure at the time of the procedure | CPT/HCPCS: 11042; 11045 ==

== ENCOUNTER → 2023-08-10 10:34 | Outpatient (REF) | payer MEDICARE, OTHER, SELFPAY | LOC: WOUND 10:34 | PROVIDERS: ATTENDING PHYSICIAN Surgery; FAMILY PHYSICIAN Family Medicine | DX: S31.104A Unspecified open wound of abdominal wall, left lower quadrant without penetration into peritoneal cavity, initial encounter (principal); I35.9 Nonrheumatic aortic valve disorder, unspecified; E11.22 Type 2 diabetes mellitus with diabetic chronic kidney disease; E66.01 Morbid (severe) obesity due to excess calories; N18.4 Chronic kidney disease, stage 4 (severe); Z95.2 Presence of prosthetic heart valve; Z79.01 Long term (current) use of anticoagulants; Y83.8 Other surgical procedures as the cause of abnormal reaction of the patient, or of later complication, without mention of misadventure at the time of the procedure | CPT/HCPCS: 11042; 11045 ==

== ENCOUNTER → 2023-08-17 10:48 | Outpatient (REF) | payer MEDICARE, OTHER, SELFPAY | LOC: WOUND 10:48 | PROVIDERS: ATTENDING PHYSICIAN Surgery | DX: S31.104A Unspecified open wound of abdominal wall, left lower quadrant without penetration into peritoneal cavity, initial encounter (principal); I35.9 Nonrheumatic aortic valve disorder, unspecified; E11.22 Type 2 diabetes mellitus with diabetic chronic kidney disease; E66.01 Morbid (severe) obesity due to excess calories; N18.4 Chronic kidney disease, stage 4 (severe); Z95.2 Presence of prosthetic heart valve; Z79.01 Long term (current) use of anticoagulants; X58.XXXA Exposure to other specified factors, initial encounter | CPT/HCPCS: 11042; 11045 ==

== ENCOUNTER → 2023-08-21 12:03 | Outpatient (REF) | payer MEDICARE, OTHER, SELFPAY | LOC: RCS 12:03 | PROVIDERS: ATTENDING PHYSICIAN Physician Assistant Medical; FAMILY PHYSICIAN Family Medicine | DX: I35.0 Nonrheumatic aortic (valve) stenosis (principal) | CPT/HCPCS: 93306 ==

== ENCOUNTER → 2023-08-24 10:13 | Outpatient (REF) | payer MEDICARE, OTHER, SELFPAY | LOC: WOUND 10:13 | PROVIDERS: ATTENDING PHYSICIAN Surgery; FAMILY PHYSICIAN Family Medicine | DX: S31.104A Unspecified open wound of abdominal wall, left lower quadrant without penetration into peritoneal cavity, initial encounter (principal); I35.9 Nonrheumatic aortic valve disorder, unspecified; E11.22 Type 2 diabetes mellitus with diabetic chronic kidney disease; E66.01 Morbid (severe) obesity due to excess calories; N18.4 Chronic kidney disease, stage 4 (severe); X58.XXXA Exposure to other specified factors, initial encounter | CPT/HCPCS: 99212 ==

== ENCOUNTER → 2023-09-04 10:44 | Outpatient (REF) | payer MEDICARE, OTHER, SELFPAY | LOC: WOUND 10:44 | PROVIDERS: ATTENDING PHYSICIAN Surgery; FAMILY PHYSICIAN Family Medicine | DX: S31.104A Unspecified open wound of abdominal wall, left lower quadrant without penetration into peritoneal cavity, initial encounter (principal); I35.9 Nonrheumatic aortic valve disorder, unspecified; E11.22 Type 2 diabetes mellitus with diabetic chronic kidney disease; E66.01 Morbid (severe) obesity due to excess calories; N18.4 Chronic kidney disease, stage 4 (severe); Z79.01 Long term (current) use of anticoagulants; Z95.2 Presence of prosthetic heart valve; X58.XXXA Exposure to other specified factors, initial encounter | CPT/HCPCS: 99213 ==

== ENCOUNTER → 2023-09-13 10:57 | Outpatient (REF) | payer MEDICARE, OTHER, SELFPAY | LOC: WOUND 10:57 | PROVIDERS: ATTENDING PHYSICIAN Surgery; FAMILY PHYSICIAN Family Medicine | DX: S31.104A Unspecified open wound of abdominal wall, left lower quadrant without penetration into peritoneal cavity, initial encounter (principal); I35.9 Nonrheumatic aortic valve disorder, unspecified; E11.22 Type 2 diabetes mellitus with diabetic chronic kidney disease; E66.01 Morbid (severe) obesity due to excess calories; N18.4 Chronic kidney disease, stage 4 (severe); Z79.01 Long term (current) use of anticoagulants; X58.XXXA Exposure to other specified factors, initial encounter | CPT/HCPCS: 11042 ==

== ENCOUNTER → 2023-09-25 10:56 | Outpatient (REF) | payer MEDICARE, OTHER, SELFPAY | LOC: WOUND 10:56 | PROVIDERS: ATTENDING PHYSICIAN Surgery; FAMILY PHYSICIAN Family Medicine | DX: S31.104A Unspecified open wound of abdominal wall, left lower quadrant without penetration into peritoneal cavity, initial encounter (principal); I35.9 Nonrheumatic aortic valve disorder, unspecified; E11.22 Type 2 diabetes mellitus with diabetic chronic kidney disease; E66.01 Morbid (severe) obesity due to excess calories; N18.4 Chronic kidney disease, stage 4 (severe); Z95.2 Presence of prosthetic heart valve; Z79.01 Long term (current) use of anticoagulants; X58.XXXA Exposure to other specified factors, initial encounter | CPT/HCPCS: 11042 ==

== ENCOUNTER → 2023-10-12 09:56 | Outpatient (REF) | payer MEDICARE, OTHER, SELFPAY | LOC: WOUND 09:56 | PROVIDERS: ATTENDING PHYSICIAN Surgery; FAMILY PHYSICIAN Family Medicine | DX: S31.104A Unspecified open wound of abdominal wall, left lower quadrant without penetration into peritoneal cavity, initial encounter (principal); I35.9 Nonrheumatic aortic valve disorder, unspecified; E11.22 Type 2 diabetes mellitus with diabetic chronic kidney disease; Z95.2 Presence of prosthetic heart valve; E66.01 Morbid (severe) obesity due to excess calories; N18.4 Chronic kidney disease, stage 4 (severe); Z79.01 Long term (current) use of anticoagulants; X58.XXXA Exposure to other specified factors, initial encounter | CPT/HCPCS: 11042 ==

== ENCOUNTER → 2023-10-26 11:12 | Outpatient (REF) | payer MEDICARE, OTHER, SELFPAY | LOC: WOUND 11:12 | PROVIDERS: ATTENDING PHYSICIAN Surgery; FAMILY PHYSICIAN Family Medicine | DX: S31.104A Unspecified open wound of abdominal wall, left lower quadrant without penetration into peritoneal cavity, initial encounter (principal); I35.9 Nonrheumatic aortic valve disorder, unspecified; E11.22 Type 2 diabetes mellitus with diabetic chronic kidney disease; E66.01 Morbid (severe) obesity due to excess calories; N18.4 Chronic kidney disease, stage 4 (severe); Z79.01 Long term (current) use of anticoagulants; Z95.2 Presence of prosthetic heart valve; X58.XXXA Exposure to other specified factors, initial encounter | CPT/HCPCS: 99212 ==

== ENCOUNTER → 2023-11-22 10:53 | Outpatient (REF) | payer MEDICARE, OTHER, SELFPAY ==
[2023-11-22 12:03] LABS: % Basophils 0.7 % (0-2); % Eosinophils 2.5 % (0-6); % Immature Granulocytes 0.6 % (0-0.5); % Lymphocytes 13.5 % (20.5-51.1); % Neutrophils 72.7 % (42.2-75.2); Absolute Basophils 0.1 10^3/uL (0-0.2); Absolute Eosinophils 0.2 10^3/uL (0-0.7); Absolute Immature Granulocytes 0.1 10^3/uL (0-0.05); Absolute Lymphocytes 1.1 10^3/uL (1.2-3.4); Absolute Monocytes 0.8 10^3/uL (0.1-0.6); Absolute Neutrophils 5.9 10^3/uL (1.4-6.5); Hematocrit 30.4 % (37.0-47.0); Hemoglobin 10.3 g/dL (12.0-16.0); Mean Corp Hgb Conc. 33.9 g/dL (33.0-37.0); Mean Corpuscular Hgb 30.5 pg (27.0-31.0); Mean Corpuscular Volume 89.9 fL (81.0-99.0); Mean Platelet Volume 10.3 fL (7.4-10.4); Nucleated Red Blood Cells % 0 %; Platelet Count 205 10^3/uL (130-400); Red Blood Cell Count 3.38 10^6/uL (4.20-5.40); Red Cell Dist. Width 12.7 % (11.5-14.5); White Blood Cell Count 8.1 10^3/uL (4.8-10.8)
[2023-11-22 12:48] LABS: ALT (SGPT) 19 U/L (0-35); AST (SGOT) 25 U/L (14-36); Albumin 4.5 g/dl (3.5-5.0); Alkaline Phosphatase 95 U/L (38-126); Blood Urea Nitrogen 44 mg/dl (7-17); Calcium 10.5 mg/dl (8.4-10.2); Carbon Dioxide 21 mmol/L (22-30); Chloride 104 mmol/L (98-107); Glucose 153 mg/dl (70-99); HDL Cholesterol 44 mg/dl; Iron 79 ug/dl (37-170); LDL Cholesterol, Calculated 61 mg/dl; Phosphorus 4.3 mg/dl (2.5-4.5); Potassium 4.8 mmol/L (3.5-5.1); Sodium 143 mmol/L (135-145); Total Bilirubin 1.1 mg/dl (0.2-1.3); Total Cholesterol 167 mg/dl (50-199); Total Protein 7.1 g/dl (6.3-8.2); Triglyceride 312 mg/dl (10-149); Very Low Density Lipoprotein 62 mg/dl (0-30); eGFR 22.39
[2023-11-22 12:49] LABS: Calcium 10.5 mg/dl (8.4-10.2)
[2023-11-22 12:58] LABS: Percent Saturation 32 % (20-50); Total Iron Binding Capacity 244 ug/dl (265-497)
[2023-11-22 12:59] LABS: Glycohemoglobin (HgbA1c) 6.7 % (4.0-5.6)
[2023-11-24 11:17] LABS: Intact PTH 57.7 pg/ml (13.6-85.8)
== END ==
LOC: REG 10:53
PROVIDERS: ATTENDING PHYSICIAN Internal Medicine Interventional Cardiology; FAMILY PHYSICIAN Family Medicine; REFERRING PHYSICIAN Specialist
DX: I10 Essential (primary) hypertension (principal); I25.10 Atherosclerotic heart disease of native coronary artery without angina pectoris; E78.5 Hyperlipidemia, unspecified; E11.22 Type 2 diabetes mellitus with diabetic chronic kidney disease; N18.4 Chronic kidney disease, stage 4 (severe); D63.8 Anemia in other chronic diseases classified elsewhere
CPT/HCPCS: 36415; 80053; 80061; 83036; 83540; 83550; 83970; 84100; 85025

== ENCOUNTER 2023-12-03 16:25 | Outpatient (RCR) | payer MEDICARE, OTHER, SELFPAY ==
[2023-11-19 14:56] LABS: Glucose - Point of Care 143 mg/dl (70-99)
[2023-11-28 13:34] LABS: Glucose - Point of Care 243 mg/dl (70-99)
[2023-11-28 14:10] LABS: Glucose - Point of Care 186 mg/dl (70-99)
[2023-12-03 15:57] LABS: Glucose - Point of Care 155 mg/dl (70-99)
[2023-12-03 16:41] LABS: Glucose - Point of Care 123 mg/dl (70-99)
== END 2023-12-03 23:59 | disposition home or self-care (01) ==
LOC: CRHB 16:25
PROVIDERS: ATTENDING PHYSICIAN Internal Medicine Cardiovascular Disease
DX: Z95.4 Presence of other heart-valve replacement (principal)
CPT/HCPCS: 82962; G0422; G0423

== ENCOUNTER → 2023-12-20 14:38 | Outpatient (REF) | payer MEDICARE, OTHER, SELFPAY ==
[2023-12-20 16:38] LABS: % Eosinophils 2.3 % (0-6); % Lymphocytes 13.5 % (20.5-51.1); % Monocytes 9.2 % (1.7-9.3); Absolute Basophils 0.1 10^3/uL (0-0.2); Absolute Eosinophils 0.2 10^3/uL (0-0.7); Absolute Immature Granulocytes 0.1 10^3/uL (0-0.05); Absolute Lymphocytes 1.1 10^3/uL (1.2-3.4); Absolute Monocytes 0.7 10^3/uL (0.1-0.6); Absolute Neutrophils 5.7 10^3/uL (1.4-6.5); Hemoglobin 11.1 g/dL (12.0-16.0); Mean Corp Hgb Conc. 34.7 g/dL (33.0-37.0); Mean Corpuscular Hgb 30.7 pg (27.0-31.0); Mean Corpuscular Volume 88.6 fL (81.0-99.0); Mean Platelet Volume 10.8 fL (7.4-10.4); Nucleated Red Blood Cells % 0 %; Platelet Count 189 10^3/uL (130-400); Red Blood Cell Count 3.61 10^6/uL (4.20-5.40); Red Cell Dist. Width 12.9 % (11.5-14.5); White Blood Cell Count 7.9 10^3/uL (4.8-10.8)
== END ==
LOC: RAD 14:38
PROVIDERS: ATTENDING PHYSICIAN Family Medicine
DX: M79.89 Other specified soft tissue disorders (principal); R53.83 Other fatigue; R60.0 Localized edema
CPT/HCPCS: 36415; 84443; 85025; 93971

== ENCOUNTER 2024-01-02 16:34 | Outpatient (RCR) | payer MEDICARE, OTHER, SELFPAY ==
[2023-12-05 16:03] LABS: Glucose - Point of Care 144 mg/dl (70-99)
[2023-12-05 16:48] LABS: Glucose - Point of Care 119 mg/dl (70-99)
[2023-12-10 15:58] LABS: Glucose - Point of Care 109 mg/dl (70-99)
[2023-12-10 16:34] LABS: Glucose - Point of Care 115 mg/dl (70-99)
[2023-12-12 15:58] LABS: Glucose - Point of Care 109 mg/dl (70-99)
[2023-12-12 16:32] LABS: Glucose - Point of Care 96 mg/dl (70-99)
[2023-12-17 17:05] LABS: Glucose - Point of Care 108 mg/dl (70-99)
== END 2024-01-02 23:59 | disposition home or self-care (01) ==
LOC: CRHB 16:34
PROVIDERS: ATTENDING PHYSICIAN Internal Medicine Cardiovascular Disease
DX: Z95.4 Presence of other heart-valve replacement (principal)
CPT/HCPCS: 82962; 93797; G0422; G0423

== ENCOUNTER 2024-01-30 16:04 | Outpatient (RCR) | payer MEDICARE, OTHER, SELFPAY | END 2024-01-30 23:59 | disposition home or self-care (01) | LOC: CRHB 16:04 | PROVIDERS: ATTENDING PHYSICIAN Internal Medicine Cardiovascular Disease | DX: Z95.4 Presence of other heart-valve replacement (principal) | CPT/HCPCS: G0422 ==

== ENCOUNTER → 2024-02-18 11:00 | Outpatient (REF) | payer MEDICARE, OTHER, SELFPAY | LOC: RCS 11:00 | PROVIDERS: ATTENDING PHYSICIAN Internal Medicine Interventional Cardiology; FAMILY PHYSICIAN Physician Assistant | DX: I35.0 Nonrheumatic aortic (valve) stenosis (principal) | CPT/HCPCS: 93306 ==

== ENCOUNTER 2024-03-03 16:24 | Outpatient (RCR) | payer MEDICARE, OTHER, SELFPAY | END 2024-03-03 23:59 | disposition home or self-care (01) | LOC: CRHB 16:24 | PROVIDERS: ATTENDING PHYSICIAN Internal Medicine Cardiovascular Disease | DX: Z95.1 Presence of aortocoronary bypass graft (principal); Z95.4 Presence of other heart-valve replacement | CPT/HCPCS: G0422; G0423 ==

== ENCOUNTER 2024-03-21 15:57 | Outpatient (RCR) | payer MEDICARE, OTHER, SELFPAY | END 2024-03-21 23:59 | disposition home or self-care (01) | LOC: CRHB 15:57 | PROVIDERS: ATTENDING PHYSICIAN Internal Medicine Interventional Cardiology | DX: Z95.4 Presence of other heart-valve replacement (principal) | CPT/HCPCS: G0422; G0423 ==

== ENCOUNTER 2024-07-15 23:43 | Inpatient (IN) | payer MEDICARE, OTHER, SELFPAY ==
[2024-07-15 16:05] VITALS: BP 100/72
[2024-07-15 16:28] LABS: % Basophils 0.3 % (0-2); % Eosinophils 0.3 % (0-6); % Immature Granulocytes 0.5 % (0-0.5); % Lymphocytes 3.5 % (20.5-51.1); % Monocytes 4.9 % (1.7-9.3); % Neutrophils 90.5 % (42.2-75.2); Absolute Basophils 0.1 10^3/uL (0-0.2); Absolute Eosinophils 0.1 10^3/uL (0-0.7); Absolute Immature Granulocytes 0.1 10^3/uL (0-0.05); Absolute Lymphocytes 0.6 10^3/uL (1.2-3.4); Absolute Monocytes 0.9 10^3/uL (0.1-0.6); Absolute Neutrophils 16.5 10^3/uL (1.4-6.5); Hematocrit 32.3 % (37.0-47.0); Mean Corp Hgb Conc. 34.1 g/dL (33.0-37.0); Mean Corpuscular Hgb 29.7 pg (27.0-31.0); Mean Corpuscular Volume 87.3 fL (81.0-99.0); Mean Platelet Volume 10.2 fL (7.4-10.4); Nucleated Red Blood Cells % 0 %; Platelet Count 188 10^3/uL (130-400); Red Cell Dist. Width 12.3 % (11.5-14.5); White Blood Cell Count 18.2 10^3/uL (4.8-10.8)
[2024-07-15 16:36] LABS: INR 1.01; PT 13.6 Sec (11.4-14.6)
[2024-07-15 16:37] LABS: APTT 28.5 Sec (23.4-35.0)
[2024-07-15 16:45] LABS: ALT (SGPT) 15 U/L (0-35); AST (SGOT) 20 U/L (14-36); Alkaline Phosphatase 90 U/L (38-126); Blood Urea Nitrogen 44 mg/dl (7-17); Calcium 9.8 mg/dl (8.4-10.2); Carbon Dioxide 24 mmol/L (22-30); Chloride 109 mmol/L (98-107); Glucose 166 mg/dl (70-99); Potassium 4.3 mmol/L (3.5-5.1); Sodium 142 mmol/L (135-145); Total Bilirubin 1.4 mg/dl (0.2-1.3); Total Protein 6.8 g/dl (6.3-8.2)
--- NOTE | 2024-07-15 18:56 | ED.GENMED ---
History of Present Illness
General
Chief Complaint: Rectal Bleeding
Source: patient
Exam Limitations: none
Time Seen by Provider: 07/15/24 18:43
Nursing documentation reviewed up to this point in time: agreed with
History of Present Illness
History of Present Illness:
78-year-old female with history of TIA, COPD, HTN, HLD, TAVR 05/2023, CKD stage III, NIDDM presents for right side abdominal pain which started at 5 AM today, it comes and goes, it is better when she lays down and worse when she is up and moving
around. She states at 2 PM today she had watery diarrhea that was 'red.'. She denies N/V. Denies fever or chills. She denies chest pain or trouble breathing. She denies dysuria.
Past History
Past History
ED Past Medical History: HTN, Hypercholesterolemia, NIDDM, Psychiatric (Anxiety), Other (Allergic reactions/urticaria) and Other (CKD stage III)
ED Past Surgical History: , Orthopedic (Knee arthroscopy) and Other (Abdominal aortic stent/graft)
Social History
Tobacco: Former smoker (Quit in 1999)
Alcohol: None
Personal:
Living: with family
Employment: Retired
Family History
Family History: Hypertension
Review of Systems
Review of Systems
Allergies reviewed?: Yes
All Other Systems: ROS reviewed and negative except as documented in HPI and ROS
Constitutional: Reports fever; Denies chills
Respiratory: Denies trouble breathing
Cardiac: Denies chest pain
ABD/GI: Reports abdominal pain, diarrhea, bloody stools and anorexia; Denies nausea or vomiting
: Reports flank pain (Right); Denies dysuria, frequency, difficulty voiding or urgency
Musculoskeletal: Reports no symptoms
Skin: Reports no symptoms
Neurological: Reports no symptoms
Phy Exam
Physical Exam
Physical Exam:
GENERAL: No acute distress. A&Ox3.
CONSTITUTIONAL: Afebrile.
EYES: clear, conjunctivae normal
ENMT: moist mucus membranes
RESPIRATORY: Regular respirations, nonlabored, lungs clear.
CARDIOVASCULAR: Regular rate and rhythm, no murmurs, no rubs.
GI: Soft, tender right side abdomen, normal BS
MUSCULOSKELETAL: Moves with ease. Well perfused.
SKIN: Warm, dry, owens-colored
PSYCH: Normal mood and affect. Well kept, interactive and appropriate
NEUROLOGIC: Awake, alert and oriented. No focal neurological deficits
Course
Orders/Labs/Results
Orders:
Orders
07/15/24 16:17
Type+Screen Urgent
C-Reactive Protein Urgent
Comment: ADD ON
Complete Blood Count/With Diff Urgent
Comprehensive Metabolic Panel Urgent
Erythrocyte Sed Rate Urgent
Comment: ADD ON
PTT Urgent
Prothrombin Time Urgent
07/15/24 18:55
CT Abd/pel Without Iv Or Oral Urgent
Comment:
Reason For Exam: R abd pain, heme +stool, kidney insuff.
07/15/24 21:02
Straight cath- Treatment ONCE
07/15/24 21:30
Urinalysis Reflex To Culture Urgent
Date Specimen was Collected: 07/15/24
Time Specimen was Collected: 21:29
Urine Microscopic Reflex Cult Urgent
07/15/24 21:55
Add On- LAB Urgent
Tests Added?: Sed rate, CRP
Abnormal Lab Results
07/15/24 07/15/24
16:17 21:30
WBC 18.2 H 10^3/uL
(4.8-10.8)
RBC 3.70 L 10^6/uL
(4.20-5.40)
Hgb 11.0 L g/dL
(12.0-16.0)
Hct 32.3 L %
(37.0-47.0)
Abs Immat Gran (auto) 0.1 H 10^3/uL
(0-0.05)
Absolute Neuts (auto) 16.5 H 10^3/uL
(1.4-6.5)
Absolute Lymphs (auto) 0.6 L 10^3/uL
(1.2-3.4)
Absolute Monos (auto) 0.9 H 10^3/uL
(0.1-0.6)
Neutrophils % 90.5 H %
(42.2-75.2)
Lymphocytes % 3.5 L %
(20.5-51.1)
Chloride 109 H mmol/L
(98-107)
BUN 44 H mg/dl
(7-17)
Creatinine 2.0 H mg/dL
(0.6-1.0)
Glucose 166 H mg/dl
(70-99)
Total Bilirubin 1.4 H mg/dl
(0.2-1.3)
Urine Albumin (Reflex) 2+ A
(Neg - Trace)
07/15/24 16:17
07/15/24 16:17
Vital Signs
Initial and Last Documented VS:
Initial Vital Signs
Temp Pulse Resp BP Pulse Ox
98.1 F 82 18 100/72 96
07/15/24 16:05 07/15/24 16:05 07/15/24 16:05 07/15/24 16:05 07/15/24 16:05
Last Documented Vital Signs
Temp Pulse Resp BP Pulse Ox
98.1 F 82 18 100/72 96
07/15/24 16:05 07/15/24 16:05 07/15/24 16:05 07/15/24 16:05 07/15/24 16:05
MDM/Problems Addressed
Differential Diagnosis Includes:
Kidney stone, diverticulitis, colitis
MDM/Problems Addressed:
78-year-old female with history of TIA, COPD, HTN, HLD, TAVR 05/2023, CKD stage III, NIDDM presents for right side abdominal pain which started at 5 AM today, it comes and goes, it is better when she lays down and worse when she is up and moving
around. She states at 2 PM today she had watery diarrhea that was 'red.'. She denies N/V. Denies fever or chills. She denies chest pain or trouble breathing. She denies dysuria.
CBC: WBC 18.2 with a left shift.
CMP: BUN/creatinine 44/2.0 consistent with her baseline CKD, GFR 25.1
9:00 PM:
CT abdomen pelvis plain radiology report reviewed: IMPRESSION: Stable fat containing umbilical hernia with new associated fluid. This can be seen with incarceration or strangulation. Clinical correlation recommended.
2 additional smaller fat-containing supraumbilical ventral hernias. No evidence of incarceration or strangulation. Stable
Gallstones. Stable
Mild hepatosplenomegaly. Stable. Findings consistent with prior benign granulomatous disease. Stable
Mild diffuse bladder wall thickening. This can be seen with cystitis or bladder outlet obstruction. Stable
Severe atherosclerotic vascular disease.
Limited evaluation the colon without oral and IV contrast.
Patient has no tenderness or significant swelling or palpable mass about the umbilicus, do not suspect strangulated hernia.
10 PM:
Straight cath UA sent, neg for infection or RBCs
Plan: Admit: Rectal bleeding with right lower quadrant abdominal pain, suspect colitis as she has a history of this.
Hospitalist notified of admission
Sed rate, CRP pending
*Critical Care Note
Total Time (30-74mins, 75-104mins- exclusive of procedures): Not Applicable
ED Attending Note
-
Portions of this chart may have been created with voice recognition software.� Occasional wrong word or��sound alike� substitutions may have occurred due to the inherent limitations of voice recognition software.
Discharge Plan
Departure
Patient Disposition: Admit
Date of Disposition: 07/15/24
Time of Disposition: 21:39
Presentation/result/management discussed w/ accepting MD/DO: Hospitalist
Condition: Fair
Discharge Problem:
Abdominal pain, Rectal bleeding
Prescriptions:
No Action
Januvia 100 MG tablet
100 mg PO DAILY
montelukast 10 mg Tablet
10 mg PO DAILY
atorvastatin 20 MG tablet
40 mg PO DAILY
acetaminophen 500 mg Tablet
1,000 mg PO BID
aspirin 81 mg Tablet,Delayed Release (Dr/Ec)
81 mg PO DAILY
amlodipine 5 MG tablet
10 mg PO DAILY
citalopram [Celexa] 10 mg Tablet
10 mg PO HS
furosemide [Lasix] 80 mg Tablet
80 mg PO DAILY
Referrals:
Lucio Zuniga PA [Family Provider] -
Interventions
Interventions:
*Risk Screen - Suicide Last Done: 07/15/24 16:05
*General Assessment Last Done: 07/15/24 16:05
*Neglect/Abuse Screening Last Done: 07/15/24 16:05
*ED COVID-19 Vaccine History Last Done: 07/15/24 16:05
EG-Yqbcjl-Xtqhclwwrz Assessment Last Done: 07/15/24 19:55
ED- Cardiac Assessment Last Done: 07/15/24 19:55
ED- Pulmonary Assessment Last Done: 07/15/24 19:55
Discharge Date and Time
Print Language: PORTUGUESE
[2024-07-15 19:49] VITALS: BP 146/51
[2024-07-15 20:00] VITALS: BP 117/53
[2024-07-15 21:37] LABS: Urine Albumin 2+ (Neg - Trace); Urine Bilirubin Negative (Negative); Urine Character Clear (Clear); Urine Color Yellow; Urine Glucose Negative (Negative); Urine Ketone Negative (Negative); Urine Leukocyte Negative (Negative); Urine Nitrite Negative (Negative); Urine Occult Blood Negative (Negative); Urine Urobilinogen Negative (Neg - 1+)
[2024-07-15 21:53] LABS: Urine Red Blood Cell 0-2 /HPF (0-2); Urine White Cell 0-2 /HPF (0-5)
[2024-07-15 22:09] LABS: Erythrocyte Sed Rate 53 mm/hour (0-20)
--- NOTE | 2024-07-15 22:22 | HPS.HSE ---
Family Physician
-
Family Physician: DESTINY Arvizu
Chief Complaint
-
Abdominal pain, rectal bleeding
History of Present Illness
This a 78-year-old with past medical history significant for hyperlipidemia, pku-geyctwi-dweinvtvd diabetes, hypertension, aortic stenosis status post-TAVR who presents to the emergency department with acute episode of right lower quadrant pain and
diarrhea.
Patient reports actively waking up with pain in the right lower quadrant without any radiation. She denies any nausea or vomiting. She noted she started having loose watery stools since 5 AM. She reported that she saw blood in the stool. She
reports that she felt she had some chills today but no augie fevers at home. She did have a meal of pork pork the day before but otherwise no other unusual activities. Patient reports a prior history of colitis in the remote past. She stated that
she did have 5 such episodes and then they ceased. She denies any knowledge of diverticular disease. She reported that she had a last colonoscopy around 10 years ago. Denies any prior history of inflammatory bowel disease. She denies any history
of CAD, strokes or TIAs.
In the emergency department she was afebrile, blood pressure was 100/72 with a pulse of 82 and she was satting 98% on room air.
She had leukocytosis to 18, hemoglobin and platelets were stable. Electrolytes were all normal. BUN and creatinine were baseline at 44 and 2.0 respectively and glucose was 166. ESR elevated at history. No lactate. UA was unremarkable.
She had a CT scan of the abdomen pelvis unfortunately without oral or IV contrast with limited evaluation as a result and showed no significant intra-abdominal abnormality. There was no evidence of bowel obstruction. There was a stable
fat-containing umbilical hernia with new associated fluid which can be seen with incarceration or strangulation.
Medical History
Past Medical History
Past Medical History: Reports COPD (Not on home O2), HTN, NIDDM, Renal Failure (CKD stage IV), Valvular Disease (Severe aortic stenosis status post TAVR) and Other (Peripheral arterial disease status post stenting, bilateral carotid stenosis,)
Additional Past Medical History:
History of lower GI bleed, history of colitis
Anemia
Past Surgical History: Reports Appendectomy, Cardiac (TAVR), Gynocological (Hysterectomy) and Other (Ventral hernia repair, left groin excisional debridement with muscle flap)
Social History
Tobacco: Non-smoker
Alcohol: None
Drug: None
Personal:
Living: With Family
Family History
Family History: Not pertinent
Allergies / Home Medications
Allergies reflects when Allergies were last updated in [employer].
Home Medications with original date entered in [employer]
Allergy/Medication List:
Allergies
Allergy/AdvReac Type Severity Reaction Status Date / Time
No Known Allergies Allergy Verified 07/15/24 16:10
Home Medications
sitagliptin phosphate 100 mg tablet (Januvia) 100 mg PO DAILY Diabetes 04/09/16
atorvastatin 20 mg tablet 40 mg PO DAILY High Cholesterol 04/17/23
montelukast 10 mg tablet 10 mg PO DAILY Lung/Breathing Issues 04/17/23
acetaminophen 500 mg tablet 1,000 mg PO BID 06/10/23
amlodipine 5 mg tablet 10 mg PO DAILY 07/15/24
aspirin 81 mg tablet,delayed release 81 mg PO DAILY 07/15/24
citalopram 10 mg tablet (Celexa) 10 mg PO HS 07/15/24
furosemide 80 mg tablet (Lasix) 80 mg PO DAILY 07/15/24
Review of Systems
-
Constitutional: Reports Chills
EENT: Reports No Symptoms
Respiratory: Reports No Symptoms
Cardiac: Reports No Symptoms
Abdomen/GI: Reports Abdominal Pain, Diarrhea and Bloody Stools
: Reports No Symptoms
Musculoskeletal: Reports No Symptoms
Skin: Reports No Symptoms
Neurological: Reports No Symptoms
Endocrine: Reports No Symptoms
Hematologic/Lymphatic: Reports No Symptoms
Psych: Reports No Symptoms
Physical Exam
Vital Signs
Vital Signs
Temp Pulse Resp BP Pulse Ox
98.1 F 82 18 100/72 96
07/15/24 16:05 07/15/24 16:05 07/15/24 16:05 07/15/24 16:05 07/15/24 16:05
Physical Exam
General: Well Developed, Well Nourished, No Apparent Distress and Comfortable
HEENT: NormoCephalic, Anicteric, Moist mucous membranes and Atraumatic
Respiratory: Clear
Cardiac: S1/S2 and Regular Rhythm
Breast: Deferred by me
GI: Soft, Non Distended, Normal Bowel Sounds and Tender
Rectal: Deferred by Provider
Genito-urinary: Deferred by me
Musculoskeletal: No Clubbing, No Cyanosis and No Edema
Skin: Warm
Neuro: AO x 3 and Nonfocal/grossly intact
Hematologic/Lymphatic: No Lymphadenopathy
Psych: Calm
Laboratory Results
-
07/15/24 16:17
07/15/24 16:17
Laboratory Results
PT 13.6 Sec (11.4-14.6) 07/15/24 16:17
INR 1.01 07/15/24 16:17
APTT 28.5 Sec (23.4-35.0) 07/15/24 16:17
Total Bilirubin 1.4 mg/dl (0.2-1.3) H 07/15/24 16:17
AST 20 U/L (14-36) 07/15/24 16:17
ALT 15 U/L (0-35) 07/15/24 16:17
Alkaline Phosphatase 90 U/L (38-126) 07/15/24 16:17
Data Reviewed
-
CT Scan: Report Reviewed by me
Lab Data: Labs Reviewed by me
Old Records: Reviewed
Impression/Plan
-
IMPRESSION:
78-year-old with dhu-svdcsoi-twzowrhut diabetes and prior history of colitis presents to the emergency department with right lower quadrant abdominal pain diarrhea and bloody stools as well as chills and found to have leukocytosis. Tenderness to
the right lower quadrant on examination. She is afebrile here. CT scan without contrast was or uninformative. The history is suggestive of colitis of possibly infectious origin given leukocytosis and chills but cannot rule out ischemic colitis or
inflammatory colitis entirely.
PLAN:
Colitis -infectious versus inflammatory colitis, rule out ischemic colitis.
- admit to med/surg
- clear liquid diet for now
- pain control and antiemetics
- stool cultures, cdiff and stool wbc
- fecal calprotectin
- IV ceftriaxone/metronidazole
GI Bleed - bright red blood per rectum, no n/v, melena or hematemesis, suspect secondary to colitis inflammatory vs ischemic colitis. Hgb unchanged. HD stable
- type and screen
- no thinners
- trend H&H
- clear liquid diet as above
- abx started for colitis and incase diverticulitis causing or exacerbating diverticular bleed
- GI consultation
DM II
- continue januvia
- insulin sliding scale
- s/p TAVR, euvolemic
- hold lasix tomorrow, restart when diet advanced
DVT PPX - SCD
Code status - full code
[2024-07-15] MEDS: ROCEPHIN 2000 MG IV (23:20)
[2024-07-15] MEDS: FLAGYL 500 MG 100 IV (23:20)
[2024-07-15 23:21] VITALS: BMI 39.0
[2024-07-15 23:29] VITALS: BP 130/48
[2024-07-16 03:43] VITALS: BP 122/86
[2024-07-16] MEDS: FLAGYL 500 MG 100 IV ×3 (05:34→21:54)
[2024-07-16 05:39] VITALS: BP 139/49
[2024-07-16 05:55] LABS: Hematocrit 28.7 % (37.0-47.0); Hemoglobin 9.9 g/dL (12.0-16.0); Mean Corp Hgb Conc. 34.5 g/dL (33.0-37.0); Mean Corpuscular Hgb 30.2 pg (27.0-31.0); Mean Corpuscular Volume 87.5 fL (81.0-99.0); Mean Platelet Volume 10.4 fL (7.4-10.4); Platelet Count 134 10^3/uL (130-400); Red Blood Cell Count 3.28 10^6/uL (4.20-5.40); Red Cell Dist. Width 12.6 % (11.5-14.5); White Blood Cell Count 13.1 10^3/uL (4.8-10.8)
[2024-07-16 06:16] LABS: Blood Urea Nitrogen 44 mg/dl (7-17); Calcium 9.4 mg/dl (8.4-10.2); Carbon Dioxide 23 mmol/L (22-30); Chloride 107 mmol/L (98-107); Estimated Creatinine Clearance 24 ml/min; Glucose 156 mg/dl (70-99); Iron 40 ug/dl (37-170); Sodium 143 mmol/L (135-145); eGFR 23.67
[2024-07-16 06:25] LABS: Percent Saturation 18 % (20-50); Total Iron Binding Capacity 219 ug/dl (265-497)
--- NOTE | 2024-07-16 07:17 | CON.GI ---
Addendum entered and electronically signed by Collin Taylor MD 07/16/24 15:06:
I saw and examined the patient.
The EMERGENCY ROOM CLERK or PA's note was reviewed and I agree with the note.
Comment: 78 yo female presents with diarrhea and abd pain over last week. She had similar episode of abd pain, diarrhea, sweats in 2017. At that time CT showed focal colitis in cecum and colonoscopy showed ulceration from distal transverse colon
to distal sigmoid colon. Suspect ischemic vs infectious colitis and Crohn's felt less likely. Path active colitis w pseudomembrane formation. Sx resolved and she has been asymptomatic until this admission. CT this admission done without IV
contrast. She has fat containing umbilical hernia with fluid. She has had prior ventral hernia repair.
ABD soft mild R tender. No incarcerated umbilical hernia appreciated
REC:
Possible infectious colitis/enteritis similar to presentation in 2017. No colitis seen on CT, but done without contrast makes it limited
Agree with abx
Advance diet as tolerated
Check stool studies. Already negative for C diff, giardia, crypto
F/U in GI office after d/c to discuss colonoscopy at age 78
Original Note:
Consultation
-
Date/Time Consultation Requested: 07/16/24 0115
Date/Time Consultation Performed: 07/16/24 0800
Requesting Provider: Danielle Bruno MD
Performing Provider: LYNN Gonsales, Collin Taylor MD
Reason for Consultation: colitis
Medical History
Chief Complaint / HPI
Chief Complaint: rectal bleeding, abdominal pain, diarrhea
History of Present Illness:
Pt is a 78yo with hx multiple medical issues including COPD, HTN, NIDDM, CKD, with prior TAVR, PAD with prior stenting, prior hernia repair and prior colitis. She now presents to ER with RLQ pain and diarrhea. On admission noted with WBC 18,200,
hbg 11, creat 2, CRP 28.8 bili 1.4 with otherwise normal LFT's. CT on admission with Stable fat containing umbilical hernia with new associated fluid. This can be seen with incarceration or strangulation. Clinical correlation recommended .2
additional smaller fat-containing supraumbilical ventral hernias. No evidence of incarceration or strangulation. Also note multiple stable findings of Gallstones, HSM, prior benign granulomatous disease, Mild diffuse bladder wall thickening, Severe
atherosclerotic vascular disease and limitation without IV or oral contrast. In review of records pt with hx colitis in past. In review of record from 2017 Pt was admited with GI bleeding. CT with colitis of cecum. She completed colonoscopy with
normal ileum but bx with minimal active ileitis and distal transverse to distal sigmoid with rectal sparing with large superficial ulcers. with acitve colitis , pseudomembranous vs early ischemic colitis vs infectious.
In reviewing with patient she was well without GI issues from 2016 til now. She began with some loose stools then on 07/15 woke up at 5 am not feeling well with dizziness and noted loose stool then some dark red stool. Abdominal pain was
diffuse but worse on right side. She denies any recent travel, abx or sick contact. Only new med ? Lasix. She otherwise denies wt loss, dysphagia, GERD, nausea, vomiting, chronic diarrhea, constipation, or black stools.
2017- [place] colonoscopy - to TI fair prep there WERE LARGE SUPERFICIAL ULCERATIONS NOTED DISTAL TRANSVERSE COLON DOWN TO DISTAL SIGMOID COLON THE RECTUM WAS SPARED. - Preparation of the colon was fair - The examined portion of the ileum was
normal. Biopsied - Mucosal ulceration. Biopsied. - The rectum is normal. Biopsied. - Non-bleeding external hemorrhoids. - Stool in the entire examined colon. - Three biopsies were obtained in the proximal transverse colon and in the ascending
colon. bx minimal active ileitis, sigmoid with acitve colitis , pseudomembrenous vs early ischemic colitis vs infectious
Past Medical History
Past Medical History: COPD, HTN, Hypercholesterolemia, NIDDM, Renal Failure (CKD), Valvular Disease () and Other (PAD with prior stenting, B/L carotid stenosis, lower GI bleed, prior colitis, anemia)
Past Surgical History: Cardiac (TAVR), Gynecological (hysterectomy) and Other (Ventral hernia repair, left groin excisional debridement with muscle flap)
Social History
Tobacco: Former Smoker (quit 25 years ago )
Alcohol: None
Drug: None
Personal:
Living: With Family
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
Family History
Family History: Other (cousin with crohns disease)
Allergies / Home Medications
Allergy/AdvReac Type Severity Reaction Status Date / Time
No Known Allergies Allergy Verified 07/15/24 16:10
�Medication �Instructions �Recorded
sitagliptin phosphate 100 mg 100 mg PO DAILY Diabetes 04/09/16
tablet (Januvia)
atorvastatin 20 mg tablet 40 mg PO DAILY High Cholesterol 04/17/23
montelukast 10 mg tablet 10 mg PO DAILY Lung/Breathing 04/17/23
Issues
acetaminophen 500 mg tablet 1,000 mg PO BID 06/10/23
amlodipine 5 mg tablet 10 mg PO DAILY 07/15/24
aspirin 81 mg tablet,delayed 81 mg PO DAILY 07/15/24
release
citalopram 10 mg tablet (Celexa) 10 mg PO HS 07/15/24
furosemide 80 mg tablet (Lasix) 80 mg PO DAILY 07/15/24
Review of Systems
-
History Source: Patient
Constitutional: Reports No Symptoms
EENT: Reports No Symptoms
Respiratory: Reports No Symptoms
Cardiac: Reports No Symptoms
Abdomen/GI: Reports Abdominal Pain, Diarrhea and Bloody Stools (dark red )
: Reports No Symptoms
Musculoskeletal: Reports No Symptoms
Skin: Reports Other (itchy hands )
Neurological: Reports Dizzy (with onset )
Endocrine: Reports No Symptoms
Hematologic/Lymphatic: Reports Bleeding
Vital Signs
Temp Pulse Resp BP Pulse Ox
98.1 F 84 18 139/49 96
07/15/24 16:05 07/16/24 05:39 07/16/24 05:39 07/16/24 05:39 07/16/24 05:39
Physical Exam
Exam
General: Well Developed, Well Nourished and No Apparent Distress
HEENT: Normocephalic and Anicteric
Respiratory: Clear
Cardiac: Regular Rhythm
GI: Soft, Non Distended, Tender (diffuse worse right sided ) and Other (large abdomen )
Musculoskeletal: No Clubbing and No Cyanosis
Skin: Warm and Dry
Neuro: Awake, Alert, AO x 3 and Other (occasional forgetfulness with hx TIA)
Psych: Calm
Results
WBC 13.1 10^3/uL (4.8-10.8) H 07/16/24 05:32
Hgb 9.9 g/dL (12.0-16.0) L 07/16/24 05:32
Hct 28.7 % (37.0-47.0) L 07/16/24 05:32
MCV 87.5 fL (81.0-99.0) 07/16/24 05:32
Plt Count 134 10^3/uL (130-400) D 07/16/24 05:32
Absolute Neuts (auto) 16.5 10^3/uL (1.4-6.5) H 07/15/24 16:17
PT 13.6 Sec (11.4-14.6) 07/15/24 16:17
INR 1.01 07/15/24 16:17
APTT 28.5 Sec (23.4-35.0) 07/15/24 16:17
Sodium 143 mmol/L (135-145) 07/16/24 05:32
Potassium 4.0 mmol/L (3.5-5.1) 07/16/24 05:32
Chloride 107 mmol/L (98-107) 07/16/24 05:32
Carbon Dioxide 23 mmol/L (22-30) 07/16/24 05:32
BUN 44 mg/dl (7-17) H 07/16/24 05:32
Creatinine 2.1 mg/dL (0.6-1.0) H 07/16/24 05:32
Calcium 9.4 mg/dl (8.4-10.2) 07/16/24 05:32
Total Bilirubin 1.4 mg/dl (0.2-1.3) H 07/15/24 16:17
AST 20 U/L (14-36) 07/15/24 16:17
ALT 15 U/L (0-35) 07/15/24 16:17
Alkaline Phosphatase 90 U/L (38-126) 07/15/24 16:17
Diagnostic Image Results:
07/15/24 CT Abd/pel Without Iv Or Oral
Stable fat containing umbilical hernia with new associated fluid. This can be seen with incarceration or strangulation. Clinical correlation recommended.
2 additional smaller fat-containing supraumbilical ventral hernias. No evidence of incarceration or strangulation. Stable
Gallstones. Stable
Mild hepatosplenomegaly. Stable
Findings consistent with prior benign granulomatous disease. Stable
Mild diffuse bladder wall thickening. This can be seen with cystitis or bladder outlet obstruction. Stable
Severe atherosclerotic vascular disease.
Limited evaluation the colon without oral and IV contrast.
Prior GI Procedures:
EGD: none
Colonoscopy:
2016- [place] colonoscopy - to TI fair prep there WERE LARGE SUPERFICIAL ULCERATIONS NOTED DISTAL TRANSVERSE COLON DOWN TO DISTAL SIGMOID COLON THE RECTUM WAS SPARED. - Preparation of the colon was fair - The examined portion of the ileum was
normal. Biopsied - Mucosal ulceration. Biopsied. - The rectum is normal. Biopsied. - Non-bleeding external hemorrhoids. - Stool in the entire examined colon. - Three biopsies were obtained in the proximal transverse colon and in the ascending
colon. bx minimal active ileitis, sigmoid with acitve colitis , pseudomembrenous vs early ischemic colitis vs infectious
Assessment / Plan
-
Pt is a 78yo with hx multiple medical issues including COPD, HTN, NIDDM, CKD, with prior TAVR, PAD with prior stenting, prior hernia repair and prior colitis. She now presents to ER with RLQ pain and diarrhea. On admission noted with WBC 18,200,
hbg 11, creat 2, CRP 28.8 bili 1.4 with otherwise normal LFT's. CT on admission with Stable fat containing umbilical hernia with new associated fluid. This can be seen with incarceration or strangulation. Clinical correlation recommended .2
additional smaller fat-containing supraumbilical ventral hernias. No evidence of incarceration or strangulation. Also note multiple stable findings of Gallstones, HSM, prior benign granulomatous disease, Mild diffuse bladder wall thickening, Severe
atherosclerotic vascular disease and limitation without IV or oral contrast. In review of records pt with hx colitis in past. In review of record from 2017 Pt was admited with GI bleeding. CT with colitis of cecum. She completed colonoscopy with
normal ileum but bx with minimal active ileitis and distal transverse to distal sigmoid with rectal sparing with large superficial ulcers. with acitve colitis , pseudomembranous vs early ischemic colitis vs infectious.
-right sided abdominal pain with diarrhea and rectal bleeding with concern for colitis
-CT with umbilical hernia with new fluid and fat containing ventral hernia with hx prior hernia repair
-leukocytosis
-mild anemia
-hx colitis 2017 with concern for ischemic vs infectious vs possible IBD with left sided and also TI bx with minimal active ileitis
other med problems:
-COPD
-HTN
-NIDDM
-CKD
- with prior TAVR and stent
PLAN:
etiology of symptoms related to colitis with hx possible ischemic vs infectious vs possible IBD noted in 2017 vs related to noted hernia on Ct vs other
pt pain 10/10 on admission now 5/10 worse right sided
will review CT with Dr. Taylor and need for surgical eval with noted hernias-- CT limited without IV or oral contrast
ok for clear diet
currently on Rocephine and Flagyl
stool studies pending with diarrhea - c-diff neg, add giardia and crypto
trend WBC
if improving GI follow up 3-4 weeks and consider colonoscopy in 6-8 weeks
-
-
Thank you for consultation and allowing me to participate in the patient's care. Please call the animal control licensing worker GI physician during the after hours with any questions or concerns.
[2024-07-16 07:46] VITALS: BP 141/78
[2024-07-16 08:30] LABS: Glucose - Point of Care 166 mg/dl (70-99)
[2024-07-16] MEDS: NOVOLOG FLEXPEN-LOW RESISTANCE 1 UNITS SC (09:03)
[2024-07-16] MEDS: SINGULAIR 10 MG PO (09:03)
[2024-07-16] MEDS: LIPITOR 40 MG PO (09:04)
--- NOTE | 2024-07-16 09:32 | W.PN.HOSP.TC ---
Addendum entered and electronically signed by Scottie Medel MD 07/16/24 09:49:
CKD stage IIIb
creatinine at 2 which is baseline.
Monitor closely
Gentle hydration
Monitor for hypotension or metabolic acidosis
Original Note:
Today's Communication/Plan
-
See plan
Assessment / Plan
Assessment / Plan
Impression:
Presentation with acute onset of diffuse abdominal pain, diarrhea with hematochezia.
Colitis with differential infectious versus ischemic.
Conditions prior to admission:
Aortic stenosis status post TAVR 05/26.
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
CAD with 100% occlusion of the ostial RCA.
PAD 100% occluded right common iliac artery.
Type 2 diabetes.
CKD stage IIIb.
Dyslipidemia
Essential hypertension
Pituitary macroadenoma
Obesity with BMI of 38
Plan:
Colitis with differential ischemic versus infectious.
Patient reports consuming pulled pork at the prior day before.
No recent antibiotic administration.
Abdominal exam with diffuse mild abdominal tenderness
CT scan without contrast with no acute abnormalities.
Normal lactic acid level.
Noted with leukocytosis 18�13 trending down since admission.
Stool cultures pending
C. difficile negative.
Continue empiric antibiotics: Ceftriaxone, metronidazole pending final stool cultures.
Clear liquid diet.
Gastroenterology evaluation
If persistent symptoms, consider reimage with contrast.
Gentle hydration.
Avoid hypotension
Cardiovascular
ASCVD with prior history of CAD, PAD, postoperative CVA
Status post TAVR
Volume status compensated on admission.
Echo 02/25 with EF of 62% status post TAVR
Continue preadmission regimen: Aspirin (with caution for recurrent hematochezia) atorvastatin, amlodipine
Hold Lasix acutely avoiding dehydration
Type 2 diabetes.
Update hemoglobin A1c.
Hold Januvia.
Basal bolus protocol with serial Accu-Cheks
Anticipated Discharge: 24 - 48 hours
Subjective/Interval History
-
Date of Service: July 16, 2024
Objective Data
-
Labs:
Laboratory Results
07/16/24 07/16/24 07/16/24
05:32 14:00 22:00
WBC 13.1 H
Hgb 9.9 L Pending Pending
Hct 28.7 L Pending Pending
Plt Count 134 D
Sodium 143
Potassium 4.0
Chloride 107
Carbon Dioxide 23
BUN 44 H
Creatinine 2.1 H
Glucose 156 H
Calcium 9.4
Vital Signs:
Vital Signs
Temp Pulse Resp BP Pulse Ox
98.4 F 88 17 141/78 98
07/16/24 07:46 07/16/24 07:46 07/16/24 07:46 07/16/24 07:46 07/16/24 07:46
Physical Exam
-
General: Well Developed and No Apparent Distress
HEENT: Normocephalic, Atraumatic and Moist Mucous Membranes
Respiratory: Clear to Auscultation
Cardiac: Regular Rhythm and S1/S2; Negative Murmur, Rub or Gallop
GI: Soft, Nondistended, Normal Bowel Sounds and Other (Mild diffuse tenderness); Negative Organomegaly
Rectal: Deferred by Provider
Musculoskeletal: No Clubbing, No Cyanosis and No Edema
Skin: Negative Rash
Neuro: Awake, Alert, Oriented and Nonfocal/Grossly Intact
[2024-07-16] MEDS: ASPIR LOW (ENTERIC COATED) 81 MG PO (10:10)
[2024-07-16] MEDS: TYLENOL 650 MG PO ×2 (10:11→21:56)
[2024-07-16] MEDS: NSS 1000 IV (10:11)
[2024-07-16] MEDS: NORVASC 10 MG PO (10:11)
--- NOTE | 2024-07-16 11:46 | CM ---
Addendum entered by Gwen Owens 07/16/24 12:49:
Pt does not have Rx coverage plan
Pays [facility] for meds
Original Note:
CM met with pt bedside
Pt resides with her spouse in a bi-level home with 2 NOE
5 steps down to lower level and 5 steps to main livoing level with bed and bath
Pt is indep with her ADLs
Has a WW for use as needed, no longer drives due to stroke hx
Hx at [facility], and out wound center
Denies financial insecurities
PCP- Sobeida Jimenez
Rx- [facility]
Discussion with nursing
Moving well throughout room
Discharge Disposition- anticipate home, follow for VN needs
[2024-07-16 12:28] LABS: Glucose - Point of Care 226 mg/dl (70-99)
--- NOTE | 2024-07-16 13:04 | PTCARENOTE ---
Pt is alert/oriented/pleasant. OOB to bathroom by self. Still having mild RLQ abd discomfort. No bleeding noted w/ bms today.
[2024-07-16] MEDS: NOVOLOG FLEXPEN-LOW RESISTANCE 2 UNITS SC (13:33)
[2024-07-16 14:11] VITALS: BP 161/71
[2024-07-16 15:15] LABS: Hematocrit 30.1 % (37.0-47.0); Hemoglobin 10.2 g/dL (12.0-16.0)
[2024-07-16 16:30] LABS: Glucose - Point of Care 127 mg/dl (70-99)
[2024-07-16] MEDS: NOVOLOG FLEXPEN-LOW RESISTANCE SC (16:35)
--- NOTE | 2024-07-16 17:03 | TRANSFER ---
Pt arrived to unit around 1430 from ED. She ambulated from stretcher to bed inside the room. No pain reported at this time. Pt oriented to new room and staff. All needs met at this time. Plan of care ongoing.
[2024-07-16] MEDS: CELEXA 10 MG PO (21:53)
[2024-07-16] MEDS: ROCEPHIN 2000 MG IV (21:54)
[2024-07-16] MEDS: STERILE WATER FOR INJECTION 20 ML IV (21:54)
[2024-07-16 21:56] LABS: Glucose - Point of Care 148 mg/dl (70-99)
[2024-07-16] MEDS: TUMS CHEWABLE TABLET 400 MG PO (22:32)
[2024-07-16 22:52] LABS: Hematocrit 28.2 % (37.0-47.0); Hemoglobin 9.9 g/dL (12.0-16.0)
[2024-07-16 23:25] VITALS: BP 133/56
[2024-07-16 23:30] VITALS: BP 133/56
[2024-07-17] MEDS: FLAGYL 500 MG 100 IV ×3 (05:28→21:05)
[2024-07-17 05:58] LABS: Hematocrit 27.5 % (37.0-47.0); Hemoglobin 9.5 g/dL (12.0-16.0); Mean Corp Hgb Conc. 34.5 g/dL (33.0-37.0); Mean Corpuscular Hgb 30.4 pg (27.0-31.0); Mean Corpuscular Volume 87.9 fL (81.0-99.0); Mean Platelet Volume 10.6 fL (7.4-10.4); Platelet Count 126 10^3/uL (130-400); Red Blood Cell Count 3.13 10^6/uL (4.20-5.40); Red Cell Dist. Width 12.5 % (11.5-14.5); White Blood Cell Count 9.5 10^3/uL (4.8-10.8)
[2024-07-17 06:30] LABS: Blood Urea Nitrogen 34 mg/dl (7-17); Calcium 9.1 mg/dl (8.4-10.2); Carbon Dioxide 20 mmol/L (22-30); Chloride 111 mmol/L (98-107); Estimated Creatinine Clearance 26 ml/min; Glucose 131 mg/dl (70-99); Potassium 3.6 mmol/L (3.5-5.1); Sodium 141 mmol/L (135-145); eGFR 26.69
[2024-07-17 07:32] VITALS: BP 116/47
[2024-07-17 07:46] LABS: Glucose - Point of Care 148 mg/dl (70-99)
[2024-07-17] MEDS: NOVOLOG FLEXPEN-LOW RESISTANCE SC (08:13)
[2024-07-17] MEDS: ASPIR LOW (ENTERIC COATED) 81 MG PO (08:40)
[2024-07-17] MEDS: NORVASC 10 MG PO (08:40)
[2024-07-17] MEDS: SINGULAIR 10 MG PO (08:40)
[2024-07-17] MEDS: LIPITOR 40 MG PO (08:40)
--- NOTE | 2024-07-17 10:12 | PN.CDI ---
CDI
- -
CDI:
Physician Documentation Request
Admit Date: 07/15/24 23:43
Dear Doctor Gianfranco,
Please review the following and provide your response in the progress notes.
Clinical Indicators:
- 07/15 H&P 'CKD stage IV'
- 07/16 PN 'CKD stage IIIb'
Laboratory Tests
07/15/24 07/16/24 07/17/24
16:17 05:32 05:34
Creatinine 2.0 H 2.1 H 1.9 H
eGFR 25.10 23.67 26.69
Please clarify which of the following accurately represents the patient's CKD stage
Stages of Chronic Kidney Disease*
Level Description GFR
G1 Normal or High >90
G2 Mildly decreased 60-89
G3a Mildly to moderately decreased 45-59
G3b Moderately to severely decreased 30-44
G4 Severely decreased 15-29
G5 Kidney failure <15
Use of terms such as suspected, likely, concern for, or probable (associated with a specific diagnosis that is being evaluated, monitored, or treated as if it exists) are acceptable and can be coded in the inpatient setting, when documented at the
time of discharge.
Thank you,
Brenda Causey RN
CDI Specialist
Please use your independent medical judgment in providing your response.
*Source: Kidney Disease: Improving Global Outcomes (KDIGO) 2012
--- NOTE | 2024-07-17 10:17 | PN.CDI ---
CDI
- -
CDI:
Physician Documentation Request
Admit Date: 07/15/24 23:43
Dear Doctor France,
Please review the following and provide your response in the progress notes.
Clinical Indicators:
- 07/15 H&P 'CKD stage IV'
- 07/16 PN 'CKD stage IIIb'
Laboratory Tests
07/15/24 07/16/24 07/17/24
16:17 05:32 05:34
Creatinine 2.0 H 2.1 H 1.9 H
eGFR 25.10 23.67 26.69
Please clarify which of the following accurately represents the patient's CKD stage
Stages of Chronic Kidney Disease*
Level Description GFR
G1 Normal or High >90
G2 Mildly decreased 60-89
G3a Mildly to moderately decreased 45-59
G3b Moderately to severely decreased 30-44
G4 Severely decreased 15-29
G5 Kidney failure <15
Use of terms such as suspected, likely, concern for, or probable (associated with a specific diagnosis that is being evaluated, monitored, or treated as if it exists) are acceptable and can be coded in the inpatient setting, when documented at the
time of discharge.
Thank you,
Brenda Causey RN
CDI Specialist
Please use your independent medical judgment in providing your response.
*Source: Kidney Disease: Improving Global Outcomes (KDIGO) 2012
--- NOTE | 2024-07-17 11:02 | W.PN.GI.CBS2 ---
Today's Communication / Plan
-
Feeling better
WBC normalized
Advance to low residue diet
If better, can d/c tomorrow and plan colonoscopy as outpt after resolution
Possible infectious colitis similar to 2017
Assessment / Plan
-
Pt is a 78yo with hx multiple medical issues including COPD, HTN, NIDDM, CKD, with prior TAVR, PAD with prior stenting, prior hernia repair and prior colitis. She now presents to ER with RLQ pain and diarrhea. On admission noted with WBC 18,200,
hbg 11, creat 2, CRP 28.8 bili 1.4 with otherwise normal LFT's. CT on admission with Stable fat containing umbilical hernia with new associated fluid. This can be seen with incarceration or strangulation. Clinical correlation recommended .2
additional smaller fat-containing supraumbilical ventral hernias. No evidence of incarceration or strangulation. Also note multiple stable findings of Gallstones, HSM, prior benign granulomatous disease, Mild diffuse bladder wall thickening, Severe
atherosclerotic vascular disease and limitation without IV or oral contrast. In review of records pt with hx colitis in past. In review of record from 2017 Pt was admited with GI bleeding. CT with colitis of cecum. She completed colonoscopy with
normal ileum but bx with minimal active ileitis and distal transverse to distal sigmoid with rectal sparing with large superficial ulcers. with acitve colitis , pseudomembranous vs early ischemic colitis vs infectious.
-right sided abdominal pain with diarrhea and rectal bleeding with concern for colitis
-CT with umbilical hernia with new fluid and fat containing ventral hernia with hx prior hernia repair
-leukocytosis
-mild anemia
-hx colitis 2017 with concern for ischemic vs infectious vs possible IBD with left sided and also TI bx with minimal active ileitis
other med problems:
-COPD
-HTN
-NIDDM
-CKD
- with prior TAVR and stent
Subjective
Subjective
Date of Service: July 17, 2024
Feeling better. Less abd pain but diarrhea persists. No bleeding
Objective
Data Reviewed
Laboratory Data:
Laboratory Results
07/17/24 05:34
07/17/24 05:34
Laboratory Results
PT 13.6 Sec (11.4-14.6) 07/15/24 16:17
INR 1.01 07/15/24 16:17
APTT 28.5 Sec (23.4-35.0) 07/15/24 16:17
Total Bilirubin 1.4 mg/dl (0.2-1.3) H 07/15/24 16:17
AST 20 U/L (14-36) 07/15/24 16:17
ALT 15 U/L (0-35) 07/15/24 16:17
Alkaline Phosphatase 90 U/L (38-126) 07/15/24 16:17
Vital Signs and I&O:
Vital Signs
Temp Pulse Resp BP Pulse Ox
98.1 F 83 17 116/47 97
07/17/24 07:32 07/17/24 08:40 07/17/24 07:32 07/17/24 08:40 07/17/24 07:32
I&O
07/16/24 07/17/24 07/18/24
06:59 06:59 06:59
Intake Total 360 / 360
Balance 360 / 360
Physical Exam
Physical Exam
GI: Soft, Non Distended and Non Tender
--- NOTE | 2024-07-17 11:19 | W.PN.HOSP.TC ---
Today's Communication/Plan
-
Advance diet and monitor
cont w/abx
GI correspondence noted
Assessment / Plan
Assessment / Plan
Impression:
Presentation with acute onset of diffuse abdominal pain, diarrhea with hematochezia.
Colitis with differential infectious versus ischemic.
Anemia w/iron deficieny component
Conditions prior to admission:
Aortic stenosis status post TAVR 05/26.
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
CAD with 100% occlusion of the ostial RCA.
PAD 100% occluded right common iliac artery.
Type 2 diabetes.
CKD stage IV
Dyslipidemia
Essential hypertension
Pituitary macroadenoma
Obesity with BMI of 38
Chronic thrombocytopenia
Plan:
Colitis with differential infectious vs. less likely ischemia
Patient reports consuming pulled pork at the prior day before.
No recent antibiotic administration.
CT scan without contrast with no acute abnormalities.
Normal lactic acid level.
Noted with leukocytosis 18�13 --> 9.5
Stool cultures pending
C. difficile negative.
Continue empiric antibiotics: Ceftriaxone, metronidazole pending final stool cultures.
advance diet and monitor for tolerance
Gastroenterology evaluation
If persistent symptoms, consider reimaging with contrast.
stop IVF and monitor
Avoid hypotension
Cardiovascular
ASCVD with prior history of CAD, PAD, postoperative CVA
Status post TAVR
Volume status compensated on admission.
Echo 02/25 with EF of 62% status post TAVR
Continue preadmission regimen: Aspirin (with caution for recurrent hematochezia) atorvastatin, amlodipine
Hold Lasix acutely avoiding dehydration
Type 2 diabetes.
Update hemoglobin A1c.
Hold Januvia.
Basal bolus protocol with serial Accu-Cheks
IV iron while here
Anticipated Discharge: Within 24 hours
Subjective/Interval History
-
Date of Service: July 17, 2024
remains with RLQ pain-states 07/12
improved since admission
Objective Data
-
Labs:
Laboratory Results
07/17/24
05:34
WBC 9.5
Hgb 9.5 L
Hct 27.5 L
Plt Count 126 L
Sodium 141
Potassium 3.6
Chloride 111 H
Carbon Dioxide 20 L
BUN 34 H
Creatinine 1.9 H
Glucose 131 H
Calcium 9.1
Vital Signs:
Vital Signs
Temp Pulse Resp BP Pulse Ox
98.1 F 83 17 116/47 97
07/17/24 07:32 07/17/24 08:40 07/17/24 07:32 07/17/24 08:40 07/17/24 07:32
I&O
07/16/24 07/17/24 07/18/24
06:59 06:59 06:59
Intake Total 360 / 360
Balance 360 / 360
Physical Exam
-
General: Well Developed and No Apparent Distress
HEENT: Normocephalic, Atraumatic and Moist Mucous Membranes
Respiratory: Clear to Auscultation
Cardiac: Regular Rhythm and S1/S2; Negative Murmur, Rub or Gallop
GI: Soft, Nondistended, Normal Bowel Sounds and Tender (RLQ ); Negative Organomegaly
Rectal: Deferred by Provider
Musculoskeletal: No Clubbing, No Cyanosis and No Edema
Skin: Negative Rash
Neuro: Awake, Alert, Oriented, No Motor Deficits and Nonfocal/Grossly Intact
Psych: Calm
Data Reviewed
-
Total Time Spent with Patient (in minutes): 55
[2024-07-17 12:43] LABS: Glucose - Point of Care 202 mg/dl (70-99)
[2024-07-17] MEDS: TYLENOL 650 MG PO ×2 (12:44→22:20)
[2024-07-17] MEDS: NOVOLOG FLEXPEN-LOW RESISTANCE 2 UNITS SC (12:44)
[2024-07-17] MEDS: FERRLECIT 110 MG IV (13:12)
[2024-07-17] MEDS: FLUSH (NSS) 2 FLUSH IV (13:12)
[2024-07-17 14:49] VITALS: BP 132/52
[2024-07-17 16:49] LABS: Glucose - Point of Care 162 mg/dl (70-99)
[2024-07-17] MEDS: NOVOLOG FLEXPEN-LOW RESISTANCE 1 UNITS SC (17:51)
[2024-07-17] MEDS: CELEXA 10 MG PO (21:05)
[2024-07-17] MEDS: STERILE WATER FOR INJECTION 20 ML IV (21:05)
[2024-07-17] MEDS: ROCEPHIN 2000 MG IV (21:06)
[2024-07-17 21:27] LABS: Glucose - Point of Care 153 mg/dl (70-99)
[2024-07-17 23:00] VITALS: BP 140/60
[2024-07-18] MEDS: FLAGYL 500 MG 100 IV ×3 (05:10→21:39)
[2024-07-18 07:22] VITALS: BP 100/67
[2024-07-18 07:55] LABS: Glucose - Point of Care 197 mg/dl (70-99)
[2024-07-18] MEDS: NOVOLOG FLEXPEN-LOW RESISTANCE SC ×2 (08:19→17:02)
[2024-07-18 08:55] LABS: % Basophils 0.6 % (0-2); % Eosinophils 3.8 % (0-6); % Immature Granulocytes 1.4 % (0-0.5); % Lymphocytes 10.3 % (20.5-51.1); % Monocytes 9.2 % (1.7-9.3); % Neutrophils 74.7 % (42.2-75.2); Absolute Basophils 0.1 10^3/uL (0-0.2); Absolute Eosinophils 0.3 10^3/uL (0-0.7); Absolute Immature Granulocytes 0.1 10^3/uL (0-0.05); Absolute Lymphocytes 0.9 10^3/uL (1.2-3.4); Absolute Monocytes 0.8 10^3/uL (0.1-0.6); Absolute Neutrophils 6.5 10^3/uL (1.4-6.5); Hematocrit 27.8 % (37.0-47.0); Hemoglobin 9.5 g/dL (12.0-16.0); Mean Corp Hgb Conc. 34.2 g/dL (33.0-37.0); Mean Corpuscular Hgb 29.9 pg (27.0-31.0); Mean Corpuscular Volume 87.4 fL (81.0-99.0); Mean Platelet Volume 10.4 fL (7.4-10.4); Nucleated Red Blood Cells % 0 %; Platelet Count 163 10^3/uL (130-400); Red Blood Cell Count 3.18 10^6/uL (4.20-5.40); Red Cell Dist. Width 12.5 % (11.5-14.5); White Blood Cell Count 8.7 10^3/uL (4.8-10.8)
[2024-07-18] MEDS: NOVOLOG FLEXPEN-LOW RESISTANCE 1 UNITS SC ×2 (09:00→12:36)
[2024-07-18 09:06] LABS: Blood Urea Nitrogen 33 mg/dl (7-17); Calcium 9.2 mg/dl (8.4-10.2); Carbon Dioxide 20 mmol/L (22-30); Chloride 111 mmol/L (98-107); Estimated Creatinine Clearance 25 ml/min; Glucose 193 mg/dl (70-99); Potassium 3.7 mmol/L (3.5-5.1); Sodium 141 mmol/L (135-145)
[2024-07-18] MEDS: LIPITOR 40 MG PO (09:15)
[2024-07-18] MEDS: ASPIR LOW (ENTERIC COATED) 81 MG PO (09:15)
[2024-07-18] MEDS: NORVASC 10 MG PO (09:15)
[2024-07-18] MEDS: SINGULAIR 10 MG PO (09:18)
[2024-07-18] MEDS: TYLENOL 650 MG PO ×2 (09:22→21:48)
--- NOTE | 2024-07-18 09:22 | PTCARENOTE ---
Pt c/o increased abd fullness and flatulence. made aware, new order provided.
[2024-07-18] MEDS: MYLICON 80 MG PO (09:24)
--- NOTE | 2024-07-18 11:04 | W.PN.HOSP.TC ---
Addendum entered and electronically signed by Compa Hough MD 07/18/24 12:26:
Repeat evaluation-remains w/abd distention and mild LLQ pain. No nausea or vomiting
Abd xray with No evidence for bowel obstruction and no evidence for free intraperitoneal air.
Check CT abd/pelvis w/o IV contrast.
downgrade diet to fulls
Await GI recs
Original Note:
Today's Communication/Plan
-
check axr
IV abx
downgrade diet if w/nausea/vomiting
Gi recs
IV iron
Assessment / Plan
Assessment / Plan
Impression:
Presentation with acute onset of diffuse abdominal pain, diarrhea with hematochezia.
Colitis with differential infectious versus ischemic.
Anemia w/iron deficieny component
Conditions prior to admission:
Umbical hernia-states known about it for 1 month
Aortic stenosis status post TAVR 05/26.
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
CAD with 100% occlusion of the ostial RCA.
PAD 100% occluded right common iliac artery.
Type 2 diabetes.
CKD stage IV
Dyslipidemia
Essential hypertension
Pituitary macroadenoma
Obesity with BMI of 38
Chronic thrombocytopenia
Plan:
Colitis with differential infectious vs. less likely ischemia
Patient reports consuming pulled pork at the prior day before.
No recent antibiotic administration.
CT scan without contrast with no acute abnormalities.
Normal lactic acid level.
Noted with leukocytosis 18k on admission -resolved. 8.7k today.
Stool cultures prelim neg so far
C. difficile negative.
Continue empiric antibiotics: Ceftriaxone, metronidazole pending final stool cultures.
advance diet and monitor for tolerance
Abd distention-check flat plate. If persistent may need repeat CT abd/pelvis w/contrast.
Gastroenterology evaluation
If persistent symptoms, consider reimaging with contrast.
stop IVF and monitor
Avoid hypotension
Cardiovascular
ASCVD with prior history of CAD, PAD, postoperative CVA
Status post TAVR
Volume status compensated on admission.
Echo 02/25 with EF of 62% status post TAVR
Continue preadmission regimen: Aspirin (with caution for recurrent hematochezia) atorvastatin, amlodipine
Hold Lasix acutely avoiding dehydration
Type 2 diabetes.
Update hemoglobin A1c.
Hold Januvia.
Basal bolus protocol with serial Accu-Cheks
IV iron while here
Hgb 9.5.
Anticipated Discharge: 24 - 48 hours
Subjective/Interval History
-
Date of Service: July 18, 2024
states of abd distention
states of pain LLQ
no nausea
having loose stools
Objective Data
-
Labs:
Laboratory Results
07/18/24
08:09
WBC 8.7
Hgb 9.5 L
Hct 27.8 L
Plt Count 163 D
Sodium 141
Potassium 3.7
Chloride 111 H
Carbon Dioxide 20 L
BUN 33 H
Creatinine 2.0 H
Glucose 193 H
Calcium 9.2
Vital Signs:
Vital Signs
Temp Pulse Resp BP Pulse Ox
98.0 F 76 17 146/60 96
07/17/24 23:00 07/18/24 09:15 07/18/24 07:22 07/18/24 09:15 07/18/24 07:22
I&O
07/17/24 07/18/24 07/19/24
06:59 06:59 06:59
Intake Total 360 / 360 690 / 690
Output Total 50 / 50
Balance 360 / 360 640 / 640
Physical Exam
-
General: Well Developed and No Apparent Distress
HEENT: Normocephalic, Atraumatic and Moist Mucous Membranes
Respiratory: Clear to Auscultation
Cardiac: Regular Rhythm and S1/S2; Negative Murmur, Rub or Gallop
GI: Soft, Normal Bowel Sounds, Tender (LLQ ) and Distended; Negative Organomegaly
Rectal: Deferred by Provider
Musculoskeletal: No Clubbing, No Cyanosis and No Edema
Skin: Negative Rash
Neuro: Awake, Alert, Oriented, No Motor Deficits and Nonfocal/Grossly Intact
Psych: Calm
Data Reviewed
-
Total Time Spent with Patient (in minutes): 55
[2024-07-18 11:54] LABS: Glucose - Point of Care 166 mg/dl (70-99)
[2024-07-18] MEDS: OMNIPAQUE 50 ML PO (13:08)
[2024-07-18] MEDS: FERRLECIT 110 MG IV (14:03)
[2024-07-18 14:52] VITALS: BP 139/48
[2024-07-18 16:45] LABS: Glucose - Point of Care 135 mg/dl (70-99)
--- NOTE | 2024-07-18 17:03 | CM ---
Patient seen at bedside in [facility]. Patient with no concern for discharge at this time. CM will continue to follow for discharge planning needs.
Plan; home no needs.
--- NOTE | 2024-07-18 19:08 | W.PN.GI.CBS2 ---
Today's Communication / Plan
-
advance diet
Assessment / Plan
-
Pt is a 78yo with hx multiple medical issues including COPD, HTN, NIDDM, CKD, with prior TAVR, PAD with prior stenting, prior hernia repair and prior colitis. She now presents to ER with RLQ pain and diarrhea. On admission noted with WBC 18,200,
hbg 11, creat 2, CRP 28.8 bili 1.4 with otherwise normal LFT's. CT on admission with Stable fat containing umbilical hernia with new associated fluid. This can be seen with incarceration or strangulation. Clinical correlation recommended .2
additional smaller fat-containing supraumbilical ventral hernias. No evidence of incarceration or strangulation. Also note multiple stable findings of Gallstones, HSM, prior benign granulomatous disease, Mild diffuse bladder wall thickening, Severe
atherosclerotic vascular disease and limitation without IV or oral contrast. In review of records pt with hx colitis in past. In review of record from 2016 Pt was admited with GI bleeding. CT with colitis of cecum. She completed colonoscopy with
normal ileum but bx with minimal active ileitis and distal transverse to distal sigmoid with rectal sparing with large superficial ulcers. with acitve colitis , pseudomembranous vs early ischemic colitis vs infectious.
Patient had diarrhea today. Pain feels somewhat better. Had repeat CT with IV contrast which showed wall thickening and adjacent fat stranding involving sigmoid colon consistent with colitis. Stool test have been negative. Suspect ischemic
colitis. Advance diet to see if she tolerates. If she tolerates solid diet then will consider d/c home with outpatient follow-up.
Total Time Spent with Patient (in minutes): 35
Subjective
Subjective
Date of Service: July 18, 2024
Continues to have some diarrhea.
Objective
Data Reviewed
Laboratory Data:
Laboratory Results
07/18/24 08:09
07/18/24 08:09
Laboratory Results
PT 13.6 Sec (11.4-14.6) 07/15/24 16:17
INR 1.01 07/15/24 16:17
APTT 28.5 Sec (23.4-35.0) 07/15/24 16:17
Total Bilirubin 1.4 mg/dl (0.2-1.3) H 07/15/24 16:17
AST 20 U/L (14-36) 07/15/24 16:17
ALT 15 U/L (0-35) 07/15/24 16:17
Alkaline Phosphatase 90 U/L (38-126) 07/15/24 16:17
Vital Signs and I&O:
Vital Signs
Temp Pulse Resp BP Pulse Ox
97.7 F 65 17 139/48 93
07/18/24 14:52 07/18/24 14:52 07/18/24 14:52 07/18/24 14:52 07/18/24 14:52
I&O
07/17/24 07/18/24 07/19/24
06:59 06:59 06:59
Intake Total 360 / 360 690 / 690 570 / 570
Output Total 50 / 50
Balance 360 / 360 640 / 640 570 / 570
[2024-07-18] MEDS: CELEXA 10 MG PO (21:37)
[2024-07-18] MEDS: ROCEPHIN 2000 MG IV (21:39)
[2024-07-18] MEDS: STERILE WATER FOR INJECTION 20 ML IV (21:40)
[2024-07-18 21:50] LABS: Glucose - Point of Care 141 mg/dl (70-99)
[2024-07-18 23:56] VITALS: BP 117/57
[2024-07-19] MEDS: FLAGYL 500 MG 100 IV (06:40)
[2024-07-19 07:00] LABS: % Basophils 0.5 % (0-2); % Eosinophils 3.8 % (0-6); % Immature Granulocytes 1.4 % (0-0.5); % Lymphocytes 13.2 % (20.5-51.1); % Monocytes 9.8 % (1.7-9.3); % Neutrophils 71.3 % (42.2-75.2); Absolute Eosinophils 0.2 10^3/uL (0-0.7); Absolute Immature Granulocytes 0.1 10^3/uL (0-0.05); Absolute Lymphocytes 0.8 10^3/uL (1.2-3.4); Absolute Monocytes 0.6 10^3/uL (0.1-0.6); Absolute Neutrophils 4.2 10^3/uL (1.4-6.5); Hematocrit 28.9 % (37.0-47.0); Mean Corp Hgb Conc. 34.6 g/dL (33.0-37.0); Mean Corpuscular Hgb 29.9 pg (27.0-31.0); Mean Corpuscular Volume 86.5 fL (81.0-99.0); Mean Platelet Volume 10.9 fL (7.4-10.4); Nucleated Red Blood Cells % 0 %; Platelet Count 140 10^3/uL (130-400); Red Blood Cell Count 3.34 10^6/uL (4.20-5.40); Red Cell Dist. Width 12.5 % (11.5-14.5); White Blood Cell Count 5.8 10^3/uL (4.8-10.8)
[2024-07-19 07:26] LABS: Blood Urea Nitrogen 27 mg/dl (7-17); Calcium 9.1 mg/dl (8.4-10.2); Carbon Dioxide 22 mmol/L (22-30); Chloride 112 mmol/L (98-107); Estimated Creatinine Clearance 28 ml/min; Glucose 124 mg/dl (70-99); Potassium 3.8 mmol/L (3.5-5.1); Sodium 142 mmol/L (135-145); eGFR 28.48
[2024-07-19 07:29] VITALS: BP 125/49
[2024-07-19 07:59] LABS: Glucose - Point of Care 117 mg/dl (70-99)
[2024-07-19] MEDS: ASPIR LOW (ENTERIC COATED) 81 MG PO (08:01)
[2024-07-19] MEDS: NORVASC 10 MG PO (08:01)
[2024-07-19] MEDS: NOVOLOG FLEXPEN-LOW RESISTANCE SC (08:01)
[2024-07-19] MEDS: LIPITOR 40 MG PO (08:02)
[2024-07-19] MEDS: SINGULAIR 10 MG PO (08:02)
[2024-07-19] MEDS: TYLENOL 650 MG PO (08:13)
[2024-07-19 08:28] LABS: Glycohemoglobin (HgbA1c) 7.1 % (4.0-5.6)
--- NOTE | 2024-07-19 08:50 | W.PN.GI.CBS2 ---
Addendum entered and electronically signed by Alberto Gaming MD 07/19/24 10:46:
I saw and examined the patient.
The PA's note was reviewed and I agree with the note.
Comment:
Her pain is better overnight. She was tolerating solid breakfast when I saw her. Denies abdominal pain. Okay to discharge home.
Original Note:
Today's Communication / Plan
-
As per plan
Assessment / Plan
-
Pt is a 78yo with hx multiple medical issues including COPD, HTN, NIDDM, CKD, with prior TAVR, PAD with prior stenting, prior hernia repair and prior colitis. She now presents to ER with RLQ pain and diarrhea. On admission noted with WBC 18,200,
hbg 11, creat 2, CRP 28.8 bili 1.4 with otherwise normal LFT's. CT on admission with Stable fat containing umbilical hernia with new associated fluid. This can be seen with incarceration or strangulation. Clinical correlation recommended .2
additional smaller fat-containing supraumbilical ventral hernias. No evidence of incarceration or strangulation. Also note multiple stable findings of Gallstones, HSM, prior benign granulomatous disease, Mild diffuse bladder wall thickening, Severe
atherosclerotic vascular disease and limitation without IV or oral contrast. In review of records pt with hx colitis in past. In review of record from 2017 Pt was admited with GI bleeding. CT with colitis of cecum. She completed colonoscopy with
normal ileum but bx with minimal active ileitis and distal transverse to distal sigmoid with rectal sparing with large superficial ulcers. with acitve colitis , pseudomembranous vs early ischemic colitis vs infectious.
Patient had diarrhea today. Pain feels somewhat better. Had repeat CT with IV contrast which showed wall thickening and adjacent fat stranding involving sigmoid colon consistent with colitis. Stool test have been negative. Suspect ischemic
colitis. Advance diet to see if she tolerates. If she tolerates solid diet then will consider d/c home with outpatient follow-up.
- Okay per GI for DC home.
-Discussed with patient low residue/low lactose diet
-Probiotics
-Follow-up as outpatient
Subjective
Subjective
Date of Service: July 19, 2024
Patient with improvement of symptoms. No abdominal pain. Still with loose stools however improving. Tolerating full liquid diet and will be advancing.
Objective
Data Reviewed
Laboratory Data:
Laboratory Results
07/19/24 06:21
07/19/24 06:21
Laboratory Results
PT 13.6 Sec (11.4-14.6) 07/15/24 16:17
INR 1.01 07/15/24 16:17
APTT 28.5 Sec (23.4-35.0) 07/15/24 16:17
Total Bilirubin 1.4 mg/dl (0.2-1.3) H 07/15/24 16:17
AST 20 U/L (14-36) 07/15/24 16:17
ALT 15 U/L (0-35) 07/15/24 16:17
Alkaline Phosphatase 90 U/L (38-126) 07/15/24 16:17
Vital Signs and I&O:
Vital Signs
Temp Pulse Resp BP Pulse Ox
97.8 F 73 16 125/49 96
07/19/24 07:29 07/19/24 08:01 07/19/24 07:29 07/19/24 08:01 07/19/24 07:29
I&O
07/18/24 07/19/24 07/20/24
06:59 06:59 06:59
Intake Total 690 / 690 770 / 770
Output Total 50 / 50 400 / 400
Balance 640 / 640 370 / 370
Physical Exam
Physical Exam
HEENT: Anicteric
Cardiology: Normal Sinus Rhythm
Pulmonary: Clear
GI: Soft, Non Distended, Non Tender and Normal Bowel Sounds
Neuro: Non Focal
--- NOTE | 2024-07-19 09:13 | W.PN.HOSP.TC ---
Today's Communication/Plan
-
dc if tolerates diet
Assessment / Plan
Assessment / Plan
Physical Exam
-
General: Well Developed and No Apparent Distress
HEENT: Normocephalic, Atraumatic and Moist Mucous Membranes
Respiratory: Clear to Auscultation
Cardiac: Regular Rhythm and S1/S2; Negative Murmur, Rub or Gallop
GI: Soft, Normal Bowel Sounds, Not tender, normal contour per patient.
Rectal: Deferred by Provider
Musculoskeletal: No Clubbing, No Cyanosis and No Edema
Skin: Negative Rash
Neuro: Awake, Alert, Oriented, No Motor Deficits and Nonfocal/Grossly Intact
Psych: Calm
Impression:
Presentation with acute onset of diffuse abdominal pain, diarrhea with hematochezia. Acute sigmoid colitis
Colitis with differential infectious versus ischemic.
Anemia w/iron deficieny component
Conditions prior to admission:
Umbical hernia-states known about it for 1 month
Aortic stenosis status post TAVR 05/26.
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
CAD with 100% occlusion of the ostial RCA.
PAD 100% occluded right common iliac artery.
Type 2 diabetes.
CKD stage IV
Dyslipidemia
Essential hypertension
Pituitary macroadenoma
Obesity with BMI of 38
Chronic thrombocytopenia
Plan:
Colitis with differential infectious vs. less likely ischemia
Patient reports consuming pulled pork at the prior day before.
No recent antibiotic administration.
CT scan without contrast with no acute abnormalities.
Normal lactic acid level.
Noted with leukocytosis 18k on admission -resolved. 8.7k today.
Stool cultures prelim neg so far
C. difficile negative.
s/p empiric antibiotics: Ceftriaxone, metronidazole
advanced diet and did well, no pain or nausea
Abd distention-check flat plate. If persistent may need repeat CT abd/pelvis w/contrast.
Gastroenterology evaluation, ok to discharge
Cardiovascular
ASCVD with prior history of CAD, PAD, postoperative CVA
Status post TAVR
Volume status compensated on admission.
Echo 02/25 with EF of 62% status post TAVR
Continue preadmission regimen: Aspirin (with caution for recurrent hematochezia) atorvastatin, amlodipine
No chest pain
No sob
Type 2 diabetes.
Resumed Januvia.
Basal bolus protocol with serial Accu-Cheks
IV iron while here
Hgb 9.5.
Total discharge time spent to see the patient, examine the patient, review data and lab results, discuss discharge plan with patient, nursing staff around 65 minutes
Anticipated Discharge: Today
Subjective/Interval History
-
Date of Service: July 19, 2024
She reports feeling better
She wants to go home
Objective Data
-
Labs:
Laboratory Results
07/19/24
06:21
WBC 5.8
Hgb 10.0 L
Hct 28.9 L
Plt Count 140
Sodium 142
Potassium 3.8
Chloride 112 H
Carbon Dioxide 22
BUN 27 H
Creatinine 1.8 H
Glucose 124 H
Calcium 9.1
Vital Signs:
Vital Signs
Temp Pulse Resp BP Pulse Ox
97.8 F 73 16 125/49 96
07/19/24 07:29 07/19/24 08:01 07/19/24 07:29 07/19/24 08:01 07/19/24 07:29
I&O
07/18/24 07/19/24 07/20/24
06:59 06:59 06:59
Intake Total 690 / 690 770 / 770
Output Total 50 / 50 400 / 400
Balance 640 / 640 370 / 370
[2024-07-19 11:56] LABS: Glucose - Point of Care 288 mg/dl (70-99)
[2024-07-19] MEDS: NOVOLOG FLEXPEN-LOW RESISTANCE 3 UNITS SC (12:50)
--- NOTE | 2024-07-19 14:01 | W.DCSUMMARY ---
Discharge Summary
Discharge Data
Date of Admission: 07/15/24
Date of Discharge: 07/19/24
-
Pending Results: No
Hospital Course
78 years old female presented with abdominal pain and diarrhea for 1 week duration. She did not have fever. She had leukocytosis. Scan of the abdomen and pelvis showed umbilical hernia with no fluid, fat-containing ventral hernia. Patient had
history of colitis. Patient was given empiric antibiotic. Stool testing did not reveal microbes. Her colitis felt to be infectious more than ischemic. 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 She had normal lactic acid. Patient started to
improve. Leukocytosis resolved. Repeat CAT scan showed focal colitis in the sigmoid area. Patient did not have pain and did not require pain medication. GI doctor recommended follow-up colonoscopy in outpatient setting. Patient tolerated diet.
She remained hemodynamically stable and was discharged home in a stable condition.
Discharge Plan
-
Patient Disposition: Home (Routine Discharge)
Discharge Diagnosis/Procedures: Acute onset of diffuse abdominal pain, diarrhea with hematochezia.
Colitis likely 2/2 infectious
Anemia w/iron deficieny component
Condition: Good
Diet: Low Residue
Activity: As tolerated
Driving Restrictions: As prior to admission
Referrals:
Lucio Zuniga PA [Family Provider] - in less than 1 week
Collin Taylor MD [Active] - (call to arrange 3-4 week hospital follow up then will need to consider colonoscopy in 6-8 weeks )
Dewey Burgos MD [Active] - (consider OP follow up for noted hernia on Ct on admission)
Prescriptions:
Continued
Januvia 100 MG tablet
100 mg PO DAILY
montelukast 10 mg Tablet
10 mg PO DAILY
atorvastatin 20 MG tablet
40 mg PO DAILY
acetaminophen 500 mg Tablet
1,000 mg PO BID
aspirin 81 mg Tablet,Delayed Release (Dr/Ec)
81 mg PO DAILY
amlodipine 5 MG tablet
10 mg PO DAILY
citalopram [Celexa] 10 mg Tablet
10 mg PO HS
furosemide [Lasix] 80 mg Tablet
80 mg PO DAILY
Discharge Orders:
Discharge Patient (As Directed); Ordered 07/19/24
Ordered By: Claudio Diane
Discharge Date and Time
Print Language: SLOVAK
--- NOTE | 2024-07-19 14:36 | CM ---
CM spoke with pt bedside on . Patient denies need for discharge services this time; feels able to manage at home.
IMM reviewed and signed, placed on chart.
Plan: Discharge to home with no identified needs.
[2024-07-19 15:13] VITALS: BP 130/51
== END 2024-07-19 16:50 | disposition home or self-care (01) | DRG 392 ==
LOC: 3 WEST ACU 23:43
PROVIDERS: Hospitalist; Nurse Practitioner Adult Health; Registered Nurse; ADMITTING PHYSICIAN Internal Medicine; ATTENDING PHYSICIAN Internal Medicine; CONSULT PHYSICIAN Specialist; EMERGENCY PHYSICIAN Student in an Organized Health Care Education/Training Program; FAMILY PHYSICIAN Physician Assistant
DX: A09 Infectious gastroenteritis and colitis, unspecified (principal); K62.5 Hemorrhage of anus and rectum; N18.4 Chronic kidney disease, stage 4 (severe); J44.9 Chronic obstructive pulmonary disease, unspecified; E78.00 Pure hypercholesterolemia, unspecified; I12.9 Hypertensive chronic kidney disease with stage 1 through stage 4 chronic kidney disease, or unspecified chronic kidney disease; E66.9 Obesity, unspecified; D35.2 Benign neoplasm of pituitary gland; I73.9 Peripheral vascular disease, unspecified; I25.10 Atherosclerotic heart disease of native coronary artery without angina pectoris; K43.9 Ventral hernia without obstruction or gangrene; D50.9 Iron deficiency anemia, unspecified; D69.6 Thrombocytopenia, unspecified; F41.9 Anxiety disorder, unspecified; K80.20 Calculus of gallbladder without cholecystitis without obstruction; K42.9 Umbilical hernia without obstruction or gangrene; E11.22 Type 2 diabetes mellitus with diabetic chronic kidney disease; Z95.2 Presence of prosthetic heart valve; Z87.891 Personal history of nicotine dependence; Z95.828 Presence of other vascular implants and grafts; Z86.73 Personal history of transient ischemic attack (TIA), and cerebral infarction without residual deficits; Z79.82 Long term (current) use of aspirin; Z87.19 Personal history of other diseases of the digestive system; Z68.38 Body mass index [BMI] 38.0-38.9, adult; Z90.710 Acquired absence of both cervix and uterus; Z90.49 Acquired absence of other specified parts of digestive tract
CPT/HCPCS: 51701; 74019; 74176; 80048; 80053; 81003; 81015; 82962; 83036; 83540; 83550; 85014; 85018; 85025; 85027; 85610; 85652; 85730; 86140; 86850; 86900; 86901; 87045; 87046; 87324; 87328; 87329; 87427; 87449; 89055; 96374; 99285; J2916

== ENCOUNTER 2025-01-03 12:59 | Emergency (ER) | payer MEDICARE, OTHER, SELFPAY ==
[2025-01-03 13:09] VITALS: BP 150/66
[2025-01-03 14:16] VITALS: BP 139/52
--- NOTE | 2025-01-03 14:26 | ED.MUSCINJ ---
HPI-Injury
General
Chief Complaint: Musculo-Skeletal Complaint
Time Seen by Provider: 01/03/25 14:17
Nursing documentation reviewed up to this point in time: agreed with
History of Present Illness-Injury
Initial Injury comments:
79-year-old female presents to the ER for evaluation of pain in her right foot which has been present since she tripped and fell 6 days ago. Patient has been able to ambulate but reports persistent pain. She is very active, still working. She has
been using Tylenol as needed for discomfort. She denies any head strike or other reported injury. She has been eating and drinking normally. No change in her vision. No other concerns today.
Past History
Past History
ED Past Medical History: HTN, Hypercholesterolemia, NIDDM, Psychiatric (Anxiety), Other (Allergic reactions/urticaria) and Other (CKD stage III)
ED Past Surgical History: , Orthopedic (Knee arthroscopy) and Other (Abdominal aortic stent/graft)
Social History
Tobacco: Former smoker (Quit in 1999)
Alcohol: None
Personal:
Living: with family
Employment: Retired
Family History
Family History: Hypertension
Review of Systems
Review of Systems
Allergies reviewed?: Yes
Phy Exam
Physical Exam
Physical Exam:
Patient is awake, alert, appears in no acute distress, wearing sunglasses during encounter, mucous membranes moist, moving extremities easily without apparent discomfort, right foot exam reveals healing ecchymosis present at the dorsal base of the
second toe with mild swelling in comparison to normal left foot examination, 2+ DP pulses present symmetric bilateral feet with brisk cap refill to the toes, mild diffuse pain on palpation of the right second toe only, GCS is 15
Injury Course
Orders/Labs/Results
Orders:
Orders
01/03/25 13:00
Toes 2 Views, Right [CR Toe(s) Min 2 Vw Right] Urgent
Comment:
Reason For Exam: injury
Indicate Which Toe:: Second
01/03/25 14:23
Cast Shoe Right-Treatment ONCE
MDM/Problems Addressed
Differential Diagnosis Includes:
Differential diagnosis to consider but not limited to sprain, strain, fracture along with other etiologies considered
Chronic conditions affecting care:
Diabetes, age greater than 65, hypertension
*Radiology
Radiology exam reviewed: preliminary read by ED provider (I independently viewed and interpreted x-ray of the right foot showing a fracture of the proximal phalanx of the second digit right foot) and radiology read reviewed (In agreement with my
interpretation)
*Pulse Oximetry
SaO2: 96
Oxygen Mode of Delivery: Room air
Patient hypoxic: no
*Critical Care Note
Total Time (30-74mins, 75-104mins- exclusive of procedures): Not Applicable
Update Note
Update Note:
I discussed with patient x-ray finding consistent with proximal phalanx fracture of the right second toe. I discussed with her use of carly tape and Ortho shoe along with need for follow-up with podiatry for reevaluation and further care. I also
discussed with her benefit of follow-up with podiatry given her prior medical history of diabetes. Patient expressed understanding of discharge instructions anticipated normal healing course and has no questions at the current time.
ED Attending Note
-
Portions of this chart may have been created with voice recognition software.� Occasional wrong word or��sound alike� substitutions may have occurred due to the inherent limitations of voice recognition software.
Discharge Plan
Departure
Patient Disposition: Home (Routine Discharge)
Date of Disposition: 01/03/25
Time of Disposition: 14:24
Patient with high blood pressure during this ER visit?: Yes
Discharge Problem:
Closed fracture of second toe of right foot
Instructions: Toe Fracture ED
Prescriptions:
No Action
Januvia 100 MG tablet
100 mg PO DAILY
montelukast 10 mg Tablet
10 mg PO DAILY
atorvastatin 20 MG tablet
40 mg PO DAILY
acetaminophen 500 mg Tablet
1,000 mg PO BID
aspirin 81 mg Tablet,Delayed Release (Dr/Ec)
81 mg PO DAILY
amlodipine 5 MG tablet
10 mg PO DAILY
citalopram [Celexa] 10 mg Tablet
10 mg PO HS
furosemide [Lasix] 80 mg Tablet
80 mg PO DAILY
Referrals:
Papo Jacob DPM [[facility] Podiatry] - Next open appointment
Discharge Problem: Closed fracture of second toe of right foot
Activity Restrictions/Additional Instructions:
Continue using Tylenol as needed for discomfort. Please use orthopedic shoe as placed in the emergency department for support while walking until you are seen in follow-up by podiatry. Please continue to carly tape toes together for comfort and
support while toe is healing. Please contact podiatry office on Sunday to schedule appointment for reevaluation and further care not only of your toe fracture but for routine diabetic footcare. Return to the ER for any concerns
Interventions
Interventions:
*Risk Screen - Suicide Last Done: 01/03/25 13:09
*General Assessment Last Done: 01/03/25 13:09
*Neglect/Abuse Screening Last Done: 01/03/25 13:09
*ED- Fall Risk Assessment Last Done: 01/03/25 14:08
*ED COVID-19 Vaccine History Last Done: 01/03/25 14:08
*ED Influenza Vaccine History Last Done: 01/03/25 14:08
ED-Musculoskeletal Assessment Last Done: 01/03/25 14:08
Discharge Date and Time
Print Language: SCOTTISH
== END 2025-01-03 15:25 | disposition home or self-care (01) ==
LOC: EMR 12:59
PROVIDERS: EMERGENCY PHYSICIAN Emergency Medicine; FAMILY PHYSICIAN Nurse Practitioner Family
DX: S92.511A Displaced fracture of proximal phalanx of right lesser toe(s), initial encounter for closed fracture (principal); W01.0XXA Fall on same level from slipping, tripping and stumbling without subsequent striking against object, initial encounter; Y93.01 Activity, walking, marching and hiking; E11.22 Type 2 diabetes mellitus with diabetic chronic kidney disease; I12.9 Hypertensive chronic kidney disease with stage 1 through stage 4 chronic kidney disease, or unspecified chronic kidney disease; N18.30 Chronic kidney disease, stage 3 unspecified; E78.00 Pure hypercholesterolemia, unspecified; Z87.891 Personal history of nicotine dependence
CPT/HCPCS: 99283; 73660

== ENCOUNTER → 2025-02-27 12:29 | Outpatient (REF) | payer MEDICARE, OTHER, SELFPAY | LOC: RAD 12:29 | PROVIDERS: ATTENDING PHYSICIAN Internal Medicine Critical Care Medicine; FAMILY PHYSICIAN Nurse Practitioner Family | DX: R06.2 Wheezing (principal); R05.3 Chronic cough | CPT/HCPCS: 71046 ==